=== PATIENT | male | born 1955 | race Caucasian/White ===

== ENCOUNTER → 2016-10-11 | Outpatient (CLI) | payer BC ==
[~2016-10-11] MED LIST: ALBINS/ INH; ALBUAER2 INH; AMLO-110 PO; AMOX875T PO; ASPEC81 PO; ATOR10TA82 PO; ATV/1 PO; AZIT500T26 PO; FLUT0.15 NAE; FLUT1INH3 INH; FORM1NEB; FORM1NEB INH; GFNSR600 PO; HYDR0.1C8 TOP; HYDR2.5L TOP; IPRA0.03; KETO2SHA TOP; OXGN; PRED-301 PO; PREDNISONE PO; PRLSR20 PO; TIOT1AER INH; ZOLP10TA6 PO; ZOLP5TAB PO; levofloxacin PO
--- NOTE | 2016-10-17 07:46 | PULMONARY FUNCTION TEST ---
Interpretation based off ATS criteria. SPIROMETRY: Very severe obstructive ventilatory disease with an FEV1 of 31%. LUNG VOLUMES: Signs of hyperinflation with an RV of 244%. DIFFUSION: Moderately decreased diffusion capacity with a DLCO of 49%, DLCO to VA ratio 65%. INTERPRETATION: Very severe obstructive ventilatory disease.
== END | disposition home or self-care (01) ==
LOC: C.RC 12:19
PROVIDERS: ATTEND Physician Assistant
DX: J44.1 Chronic obstructive pulmonary disease with (acute) exacerbation (principal)

== ENCOUNTER → 2017-02-01 | Outpatient (CLI) | payer BC ==
[~2017-02-01] MED LIST changes: -AMOX875T PO; -ATOR10TA82 PO; +ATOR10TA88 PO; -FORM1NEB INH; -HYDR2.5L TOP; -KETO2SHA TOP; +OPTIRAY 320 IV PRN; -OXGN; -PRED-301 PO; -ZOLP5TAB PO
--- NOTE | 2017-02-01 11:25 | DIAGNOSTIC IMAGING REPORT ---
(CHEST) THORAX WITH CT DOSE: 368.24 mGycm HISTORY: Cough. COPD. J44.9 Chronic obstructive pulmonary [id number] Cough appt ached TECHNIQUE: Multiaxial CT images of the chest were performed following the intravenous administration of contrast. A dose lowering technique was utilized adhering to the principles of ALARA. COMPARISON: 05/01/2013 FINDINGS: Severe bullous emphysema. Interval development of a posterior right lower lobe parenchymal infiltrate with a focus of peripheral consolidative change is seen on transaxial image 45 measuring 3.2 x 2.0 cm. No additional regions of infiltrative or consolidative change are present. There is no evidence for cardiac enlargement. There is no pathologic adenopathy. Thoracic aorta shows mild atelectatic change. Is negative for aneurysm or dissection. Thyroid appears to be inhomogeneous and slightly multinodular. It does not appear enlarged. All major components of the pulmonary vasculature appear to enhance appropriately. Mild stable hyperplastic change of left adrenal. The upper abdomen is otherwise unremarkable. Instill note is made of a enhancing nodule medial right hepatic lobe felt to be unchanged and most consistent with a small hemangioma. IMPRESSION: 1. Bullous emphysema in general stable compared to the prior study. 2. Interval development of a right lower lobe parenchymal infiltrate with a focal region of peripheral consolidative change. 3. Although most likely inflammatory, if this does not resolve in an appropriate time period, bronchoscopy would be suggested. 4. note is made of a focus of hyperemia medial right hepatic lobe suggesting a small hemangioma. This is unchanged from the prior study. The above report was generated using voice recognition software. It may contain grammatical, syntax or spelling errors. Electronically signed by: Kojo Rodriguez M.D. 02/01/2017 11:24 AM Dictated Date/Time: 02/01/2017 11:17 AM
== END | disposition home or self-care (01) ==
LOC: C.CTS 10:42
PROVIDERS: ATTEND Internal Medicine Pulmonary Disease
DX: J43.8 Other emphysema (principal); R91.8 Other nonspecific abnormal finding of lung field

== ENCOUNTER → 2017-04-11 | Outpatient (CLI) | payer BC ==
[~2017-04-11] MED LIST changes: -ATOR10TA88 PO; -FLUT0.15 NAE; -FORM1NEB; +FORM1NEB INH; -GFNSR600 PO; -HYDR0.1C8 TOP; +HYDR2.5L TOP; +KETO2SHA TOP; -OPTIRAY 320 IV PRN; +OXGN; +PRED-301 PO; -ZOLP10TA6 PO; +ZOLP5TAB PO; -levofloxacin PO
--- NOTE | 2017-04-11 10:14 | DIAGNOSTIC IMAGING REPORT ---
(CHEST) THORAX WITHOUT CT DOSE: 239.22 mGy.cm HISTORY: COPD, COUGH TECHNIQUE: Multiaxial CT images of the chest were performed without contrast. A dose lowering technique was utilized adhering to the principles of ALARA. COMPARISON: Chest CT 02/01/2017. Chest 03/21/2017. FINDINGS: There is again noted severe bullous emphysema. Focal right lower lobe consolidation has a most completely resolved in the interval. A small linear density remains. A few linear densities within the right upper lobe favor subsegmental atelectasis or scarring. This is not significantly changed. 5 mm nodular density within the right middle lobe on image 188 is new from the prior study and may represent a small focus of inflammatory/infectious change. The central airways are patent. No pneumothorax. No pleural effusions. The visualized spleen is unremarkable. Stable bilateral adrenal gland nodules. The largest on the right measures 2.1 cm. These are consistent with benign adenomas. Mild calcified plaque within the normal caliber thoracic aorta. The heart is normal in size. Trace pericardial fluid, unchanged. No mediastinal or hilar lymphadenopathy. Stable 2.4 cm hypodense lesion within the right hepatic lobe. IMPRESSION: 1. Near complete resolution of the focal right lower lobe airspace opacity. Therefore, this likely represents a resolving pneumonia. 2. Severe bullous emphysema is again noted. Electronically signed by: Bonilla Bradford M.D. 04/11/2017 10:13 AM Dictated Date/Time: 04/11/2017 10:07 AM
== END | disposition home or self-care (01) ==
LOC: C.CTS 09:45
PROVIDERS: ATTEND Internal Medicine Pulmonary Disease
DX: R05 Cough (principal); J44.9 Chronic obstructive pulmonary disease, unspecified

== ENCOUNTER 2017-05-01 07:01 | Day surgery (SDC) | payer BC ==
[2017-04-28 14:57] VITALS: Ht 167.6 cm; Wt 66.4 kg
[~2017-05-01] VITALS: Ht 167.6 cm; Wt 66.4 kg
[~2017-05-01 07:01] MED LIST changes: -ALBUAER2 INH; -ASPEC81 PO; +ASPI81TA28 PO; +CEFAZOLIN 2000MG IV PUSH 10 ML IV SCH; +GUAI1TAB69 PO; -IPRA0.03; -KETO2SHA TOP; +LACTATED RINGER'S 1000ML 1,000 ML IV SCH; +PRED10TA PO; -PREDNISONE PO; +VNTHFA/IN INH
[2017-05-01 07:41] VITALS: BP 144/81; PULSE 95; TEMP 36.7; O2SAT 95
[2017-05-01] MEDS ORDERED: MIDAZOLAM HCL 1 MG/ML 2ML VIAL ONE ×2 (07:58→07:59)
[2017-05-01] MEDS ORDERED: FENTANYL CITRATE INJ 50 MCG/1 ML 2 ML VIAL ONE (07:59)
--- NOTE | 2017-05-01 08:23 | History & Physical Bridge Note ---
H&P Re-Evaluation Bridge Note: I have examined the patient, reviewed the History & Physical and in the interval since the performance of the History & Physical I have noted the following changes of clinical significance: No changes noted
[2017-05-01] MEDS ORDERED: BUPIVACAINE 0.5 % 5 MG/1 ML MPF 30ML VIAL ONE (08:43)
[2017-05-01] MEDS ORDERED: LIDOCAINE HCL 1% 20 ML VIAL ONE (08:44)
[2017-05-01] MEDS ORDERED: BACITRACIN OINT 15 GM TUBE ONE (08:44)
[2017-05-01] MEDS ORDERED: PROPOFOL IV EMULSION 10 MG/ML 20 ML VIAL IV ONE (09:40)
[2017-05-01] MEDS ORDERED: SODIUM CHLORIDE 0.9% 1000ML 1,000 ML IV SCH (09:57)
--- NOTE | 2017-05-01 09:57 | [facility] Post Operative Brief Note ---
Immediate Operative Summary Operative Date May 01, 2017. Pre-Operative Diagnosis Right inguinal hernia Post-Operative Diagnosis same as preoperative diagnosis Procedure(s) Performed Open Repair Right Inguinal Hernia with Mesh Surgeon Dr. Robb Business Banker Surgeon(s) neurosurgical nurse Estimated Blood Loss 5ml Findings right direct inguinal hernia Fluids (cc crystalloids) 800ml Specimens none per surgeon Drains none Anesthesia sedation + local Complication(s) None Disposition Recovery Room / PACU
[2017-05-01] MEDS ORDERED: ONDANSETRON INJ 2 MG/ML 2 ML VIAL IV PRN (10:00)
[2017-05-01] MEDS ORDERED: OXYCODONE/ACETAMINOPHEN 5-325 TAB PO PRN (10:00)
[2017-05-01] MEDS ORDERED: MoRPHine SULFATE 4 MG/ML 1 ML CARP\\VIAL IV PRN (10:00)
[2017-05-01] MEDS ORDERED: OXYC-57 PO (10:01)
--- NOTE | 2017-05-01 10:04 | Discharge Instructions ---
Discharge Instructions Date of Service May 01, 2017. Visit Reason for Visit: Right Inguinal Hernia Discharge Discharge Diagnosis / Problem: S/P open repair right inguinal hernia with mesh Discharge Goals Goal(s): Decrease discomfort, Improve function Activity Recommendations Activity Limitations: per Instructions/Follow-up section Lifting Limitations: no more than 25 pounds Exercise/Sports Limitations: rest today May Resume Sexual Activity: when tolerated Shower/Bathe: may shower/bathe in 3 days Driving or Machine Use: resume 3 days after discharge Anesthesia . Post Anesthesia Instructions: If you have had General Anesthesia or IV Sedation: * Do not drive today. * Resume driving when surgeon permits. * Do not make important decisions or sign legal documents today. * Call surgeon for: 1. Temperature elevations greater than 101 degrees F. 2. Uncontrollable pain. 3. Excessive bleeding. 4. Persistent nausea and vomiting. 5. Medication intolerance (nausea, vomiting or rash). * For nausea and vomiting use only clear liquids such as: tea, soda, bouillon until nausea subsides, then gradually increase diet as tolerated. * If you have any concerns or questions, call your surgeon's office. If physician is unavailable and it is an emergency, call 911 or go to the nearest emergency room. . Instructions / Follow-Up Instructions / Follow-Up keep the dressing on for 4 days, he can take a shower on 05/05/2017, no driving while taking pain medicine, F/P DR. Robb 2 weeks, Diet Recommendations Recommended Home Diet: resume previous diet Procedures Procedures Performed: Open Repair Right Inguinal Hernia with Mesh Pending Studies Studies pending at discharge: no Medical Emergencies . Who to Call and When: Medical Emergencies: If at any time you feel your situation is an emergency, please call 911 immediately. . Non-Emergent Contact Non-Emergency issues call your: Surgeon Call Non-Emergent contact if: you have a fever, temperature is above 100.5, your pain is not controlled, your pain is worsening, wound has increased drainage, wound has increased redness . . "Provider Documentation" section prepared by Rae Robb. . [place] Drug Monitoring Program Search Results: no issues identified
--- NOTE | 2017-05-01 10:23 | Anesthesiology Progress Note ---
Anesthesia Post Op Note Date & Time May 01, 2017 at 10:23 Vital Signs Pain Intensity: 0 Vital Signs Past 12 Hours Date Time Temp Pulse Resp B/P (MAP) Pulse Ox O2 Delivery O2 Flow Rate FiO2 05/01/17 10:05 36.8 92 20 115/73 93 Room Air 05/01/17 09:55 91 20 113/77 95 Room Air 05/01/17 09:47 37.0 95 14 114/78 100 Room Air 05/01/17 07:41 36.7 95 18 144/81 (102) 95 Room Air Notes Mental Status: alert / awake / arousable, participated in evaluation Pt Amnestic to Procedure: Yes Nausea / Vomiting: adequately controlled Pain: adequately controlled Airway Patency, RR, SpO2: stable & adequate BP & HR: stable & adequate Hydration State: stable & adequate Anesthetic Complications: no major complications apparent
[2017-05-01 10:35] VITALS: BP 114/71; TEMP 36.6; O2SAT 93
[2017-05-01 11:10] VITALS: BP 116/77; TEMP 36.4; O2SAT 95
[2017-05-01] MEDS ORDERED: EpHEDrine SULFATE INJ 50 MG/ML AMP IV PRN (11:15)
[2017-05-01] MEDS ORDERED: ATROPINE SULFATE 0.1 MG/ML 5ML SYR IV PRN (11:15)
[2017-05-01 11:30] VITALS: BP 129/76; PULSE 94; TEMP 36.4; O2SAT 95
--- NOTE | 2017-05-01 12:07 | OPERATIVE REPORT ---
DATE OF OPERATION: 05/01/2017 PREOPERATIVE DIAGNOSIS: Right inguinal hernia. POSTOPERATIVE DIAGNOSIS: Same. PROCEDURE: Open repair, right inguinal hernia with mesh. SURGEON: Dr. Rae Robb. ANESTHESIA: Conscious sedation plus local. ESTIMATED BLOOD LOSS: About 5 mL. FINDINGS: Right direct inguinal hernia. COMPLICATIONS: None. IV FLUIDS: 800 mL. INDICATIONS FOR THE PROCEDURE: This is a 61-year-old gentleman who presented with symptomatic right inguinal hernia. The patient required to do right inguinal hernia with mesh. I did talk to the patient about the benefit and risk, alternate procedure. I indicated the risks may include but not limited such as bleeding, infection, seroma, hernia recurrence, chronic incision pain. The patient understands. He signed informed consent and he agreed to proceed with the procedure. I answered all questions. DETAILS OF PROCEDURE: We brought the patient to the OR, put the patient in the supine position. The patient received SCDs on bilateral legs to prevent DVT. Also, the patient received 2 grams Ancef IV for prophylactic antibiotic. The patient received conscious sedation by the anesthesiology. The patient's abdomen and pelvic area was prepped and draped in routine sterile fashion. After time out, I used an injection of local anesthesia by using 1% lidocaine mixed with 0.5% Marcaine around the right inguinal area and then I made about a 4 cm incision on the right inguinal area. I opened external and found the patient had a direct hernia. I immobilized the caudal structure and then chose a large plug to plug the direct hernia and then I used another 3 x 5 cm Prolene mesh to reinforce the posterior wall. Then I used 2-0 Prolene suture mesh to the conjoined tendon continuous running and then I used another 2-0 Prolene suture mesh to right inguinal ligament continuous running to suture meeting together tied. The mesh sat nicely, no tension. Hemostasis obtained. Then I closed the external oblique by using 2-0 Vicryl continuous running, closed subcutaneous layer by using 2-0 Vicryl continuous running, closed skin by using 4-0 Vicryl continuous running. We put the dressing on. The patient tolerated the procedure well. All instrument, needle and sponge count correct x2 at the end of case. The patient transferred to recovery room in stable condition. After the procedure, I did talk to the patient's family member about the OR finding and procedure we did. Also, I gave them the postop care instruction and they understand. I attest to the content of the Intraoperative Record and any orders documented therein. Any exceptions are noted below. JOSHUA
[2017-05-02] MEDS ORDERED: CEFAZOLIN SOD 2000MG/10 ML IV PUSH IV ONE (06:00)
== END 2017-05-01 11:40 | disposition home or self-care (01) ==
LOC: C.ACU 07:01
PROVIDERS: ATTEND Surgery
DX: K40.90 Unilateral inguinal hernia, without obstruction or gangrene, not specified as recurrent (principal); I10 Essential (primary) hypertension; J44.9 Chronic obstructive pulmonary disease, unspecified; E78.5 Hyperlipidemia, unspecified; Z88.1 Allergy status to other antibiotic agents; Z90.89 Acquired absence of other organs; Z98.890 Other specified postprocedural states; Z98.52 Vasectomy status; Z79.899 Other long term (current) drug therapy; Z87.891 Personal history of nicotine dependence; Z86.14 Personal history of Methicillin resistant Staphylococcus aureus infection

== ENCOUNTER → 2017-09-01 | Outpatient (CLI) | payer BC ==
[~2017-09-01] MED LIST changes: -CEFAZOLIN 2000MG IV PUSH 10 ML IV SCH; -LACTATED RINGER'S 1000ML 1,000 ML IV SCH
--- NOTE | 2017-09-01 13:26 | DIAGNOSTIC IMAGING REPORT ---
CHEST 2 VIEWS ROUTINE CLINICAL HISTORY: R05 [id number] COMPARISON STUDY: 03/21/2017 FINDINGS: There is severe pulmonary emphysema. There is no focal pulmonary consolidation. There is no failure. There are no pleural effusions.[ IMPRESSION: Severe emphysema. No acute findings. Electronically signed by: Romie Betancourt M.D. 09/01/2017 1:24 PM Dictated Date/Time: 09/01/2017 1:24 PM
[2017-09-01 14:36] LABS: BASO % 0.2 %; BASO ABS # 0.02 K/uL (0-0.2); EOS % 0.7 %; EOS ABS # 0.06 K/uL (0-0.5); HEMATOCRIT 46.6 % (42-52); HEMOGLOBIN 15.8 g/dL (14.0-18.0); IG# 0.08 K/uL (0.00-0.02); LYMPH % 16.1 %; LYMPH ABS # 1.34 K/uL (1.2-3.4); MEAN CELL VOLUME 87.8 fL (80-100); MEAN CORPUSCULAR HEMOGLOBIN 29.8 pg (25-34); MEAN CORPUSCULAR HGB CONC 33.9 g/dl (32-36); MEAN PLATELET VOLUME 9.6 fL (7.4-10.4); MONO % 8.5 %; MONO ABS # 0.71 K/uL (0.11-0.59); NEUT % 73.5 %; NEUT ABS # 6.13 K/uL (1.4-6.5); PLATELET COUNT 255 K/uL (130-400); RED CELL DISTRIBUTION WIDTH CV 13.6 % (11.5-14.5); RED CELL DISTRIBUTION WIDTH SD 43.8 fL (36.4-46.3); WHITE BLOOD COUNT 8.34 K/uL (4.8-10.8)
[2017-09-01 14:49] LABS: INR 0.9 (0.9-1.1); PTT PATIENT 23.3 SECONDS (21.0-31.0)
[2017-09-01 14:52] LABS: BLOOD UREA NITROGEN 26 mg/dl (7-18); CALCIUM 8.6 mg/dl (8.5-10.1); CARBON DIOXIDE 29 mmol/L (21-32); CREATININE 1.08 mg/dl (0.60-1.40); GLUCOSE 112 mg/dl (70-99); SODIUM 139 mmol/L (136-145)
[2017-09-02 06:55] LABS: HEMOGLOBIN A1C 5.7 % (4.5-5.6)
== END | disposition home or self-care (01) ==
LOC: C.RAD1850 12:54
PROVIDERS: ATTEND Physician Assistant
DX: R05 Cough (principal)

== ENCOUNTER 2017-09-14 08:27 | Day surgery (SDC) | payer BC ==
[~2017-09-14] VITALS: Ht 167.6 cm; Wt 65.0 kg
--- NOTE | 2017-09-14 06:37 | History and Physical ---
History & Physical Date of Service September 14, 2017. History & Physical 61-year-old male presenting for bronchoscopic evaluation of recurrent cough with productive sputum and underlying severe obstructive ventilatory disease with bilateral bullous changes. PMHx: Sever COPD/emphysema/bilateral bulli, 80-pack year smoking history, pneumonia (CRISSY & MRSA), 2LPM nocturnal and w/activity O2, and GERD. He is on chronic prednisone: 5mg daily and 2x weekly dosing azithromycin. PMHx includes allopathic stem cell therapy in [place] 05/2014) He has longstanding history of severe obstructive lung disease and pulmonary emphysema with h/o and frequent pulmonary infections including respiratory cultures + MRSA and CRISSY. Dyspnea provoked with with exposure to extremes of temperature and activity. Additional exposures to sick exposures by his young grandchildren. 08/2014 qualified for supplemental O2 - 2LPM with ambulation and QHS. CT chest 02/01/2017: Consistent with bullous emphysema-stable from previous studies. Interval development of right lower lobe parenchymal infiltrate with focal region of peripheral consolidative change. CT chest 04/11/2017: Severe bullous emphysema. The focal right lower lobe consolidation is near early complete really resolved. Small linear density remaining. New 5mm nodule in the RML most consistent with inflammation/ infectious change. Last visit he was seen with persistent symptoms of dyspnea, tremors and wheeze and cough productive of green sputum despite two courses of antibiotic prednisone taper and scheduled use of his nebulizers. He was treated with additional 125-IM Solu-Medrol in the office, restart steroid taper, Levofloxacin 750mg as well as completed lab and CXR. Bronchoscopy arranged for next week as well. Exam/interview today he reports in general he is feeling improved. He states his wheezing has resolved. His shortness of breath has improved although is not yet back to his baseline. He continues to describe symptoms of cough productive of green sputum. He does report today that he has green rhinorrhea and some posterior drainage as well. He denies any symptoms of sinus pressure, headaches, fevers or chills. He denies any symptoms of pleuritic pain or chest pain. He has been compliant with his medications. He is somewhat tearful on exam today as he realizes that he may need to consider disability this Summer. 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 PFT 07/16/14: FVC 3.67/73% (16% change), FEV1: 2.96/25% (40% change), FEF 25-75%: 3.10/8% (24% change), VC: 3.67/73%, T.73/155%, RV: 2.06/301%, DLCO: 48% PFT 10/11/16: FEV1: 31%, DLCO: 49%, DLCO/VA: 65% - very severe obstructive ventilatory disease. Active Problems 1. Severe COPD FEV1 39%, diffusion capacity 34% 2. Acid reflux 3. Cough 4. Hyperlipidemia 5. Hypoxia 6. Insomnia (G47.00) 7. MAC (mycobacterium avium-intracellulare complex) 8. Methicillin resistant Staphylococcus aureus infection 9. Oral thrush 10. Polyuria 11. Tachycardia Surgical History 1. History of Hernia Repair 2. History of Hip Surgery 3. History of Tonsillectomy Family History 1. Family history of Diabetes Mellitus 2. Family history of Heart Disease 3. Family history of Diabetes Mellitus 4. Family history of Heart Disease Social History Denied: History of Alcohol Use (History) Denied: History of Drug Use Former smoker (Z87.891) Denied: History of Home Environment Domestic Violence Denied: History of Housing Without Smoke Detectors Marital History - Currently Denied: History of Uses Safety Equipment - Seatbelts Current Meds 1. Albuterol Sulfate (2.5 MG/3ML) 0.083% Inhalation Nebulization Solution 2. Arnuity Ellipta 200 MCG/ACT Inhalation Aerosol Powder Breath Activated; INHALE 1 PUFF 3. LevoFLOXacin 750 MG Oral Tablet; Take 1 tablet daily; 4. Perforomist 20 MCG/2ML Inhalation Nebulization Solution; VIA NEBULIZER EVERY EVENING 6. Vortex Valved Holding Chamber Device; TO USE WITH INHALER; 8. PredniSONE 9. Ipratropium [place] 0.02 % Inhalation Solution; USE 1 UNIT DOSE IN NEBULIZER PRN 11. Zolpidem Tartrate 5 MG Oral Tablet; TAKE 1 TABLET BY MOUTH AT BEDTIME 12. Azithromycin 500 MG Oral Tablet; TAKE 1 TABLET 2 TIMES PER WEEK 13. Stiolto Respimat 2.5-2.5 MCG/ACT Inhalation Aerosol Solution; USE 2 INHALATIONS 14. AmLODIPine Besylate 5 MG Oral Tablet; TAKE 1 TABLET DAILY 15. Aspirin 81 MG TABS; TAKE 1 TABLET DAILY 16. Hydrocortisone 2.5 % External Cream; APPLY TO AFFECTED AREA TWICE DAILY 17. Ketoconazole 2 % External Cream; APPLY SPARINGLY TO AFFECTED AREA(S) TWICE 18. LORazepam 1 MG Oral Tablet; TAKE 1 TABLET AT BEDTIME NEEDED 19. Omeprazole 20 MG Oral Capsule Delayed Release; TAKE 1 CAPSULE TWICE DAILY 20. Oxygen; 2 LPM VIA NASAL CANNULA 21. Ventolin HFA 108 (90 Base) MCG/ACT Inhalation Aerosol Solution; INHALE 2 PUFFS Allergies 1. Clarithromycin TABS Immunizations Influenza --- Series1: 2010; Series2: Feb 2012; Series3: 13-Jan-2013; Series4: 11-Feb-2014; Series5: 13-Mar-2015; Series6: 26-Jan-2016 PCV --- Series1: 27-Mar-2015 PPSV --- Series1: Jan 2013; Series2: Unknown Td/DT --- Series1: Unknown Vital Signs Weight: 146 lb 8 oz BMI Calculated: 23.65 BSA Calculated: 1.75 Blood Pressure: 124 / 68, RUE, Sitting Respiration: 18 Heart Rate: 115 O2 Saturation: 94, Nasal Cannula FiO2: 2L/min, Nasal Cannula Constitutional: Well developed male, no acute distress Head: + facial symmetry. Corrective lenses. Eyes: Full EOMs, PERRLA, no conjunctiva injection Mouth: Mallampati I, No erythema or exudate. No post nasal gtt appreciated Throat: trachea midline, no masses Respiratory: Non-labored respirations. Reduced breath sounds throughout. No wheeze or rhonchi. Cardiovascular: Regular rate and rhythm, Diminished S1, S2, no murmur appreciated. +[2] radial pulses Extremities/MSK: moving and developed symmetrically - no peripheral edema or calf tenderness. Several areas of scattered ecchymosis. Neurologic: Alert and Oriented x 3. Appropriate affect.
[~2017-09-14 08:27] MED LIST changes: -ALBINS/ INH; -ASPI81TA28 PO; -GUAI1TAB69 PO; -HYDR2.5L TOP; -OXGN; -PRED-301 PO; -TIOT1AER INH; -VNTHFA/IN INH
[2017-09-14 09:15] VITALS: BP 139/84; PULSE 91; TEMP 36.8; O2SAT 96; Ht 167.6 cm; Wt 65.0 kg
--- NOTE | 2017-09-14 09:54 | Pre Sedation Assessment ---
Pre Sedation Assessment General Date of Sedation: September 14, 2017. Vital Signs Past 12 Hours Date Time Temp Pulse Resp B/P (MAP) Pulse Ox O2 Delivery O2 Flow Rate FiO2 09/14/17 09:15 36.8 91 20 139/84 (102) 96 Room Air Review Cardiovascular: regular rate, rhythm, no edema, no gallop, no JVD, no murmur, normal peripheral pulses Lungs: + decreased breath sounds, + rhonchi Pre-Sedation Airway Assessment Smoking Status: Former Smoker Hx of Sleep Apnea: No Hx of difficult intubation: No Short Thick Neck: No Thyro-mental Distance: > 3 Finger Breadths Oral Cavity: Dentures Mallampati Classification: Class III ASA Classification: Class II NPO Status Date of Last Intake of Fluids: September 13, 2017 Time of Last Intake of Fluids: 2099 Date of Last Intake of Solids: September 13, 2017 Time of Last Intake of Solids: 1999 Procedure Planning Contraindications for Sedation: None Current Medications Reviewed: Yes Notes The planned sedation has been discussed with the patient. Informed Consent was obtained. I have identified the patient, determined the appropriateness of sedation and have assessed the patient immediately prior to the procedure. All medicine(s) and interventions are by my order.
[2017-09-14] MEDS ORDERED: LIDOCAINE HCL 2% LOCAL 50ML VIAL INSTIL ONE (10:27)
[2017-09-14] MEDS ORDERED: MIDAZOLAM HCL 5 MG/ML 1 ML VIAL IV ONE (10:27)
[2017-09-14] MEDS ORDERED: FENTANYL CITRATE INJ 50 MCG/1 ML 2 ML VIAL IV ONE (10:27)
[2017-09-14] MEDS ORDERED: LIDOCAINE 4% INH SOLN 4 ML BTL TOP ONE (10:27)
[2017-09-14] MEDS ORDERED: LIDOCAINE VISCOUS 2% 100ML TOP ONE (10:27)
--- NOTE | 2017-09-14 10:31 | Bronchoscopy Procedure Note ---
Bronchoscopy Procedure Note Procedure: Bronchoscopy, conscious sedation, bronchial lavage Consent: Obtained through the patient placed into the chart Pre-procedural diagnosis: Chronic cough/bronchiectasis Post-procedural diagnosis: Chronic cough/bronchiectasis with a right vocal cord paralysis Start time: 1010 End time: 1025 Total time: 15 minutes Analgesia: 2% liquid lidocaine: Via nebulizer 4% gel lidocaine: Via right naris 2% liquid lidocaine: Via bronchoscopy Sedation: Versed IV: 6mg Fentanyl IV: 75 g Procedure: The Olympus video bronchoscope was used for this procedure and passed down through the right naris Left naris/posterior naris/posterior oropharynx: Diffuse nasal erythema with some mild bleeding at the entrance Glottis: Anatomically within normal limits Vocal cords: Poor movement of the right vocal cord. Abnormal/decreased but not paradoxical abduction and abduction of the right vocal cord Subglottis/trachea/Vee: Anatomically within normal limits Right bronchial tree: Right mainstem bronchus: Anatomically within normal limits Right upper lobe: Anatomically within normal limits Bronchus intermedius: Anatomically within normal limits Right middle lobe: Anatomically within normal limits Right lower lobe: Minimal rotation clockwise of the right lower lobe and some severe retroflexion of the superior subsegment of the right lower lobe Left bronchial tree: Left mainstem bronchus: Anatomically within normal limits Left upper lobe: Anatomically within normal limits Lingula: Anatomically within normal limits Left lower lobe: Anatomically within normal limits Bronchial alveolar lavage: Right upper lobe and right middle lobe EBL: None Complications: None Follow-up: ASU
--- NOTE | 2017-09-14 10:35 | Discharge Instructions ---
Discharge Instructions Date of Service September 14, 2017. Admission Reason for Admission: Cough, Shortness Of Breath Discharge Discharge Diagnosis / Problem: Chronic refractory cough, right vocal cord dysfunction Discharge Goals Goal(s): Diagnostic testing Activity Recommendations Activity Limitations: resume your previous activity Exercise/Sports Limitations: as tolerated Driving or Machine Use: resume 1 day after discharge . Instructions / Follow-Up Instructions / Follow-Up Follow-up with the [facility] pulmonary clinic Current Hospital Diet Patient's current hospital diet: Discharge Diet Recommended Diet: Regular Diet Procedures Procedures Performed: Bronchoscopy, conscious sedation, bronchial lavage of the right middle lobe and right upper lobe Pending Studies Studies pending at discharge: no Laboratory Results Hemoglobin A1c Test 09/01/17 13:08 Range/Units Estimated Average Glucose 117 mg/dl Hemoglobin A1c 5.7 H 4.5-5.6 % Medical Emergencies . Who to Call and When: Medical Emergencies: If at any time you feel your situation is an emergency, please call 911 immediately. . Non-Emergent Contact Non-Emergency issues call your: Geomorphologist Call Non-Emergent contact if: you have a fever, temperature is above 101 . . "Provider Documentation" section prepared by Grayson Wong. .
[2017-09-14 10:54] VITALS: BP 123/74; PULSE 92; TEMP 37; O2SAT 95
[2017-09-14] MEDS ORDERED: NURSING VERBAL MED ORDER ONE (11:00)
[2017-09-14 11:15] VITALS: BP 118/70; PULSE 86; TEMP 37.1; O2SAT 94
[2017-09-14 11:45] VITALS: BP 105/71; PULSE 81; TEMP 37; O2SAT 93
[2017-09-14] MEDS ORDERED: SODIUM CHLORIDE 0.9% 1000ML 1,000 ML IV SCH (11:45)
[2017-09-14 12:22] VITALS: BP 110/69; PULSE 84; TEMP 36.4; O2SAT 96
[2017-09-14 12:50] VITALS: BP 122/81; PULSE 87; TEMP 36.8; O2SAT 94
[2017-09-20] MEDS ORDERED: HYDR2.5L TOP (03:57)
[2017-09-20] MEDS ORDERED: ASPI81TA28 PO (14:56)
[2017-09-20] MEDS ORDERED: GUAI1TAB69 PO (14:57)
[2017-09-20] MEDS ORDERED: VNTHFA/IN INH (16:03)
== END 2017-09-14 13:05 | disposition home or self-care (01) ==
LOC: C.ACU 08:27
PROVIDERS: ATTEND Internal Medicine Critical Care Medicine
DX: R05 Cough (principal); J47.9 Bronchiectasis, uncomplicated; J38.01 Paralysis of vocal cords and larynx, unilateral; J44.9 Chronic obstructive pulmonary disease, unspecified; Z86.14 Personal history of Methicillin resistant Staphylococcus aureus infection; K21.9 Gastro-esophageal reflux disease without esophagitis; E78.5 Hyperlipidemia, unspecified; G47.00 Insomnia, unspecified; Z83.3 Family history of diabetes mellitus; Z82.49 Family history of ischemic heart disease and other diseases of the circulatory system; Z87.891 Personal history of nicotine dependence; Z79.82 Long term (current) use of aspirin; Z88.1 Allergy status to other antibiotic agents

== ENCOUNTER 2017-09-20 18:34 | Inpatient (IN) | payer BC ==
[~2017-09-20] VITALS: Ht 172.7 cm; Wt 72.7 kg
[~2017-09-20 18:34] MED LIST changes: +ASPI81TA28 PO; +GUAI1TAB69 PO; +HYDR2.5L TOP; +VNTHFA/IN INH
[2017-09-20] MEDS ORDERED: ONDANSETRON INJ 2 MG/ML 2 ML VIAL IV STA (18:39)
[2017-09-20] MEDS ORDERED: SODIUM CHLORIDE 0.9% 1000ML 1,000 ML IV STA (18:39)
[2017-09-20] MEDS ORDERED: ALBUT/IPRATROP 3MG/0.5MG NEB 3 ML VIAL INH STA (18:45)
--- NOTE | 2017-09-20 18:46 | EMERGENCY ROOM VISIT NOTE ---
History Report prepared by Abdoulaye: Mela Gama Under the Supervision of: Juan BarreraO. First contact with patient: 18:34 Chief Complaint: OVERDOSE (INTENTIONAL) Stated Complaint: OVERDOSE History of Present Illness The patient is a 62 year old male who presents to the Emergency Room brought in by EMS with complaints of episodic general drug overdose at 0800 this morning. Per EMS, the patient reported taking a handful of Ambien and Ativan, and six Oxycodone. They report that the patient was found by his this evening after she arrived home from work and EMS arrived at 1745 today. They note the patient was not administered any medication en route. The patient states that he did take 10 Ambien, 20 Ativan, F Oxycodone, and drank alcohol. He is a current smoker. He states that he took the medication intentionally and has been planning to do this for a while. He states that he has been having breathing problems. He denies any history of depression and denies seeing a psychiatrist in the past. He states that he called emergency services. The patient did vomit sometime before EMS arrived. Source of History: patient, EMS Onset: 0800 this morning Position: other (general ) Quality: other Timing: other (episodic ) Associated Symptoms: + vomiting Review of Systems See HPI for pertinent positives & negatives. A total of 10 systems reviewed and were otherwise negative. Past Medical & Surgical Medical Problems: (1) COPD exacerbation (2) Intentional overdose of drug in tablet form (3) Pneumonia Family History Patient reports no known family medical history. Social History Smoking Status: Former Smoker Alcohol Use: heavy Marital Status: Housing Status: lives with significant other Occupation Status: unemployed Current/Historical Medications Scheduled Amlodipine Besylate (Amlodipine Besylate), 5 MG PO QAM Aspirin (Aspirin Ec), 81 MG PO QAM Azithromycin (Azithromycin), 500 MG PO 2XWK Fluticasone Furoate (Inhalatio (Arnuity Ellipta), 1 INHA INH QAM Formoterol Fumarate (Perforomist), 2 ML NEB QPM Guaifenesin (Mucinex Maximum Strength), 1,200 MG PO BID Home O2 Therapy (Oxygen), 2.5 LITERS NA HS Hydrocortisone (Topical) (Hydrocortisone), 1 APPLN TOP QAM Montelukast Sod (Montelukast Sodium), 10 MG PO HS Omeprazole (Prilosec), 20 MG PO BID Prednisone (Prednisone), 5 MG PO QAM Sodium Chloride (Inhalant) (Sodium Chloride), 1 VIAL NEB UD Tiotropium [place]-Olodaterol (Stiolto Respimat 2.5-2.5 Mcg/Act), 1 PUFF INH QAM Zolpidem Tartrate (Zolpidem Tartrate), 5 MG PO HS Scheduled PRN Albuterol Hfa (Ventolin Hfa), 2 PUFFS INH QID PRN for Shortness of Breath Albuterol Sulf (Proventil 0.083% 2.5MG/3ML), 2.5 MG NEB Q6H PRN for SOB/Wheezing Lorazepam (Lorazepam), 0.5 MG PO TID PRN for Anxiety/Agitation Prednisone (Prednisone), 10 MG PO UD PRN for Rescue Kit Allergies Coded Allergies: Clarithromycin (Verified Allergy, Intermediate, SHORTNESS OF BREATH, ) Atorvastatin (Verified Allergy, Unknown, MUSCLE ACHES ARMS, 09/14/17) Metaproterenol (Verified Allergy, Unknown, UNKNOWN, 09/14/17) Sympathomimetics (Verified Allergy, Unknown, `, 09/14/17) Physical Exam Vital Signs Date Time Temp Pulse Resp B/P (MAP) Pulse Ox O2 Delivery O2 Flow Rate FiO2 09/20/17 21:30 93 111/77 99 Nasal Cannula 3.0 09/20/17 20:20 89 119/73 100 Nasal Cannula 3.0 09/20/17 20:13 90 09/20/17 19:14 81 21 111/69 100 Nasal Cannula 3.0 09/20/17 19:02 100 09/20/17 19:02 100 Nebulizer 09/20/17 18:45 36.6 82 19 123/83 94 Room Air Physical Exam GENERAL: Patient is listless, does not appear to be anxious or uncomfortable, slow to answer questions. EYES: The conjunctivae are clear. The pupils are round and reactive. EARS, NOSE, MOUTH AND THROAT: The nose is without any evidence of any deformity. Mucous membranes are moist tongue is midline NECK: The neck is nontender and supple. RESPIRATORY: Lung sounds are diminished throughout, scattered expiratory wheezing, no conversational dyspnea appreciated. CARDIOVASCULAR: Regular rate and rhythm noted there no murmurs rubs or gallops normal S1 normal S2 GASTROINTESTINAL: The abdomen is soft. Bowel sounds are present in all quadrants. Abdomen is nontender MUSCULOSKELETAL/EXTREMITIES: There is no evidence of gross deformity full range of motion is noted in the hips and shoulders SKIN: There is no obvious evidence of any rash. There are no petechiae, pallor or cyanosis noted. NEUROLOGIC: Patient is awake alert and oriented x3, strength is symmetric. PSYCHIATRIC: Flat affect, patient is soft spoken, makes poor eye contact, currently admits to taking medication in an attempt to harm himself. Medical Decision & Procedures ER Provider Diagnostic Interpretation: Radiology results as stated below per my review and radiologist interpretation: CHEST ONE VIEW PORTABLE CLINICAL HISTORY: 62 years-old Male presenting with Overdose. TECHNIQUE: Portable upright AP view of the chest was obtained. COMPARISON: 09/01/2017. FINDINGS: Atherosclerosis of the aortic arch. Cardiac silhouette normal in size. Interval development of right perihilar opacities and a right bronchial wall thickening. Radiolucency of the upper lobes with lung parenchymal heterogeneity. No large pleural effusion or pneumothorax. Osseous structures normal. Upper abdomen normal. IMPRESSION: 1. Right perihilar opacities with bronchial wall thickening concerning for reactive airways disease, viral bronchiolitis, aspiration, or developing infiltrate. Dedicated PA and lateral views to be considered. 2. Emphysema. Electronically signed by: Augustus Fitch M.D. 09/20/2017 7:16 PM Dictated Date/Time: 09/20/2017 7:15 PM Laboratory Results 09/20/17 18:56 Red Blood Count 4.83, Mean Corpuscular Volume 87.2, Mean Corpuscular Hemoglobin 29.8, Mean Corpuscular Hemoglobin Concent 34.2, Mean Platelet Volume 9.1, Neutrophils (%) (Auto) 76.3, Lymphocytes (%) (Auto) 16.3, Monocytes (%) (Auto) 6.3, Eosinophils (%) (Auto) 0.4, Basophils (%) (Auto) 0.1, Neutrophils # (Auto) 5.21, Lymphocytes # (Auto) 1.11, Monocytes # (Auto) 0.43, Eosinophils # (Auto) 0.03, Basophils # (Auto) 0.01 09/20/17 18:56 Test 09/20/17 18:56 09/20/17 20:10 White Blood Count 6.83 K/uL (4.8-10.8) Red Blood Count 4.83 M/uL (4.7-6.1) Hemoglobin 14.4 g/dL (14.0-18.0) Hematocrit 42.1 % (42-52) Mean Corpuscular Volume 87.2 fL (80-100) Mean Corpuscular Hemoglobin 29.8 pg (25-34) Mean Corpuscular Hemoglobin Concent 34.2 g/dl (32-36) Platelet Count 195 K/uL (130-400) Mean Platelet Volume 9.1 fL (7.4-10.4) Neutrophils (%) (Auto) 76.3 % Lymphocytes (%) (Auto) 16.3 % Monocytes (%) (Auto) 6.3 % Eosinophils (%) (Auto) 0.4 % Basophils (%) (Auto) 0.1 % Neutrophils # (Auto) 5.21 K/uL (1.4-6.5) Lymphocytes # (Auto) 1.11 K/uL (1.2-3.4) Monocytes # (Auto) 0.43 K/uL (0.11-0.59) Eosinophils # (Auto) 0.03 K/uL (0-0.5) Basophils # (Auto) 0.01 K/uL (0-0.2) RDW Standard Deviation 43.6 fL (36.4-46.3) RDW Coefficient of Variation 13.6 % (11.5-14.5) Immature Granulocyte % (Auto) 0.6 % Immature Granulocyte # (Auto) 0.04 K/uL (0.00-0.02) Prothrombin Time 9.8 SECONDS (9.0-12.0) Prothromb Time International Ratio 0.9 (0.9-1.1) Activated Partial Thromboplast Time 21.5 SECONDS (21.0-31.0) Partial Thromboplastin Ratio 0.8 Venous Blood pH 7.36 (7.36-7.41) Venous Blood Partial Pressure CO2 45 mmHg (38.0-50.0) Venous Blood Partial Pressure O2 62 mmHg Venous Blood HCO3 25 mmol/L Venous Blood Oxygen Saturation 89.1 % Venous Blood Base Excess -0.7 mEq/L Anion Gap 8.0 mmol/L (3-11) Est Creatinine Clear Calc Drug Dose 84.2 ml/min Estimated GFR () 106.7 Estimated GFR (Non- 92.1 BUN/Creatinine Ratio 23.2 (10-20) Osmolality 314 mOsm/kg (280-300) Calcium Level 7.7 mg/dl (8.5-10.1) Total Bilirubin 0.6 mg/dl (0.2-1) Direct Bilirubin 0.1 mg/dl (0-0.2) Aspartate Amino Transf (AST/SGOT) 18 U/L (15-37) Alanine Aminotransferase (ALT/SGPT) 38 U/L (12-78) Alkaline Phosphatase 42 U/L (45-117) Total Creatine Kinase 71 U/L (39-308) Creatine Kinase MB 1.9 ng/ml (0.5-3.6) Creatine Kinase MB Ratio 2.7 (0-3.0) Troponin I < 0.015 ng/ml (0-0.045) Total Protein 6.0 gm/dl (6.4-8.2) Albumin 2.9 gm/dl (3.4-5.0) Lipase 112 U/L (73-393) Salicylates Level < 1.7 mg/dl (2.8-20) Acetaminophen Level 3 ug/ml (10-30) Ethyl Alcohol mg/dL 95.0 mg/dl (0-3) Urine Color ORANGE Urine Appearance CLEAR (CLEAR) Urine pH (4.5-7.5) Urine Specific [place]ill 1.017 (1.000-1.030) Urine Protein NEG (NEG) Urine Glucose (UA) (NEG) Urine Ketones (NEG) Urine Occult Blood (NEG) Urine Nitrite (NEG) Urine Bilirubin (NEG) Urine Urobilinogen (NEG) Urine Leukocyte Esterase (NEG) Urine RBC 0-4 /hpf (0-4) Urine WBC 0 /hpf (0-5) Urine Epithelial Cells 0-5 /lpf (0-5) Urine Bacteria NEG (NEG) Urine Opiates Screen NEG (NEG) Urine Methadone, Qualitative NEG (NEG) Urine Barbiturates NEG (NEG) Urine Phencyclidine (PCP) Level NEG (NEG) Ur Amphetamine/Methamphetamine NEG (NEG) MDMA (Ecstasy) Screen NEG (NEG) Urine Benzodiazepines Screen NEG (NEG) Urine Cocaine Metabolite NEG (NEG) Urine Marijuana (THC) NEG (NEG) Laboratory results per my review. Medications Administered Medications (Trade) Dose Ordered Sig/[place] Route Start Time Stop Time Status Last Admin Dose Admin Sodium Chloride 1,000 ml @ 999 mls/hr Q1H1M STAT IV 09/20/17 18:39 09/20/17 19:39 DC 09/20/17 18:39 999 MLS/HR Ondansetron HCl (Zofran Inj) 4 mg NOW STAT IV 09/20/17 18:39 09/20/17 18:41 DC 09/20/17 19:03 4 MG Albuterol/ Ipratropium (Duoneb) 3 ml NOW STAT INH 09/20/17 18:45 09/20/17 18:46 DC 09/20/17 19:04 3 ML Ciprofloxacin (Cipro Tab) 500 mg NOW STAT PO 09/20/17 20:07 09/20/17 20:08 DC 09/20/17 20:16 500 MG Metronidazole (Flagyl Tab) 500 mg NOW STAT PO 09/20/17 20:07 09/20/17 20:08 DC 09/20/17 20:16 500 MG Levofloxacin (Levaquin / D5W) 750 mg NOW ONCE IV 09/20/17 20:15 09/20/17 20:16 DC 09/20/17 20:17 750 MG ECG Per My Interpretation Indication: toxicologic Rate (beats per minute): 83 Rhythm: normal sinus Findings: no acute ischemic change, no ectopy ED Course 183: The patient was evaluated in room A11B. A complete history and physical examination were performed. 1839: Ordered Zofran 4 mg IV and NSS 1,000 ml @ 999 mls/hr IV 1845: Ordered DuoNeb 3 ml INH 2000: I reassessed the patient at this time. He is improving. I discussed the results and treatment plan with the patient. I answered all pertaining questions that he had. He expressed understanding and verbalized agreement. The patient will be further evaluated. 2006: Ordered Flagyl 500 mg PO and Cipro 500 mg PO 2015: Ordered Levaquin 750 mg IV 2020: I spoke with Dr. Posada, hospitalist. We discussed the patient's case. The patient will be evaluated by [facility] for further management. Medical Decision Prior records/ancillary studies reviewed. Triage Nursing notes reviewed. The patient's history was concerning for altered mental status and probable overdose. Differential diagnosis: Etiologies such as toxicologic, infection, hypoglycemia, electrolyte abnormalities, cardiac sources, intracerebral event, neurologic, as well as others were entertained. The patient is a 62-year-old male who presented to the emergency department for an evaluation after taking medications in an attempt to hurt himself. The patient's had ongoing COPD which has been worsening. 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 The patient normally wears oxygen. He admits that he took multiple different medications this morning in attempt to harm himself. He also drank a significant amount of alcohol. The patient had an episode of emesis. I discussed patient's laboratory and radiographic studies with him. He was treated with IV fluids as well as IV antibiotics for presumed pneumonia. It is possible this represents an aspiration pneumonia. He was unable to be medically cleared in the emergency department at this time because of the pneumonia. Additional history is obtained from the patient's significant other. I discussed his case with the on-call [facility] hospitalist staff. They have agreed to evaluate the patient in the emergency department for further management and disposition. Medication Reconcilliation Current Medication List: was personally reviewed by me Blood Pressure Screening Patient's blood pressure: Normal blood pressure Consults Time Called: 2004 Consulting Physician: Dr. Posada hospitalist Returned Call: 2019 I spoke with blake Kingsley. We discussed the patient's case. The patient will be evaluated by [facility] for further management. Impression Primary Impression: Aspiration pneumonia Additional Impressions: Suicide attempt Depression Scribe Attestation The scribe's documentation has been prepared under my direction and personally reviewed by me in its entirety. I confirm that the note above accurately reflects all work, treatment, procedures, and medical decision making performed by me. Departure Information Dispostion Being Evaluated By Hospitalist Referrals Yasir Berumen D.O. (PCP) Patient Instructions My [facility] Health Problem Qualifiers Primary Impression: Aspiration pneumonia Aspiration pneumonia type: due to vomit Laterality: right Lung location: middle lobe of lung Qualified Codes: J69.0 - Pneumonitis due to inhalation of food and vomit Additional Impressions: Depression Depression Type: unspecified Qualified Codes: F32.9 - Major depressive disorder, single episode, unspecified
[2017-09-20 19:09] LABS: BASO % 0.1 %; BASO ABS # 0.01 K/uL (0-0.2); EOS % 0.4 %; EOS ABS # 0.03 K/uL (0-0.5); HEMATOCRIT 42.1 % (42-52); HEMOGLOBIN 14.4 g/dL (14.0-18.0); IG# 0.04 K/uL (0.00-0.02); LYMPH % 16.3 %; LYMPH ABS # 1.11 K/uL (1.2-3.4); MEAN CELL VOLUME 87.2 fL (80-100); MEAN CORPUSCULAR HEMOGLOBIN 29.8 pg (25-34); MEAN CORPUSCULAR HGB CONC 34.2 g/dl (32-36); MEAN PLATELET VOLUME 9.1 fL (7.4-10.4); MONO % 6.3 %; MONO ABS # 0.43 K/uL (0.11-0.59); NEUT % 76.3 %; NEUT ABS # 5.21 K/uL (1.4-6.5); PLATELET COUNT 195 K/uL (130-400); RED CELL DISTRIBUTION WIDTH CV 13.6 % (11.5-14.5); RED CELL DISTRIBUTION WIDTH SD 43.6 fL (36.4-46.3); WHITE BLOOD COUNT 6.83 K/uL (4.8-10.8)
--- NOTE | 2017-09-20 19:18 | DIAGNOSTIC IMAGING REPORT ---
CHEST ONE VIEW PORTABLE CLINICAL HISTORY: 62 years-old Male presenting with Overdose. TECHNIQUE: Portable upright AP view of the chest was obtained. COMPARISON: 09/01/2017. FINDINGS: Atherosclerosis of the aortic arch. Cardiac silhouette normal in size. Interval development of right perihilar opacities and a right bronchial wall thickening. Radiolucency of the upper lobes with lung parenchymal heterogeneity. No large pleural effusion or pneumothorax. Osseous structures normal. Upper abdomen normal. IMPRESSION: 1. Right perihilar opacities with bronchial wall thickening concerning for reactive airways disease, viral bronchiolitis, aspiration, or developing infiltrate. Dedicated PA and lateral views to be considered. 2. Emphysema. Electronically signed by: Augustus Fitch M.D. 09/20/2017 7:16 PM Dictated Date/Time: 09/20/2017 7:15 PM
[2017-09-20 19:26] LABS: ALBUMIN 2.9 gm/dl (3.4-5.0); ALT/SGPT 38 U/L (12-78); AST/SGOT 18 U/L (15-37); BLOOD UREA NITROGEN 20 mg/dl (7-18); CALCIUM 7.7 mg/dl (8.5-10.1); CARBON DIOXIDE 24 mmol/L (21-32); CREATININE 0.88 mg/dl (0.60-1.40); GLUCOSE 113 mg/dl (70-99); LIPASE 112 U/L (73-393); POTASSIUM 3.6 mmol/L (3.5-5.1); SODIUM 139 mmol/L (136-145)
[2017-09-20 19:31] LABS: ALKALINE PHOSPHATASE 42 U/L (45-117); CKMB 1.9 ng/ml (0.5-3.6)
[2017-09-20 19:32] LABS: INR 0.9 (0.9-1.1); PTT PATIENT 21.5 SECONDS (21.0-31.0)
[2017-09-20] MEDS ORDERED: CIPROFLOXACIN 500 MG TAB PO STA (20:07)
[2017-09-20] MEDS ORDERED: METRONIDAZOLE 250 MG TAB PO STA (20:07)
[2017-09-20] MEDS ORDERED: TIOT1AER INH (20:12)
[2017-09-20] MEDS ORDERED: LEVAQUIN 750MG / 150ML D5W IV ONE (20:15)
[2017-09-20] MEDS ORDERED: SODI3NEB NEB (20:30)
[2017-09-20] MEDS ORDERED: PRED10TA PO (20:30)
[2017-09-20] MEDS ORDERED: ZOLP5TAB6 PO (20:30)
[2017-09-20] MEDS ORDERED: SNG10 PO (20:30)
[2017-09-20] MEDS ORDERED: FLUT1INH5 INH (20:30)
[2017-09-20] MEDS ORDERED: ATV1 PO (20:30)
[2017-09-20] MEDS ORDERED: OMEP20CA9 PO (20:30)
[2017-09-20] MEDS ORDERED: AZIT500T3 PO (20:30)
[2017-09-20] MEDS ORDERED: NRV/5 PO (20:30)
[2017-09-20] MEDS ORDERED: PRFINS NEB (20:32)
[2017-09-20] MEDS ORDERED: ALBINS/ NEB (21:41)
--- NOTE | 2017-09-20 22:09 | History and Physical ---
History & Physical Date & Time of Service: September 20, 2017 at 22:09 Chief Complaint: Overdose Primary Care Physician: Yasir Berumen D.O. History of Present Illness Source: patient, clinic records, hospital records Patient is a 62yo male with a PMH of severe COPD (on 2.5L home O2) and HTN who presents to the ED after intentional drug overdose around 8am today. States that he took 10 Ambien, 20 Ativan and 5 oxycodone this morning, along with 2 whiskey mixed drinks. Does not remember anything following ingestion, but was found by around 5 PM. Patient was sleeping on the couch and was difficult to arouse. Presence of vomit in his shell and on his shirt. EMS was called and patient was brought to ED for further evaluation. States that COPD has continued to worsen and he has difficulty breathing all of the time. Shortness of breath makes it difficult for him to eat and sleep. Follows with Dr. Whitney in clinic and had a bronchoscopy performed last week. Was scheduled to return to clinic today to discuss results but patient did attend appointment. 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 States that he is "run down" from health problems and took medication today as a suicide attempt. Has been planning on doing so for a while. Denies previous diagnosis of depression or suicide attempts. Past Medical/Surgical History Medical Problems: (1) Chronic hypoxemic respiratory failure Status: Chronic (2) COPD, severe Status: Chronic (3) GERD (gastroesophageal reflux disease) Status: Chronic (4) History of MRSA infection of lungs Status: Chronic (5) HLD (hyperlipidemia) Status: Chronic (6) HTN (hypertension) Status: Chronic (7) Pneumonia Status: Resolved Family History Patient reports no known family medical history. 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 ) Immunizations History of Influenza Vaccine: Yes Influenza Vaccine Date: Feb 19, 2011 History of Tetanus Vaccine?: Yes History of Pneumococcal: Yes Pneumococcal Date: Mar 02, 2007 History of Hepatitis B Vaccine: No Allergies Coded Allergies: Clarithromycin (Verified Allergy, Intermediate, SHORTNESS OF BREATH, ) Atorvastatin (Verified Allergy, Unknown, MUSCLE ACHES ARMS, 09/14/17) Metaproterenol (Verified Allergy, Unknown, UNKNOWN, 09/14/17) Sympathomimetics (Verified Allergy, Unknown, `, 09/14/17) Home Medications Scheduled Amlodipine Besylate (Amlodipine Besylate), 5 MG PO QAM Aspirin (Aspirin Ec), 81 MG PO QAM Azithromycin (Azithromycin), 500 MG PO 2XWK Fluticasone Furoate (Inhalatio (Arnuity Ellipta), 1 INHA INH QAM Formoterol Fumarate (Perforomist), 2 ML NEB QPM Guaifenesin (Mucinex Maximum Strength), 1,200 MG PO BID Home O2 Therapy (Oxygen), 2.5 LITERS NA HS Hydrocortisone (Topical) (Hydrocortisone), 1 APPLN TOP QAM Montelukast Sod (Montelukast Sodium), 10 MG PO HS Omeprazole (Prilosec), 20 MG PO BID Prednisone (Prednisone), 5 MG PO QAM Sodium Chloride (Inhalant) (Sodium Chloride), 1 VIAL NEB UD Tiotropium Ennis-Olodaterol (Stiolto Respimat 2.5-2.5 Mcg/Act), 1 PUFF INH QAM Zolpidem Tartrate (Zolpidem Tartrate), 5 MG PO HS Scheduled PRN Albuterol Hfa (Ventolin Hfa), 2 PUFFS INH QID PRN for Shortness of Breath Albuterol Sulf (Proventil 0.083% 2.5MG/3ML), 2.5 MG NEB Q6H PRN for SOB/Wheezing Lorazepam (Lorazepam), 0.5 MG PO TID PRN for Anxiety/Agitation Prednisone (Prednisone), 10 MG PO UD PRN for Rescue Kit Review of Systems Constitutional: + weakness, + fatigue, No fever, No chills Eyes: No worsening of vision, No diplopia ENT: No hearing loss, No nasal symptoms, No sore throat Respiratory: + cough, + sputum, + shortness of breath, No wheezing, No dyspnea on exertion Cardiovascular: No chest pain, No edema, No palpitations Abdomen: No pain, No nausea, No vomiting, No diarrhea, No constipation Genitourinary - Male: No hematuria, No dysuria Neurologic: No weakness, No numbness/tingling Psychiatric: + depression symptoms, + anhedonism, + anxiety, + insomnia Integumentary: No rash, No new/changing skin lesions Physical Exam Vital Signs Date Time Temp Pulse Resp B/P (MAP) Pulse Ox O2 Delivery O2 Flow Rate FiO2 09/20/17 21:30 93 111/77 99 Nasal Cannula 3.0 09/20/17 20:20 89 119/73 100 Nasal Cannula 3.0 09/20/17 20:13 90 09/20/17 19:14 81 21 111/69 100 Nasal Cannula 3.0 09/20/17 19:02 100 09/20/17 19:02 100 Nebulizer 09/20/17 18:45 36.6 82 19 123/83 94 Room Air General Appearance: WD/WN, no apparent distress, + pertinent finding (drowsy ) Head: normocephalic, atraumatic Eyes: normal inspection, PERRL, sclerae normal ENT: normal ENT inspection, hearing grossly normal, pharynx normal Neck: supple, thyroid normal, trachea midline Respiratory/Chest: chest non-tender, no respiratory distress, no accessory muscle use, + decreased breath sounds Cardiovascular: regular rate, rhythm, no murmur, normal peripheral pulses Abdomen/GI: normal bowel sounds, non tender, soft, no organomegaly Back: normal inspection Extremities/Musculoskelatal: normal inspection, no calf tenderness, no pedal edema Neurologic/Psych: no motor/sensory deficits, alert, normal mood/affect, oriented x 3 Skin: normal color, warm/dry Diagnostics Laboratory Results Results Past 24 Hours Test 09/20/17 18:56 09/20/17 20:10 Range/Units White Blood Count 6.83 4.8-10.8 K/uL Red Blood Count 4.83 4.7-6.1 M/uL Hemoglobin 14.4 14.0-18.0 g/dL Hematocrit 42.1 42-52 % Mean Corpuscular Volume 87.2 80-100 fL Mean Corpuscular Hemoglobin 29.8 25-34 pg Mean Corpuscular Hemoglobin Concent 34.2 32-36 g/dl Platelet Count 195 130-400 K/uL Mean Platelet Volume 9.1 7.4-10.4 fL Neutrophils (%) (Auto) 76.3 % Lymphocytes (%) (Auto) 16.3 % Monocytes (%) (Auto) 6.3 % Eosinophils (%) (Auto) 0.4 % Basophils (%) (Auto) 0.1 % Neutrophils # (Auto) 5.21 1.4-6.5 K/uL Lymphocytes # (Auto) 1.11 1.2-3.4 K/uL Monocytes # (Auto) 0.43 0.11-0.59 K/uL Eosinophils # (Auto) 0.03 0-0.5 K/uL Basophils # (Auto) 0.01 0-0.2 K/uL RDW Standard Deviation 43.6 36.4-46.3 fL RDW Coefficient of Variation 13.6 11.5-14.5 % Immature Granulocyte % (Auto) 0.6 % Immature Granulocyte # (Auto) 0.04 0.00-0.02 K/uL Prothrombin Time 9.8 9.0-12.0 SECONDS Prothromb Time International Ratio 0.9 0.9-1.1 Activated Partial Thromboplast Time 21.5 21.0-31.0 SECONDS Partial Thromboplastin Ratio 0.8 Venous Blood pH 7.36 7.36-7.41 Venous Blood Partial Pressure CO2 45 38.0-50.0 mmHg Venous Blood Partial Pressure O2 62 mmHg Venous Blood HCO3 25 mmol/L Venous Blood Oxygen Saturation 89.1 % Venous Blood Base Excess -0.7 mEq/L Sodium Level 139 136-145 mmol/L Potassium Level 3.6 3.5-5.1 mmol/L Chloride Level 107 98-107 mmol/L Carbon Dioxide Level 24 21-32 mmol/L Anion Gap 8.0 3-11 mmol/L Blood Urea Nitrogen 20 7-18 mg/dl Creatinine 0.88 0.60-1.40 mg/dl Est Creatinine Clear Calc Drug Dose 84.2 ml/min Estimated GFR () 106.7 Estimated GFR (Non- 92.1 BUN/Creatinine Ratio 23.2 10-20 Random Glucose 113 70-99 mg/dl Osmolality 314 280-300 mOsm/kg Calcium Level 7.7 8.5-10.1 mg/dl Total Bilirubin 0.6 0.2-1 mg/dl Direct Bilirubin 0.1 0-0.2 mg/dl Aspartate Amino Transf (AST/SGOT) 18 15-37 U/L Alanine Aminotransferase (ALT/SGPT) 38 12-78 U/L Alkaline Phosphatase 42 45-117 U/L Total Creatine Kinase 71 39-308 U/L Creatine Kinase MB 1.9 0.5-3.6 ng/ml Creatine Kinase MB Ratio 2.7 0-3.0 Troponin I < 0.015 0-0.045 ng/ml Total Protein 6.0 6.4-8.2 gm/dl Albumin 2.9 3.4-5.0 gm/dl Lipase 112 73-393 U/L Salicylates Level < 1.7 2.8-20 mg/dl Acetaminophen Level 3 10-30 ug/ml Ethyl Alcohol mg/dL 95.0 0-3 mg/dl Urine Color ORANGE Urine Appearance CLEAR CLEAR Urine pH 4.5-7.5 Urine Specific [place] 1.017 1.000-1.030 Urine Protein NEG NEG Urine Glucose (UA) NEG Urine Ketones NEG Urine Occult Blood NEG Urine Nitrite NEG Urine Bilirubin NEG Urine Urobilinogen NEG Urine Leukocyte Esterase NEG Urine RBC 0-4 0-4 /hpf Urine WBC 0 0-5 /hpf Urine Epithelial Cells 0-5 0-5 /lpf Urine Bacteria NEG NEG Urine Opiates Screen NEG NEG Urine Methadone, Qualitative NEG NEG Urine Barbiturates NEG NEG Urine Phencyclidine (PCP) Level NEG NEG Ur Amphetamine/Methamphetamine NEG NEG MDMA (Ecstasy) Screen NEG NEG Urine Benzodiazepines Screen NEG NEG Urine Cocaine Metabolite NEG NEG Urine Marijuana (THC) NEG NEG Microbiology Results 09/20/17 Blood Culture, Received Pending 09/20/17 Blood Culture, Received Pending Diagnostic Radiology CXR: IMPRESSION: 1. Right perihilar opacities with bronchial wall thickening concerning for reactive airways disease, viral bronchiolitis, aspiration, or developing infiltrate. Dedicated PA and lateral views to be considered. 2. Emphysema. EKG Normal sinus rhythm at 83 bpm No change from prior EKG Impression Assessment and Plan Patient is a 62yo male with a PMH of severe COPD (on 2.5L home O2) and HTN who presents to the ED after intentional drug overdose around 8am today. Intentional overdose: -Took 10 Ambien, 20 Ativan and 5 oxycodone this morning, along with 2 whiskey mixed drinks this AM -Endorses feeling down, poor appetite, insomnia, anxiety -No formal diagnosis of depression in past -Hold ativan, ambien for now -Psych consult placed -One on one Aspiration PNA: -H/o severe COPD, found covered in vomit -CXR with R perihilar opacities with bronchial wall thickening concerning for reactive airways disease, viral bronchiolitis, aspiration, or developing infiltrate -Given khalif flagyl and levaquin in ED -Continue with levaquin -Aspiration precautions -Supplemental O2 Severe COPD: -As respiratory baseline of 2.5L NC -H/o MRSA, CRISSY infections in the past -Cont Ellipta, Perforomist, Stiolto inhalers -Cont home nebs scheduled and PRN -Follow up with Dr. Whitney in clinic HTN: -Normotensive -Cont amlodipine DVT Ppx: SQ Lovenox Code status: FULL PCP: Ata Dispo: Admit med/surg. Discharge planning consulted. Patient seen in collaboration with Dr. Posada. Please see addendum. Resuscitation Status VTE Prophylaxis Will order VTE Prophylaxis: Yes
[2017-09-20] MEDS ORDERED: PRED-301 PO (22:46)
[2017-09-20] MEDS ORDERED: ASPCH81X PO (22:47)
[2017-09-20] MEDS ORDERED: PANT40TA PO (22:47)
[2017-09-20] MEDS ORDERED: OXGN (22:47)
[2017-09-20] MEDS ORDERED: ATRINS NEB (22:47)
[2017-09-20] MEDS ORDERED: KETO2SHA TOP (22:47)
[2017-09-20] MEDS ORDERED: AMOX500T PO (22:49)
[2017-09-20] MEDS ORDERED: ALBUTEROL 0.083% NEBU SOLN 3 ML VIAL INH PRN (23:00)
[2017-09-20] MEDS ORDERED: KETOCONAZOLE 2% CR 15 GM TUBE EXT PRN (23:00)
[2017-09-20 23:32] VITALS: BP 114/67; PULSE 84; TEMP 36.2; O2SAT 97
[2017-09-20] MEDS ORDERED: NZRCR TOP (23:42)
[2017-09-21 00:29] VITALS: BP 114/67; PULSE 84; TEMP 36.2; O2SAT 96; Ht 172.7 cm; Wt 72.7 kg
[2017-09-21] MEDS: FORMOTEROL FUMA NEBULIZER SOLN 20 MCG/2 ML VIAL INH SCH ×2 (07:00→19:07)
[2017-09-21] MEDS: IPRATROPIUM BROMIDE NEB SOLN 0.02% 2.5 ML VIAL INH SCH ×2 (07:00→19:07)
[2017-09-21 07:02] VITALS: PULSE 91; O2SAT 98
[2017-09-21 07:18] LABS: HEMATOCRIT 40.8 % (42-52); HEMOGLOBIN 13.7 g/dL (14.0-18.0); MEAN CELL VOLUME 88.3 fL (80-100); MEAN CORPUSCULAR HEMOGLOBIN 29.7 pg (25-34); MEAN CORPUSCULAR HGB CONC 33.6 g/dl (32-36); MEAN PLATELET VOLUME 9.3 fL (7.4-10.4); PLATELET COUNT 178 K/uL (130-400); RED CELL DISTRIBUTION WIDTH CV 13.9 % (11.5-14.5); RED CELL DISTRIBUTION WIDTH SD 44.8 fL (36.4-46.3); WHITE BLOOD COUNT 6.35 K/uL (4.8-10.8)
[2017-09-21] MEDS: ARNUITY~ORDER AWAITING ACTION SCH ×2 (07:21)
[2017-09-21] MEDS: STIOLTO~ORDER AWAITING ACTION SCH ×2 (07:21)
[2017-09-21 07:38] VITALS: BP 130/69; PULSE 93; TEMP 36.4; O2SAT 98
[2017-09-21 07:49] LABS: CALCIUM 7.9 mg/dl (8.5-10.1); CREATININE 0.87 mg/dl (0.60-1.40); POTASSIUM 4.1 mmol/L (3.5-5.1)
[2017-09-21 08:00] VITALS: O2SAT 98
[2017-09-21] MEDS: ENOXAPARIN 40 MG/0.4 ML SYR SQ SCH (08:09)
[2017-09-21] MEDS: AMLODIPINE BESYLATE 5 MG TAB PO SCH (08:10)
[2017-09-21] MEDS: PANTOprazole SOD 40 MG TAB PO SCH (08:10)
[2017-09-21] MEDS: GUAIFENESIN 600 MG TABCR PO SCH ×2 (08:10→20:32)
[2017-09-21] MEDS: ASPIRIN 81 MG ECTAB PO SCH (08:10)
--- NOTE | 2017-09-21 08:53 | Clinical Documentation Query ---
QUERY 1 OF [address] VALLE, In your clinical opinion is this patient being managed for: ( x ) Toxic encephalopathy treated and resolved ( ) Not Agree ( ) Other explanation of clinical findings (Please Explain; If no explanation given, this is considered a no response.) ( ) Unable to determine ( ) Need to Discuss (Please call CDS via extension or [email or web address]. If no interaction occurs, this is considered a no response.) The medical record reflects the following clinical findings, treatment, and risk factors. Clinical Indicators: 62 yo male presenting after being found at home, difficult to arouse. Pt admitted overdose of ambien/ativan/oxycodone. ER describes pt as listless. Treatment: IV fluids, IV levaquin, po cipro and flagyl, 1:1 observation, psych consult Risk Factors:intentional drug overdose/suicide attempt, aspiration pneumonia QUERY 2 OF 2 In your clinical opinion is this patient being managed for: ( x ) Chronic hypoxic respiratory failure ( ) Not Agree ( ) Other explanation of clinical findings (Please Explain; If no explanation given, this is considered a no response.) ( ) Unable to determine ( ) Need to Discuss (Please call CDS via extension or [email or web address]. If no interaction occurs, this is considered a no response.) The medical record reflects the following clinical findings, treatment, and risk factors. Clinical Indicators: Documentation reflects that pt uses chronic home O2 support and prednisone. Treatment: chronic management includes O2 support, prednisone, singulair, ventolin neps, arnuity ellipta, perforomist, stiolto respimat Risk Factors: severe COPD, former smoker Please clarify and document your clinical opinion in the progress notes and discharge summary. Terms such as "probable", "suspected", "likely", "questionable", "possible", or "still to be ruled out" are acceptable. IF IN AGREEMENT, YOU MUST DOCUMENT ABOVE DIAGNOSTIC STATEMENT IN DAILY PROGRESS NOTES AND DISCHARGE SUMMARY. This document is not part of the patient's record. Thank You, Katerine Houser, RN [phone]
--- NOTE | 2017-09-21 11:55 | Psychiatric Consultation ---
Consultation Date of Consultation September 21, 2017. Identifying Data 62-year-old man admitted medically following an intentional polydrug and alcohol overdose in a suicide attempt. We are consulted to evaluate depression. Information is gathered from the patient, his who is at the bedside, and the electronic medical record. All are considered to be reliable. Chief Complaint "Can't do things at home, can't work, can't sleep. ". History of Present Illness The patient is a very pleasant but sad appearing 62-year-old gentleman with no history of psychiatric treatment, who admits that he has been depressed and having suicidal thoughts for the last several months. He attributes his depression to his medical conditions. He has COPD, is oxygen dependent, and is more and more impaired. He says he can no longer do things around the home that he used to do, cannot sleep well or eat well and is even struggling to do his work. 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 He likes his job, and the people he works with. 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 He felt he was too short of breath to be able to do his job and became acutely depressed. He decided that it was time to commit suicide in view of the severity of the impairment to his life. He went home on Monday and while his was helping do yard work, he went in and stole the gun that she keeps in her purse. She did not realize this and later that night left him home alone while she went to her daughter's to help out. After she left, he drank 2 very large whiskey drinks, and started taking multiple pills including Ativan, oxycodone and even some of his 's Pyridium. He apparently lost consciousness before he could use the gun. His came home, found him on the couch with evidence of vomitus. She was unable to arouse him so summoned family members who live just down the street and was then brought to the emergency room by EMS. At the time I see the patient he is seated in the bedside chair, his is in attendance. He admits that he continues to feel severely depressed and says he was sad when he realized he did not and today says "I wish I would have use the gun". The focus of his stress is again his medical conditions but he also notes that he believes that there may be mold in their house causing both he and his and their dog respiratory problems. House is not paid off and he does not think that there is money for mold abatement. They also have a daughter (her daughter) who was involved in a severe motor vehicle accident during the winter and is impaired and unable to help herself. Although the patient says that he has never been in mental health treatment, he does admit to a previous round of depression with a suicide attempt about 4 years ago. At that time, they were raising 5 grandchildren which was extremely stressful to both of them. He denies that he ever came to medical or psychiatric attention. Another stress is the fact that he recently underwent bronchoscopy through Dr. Rendon's office. He was scheduled to have an appointment on Monday for follow-up results and is very concerned that they will tell him that he has cancer or some other problem as he is convinced that there is something new going on with his lungs. He has a history of MRSA infection in his lungs years ago. 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 His appetite is okay although cannot eat much because it and applies too much pressure on his diaphragm and makes it hard to breathe. He has been having increasing amounts of anxiety and is prescribed Ativan per his PCP. During anxiety events he feels tremulous and acutely anxious but denies other symptoms that would be congruent with panic disorder. He denies ever having had any auditory or visual hallucinations. He has never been a person to engage in self-injurious behaviors. Past Psychiatric History Current OP Treatment: no current treatment Prior OP Treatment: no prior treatment Prior Psych Hospitalizations: none Access to a Gun: No ( has removed all guns from the home) Suicide Attempts: Yes (1 previous 4 years ago) Past Medication Trials None Past Medical/Surgical History (1) COPD, severe (2) History of MRSA infection of lungs (3) HTN (hypertension) (4) HLD (hyperlipidemia) (5) GERD (gastroesophageal reflux disease) Allergies Allergies: Coded Allergies: Clarithromycin (Verified Allergy, Intermediate, SHORTNESS OF BREATH, ) Atorvastatin (Verified Allergy, Unknown, MUSCLE ACHES ARMS, 09/14/17) Metaproterenol (Verified Allergy, Unknown, UNKNOWN, 5/3/18) Sympathomimetics (Verified Allergy, Unknown, `, 09/14/17) Home Medications Scheduled Amlodipine Besylate (Amlodipine Besylate), 5 MG PO QAM Aspirin (Aspirin Chewable), 81 MG PO DAILY Azithromycin (Azithromycin), 500 MG PO 2XWK Fluticasone Furoate (Inhalatio (Arnuity Ellipta), 1 INHA INH QAM Formoterol Fumarate (Perforomist), 2 ML NEB Q12 Guaifenesin (Mucinex Maximum Strength), 1,200 MG PO BID Home O2 Therapy (Oxygen), 2.5 LITERS NA HS Ipratropium [place] (Ipratropium [place]), 1 VIAL NEB BID Montelukast Sod (Montelukast Sodium), 10 MG PO HS Pantoprazole Sodium (Protonix), 40 MG PO DAILY Prednisone (Prednisone), 5 MG PO QAM Sodium Chloride (Inhalant) (Sodium Chloride), 1 VIAL NEB UD Tiotropium [place]-Olodaterol (Stiolto Respimat 2.5-2.5 Mcg/Act), 2 PUFF INH QAM Scheduled PRN Albuterol Hfa (Ventolin Hfa), 2 PUFFS INH QID PRN for Shortness of Breath Albuterol Sulf (Proventil 0.083% 2.5MG/3ML), 2.5 MG NEB Q6H PRN for SOB/Wheezing Amoxicillin & Pot Clavulanate (Augmentin 500MG), 500 MG PO BID PRN for rescue kit Hydrocortisone (Topical) (Hydrocortisone), 1 APPLN TOP QAM PRN for psoriasis Ketoconazole (Ketoconazole), 1 DOSE TOP BID PRN for RASH ON GROIN Lorazepam (Lorazepam), 0.5 MG PO BID PRN for Anxiety/Agitation Prednisone (Prednisone), 10 MG PO UD PRN for Rescue Kit Zolpidem Tartrate (Zolpidem Tartrate), 5 MG PO HS PRN for Insomnia Family History Patient reports no known family medical history. 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 Relationship History: ( 34 years) Children: He has 1, has 2 Legal History: none Psychological Trauma History: Denies Hx Traumatic Event Review of Systems Constitutional: malaise Eyes: denies: no symptoms, as stated in HPI, eye pain, tearing, itching, redness, discharge, double vision, visual changes, blurred vision, photophobia, other ENT: denies: no symptoms reported, see HPI, ear pain, ear discharge, loss of hearing, tinnitus, nasal pain, nasal congestion, rhinorrhea, epistaxis, sore throat, stidor, throat swelling, mouth pain, mouth swelling, dental pain, gum swelling, other Cardiovascular: denies: no symptoms reported, see HPI, chest pain, chest tightness, chest pressure, diaphoresis, palpitations, syncope, other Respiratory: reports: short of breath (O2 dependent) Gastrointestinal: denies no symptoms reported, denies see HPI, denies abdominal pain, denies constipation, denies diarrhea, denies nausea, denies vomiting, denies other Genitourinary - Male: reports: other (urinating orange/red after pyridium ingestion) Musculoskeletal: denies no symptoms reported, denies see HPI, denies back pain , denies gout, denies joint pain, denies joint swelling, denies muscle pain, denies muscle stiffness, denies neck pain, denies other Integumentary: denies no symptoms reported, denies see HPI, denies change in color, denies change in hair/nails, denies dryness, denies lesions, denies lumps , denies rash, denies other Neurologic: denies: no symptoms, see HPI, headache, numbness, paresthesias, pre -existing deficit, seizure, tingling, tremors, general weakness, tics, focal weakness, vertigo, lethargy, memory loss, dizziness, other Endocrine: denies: no symptoms, as stated in HPI, cold intolerance, heat intolerance, hair changes, goiter, polydipsia, polyuria, skin changes, other Hematologic / Lymphatic: denies: no symptoms, as stated in HPI, abnormal clotting, adenopathy, anemia, easy bleeding, easy bruising, gums bleeding, petechiae, other Examination Vital Signs Vital Signs Past 12 Hours Date Time Temp Pulse Resp B/P (MAP) Pulse Ox O2 Delivery O2 Flow Rate FiO2 09/21/17 08:00 98 3.0 09/21/17 07:38 36.4 93 18 130/69 (89) 98 Nasal Cannula 3.0 09/21/17 07:02 91 18 98 Room Air 09/21/17 00:29 36.2 84 20 114/67 96 Room Air Laboratory Results Last 24 Hours Test 09/20/17 18:56 09/20/17 20:10 09/21/17 06:35 White Blood Count 6.83 K/uL 6.35 K/uL Red Blood Count 4.83 M/uL 4.62 M/uL Hemoglobin 14.4 g/dL 13.7 g/dL Hematocrit 42.1 % 40.8 % Mean Corpuscular Volume 87.2 fL 88.3 fL Mean Corpuscular Hemoglobin 29.8 pg 29.7 pg Mean Corpuscular Hemoglobin Concent 34.2 g/dl 33.6 g/dl Platelet Count 195 K/uL 178 K/uL Mean Platelet Volume 9.1 fL 9.3 fL Neutrophils (%) (Auto) 76.3 % Lymphocytes (%) (Auto) 16.3 % Monocytes (%) (Auto) 6.3 % Eosinophils (%) (Auto) 0.4 % Basophils (%) (Auto) 0.1 % Neutrophils # (Auto) 5.21 K/uL Lymphocytes # (Auto) 1.11 K/uL Monocytes # (Auto) 0.43 K/uL Eosinophils # (Auto) 0.03 K/uL Basophils # (Auto) 0.01 K/uL RDW Standard Deviation 43.6 fL 44.8 fL RDW Coefficient of Variation 13.6 % 13.9 % Immature Granulocyte % (Auto) 0.6 % Immature Granulocyte # (Auto) 0.04 K/uL Prothrombin Time 9.8 SECONDS Prothromb Time International Ratio 0.9 Activated Partial Thromboplast Time 21.5 SECONDS Partial Thromboplastin Ratio 0.8 Venous Blood pH 7.36 Venous Blood Partial Pressure CO2 45 mmHg Venous Blood Partial Pressure O2 62 mmHg Venous Blood HCO3 25 mmol/L Venous Blood Oxygen Saturation 89.1 % Venous Blood Base Excess -0.7 mEq/L Sodium Level 139 mmol/L 143 mmol/L Potassium Level 3.6 mmol/L 4.1 mmol/L Chloride Level 107 mmol/L 110 mmol/L Carbon Dioxide Level 24 mmol/L 28 mmol/L Anion Gap 8.0 mmol/L 5.0 mmol/L Blood Urea Nitrogen 20 mg/dl 17 mg/dl Creatinine 0.88 mg/dl 0.87 mg/dl Est Creatinine Clear Calc Drug Dose 84.2 ml/min 85.1 ml/min Estimated GFR () 106.7 107.2 Estimated GFR (Non- 92.1 92.5 BUN/Creatinine Ratio 23.2 19.1 Random Glucose 113 mg/dl 81 mg/dl Osmolality 314 mOsm/kg Calcium Level 7.7 mg/dl 7.9 mg/dl Total Bilirubin 0.6 mg/dl Direct Bilirubin 0.1 mg/dl Aspartate Amino Transf (AST/SGOT) 18 U/L Alanine Aminotransferase (ALT/SGPT) 38 U/L Alkaline Phosphatase 42 U/L Total Creatine Kinase 71 U/L Creatine Kinase MB 1.9 ng/ml Creatine Kinase MB Ratio 2.7 Troponin I < 0.015 ng/ml Total Protein 6.0 gm/dl Albumin 2.9 gm/dl Lipase 112 U/L Salicylates Level < 1.7 mg/dl Acetaminophen Level 3 ug/ml Ethyl Alcohol mg/dL 95.0 mg/dl Urine Color ORANGE Urine Appearance CLEAR Urine pH Urine Specific [place] 1.017 Urine Protein NEG Urine Glucose (UA) Urine Ketones Urine Occult Blood Urine Nitrite Urine Bilirubin Urine Urobilinogen Urine Leukocyte Esterase Urine RBC 0-4 /hpf Urine WBC 0 /hpf Urine Epithelial Cells 0-5 /lpf Urine Bacteria NEG Urine Opiates Screen NEG Urine Methadone, Qualitative NEG Urine Barbiturates NEG Urine Phencyclidine (PCP) Level NEG Ur Amphetamine/Methamphetamine NEG MDMA (Ecstasy) Screen NEG Urine Benzodiazepines Screen NEG Urine Cocaine Metabolite NEG Urine Marijuana (THC) NEG Mental Examination During interview pt is: alert and oriented, cooperative Appearance: appropriately groomed Eye contact is: good Motor behavior is: no abnormal motor movements Speech: normal in rate, rhythm & volume Affect: tearful Mood is: depressed Thought process: goal directed Thought content: cognitive distortions Suicidal thought are: present, Plan: present, Intent: present ("I wish I would have used the gun.") Homicidal thoughts are: denied Hallucinations: denies auditory, denies visual Cognition: memory grossly intact, attention grossly intact, language grossly intact Intelligence estimated to be: average Insight: impaired Judgement: impaired Impression / Recommendations Impression 62-year-old man with severe COPD, oxygen dependent, admitted medically following a toxic ingestion of multiple drugs in a suicide attempt. He remains very depressed today and said that he did not complete his mission. We are obviously recommending inpatient mental health treatment when medically cleared. I will make no medication recommendations at this time and await transfer for mental health treatment. There is a petitioner statement on the chart and the patient should not be allowed to leave AMA. Inventory Assets Strengths: Support from , love of family, is employed Risk Factors Assessment Male: Yes : Yes /single/: No Higher / Fall in social status: No Access to guns: Yes Health problems: Yes Mental Health Diagnoses: No Substance use disorders: No Previous attempt: Yes Family history of suicide: No Previous psychiatric stay: No Hopelessness: Yes Smoker: No Protective Factors Assessment : Yes Responsible for young children: No Employed: Yes Stable relationships: Yes Supportive family: Yes Recommendations (1) Major depressive disorder, recurrent severe without psychotic features 09/21 - Recommend inpatient mental health treatment when medically cleared - 302 petitioners statement on the chart. He should not be allowed to leave AMA Dr. Jeanne Segovia has personally been involved in the review of this case and development of these recommendations.
[2017-09-21] MEDS: FLUTICASONE FUROATE 200 MCG INH SCH (12:42)
[2017-09-21] MEDS: TIOTROPIUM BROMIDE-OLODATEROL 2.5-2.5MCG/ACT INH SCH (12:43)
[2017-09-21] MEDS: ALBUTEROL HFA 8 GM INHALER INH PRN ×2 (12:59→16:34)
[2017-09-21 15:10] VITALS: BP 118/77; PULSE 88; TEMP 36.8; O2SAT 97
[2017-09-21 19:07] VITALS: PULSE 92; O2SAT 97
[2017-09-21] MEDS ORDERED: LEVOFLOXACIN / D5W 750 MG in PREMIXED IN D5W 150 ML IV SCH (20:00)
[2017-09-21] MEDS: MONTELUKAST SOD 10 MG TAB PO SCH (20:32)
--- NOTE | 2017-09-21 23:42 | Progress Note ---
Medicine Progress Note Date & Time of Visit: September 21, 2017 at 18:40 . Subjective CC: Follow-up visit for depression, COPD, other problems. HPI: Admitted yesterday after drug overdose. Somnolent today, but doing fairly well. Cough productive of some green sputum. No fever. No chest pain. Had some nausea and vomiting yesterday, but none today. No diarrhea. Family visiting. ROS: as noted above in HPI . Objective Last 8 Hrs Date Time Temp Pulse Resp B/P (MAP) Pulse Ox O2 Delivery O2 Flow Rate FiO2 09/21/17 19:07 92 18 97 Nasal Cannula 3.0 09/21/17 16:00 Nasal Cannula 3.0 Physical Exam: General- lying in bed, no acute distress Lungs- diffuse wheezing with prolonged expiration; no respiratory distress Cardiovascular- distant heart sounds, RRR; no murmur or gallop appreciated; + JVD; no pretibial edema Abdomen- + bowel sounds, soft, nontender Extremities- no cyanosis; no calf tenderness Neuro- alert, oriented Skin- warm & dry . Laboratory Results: Last 24 Hours Test 09/21/17 06:35 White Blood Count 6.35 K/uL Red Blood Count 4.62 M/uL Hemoglobin 13.7 g/dL Hematocrit 40.8 % Mean Corpuscular Volume 88.3 fL Mean Corpuscular Hemoglobin 29.7 pg Mean Corpuscular Hemoglobin Concent 33.6 g/dl RDW Standard Deviation 44.8 fL RDW Coefficient of Variation 13.9 % Platelet Count 178 K/uL Mean Platelet Volume 9.3 fL Sodium Level 143 mmol/L Potassium Level 4.1 mmol/L Chloride Level 110 mmol/L Carbon Dioxide Level 28 mmol/L Anion Gap 5.0 mmol/L Blood Urea Nitrogen 17 mg/dl Creatinine 0.87 mg/dl Est Creatinine Clear Calc Drug Dose 85.1 ml/min Estimated GFR () 107.2 Estimated GFR (Non- 92.5 BUN/Creatinine Ratio 19.1 Random Glucose 81 mg/dl Calcium Level 7.9 mg/dl Assessment & Plan DEPRESSION / DRUG OVERDOSE Intentional ingestion of multiple medications and alcohol. Depressed related to his severe pulmonary disease. No neurologic or cardiac complications from ingestion. Seen in consultation by Psychiatry. Inpatient Mental Health care recommended when medically stable. COPD Severe COPD, O2 and steroid dependent. Possible aspiration day of admission. Chest x-ray demonstrated right perihilar densities. Oxygenation stable on 3 L NC. Receiving levofloxacin. Continue prednisone, Duonebs, Stiolto. Consult Pulmonary Medicine. CHRONIC HYPOXIC RESPIRATORY FAILURE Secondary to COPD. Continue supplemental oxygen. HISTORY MRSA Contact precautions. VTE PROPHYLAXIS SQ enoxaparin. Ambulate as able. DISPOSITION Inpatient Mental Health care recommended when medically stable. Internal Medicine follow-up with Dr. Berumen. Pulmonary Medicine follow-up with [facility] Pulmonary (usually seen by Tiarra Edmonds PA-C). . Current Inpatient Medications: Current Inpatient Medications Medications (Trade) Dose Ordered Sig/[place] Route Start Time Stop Time Status Last Admin Dose Admin Enoxaparin Sodium (Lovenox Inj) 40 mg Q24H SQ 09/21/17 09:00 10/21/17 08:59 09/21/17 08:09 40 MG Levofloxacin 750 mg/Prmx 150 ml @ 100 mls/hr Q24H IV 09/21/17 20:00 09/28/17 19:59 09/21/17 20:31 100 MLS/HR Albuterol (Ventolin Hfa Inhaler) 2 puffs QID PRN INH 09/20/17 23:00 10/20/17 22:59 09/21/17 16:34 2 PUFFS Albuterol Sulfate (Ventolin 0.083% 2.5MG/3ML Neb) 2.5 mg BID PRN INH 09/20/17 23:00 10/20/17 22:59 Amlodipine Besylate (Norvasc Tab) 5 mg QAM PO 09/21/17 09:00 10/21/17 08:59 09/21/17 08:10 5 MG Aspirin (Ecotrin Tab) 81 mg QAM PO 09/21/17 09:00 10/21/17 08:59 09/21/17 08:10 81 MG Azithromycin (Zithromax Tab) 500 mg WeSa@0900 PO 09/23/17 09:00 09/30/17 08:59 Formoterol Fumarate (Perforomist 20MCG/2ML Neb Soln) 20 mcg Q12R INH 09/21/17 08:00 10/21/17 07:59 09/21/17 19:07 20 MCG Ipratropium [place] (Atrovent 0.02% 0.5MG/2.5ML Neb) 0.5 mg BIDR INH 09/21/17 08:00 10/21/17 07:59 09/21/17 19:07 0.5 MG Pantoprazole Sodium (Protonix Tab) 40 mg DAILY PO 09/21/17 09:00 10/21/17 08:59 09/21/17 08:10 40 MG Prednisone (PredniSONE TAB) 5 mg QAM PO 09/21/17 09:00 10/21/17 08:59 09/21/17 08:10 5 MG Guaifenesin (Mucinex Contr Rel Tab) 1,200 mg BID PO 09/21/17 09:00 10/21/17 08:59 09/21/17 20:32 1,200 MG Miscellaneous Information (Order Awaiting Action) 1 ea QS N/A 09/21/17 00:00 10/21/17 00:00 Ketoconazole (Nizoral 2% Crm) 1 appln BID PRN EXT 09/20/17 23:00 10/20/17 22:59 Montelukast Sodium (Singulair Tab) 10 mg HS PO 09/21/17 21:00 10/21/17 20:59 09/21/17 20:32 10 MG Tiotropium [place]/Olodaterol (Stiolto Respimat 2.5-2.5 Mcg/Act) 5 mcg DAILY INH 09/22/17 09:00 10/22/17 08:59 09/21/17 12:43 5 MCG Fluticasone Furoate (Arnuity Ellipta) 100 mcg DAILY INH 09/22/17 09:00 10/22/17 08:59 09/21/17 12:42 100 MCG
[2017-09-22] MEDS: ALBUTEROL HFA 8 GM INHALER INH PRN ×3 (05:36→16:11)
[2017-09-22] MEDS: FORMOTEROL FUMA NEBULIZER SOLN 20 MCG/2 ML VIAL INH SCH ×2 (06:56→19:41)
[2017-09-22] MEDS: IPRATROPIUM BROMIDE NEB SOLN 0.02% 2.5 ML VIAL INH SCH ×2 (06:56→19:41)
[2017-09-22 06:57] VITALS: PULSE 94; O2SAT 97
[2017-09-22 07:18] VITALS: BP 133/71; PULSE 93; TEMP 36.3; O2SAT 94
[2017-09-22] MEDS: PANTOprazole SOD 40 MG TAB PO SCH (08:22)
[2017-09-22] MEDS: ASPIRIN 81 MG ECTAB PO SCH (08:22)
[2017-09-22] MEDS: GUAIFENESIN 600 MG TABCR PO SCH ×2 (08:22→20:16)
[2017-09-22] MEDS: FLUTICASONE FUROATE 200 MCG INH SCH (08:22)
[2017-09-22] MEDS: AMLODIPINE BESYLATE 5 MG TAB PO SCH (08:22)
[2017-09-22] MEDS: TIOTROPIUM BROMIDE-OLODATEROL 2.5-2.5MCG/ACT INH SCH (08:24)
[2017-09-22] MEDS: ENOXAPARIN 40 MG/0.4 ML SYR SQ SCH (08:25)
--- NOTE | 2017-09-22 09:26 | Pulmonary Consultation ---
History General Date of Service: September 22, 2017. Stated Complaint: Intentional Overdose Of Drug In Tablet Form HPI The patient is a 62 year old male who presents to [facility] with complaints of Intentional Overdose Of Drug In Tablet Form. The patient's primary care provider is Yasir Berumen D.O.. 62-year-old male admitted to [facility] for intentional overdose/suicide attempt. Per the ED record patient states he took 10 Ambien, 20 Ativan, 5 oxycodone along with alcohol/whiskey. He was found by his approximately 5 p.m. notably 100 and difficult to arouse with vomit on his clothes and EMS was called and transfer the patient to the ED. Patient notes increased dyspnea which is chronic in nature and notable shortness of breath at all times. Due to this he finds it difficult to sleep eat or or have any notable pleasure. Patient at the time of her interview notes he is still the press and noted that the he would most likely re-attempt suicide as his quality of life is very poor. At the time of our interview though he denied any sakina change in his underlying pulmonary status such as: Productive cough, fever, chills, pleurisy or even classic cardiac chest pain. He continues to note a dry intermittently productive cough with associated rhinitis. Patient is been aggressively treated by his outpatient pulmonary team with steroids as well as levofloxacin 750 mg and recent bronchoscopic intervention with no significant findings at that time by the then severe rhinitis. Patient does have a long history of bullous severe lung disease with multiple exacerbations often exacerbated by temperature extremes and exposure to sick contacts. PMHx: Sever COPD/emphysema/bilateral bulli, 80-pack year smoking history, pneumonia (CRISSY & MRSA), 2LPM nocturnal and w/activity O2, and GERD. He is on chronic prednisone: 5mg daily and 2x weekly dosing azithromycin, allopathic stem cell therapy in [place] 05/2014), oxygen dependent (2L with ambulation and QHS) Current inpatient workup EKG normal sinus rhythm rate 83 no signs of acute ischemic changes WBC count 6 K Platelet count 178 K VBG 7.36/45 corrects to 7.39/37 Toxicology screen: Ethyl alcohol 95.0 CXR: Compared to 09/01/2017 showing increased right hilar fullness along with right middle lobe infiltrate/bronchiectasis Previous pulmonary workup Pulmonary function studies 03/01/2017: Spirometry: Severe obstructive ventilatory disease with an FEV1 of 39% Bronchodilator: No significant response Lung volumes: Signs of hyperinflation with an elevated RV/TLC ratio Diffusion capacity: Severely reduced at 34% Bronchoscopy 09/14/2017 Indication: Chronic cough with associated bronchiectasis and right vocal cord paralysis Naris: Diffuse nasal erythema with some mild epistaxis at the interested the right naris Right lower lobe clockwise rotation with severe retroflexion and obstruction secondary to anatomical abnormality of the superior subsegment RUL (Microbiologic/Fungal/AFB): No significant growth to date RML (Microbiologic/Fungal/AFB): No significant growth to date CT chest 02/01/2017: Consistent with bullous emphysema-stable from previous studies. Interval development of right lower lobe parenchymal infiltrate with focal region of peripheral consolidative change. CT chest 04/11/2017: Severe bullous emphysema. The focal right lower lobe consolidation is near early complete really resolved. Small linear density remaining. New 5mm nodule in the RML most consistent with inflammation/ infectious change. The current pulmonary medications 1. Azithromycin 500 mg p.o. daily 2. Stiolto Respimat 5 micrograms inhaled daily 3. Arnuity Ellipta 100 micrograms inhaled daily 4. Montelukast 10 mg p.o. daily 5. Levofloxacin 750 mg IV daily 6. Lovenox 40 milligram subcu daily 7. Pantoprazole 40 milligram p.o. daily 8. Prednisone 5 mg p.o. daily 9. Guaifenesin 1.2 grams p.o. b.i.d. 10. Formoterol fumarate 20 micrograms b.i.d. 11. Atrovent nebulizer b.i.d. 12. Ventolin HFA q.i.d. p.r.n. 13. Ventolin nebulized b.i.d. PmHx: 1. Right vocal cord paralysis 2. Pneumonia: MRSA from bronchoscopy 03/31/2011 right upper lobe 3. Pneumonia: CRISSY 4. Severe COPD FEV1 39%, diffusion capacity 34% 5. GERD 6. Hyperlipidemia 7. Oxygen-dependent hypoxemia 2 liters with exertion and sleep 8. Thrush 9. Polyuria Surgical History 1. Hernia Repair 2. Hip Surgery 3. Tonsillectomy Family History 1. Diabetes Mellitus 2. 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 Albuterol Sulfate (2.5 MG/3ML) 0.083% Inhalation Nebulization Solution 2. Arnuity Ellipta 200 MCG/ACT Inhalation Aerosol Powder Breath Activated; INHALE 1 PUFF 3. LevoFLOXacin 750 MG Oral Tablet; Take 1 tablet daily; 4. Perforomist 20 MCG/2ML Inhalation Nebulization Solution; VIA NEBULIZER EVERY EVENING 6. Vortex Valved Holding Chamber Device; TO USE WITH INHALER; 8. PredniSONE 9. Ipratropium [place] 0.02 % Inhalation Solution; USE 1 UNIT DOSE IN NEBULIZER PRN 11. Zolpidem Tartrate 5 MG Oral Tablet; TAKE 1 TABLET BY MOUTH AT BEDTIME 12. Azithromycin 500 MG Oral Tablet; TAKE 1 TABLET 2 TIMES PER WEEK 13. Stiolto Respimat 2.5-2.5 MCG/ACT Inhalation Aerosol Solution; USE 2 INHALATIONS 14. AmLODIPine Besylate 5 MG Oral Tablet; TAKE 1 TABLET DAILY 15. Aspirin 81 MG TABS; TAKE 1 TABLET DAILY 16. Hydrocortisone 2.5 % External Cream; APPLY TO AFFECTED AREA TWICE DAILY 17. Ketoconazole 2 % External Cream; APPLY SPARINGLY TO AFFECTED AREA(S) TWICE 18. LORazepam 1 MG Oral Tablet; TAKE 1 TABLET AT BEDTIME NEEDED 19. Omeprazole 20 MG Oral Capsule Delayed Release; TAKE 1 CAPSULE TWICE DAILY 20. Oxygen; 2 LPM VIA NASAL CANNULA 21. Ventolin HFA 108 (90 Base) MCG/ACT Inhalation Aerosol Solution; INHALE 2 PUFFS Allergies 1. Clarithromycin TABS Historian: patient, EMS Review of Systems Constitutional: reports: other (Notably fatigued) Eyes: reports: no symptoms ENT: reports: no symptoms Cardiovascular: reports: as stated in HPI Respiratory: reports: as stated in HPI Gastrointestinal: reports: no symptoms Genitourinary - Male: reports: no symptoms Musculoskeletal: reports: no symptoms Integumentary: reports: no symptoms Neurologic: reports: no symptoms Psychiatric: reports: depression, suicidal ideation Endocrine: no symptoms Hematologic / Lymphatic: no symptoms Allergic / Immunologic: no symptoms Past Medical History Past Medical History: Please refer to HPI Past Surgical History: Please refer to HPI Family History Patient reports no known family medical history. 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 ) Immunizations History of Influenza Vaccine: Yes Influenza Vaccine Date: Feb 19, 2011 History of Tetanus Vaccine?: Yes History of Pneumococcal: Yes Pneumococcal Date: Mar 02, 2007 History of Hepatitis B Vaccine: No History of MDRO History of MDRO: Yes Type of MDRO: MRSA Allergies Coded Allergies: Clarithromycin (Verified Allergy, Intermediate, SHORTNESS OF BREATH, ) Atorvastatin (Verified Allergy, Unknown, MUSCLE ACHES ARMS, 09/14/17) Metaproterenol (Verified Allergy, Unknown, UNKNOWN, 09/14/17) Sympathomimetics (Verified Allergy, Unknown, `, 09/14/17) Current Medications Reported Home Medications Medications Dose Route/Sig Max Daily Dose Days Date Category Dose Instructions Ketoconazole 45 Appln/15 Gm Cr 1 Dose TOP BID PRN 09/20/17 Reported Augmentin 500MG (Amoxicillin & Pot Clavulanate) 1 Tab Tab 500 Mg PO BID PRN 10 09/20/17 Reported Ipratropium [place] 0.5 Mg/2.5 Ml Nebu 1 Vial NEB BID 30 09/20/17 Reported Protonix (Pantoprazole Sodium) 40 Mg Tab 40 Mg PO DAILY 09/20/17 Reported Aspirin Chewable (Aspirin) 81 Mg Chew 81 Mg PO DAILY 09/20/17 Reported Perforomist (Formoterol Fumarate) 20 Mcg/2 Ml Nebu 2 Ml NEB Q12 09/20/17 Reported Arnuity Ellipta (Fluticasone Furoate (Inhalatio) 200 Mcg/Act Inh 1 Inha INH QAM 09/20/17 Reported Lorazepam 1 Mg Tab 0.5 Mg PO BID PRN 09/20/17 Reported Sodium Chloride (Sodium Chloride (Inhalant)) 7 % Neb 1 Vial NEB UD 09/20/17 Reported USE ONE 4 ML VIAL OF 7% SALINE VIA NEBULIZER IN MORNINGS WHILE SICK Prednisone 10 Mg Tab 10 Mg PO UD PRN 09/20/17 Reported RESCUE KIT - TAPER DOWN DOSING FOLLOWS: TAKE 5 TABLETS (50 MG) DAILY FOR 3 DAYS THEN, TAKE 4 TABLETS (40 MG) DAILY FOR 3 DAYS THEN, TAKE 3 TABLETS (30 MG) DAILY FOR 3 DAYS THEN, TAKE 2 TABLETS (20 MG) DAILY FOR 3 DAYS THEN, TAKE 1 TABLET (10 MG) DAILY FOR 3 DAYS THEN STOP TAPER DOWN DOSING. Amlodipine Besylate 5 Mg Tab 5 Mg PO QAM 09/20/17 Reported Azithromycin 500 Mg Tab 500 Mg PO 2XWK 09/20/17 Reported TAKE THIS MEDICATION EVERY MONDAY AND MONDAY Zolpidem Tartrate 5 Mg Tab 5 Mg PO HS PRN 09/20/17 Reported Montelukast Sodium (Montelukast Sod) 10 Mg Tab 10 Mg PO HS 09/20/17 Reported Ventolin Hfa (Albuterol) 200 Puffs/62217 Mcg Aers 2 Puffs INH QID PRN 04/28/17 Reported Mucinex Maximum Strength (Guaifenesin) 1,200 Mg Tab 1,200 Mg PO BID 04/28/17 Reported Hydrocortisone (Hydrocortisone (Topical)) 2.5 % Lot 1 Appln TOP QAM PRN 03/22/17 Reported Oxygen Gas 2.5 Liters NA HS 03/21/17 Reported Prednisone 5 Mg Tab 5 Mg PO QAM 03/21/17 Reported Stiolto Respimat 2.5-2.5 Mcg/Act (Tiotropium [place]-Olodaterol) 1 Aer Aer 2 Puff INH QAM 01/12/16 Reported Proventil 0.083% 2.5MG/3ML (Albuterol Sulf) 2.5 Mg/3 Ml Nebu 2.5 Mg NEB Q6H PRN 09/18/09 Reported Physical Physical Exam Vital Signs: Date Time Temp Pulse Resp B/P (MAP) Pulse Ox O2 Delivery O2 Flow Rate FiO2 09/22/17 07:18 36.3 93 22 133/71 (91) 94 Room Air 09/22/17 06:57 94 18 97 Nasal Cannula 3.0 09/21/17 23:59 Nasal Cannula 3.0 09/21/17 19:07 92 18 97 Nasal Cannula 3.0 09/21/17 16:00 Nasal Cannula 3.0 09/21/17 15:10 36.8 88 20 118/77 (91) 97 Nasal Cannula 3.0 General Appearance: uncomfortable Head: NORMOCEPHALIC, ATRAUMATIC Eyes: PERRLA, NO DISCHARGE, EOMI, SCLERAE NORMAL ENT: NORMAL EAR EXAM, NORMAL NASAL EXAM, NORMAL MOUTH EXAM, NORMAL THROAT EXAM Neck: NORMAL RANGE OF MOTION, NO TENDERNESS, TRACHEA MIDLINE, NO STRIDOR Respiratory: rhonchi (Some rhonchi appreciated bilaterally with decreased breath sounds at the posterior mid nipple line bilaterally) Cardiovasular: REGULAR RATE/RHYTHM, NORMAL S1S2, NO M/G/R, NO MURMUR, NO GALLOP Abdomen: NON TENDER, NORMAL BOWEL SOUNDS, NO REBOUND, NO MASSES, NO GUARDING Genitourinary - Male: EXTERNAL GENITALIA NORMAL Back: NORMAL INSPECTION, NO MIDLINE TENDERNESS, NO CVA TENDERNESS Upper Extremities: NO EDEMA, NO DEFORMITY, NORMAL ROM Lower Extremities: NO EDEMA, NO DEFORMITY, NORMAL ROM Pulses: carotid (R) (2+), carotid (L) (2+), dorsalis pedis (R) (2+), dorsalis pedis (L) (2+) Neuro: ALERT, ORIENTED x 3, NORMAL MOTOR EXAM, NORMAL SENSATION Reflexes: biceps (R) (2+), bicpes (L) (2+), patellar (R) (2+), patellar (L) (2+ ) Babinski Testing: right (downgoing), left (downgoing) Psychiatric: [employer], depressed, suicidal Diagnostics Diagnostic Radiology Please refer to HPI Impression Assessment and Plan 62-year-old gentleman with severe COPD last FEV1 39% admitted status post suicide attempt a possible aspiration: 1. Aspiration: Patient's x-ray does show some infiltrate along the right hilar and possible right middle lobe. Will order repeat CXR for tomorrow to continue to monitor this as well as a procalcitonin level. As most aspiration events or chemical approximately 90% the procalcitonin is within normal limits and the CXR shows no increasing infiltrative pattern we can re-address antibiotic use. Currently on Levofloxacin IV 750mg and was given a dose of Flagyl 500 mg p.o. x1. As there is a possible risk of aspiration I do suggest we continue his antibiotics but can be switched to levofloxacin 750 mg QD orally as well as Flagyl 500 mg orally q.i.d.. Once again if the procalcitonin is within normal limits in the patient is clinically stable readdress thing discontinuation in the next 24-48 hours it is a reasonable step. This time I do not believe the patient needs atypical coverage with azithromycin. 2. COPD: Patient has severe obstructive ventilatory disease with an FEV1 last obtained of 39% but a AUGUSTIN index of 7 which has an 18% survival weight within a 4 year window. I agree with current medication regimen but will increase his azithromycin 500 mg from his baseline once weekly to Monday, Monday and Monday. This patient is not a candidate for Daliresp is he has a decreased BMI and notably in not chronic bronchiectasis as well he is not a candidate for lung volume reduction surgery as he does not have upper lobe heterogeneous changes and at this time secondary to his suicide attempt would not be a candidate for evaluation for lung transplant surgery.
[2017-09-22 15:23] VITALS: BP 151/74; PULSE 105; TEMP 36.8; O2SAT 91
[2017-09-22 19:34] VITALS: PULSE 88; O2SAT 95
[2017-09-22] MEDS ORDERED: LEVOFLOXACIN 750 MG TAB PO SCH (20:00)
[2017-09-22] MEDS: MONTELUKAST SOD 10 MG TAB PO SCH (20:16)
[2017-09-22 23:04] VITALS: BP 124/73; PULSE 81; TEMP 36.7; O2SAT 98
[2017-09-23] MEDS: ALBUTEROL HFA 8 GM INHALER INH PRN ×4 (03:51→22:29)
--- NOTE | 2017-09-23 04:07 | Progress Note ---
Medicine Progress Note Date & Time of Visit: September 22, 2017 at 18:30 . Subjective CC: Follow-up visit for depression, COPD, other problems. HPI: Admitted 09/20 after drug overdose. Better today. Cough still productive of some green sputum. No fever. No chest pain. No nausea or vomiting. No diarrhea. Seen by Dr. Wong this morning. ROS: as noted above in HPI . Objective Last 8 Hrs Date Time Temp Pulse Resp B/P (MAP) Pulse Ox O2 Delivery O2 Flow Rate FiO2 09/22/17 23:59 Nasal Cannula 3.0 09/22/17 23:04 36.7 81 20 124/73 (90) 98 2.0 Physical Exam: General- lying in bed, no acute distress Lungs- diffuse wheezing with prolonged expiration, few scattered rhonchi; no respiratory distress Cardiovascular- distant heart sounds, RRR; no murmur or gallop appreciated; + JVD; no pretibial edema Abdomen- + bowel sounds, soft, nontender Extremities- no cyanosis; no calf tenderness Neuro- alert, oriented Skin- warm & dry . Laboratory Results: Last 24 Hours Test 09/22/17 10:11 Procalcitonin 0.05 ng/ml Assessment & Plan DEPRESSION / DRUG OVERDOSE Intentional ingestion of multiple medications and alcohol. Depressed related to his severe pulmonary disease. No neurologic or cardiac complications from ingestion. Seen in consultation by Psychiatry. Inpatient Mental Health care recommended when medically stable. COPD Severe COPD, O2 and steroid dependent. Possible aspiration day of admission. Chest x-ray demonstrated right perihilar densities. Oxygenation stable on 3 L NC. Received levofloxacin. Continue prednisone, Duonebs, formoterol, Stiolto. Pulmonary Medicine consulted.. Metronidazole added to antibiotic coverage for possible aspiration pneumonia. Azithromycin changed to 500 mg 3 times a week. CHRONIC HYPOXIC RESPIRATORY FAILURE Secondary to COPD. Continue supplemental oxygen. HISTORY MRSA No MRSA noted on recent bronchoscopy. Continue contact precautions. VTE PROPHYLAXIS SQ enoxaparin. Ambulate as able. DISPOSITION Inpatient Mental Health care recommended when medically stable. Internal Medicine follow-up with Dr. Berumen. Pulmonary Medicine follow-up with [facility] (usually seen by Tiarra Edmonds PA-C). . Current Inpatient Medications: Current Inpatient Medications Medications (Trade) Dose Ordered Sig/Morena Route Start Time Stop Time Status Last Admin Dose Admin Enoxaparin Sodium (Lovenox Inj) 40 mg Q24H SQ 09/21/17 09:00 10/21/17 08:59 09/21/17 08:09 40 MG Albuterol (Ventolin Hfa Inhaler) 2 puffs QID PRN INH 09/20/17 23:00 10/20/17 22:59 09/23/17 03:51 2 PUFFS Albuterol Sulfate (Ventolin 0.083% 2.5MG/3ML Neb) 2.5 mg BID PRN INH 09/20/17 23:00 10/20/17 22:59 09/22/17 06:56 2.5 MG Amlodipine Besylate (Norvasc Tab) 5 mg QAM PO 09/21/17 09:00 10/21/17 08:59 09/22/17 08:22 5 MG Aspirin (Ecotrin Tab) 81 mg QAM PO 09/21/17 09:00 10/21/17 08:59 09/22/17 08:22 81 MG Formoterol Fumarate (Perforomist 20MCG/2ML Neb Soln) 20 mcg Q12R INH 09/21/17 08:00 10/21/17 07:59 09/22/17 19:41 20 MCG Ipratropium [place] (Atrovent 0.02% 0.5MG/2.5ML Neb) 0.5 mg BIDR INH 09/21/17 08:00 10/21/17 07:59 09/22/17 19:41 0.5 MG Pantoprazole Sodium (Protonix Tab) 40 mg DAILY PO 09/21/17 09:00 10/21/17 08:59 09/22/17 08:22 40 MG Prednisone (PredniSONE TAB) 5 mg QAM PO 09/21/17 09:00 10/21/17 08:59 09/22/17 08:22 5 MG Guaifenesin (Mucinex Contr Rel Tab) 1,200 mg BID PO 09/21/17 09:00 10/21/17 08:59 09/22/17 20:16 1,200 MG Miscellaneous Information (Order Awaiting Action) 1 ea QS N/A 09/21/17 00:00 10/21/17 00:00 Ketoconazole (Nizoral 2% Crm) 1 appln BID PRN EXT 09/20/17 23:00 10/20/17 22:59 Montelukast Sodium (Singulair Tab) 10 mg HS PO 09/21/17 21:00 10/21/17 20:59 09/22/17 20:16 10 MG Tiotropium [place]/Olodaterol (Stiolto Respimat 2.5-2.5 Mcg/Act) 5 mcg DAILY INH 09/22/17 09:00 10/22/17 08:59 09/22/17 08:24 5 MCG Fluticasone Furoate (Arnuity Ellipta) 100 mcg DAILY INH 09/22/17 09:00 10/22/17 08:59 09/22/17 08:22 100 MCG Azithromycin (Zithromax Tab) 500 mg MoWeFr@0900 PO 09/25/17 09:00 09/30/17 08:59 Levofloxacin (Levaquin Tab) 750 mg DAILY@2000 PO 09/22/17 20:00 09/26/17 20:01 09/22/17 20:15 750 MG
[2017-09-23 06:45] VITALS: BP 124/73; PULSE 88; TEMP 36.3; O2SAT 98
[2017-09-23 07:07] VITALS: PULSE 88; O2SAT 99
[2017-09-23] MEDS: IPRATROPIUM BROMIDE NEB SOLN 0.02% 2.5 ML VIAL INH SCH ×2 (07:07→19:31)
[2017-09-23] MEDS: FORMOTEROL FUMA NEBULIZER SOLN 20 MCG/2 ML VIAL INH SCH ×2 (07:07→19:31)
[2017-09-23] MEDS: PANTOprazole SOD 40 MG TAB PO SCH (08:33)
[2017-09-23] MEDS: GUAIFENESIN 600 MG TABCR PO SCH ×2 (08:33→20:36)
[2017-09-23] MEDS: ASPIRIN 81 MG ECTAB PO SCH (08:34)
[2017-09-23] MEDS: AMLODIPINE BESYLATE 5 MG TAB PO SCH (08:34)
[2017-09-23] MEDS: FLUTICASONE FUROATE 200 MCG INH SCH (08:35)
[2017-09-23] MEDS: TIOTROPIUM BROMIDE-OLODATEROL 2.5-2.5MCG/ACT INH SCH (08:36)
[2017-09-23] MEDS: ENOXAPARIN 40 MG/0.4 ML SYR SQ SCH (08:37)
[2017-09-23] MEDS ORDERED: AZITHROMYCIN 250 MG TAB PO SCH (09:00)
[2017-09-23] MEDS ORDERED: METRONIDAZOLE 500 MG TAB PO SCH (09:00)
--- NOTE | 2017-09-23 09:21 | DIAGNOSTIC IMAGING REPORT ---
CHEST 2 VIEWS ROUTINE HISTORY: 62 years-old Male Aspiration acute aspiration COMPARISON: Chest radiograph 09/20/2017, chest CT 04/11/2017 TECHNIQUE: PA and lateral views of the chest FINDINGS: Cardiac silhouette is within normal limits. Severe bullous emphysematous disease is noted with paucity of lung markings in the upper lung zones. No pneumothorax or pleural effusion. Linear subsegmental atelectasis of the right middle lobe medial segment. No lobar airspace consolidation or overt pulmonary edema. Bones of the chest appear grossly intact. IMPRESSION: 1. Severe bullous emphysematous disease without acute process. 2. Minimal atelectasis of the medial segment right middle lobe. The above report was generated using voice recognition software. It may contain grammatical, syntax or spelling errors. Electronically signed by: Aston Poole M.D. 09/23/2017 9:20 AM Dictated Date/Time: 09/23/2017 9:17 AM
--- NOTE | 2017-09-23 10:31 | PULMONARY PROGRESS NOTE ---
DATE: 09/23/2017 SUBJECTIVE: The patient was sitting by the window. We acquainted with the patient as I have seen him in the past. 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 I was very surprised to hear that he had worked up to the time of admission as I have followed him in the past and he has severe endstage bullous lung disease. He is on home oxygen. He suffered from severe depression given his inability to work and carry out his daily activities. PHYSICAL EXAMINATION: CURRENT VITAL SIGNS: Temperature 36.7, pulse 88 and regular, respiratory rate 18, blood pressure 124/73, O2 sat 99% on 3 L. SKIN: Without lesion. HEENT: Atraumatic, normocephalic. PERRLA. LUNGS:: Distant breath sounds. Occasional wheeze and marked prolongation of expiratory phase of breathing. CARDIAC: Regular rhythm. I do not appreciate a gallop. ABDOMEN: Soft, protuberant. No evidence of hepatosplenomegaly. EXTREMITIES: No significant pedal edema, clubbing or cyanosis. NEUROLOGIC: Intact. No lateralizing signs. No bowel movement since Monday. LABORATORY DATA: Chest x-ray today shows bullous emphysematous changes without acute process. Minimal atelectasis, medial segment, right middle lobe. Blood cultures negative. White count on admission normal. H and H 13 and 40.8. ABGs on admission, pH 7.36, pCO2 of 45, pO2 62, ? room air. Rest of his chemistry is unremarkable. Drug screen as noted and ethyl alcohol as noted. OVERALL ASSESSMENT: A 62-year-old with bullous lung disease, previously O2 and steroid dependent with suicide attempt, possible aspiration. I had a lengthy discussion with the patient concerning his lifestyle. It is amazing that he given his work ethic which is superb, was able to work a full day given the extent of his lung disease. I advised him that I was almost certain he would enjoy life more being able to do a few activities well than a number of activities poorly and that he most certainly should qualify for disability for SSI. From a lung standpoint, I think he is back to baseline and I do not know if there is a movement to transfer him to [address] [place] [address] for inpatient counseling, but I think that could be very helpful. I would be certainly happy to see him as an outpatient and I know Tiarra Rivera sees him as well and I would be happy to see him on occasion as well.
[2017-09-23] MEDS ORDERED: LEVOFLOXACIN 750 MG TAB PO SCH (11:00)
[2017-09-23] MEDS ORDERED: POLYETHYLENE (MIRALAX) 17 GM PACK PO ONE (11:45)
[2017-09-23 15:11] VITALS: BP 117/71; PULSE 101; TEMP 36.8; O2SAT 96
[2017-09-23] MEDS: AMOXICILLIN/CLAVULANATE TAB 875 MG TAB PO SCH (16:58)
--- NOTE | 2017-09-23 19:13 | Progress Note ---
Medicine Progress Note Date & Time of Visit: September 23, 2017 at 11:30 . Subjective CC: Follow-up visit for depression, COPD, other problems. HPI: Admitted 09/20 after drug overdose. Cough still productive of some green sputum. Pulmonary status near baseline. No fever. No chest pain. No nausea or vomiting. No diarrhea. Seen by Dr. Rendon this morning. ROS: as noted above in HPI . Objective Last 8 Hrs Date Time Temp Pulse Resp B/P (MAP) Pulse Ox O2 Delivery O2 Flow Rate FiO2 09/23/17 16:00 Nasal Cannula 3.0 09/23/17 15:11 36.8 101 18 117/71 (86) 96 Nasal Cannula 2.0 Physical Exam: General-sitting in chair, no acute distress Lungs- diffuse wheezing with prolonged expiration, no respiratory distress Cardiovascular- distant heart sounds, RRR; no murmur or gallop appreciated; + JVD; no pretibial edema Abdomen- + bowel sounds, soft, nontender Extremities- no cyanosis; no calf tenderness Neuro- alert, oriented Skin- warm & dry . Assessment & Plan DEPRESSION / DRUG OVERDOSE Intentional ingestion of multiple medications and alcohol. Depressed related to his severe pulmonary disease. No neurologic or cardiac complications from ingestion. Seen in consultation by Psychiatry. Inpatient Mental Health care recommended when medically stable. COPD Severe COPD, O2 and steroid dependent. Possible aspiration day of admission. Chest x-ray demonstrated right perihilar densities. Oxygenation stable on 3 L NC. Received levofloxacin. Continue prednisone, Duonebs, formoterol, Stiolto. Pulmonary Medicine consulted.. Possible aspiration day of admission with productive cough. Transition from levofloxacin + metronidazole to amoxicillin / clavulanic acid. Azithromycin changed to 500 mg 3 times a week. CHRONIC HYPOXIC RESPIRATORY FAILURE Secondary to COPD. Continue supplemental oxygen. HISTORY MRSA No MRSA noted on recent bronchoscopy. Continue contact precautions unless Infection Control allows discontinuation. VTE PROPHYLAXIS SQ enoxaparin. Ambulate as able. DISPOSITION Ready for inpatient mental health care when bed available. Internal Medicine follow-up with Dr. Berumen. Pulmonary Medicine follow-up with [facility] (usually seen by Tiarra Edmonds PA-C). . Current Inpatient Medications: Current Inpatient Medications Medications (Trade) Dose Ordered Sig/[place] Route Start Time Stop Time Status Last Admin Dose Admin Enoxaparin Sodium (Lovenox Inj) 40 mg Q24H SQ 09/21/17 09:00 6/9/18 08:59 09/21/17 08:09 40 MG Albuterol (Ventolin Hfa Inhaler) 2 puffs QID PRN INH 09/20/17 23:00 10/20/17 22:59 09/23/17 15:37 2 PUFFS Albuterol Sulfate (Ventolin 0.083% 2.5MG/3ML Neb) 2.5 mg BID PRN INH 09/20/17 23:00 10/20/17 22:59 09/22/17 06:56 2.5 MG Amlodipine Besylate (Norvasc Tab) 5 mg QAM PO 09/21/17 09:00 10/21/17 08:59 09/23/17 08:34 5 MG Aspirin (Ecotrin Tab) 81 mg QAM PO 09/21/17 09:00 10/21/17 08:59 09/23/17 08:34 81 MG Formoterol Fumarate (Perforomist 20MCG/2ML Neb Soln) 20 mcg Q12R INH 09/21/17 08:00 10/21/17 07:59 09/23/17 07:07 20 MCG Ipratropium [place] (Atrovent 0.02% 0.5MG/2.5ML Neb) 0.5 mg BIDR INH 09/21/17 08:00 10/21/17 07:59 09/23/17 07:07 0.5 MG Pantoprazole Sodium (Protonix Tab) 40 mg DAILY PO 09/21/17 09:00 10/21/17 08:59 09/23/17 08:33 40 MG Prednisone (PredniSONE TAB) 5 mg QAM PO 09/21/17 09:00 10/21/17 08:59 09/23/17 08:33 5 MG Guaifenesin (Mucinex Contr Rel Tab) 1,200 mg BID PO 09/21/17 09:00 10/21/17 08:59 09/23/17 08:33 1,200 MG Miscellaneous Information (Order Awaiting Action) 1 ea QS N/A 09/21/17 00:00 10/21/17 00:00 Ketoconazole (Nizoral 2% Crm) 1 appln BID PRN EXT 09/20/17 23:00 10/20/17 22:59 Montelukast Sodium (Singulair Tab) 10 mg HS PO 09/21/17 21:00 10/21/17 20:59 09/22/17 20:16 10 MG Tiotropium [place]/Olodaterol (Stiolto Respimat 2.5-2.5 Mcg/Act) 5 mcg DAILY INH 09/22/17 09:00 10/22/17 08:59 09/23/17 08:36 5 MCG Fluticasone Furoate (Arnuity Ellipta) 100 mcg DAILY INH 09/22/17 09:00 10/22/17 08:59 09/23/17 08:35 100 MCG Azithromycin (Zithromax Tab) 500 mg MoWeFr@0900 PO 09/25/17 09:00 09/30/17 08:59 Polyethylene (Miralax Powder Packet) 17 gm BID PO 09/23/17 21:00 10/23/17 20:59 Amoxicillin/ Clavulanate Potassium (Augmentin Tab) 875 mg BIDM PO 09/23/17 17:00 09/30/17 16:59 09/23/17 16:58 875 MG
[2017-09-23 19:34] VITALS: PULSE 92; O2SAT 96
[2017-09-23] MEDS: POLYETHYLENE (MIRALAX) 17 GM PACK PO SCH (20:36)
[2017-09-23] MEDS: MONTELUKAST SOD 10 MG TAB PO SCH (20:36)
[2017-09-23 23:05] VITALS: BP 130/81; PULSE 93; TEMP 36.2; O2SAT 96
[2017-09-24] MEDS: ALBUTEROL HFA 8 GM INHALER INH PRN ×4 (05:47→20:57)
[2017-09-24 06:55] VITALS: BP 115/79; PULSE 90; TEMP 36.7; O2SAT 98
[2017-09-24 07:34] VITALS: PULSE 92; O2SAT 99
[2017-09-24] MEDS: FORMOTEROL FUMA NEBULIZER SOLN 20 MCG/2 ML VIAL INH SCH ×2 (07:34→19:20)
[2017-09-24] MEDS: IPRATROPIUM BROMIDE NEB SOLN 0.02% 2.5 ML VIAL INH SCH ×2 (07:34→19:20)
[2017-09-24 08:00] VITALS: O2SAT 98
[2017-09-24] MEDS: PANTOprazole SOD 40 MG TAB PO SCH (08:28)
[2017-09-24] MEDS: GUAIFENESIN 600 MG TABCR PO SCH ×2 (08:29→20:57)
[2017-09-24] MEDS: ASPIRIN 81 MG ECTAB PO SCH (08:29)
[2017-09-24] MEDS: AMOXICILLIN/CLAVULANATE TAB 875 MG TAB PO SCH ×2 (08:30→16:47)
[2017-09-24] MEDS: POLYETHYLENE (MIRALAX) 17 GM PACK PO SCH (08:30)
[2017-09-24] MEDS: AMLODIPINE BESYLATE 5 MG TAB PO SCH (08:30)
[2017-09-24] MEDS: TIOTROPIUM BROMIDE-OLODATEROL 2.5-2.5MCG/ACT INH SCH (08:32)
[2017-09-24] MEDS: ENOXAPARIN 40 MG/0.4 ML SYR SQ SCH (08:32)
[2017-09-24] MEDS: FLUTICASONE FUROATE 200 MCG INH SCH (08:34)
[2017-09-24 14:53] VITALS: BP 123/72; PULSE 104; TEMP 36.4; O2SAT 93
[2017-09-24] MEDS ORDERED: POLYETHYLENE (MIRALAX) 17 GM PACK PO PRN (16:30)
[2017-09-24] MEDS ORDERED: SODIUM CHLORIDE 0.65% NA SOLN 45 ML (OCEAN) PRN (16:30)
[2017-09-24] MEDS ORDERED: SODIUM CHLORIDE 0.65% NA SOLN 45 ML (OCEAN) ONE (16:45)
[2017-09-24 19:23] VITALS: PULSE 70; O2SAT 94
--- NOTE | 2017-09-24 19:41 | Progress Note ---
Medicine Progress Note Date & Time of Visit: September 24, 2017 at 16:15 . Subjective CC: Follow-up visit for depression, COPD, other problems. HPI: Admitted 09/20 after drug overdose. Episode of emesis day of admission with suspected aspiration. Cough still productive of some green sputum, but improved. Pulmonary status near baseline. Experiencing some nasal congestion and drainage. No fever. No chest pain. No nausea or vomiting. No diarrhea. ROS: as noted above in HPI . Objective Last 8 Hrs Date Time Temp Pulse Resp B/P (MAP) Pulse Ox O2 Delivery O2 Flow Rate FiO2 09/24/17 19:23 70 18 94 Nasal Cannula 3.0 09/24/17 16:00 Nasal Cannula 3.0 Humidified Oxygen 09/24/17 14:53 36.4 104 20 123/72 (89) 93 Physical Exam: General-sitting in chair, no acute distress Lungs- diffuse wheezing with prolonged expiration, no respiratory distress Cardiovascular- distant heart sounds, RRR; no murmur or gallop appreciated; + JVD; no pretibial edema Abdomen- + bowel sounds, soft, nontender Extremities- no cyanosis; no calf tenderness Neuro- alert, oriented Skin- warm & dry . Assessment & Plan DEPRESSION / DRUG OVERDOSE Intentional ingestion of multiple medications and alcohol. Depressed related to his severe pulmonary disease. No neurologic or cardiac complications from ingestion. Seen in consultation by Psychiatry. Inpatient Mental Health care recommended when medically stable. COPD Severe COPD, O2 and steroid dependent. Possible aspiration day of admission. Chest x-ray demonstrated right perihilar densities. Oxygenation stable on 3 L NC. Received levofloxacin. Continue prednisone, Duonebs, formoterol, Stiolto. Pulmonary Medicine consulted.. Possible aspiration day of admission with productive cough. Transition from levofloxacin + metronidazole to amoxicillin / clavulanic acid. Azithromycin changed to 500 mg 3 times a week. CHRONIC HYPOXIC RESPIRATORY FAILURE Secondary to COPD. Continue supplemental oxygen. HISTORY MRSA No MRSA noted on recent bronchoscopy. Continue contact precautions unless Infection Control allows discontinuation. VTE PROPHYLAXIS SQ enoxaparin. Ambulate as able. DISPOSITION Ready for inpatient mental health care when bed available. Internal Medicine follow-up with Dr. Berumen. [facility]usually [facility] by Tiarra Edmonds PA-C). . Current Inpatient Medications: Current Inpatient Medications Medications (Trade) Dose Ordered Sig/[place] Route Start Time Stop Time Status Last Admin Dose Admin Enoxaparin Sodium (Lovenox Inj) 40 mg Q24H SQ 09/21/17 09:00 10/21/17 08:59 09/24/17 08:32 40 MG Albuterol (Ventolin Hfa Inhaler) 2 puffs QID PRN INH 09/20/17 23:00 10/20/17 22:59 09/24/17 17:21 2 PUFFS Albuterol Sulfate (Ventolin 0.083% 2.5MG/3ML Neb) 2.5 mg BID PRN INH 09/20/17 23:00 10/20/17 22:59 09/22/17 06:56 2.5 MG Amlodipine Besylate (Norvasc Tab) 5 mg QAM PO 09/21/17 09:00 10/21/17 08:59 09/24/17 08:30 5 MG Aspirin (Ecotrin Tab) 81 mg QAM PO 09/21/17 09:00 10/21/17 08:59 09/24/17 08:29 81 MG Formoterol Fumarate (Perforomist 20MCG/2ML Neb Soln) 20 mcg Q12R INH 09/21/17 08:00 10/21/17 07:59 09/24/17 19:20 20 MCG Ipratropium [place] (Atrovent 0.02% 0.5MG/2.5ML Neb) 0.5 mg BIDR INH 09/21/17 08:00 10/21/17 07:59 09/24/17 19:20 0.5 MG Pantoprazole Sodium (Protonix Tab) 40 mg DAILY PO 09/21/17 09:00 10/21/17 08:59 09/24/17 08:28 40 MG Prednisone (PredniSONE TAB) 5 mg QAM PO 09/21/17 09:00 10/21/17 08:59 09/24/17 08:28 5 MG Guaifenesin (Mucinex Contr Rel Tab) 1,200 mg BID PO 09/21/17 09:00 10/21/17 08:59 09/24/17 08:29 1,200 MG Miscellaneous Information (Order Awaiting Action) 1 ea QS N/A 09/21/17 00:00 10/21/17 00:00 Ketoconazole (Nizoral 2% Crm) 1 appln BID PRN EXT 09/20/17 23:00 10/20/17 22:59 Montelukast Sodium (Singulair Tab) 10 mg HS PO 09/21/17 21:00 10/21/17 20:59 09/23/17 20:36 10 MG Tiotropium [place]/Olodaterol (Stiolto Respimat 2.5-2.5 Mcg/Act) 5 mcg DAILY INH 09/22/17 09:00 10/22/17 08:59 09/24/17 08:32 5 MCG Fluticasone Furoate (Arnuity Ellipta) 100 mcg DAILY INH 09/22/17 09:00 10/22/17 08:59 09/24/17 08:34 100 MCG Azithromycin (Zithromax Tab) 500 mg MoWeFr@0900 PO 09/25/17 09:00 09/30/17 08:59 Amoxicillin/ Clavulanate Potassium (Augmentin Tab) 875 mg BIDM PO 09/23/17 17:00 09/30/17 16:59 09/24/17 16:47 875 MG Polyethylene (Miralax Powder Packet) 17 gm BID PRN PO 09/24/17 16:30 10/23/17 20:59 Oxymetazoline HCl (Afrin 0.05% Nasal [place]) 2 sprays BID PRN NA 09/24/17 16:30 10/24/17 16:29 Sodium Chloride ([place] Nasal [place]) 2 sprays Q4H PRN NA 09/24/17 16:30 10/24/17 16:29 09/24/17 18:11 2 SPRAYS
[2017-09-24] MEDS: OXYMETAZOLINE HCL 0.05% NA SPR 15 ML BTL PRN (19:54)
[2017-09-24] MEDS: MONTELUKAST SOD 10 MG TAB PO SCH (20:57)
[2017-09-24 23:18] VITALS: BP 101/68; PULSE 95; TEMP 36.5; O2SAT 98
[2017-09-25] MEDS: ALBUTEROL HFA 8 GM INHALER INH PRN ×2 (05:05→12:48)
[2017-09-25 07:10] VITALS: BP 128/79; PULSE 96; TEMP 36.6; O2SAT 96
[2017-09-25 07:14] VITALS: PULSE 98; O2SAT 98
[2017-09-25] MEDS: FORMOTEROL FUMA NEBULIZER SOLN 20 MCG/2 ML VIAL INH SCH (07:14)
[2017-09-25] MEDS: IPRATROPIUM BROMIDE NEB SOLN 0.02% 2.5 ML VIAL INH SCH (07:14)
[2017-09-25] MEDS: ASPIRIN 81 MG ECTAB PO SCH (08:51)
[2017-09-25] MEDS: OXYMETAZOLINE HCL 0.05% NA SPR 15 ML BTL PRN (08:51)
[2017-09-25] MEDS: GUAIFENESIN 600 MG TABCR PO SCH (08:51)
[2017-09-25] MEDS: AMOXICILLIN/CLAVULANATE TAB 875 MG TAB PO SCH (08:52)
[2017-09-25] MEDS: AMLODIPINE BESYLATE 5 MG TAB PO SCH (08:52)
[2017-09-25] MEDS: PANTOprazole SOD 40 MG TAB PO SCH (08:52)
[2017-09-25] MEDS: FLUTICASONE FUROATE 200 MCG INH SCH (08:53)
[2017-09-25] MEDS: TIOTROPIUM BROMIDE-OLODATEROL 2.5-2.5MCG/ACT INH SCH (08:54)
[2017-09-25] MEDS: ENOXAPARIN 40 MG/0.4 ML SYR SQ SCH (08:55)
[2017-09-25] MEDS ORDERED: AZITHROMYCIN 250 MG TAB PO SCH (09:00)
[2017-09-25 11:41] VITALS: BP 128/79; PULSE 98; TEMP 36.6; O2SAT 98
[2017-09-25] MEDS ORDERED: AZIT500T26 PO ×2 (13:41→17:15)
[2017-09-25] MEDS ORDERED: AMOX1TAB43 PO (13:41)
[2017-09-25] MEDS ORDERED: MRLP17X PO (13:42)
[2017-09-25] MEDS ORDERED: AFRIN (13:42)
--- NOTE | 2017-09-25 14:58 | Progress Note ---
Medicine Progress Note Date & Time of Visit: September 25, 2017 at 12:00 . Subjective CC: Follow-up visit for depression, COPD, other problems. HPI: Admitted 09/20 after drug overdose. Episode of emesis day of admission with suspected aspiration. Cough improved. Pulmonary status now back to baseline. Wearing O2 @ 2.5 LPM (his usual flow rate). No fever. No chest pain. No nausea or vomiting. No diarrhea. ROS: as noted above in HPI . Objective Last 8 Hrs Date Time Temp Pulse Resp B/P (MAP) Pulse Ox O2 Delivery O2 Flow Rate FiO2 09/25/17 11:41 36.6 98 18 98 Room Air Nasal Cannula 09/25/17 08:00 Room Air 09/25/17 07:14 98 18 98 Nasal Cannula 3.0 09/25/17 07:10 36.6 96 20 128/79 (95) 96 Nasal Cannula 2.5 Physical Exam: General-sitting in chair, no acute distress Lungs- diffuse mild wheezing with prolonged expiration, no respiratory distress Cardiovascular- distant heart sounds, RRR; no murmur or gallop appreciated; + JVD; no pretibial edema Abdomen- + bowel sounds, soft, nontender Extremities- no cyanosis; no calf tenderness Neuro- alert, oriented Skin- warm & dry . Laboratory Results: Date/Time Source Procedure Growth Status 09/25/17 13:00 Nasal MRSA DNA Surveillance Screen Pending Received Assessment & Plan DEPRESSION / DRUG OVERDOSE Intentional ingestion of multiple medications (zolpidem, lorazepam, oxycodone) and alcohol. Depressed related to his severe pulmonary disease. No neurologic or cardiac complications from ingestion. Seen in consultation by Psychiatry. Inpatient Mental Health care recommended when medically stable. COPD Severe COPD, O2 and steroid dependent. Possible aspiration day of admission. Chest x-ray demonstrated right perihilar densities. Oxygenation stable on 2-3 L NC. Received levofloxacin. Continue prednisone, Duonebs, formoterol, Stiolto. Pulmonary Medicine consulted.. Possible aspiration day of admission with productive cough. Transitioned from levofloxacin + metronidazole to amoxicillin / clavulanic acid. Discharge on amoxicillin / clavulanic acid to complete 7 days of aspiration coverage. Azithromycin changed to 500 mg 3 times a week for maintenance therapy. CHRONIC HYPOXIC RESPIRATORY FAILURE Secondary to COPD. Continue supplemental oxygen. HISTORY MRSA No MRSA noted on recent bronchoscopy. MRSA nasal screen negative. OK to discontinue isolation per Infection Control. VTE PROPHYLAXIS SQ enoxaparin. Ambulate as able. DISPOSITION Medically stable for inpatient mental health care. Arrangements being made for transfer to [address] [place] [address]. Internal Medicine follow-up with Dr. Berumen. Pulmonary Medicine follow-up with [facility] (usually seen by Tiarra Edmonds PA-C). . Current Inpatient Medications: Current Inpatient Medications Medications (Trade) Dose Ordered Sig/Morena Route Start Time Stop Time Status Last Admin Dose Admin Enoxaparin Sodium (Lovenox Inj) 40 mg Q24H SQ 09/21/17 09:00 10/21/17 08:59 09/24/17 08:32 40 MG Albuterol (Ventolin Hfa Inhaler) 2 puffs QID PRN INH 09/20/17 23:00 10/20/17 22:59 09/25/17 12:48 2 PUFFS Albuterol Sulfate (Ventolin 0.083% 2.5MG/3ML Neb) 2.5 mg BID PRN INH 09/20/17 23:00 10/20/17 22:59 09/22/17 06:56 2.5 MG Amlodipine Besylate (Norvasc Tab) 5 mg QAM PO 09/21/17 09:00 10/21/17 08:59 09/25/17 08:52 5 MG Aspirin (Ecotrin Tab) 81 mg QAM PO 09/21/17 09:00 10/21/17 08:59 09/25/17 08:51 81 MG Formoterol Fumarate (Perforomist 20MCG/2ML Neb Soln) 20 mcg Q12R INH 09/21/17 08:00 10/21/17 07:59 09/25/17 07:14 20 MCG Ipratropium [place] (Atrovent 0.02% 0.5MG/2.5ML Neb) 0.5 mg BIDR INH 09/21/17 08:00 10/21/17 07:59 09/25/17 07:14 0.5 MG Pantoprazole Sodium (Protonix Tab) 40 mg DAILY PO 09/21/17 09:00 10/21/17 08:59 09/25/17 08:52 40 MG Prednisone (PredniSONE TAB) 5 mg QAM PO 09/21/17 09:00 10/21/17 08:59 09/25/17 08:55 5 MG Guaifenesin (Mucinex Contr Rel Tab) 1,200 mg BID PO 09/21/17 09:00 10/21/17 08:59 09/25/17 08:51 1,200 MG Miscellaneous Information (Order Awaiting Action) 1 ea QS N/A 09/21/17 00:00 10/21/17 00:00 Ketoconazole (Nizoral 2% Crm) 1 appln BID PRN EXT 09/20/17 23:00 10/20/17 22:59 Montelukast Sodium (Singulair Tab) 10 mg HS PO 09/21/17 21:00 10/21/17 20:59 09/24/17 20:57 10 MG Tiotropium [place]/Olodaterol (Stiolto Respimat 2.5-2.5 Mcg/Act) 5 mcg DAILY INH 09/22/17 09:00 10/22/17 08:59 09/25/17 08:54 5 MCG Fluticasone Furoate (Arnuity Ellipta) 100 mcg DAILY INH 09/22/17 09:00 10/22/17 08:59 09/25/17 08:53 100 MCG Azithromycin (Zithromax Tab) 500 mg MoWeFr@0900 PO 09/25/17 09:00 09/30/17 08:59 09/25/17 08:52 500 MG Amoxicillin/ Clavulanate Potassium (Augmentin Tab) 875 mg BIDM PO 09/23/17 17:00 09/30/17 16:59 09/25/17 08:52 875 MG Polyethylene (Miralax Powder Packet) 17 gm BID PRN PO 09/24/17 16:30 10/23/17 20:59 Oxymetazoline HCl (Afrin 0.05% Nasal [place]) 2 sprays BID PRN NA 09/24/17 16:30 10/24/17 16:29 09/25/17 08:51 2 SPRAYS Sodium Chloride ([place] Nasal [place]) 2 sprays Q4H PRN NA 09/24/17 16:30 10/24/17 16:29 09/24/17 18:11 2 SPRAYS
--- NOTE | 2017-09-25 15:00 | Discharge Instructions ---
Discharge Instructions Date of Service September 25, 2017. Admission Reason for Admission: depression, drug overdose . Discharge Discharge Diagnosis / Problem: depression, drug overdose Discharge Goals Goal(s): Improve function, Improve disease control Activity Recommendations Activity Limitations: resume your previous activity . Instructions / Follow-Up Instructions / Follow-Up APPOINTMENTS: INTERNAL MEDICINE Dr. Berumen Please make appointment to be seen after discharge. PULMONARY MEDICINE Tiarra Edmonds PA-C. Please make appointment to be seen after discharge. OTHER INSTRUCTIONS: Seek medical attention if you have: * temperature above 101 * chest pain or trouble breathing * abdominal pain, nausea, vomiting * diarrhea, dark stools or bloody stools * any unanswered questions or concerns Call 911 if symptoms are severe. Call if you have any questions or problems. My cell # is [phone]. You can also reach a [facility] hospitalist on duty at [facility] 24 hours a day by calling [phone]. Please take good care of yourself. Jimmy Pina . Current Hospital Diet Patient's current hospital diet: AHA Diet (Heart Healthy) Discharge Diet Recommended Diet: AHA Diet (Heart Healthy) Pending Studies Studies pending at discharge: no Laboratory Results Hemoglobin A1c Test 09/01/17 13:08 Range/Units Estimated Average Glucose 117 mg/dl Hemoglobin A1c 5.7 H 4.5-5.6 % Medical Emergencies . Who to Call and When: Medical Emergencies: If at any time you feel your situation is an emergency, please call 911 immediately. . Non-Emergent Contact Non-Emergency issues call your: Primary Care Provider, Hospital Doctor, Manager Relocation . . "Provider Documentation" section prepared by Jimmy Pina. .
--- NOTE | 2017-09-25 15:32 | Discharge Summary ---
Discharge Summary Date of Service September 25, 2017. Discharge Summary Admission Date: September 20, 2017 at 21:53 Discharge Date: September 25, 2017 Discharge Disposition: Acute care mental health Principal Diagnosis: multidrug overdose depression suspected aspiration pneumonia . Secondary Diagnoses/Problems: Chronic Medical Problems: (1) Chronic hypoxemic respiratory failure Status: Chronic (2) COPD, severe Status: Chronic (3) GERD (gastroesophageal reflux disease) Status: Chronic (4) History of MRSA infection of lungs bronch 09/14/17 negative for MRSA nasal screen 09/25/17 negative for MRSA (5) HLD (hyperlipidemia) Status: Chronic (6) HTN (hypertension) Status: Chronic . Consultations: Pulmonary Medicine Psychiatry . Medication Reconciliation New Medications: Azithromycin (Zithromax) 500 Mg Tab 500 MG PO UD, #10 TAB 5 Refills 3 times a week on Mon-Mon-Mon. New dose 09/25/17. New prescription sent to pt's pharmacy. Amoxicillin & Pot Clavulanate (Amoxicillin/Clavulanate P) 1 Tab Tab 875 MG PO BIDM, #10 TAB Take with food. Oxymetazoline HCl (Afrin Nasal [place]) 75 Sprays/15 Ml [place] 2 SPRAYS NA BID PRN for nasal congestion for 3 Days, SPRAY Polyethylene (Miralax) 17 Gm Pow 17 GM PO BID PRN for constipation for 7 Days Continued Medications: Albuterol Hfa (Ventolin Hfa) 200 Puffs/76233 Mcg Aers 2 PUFFS INH QID PRN for Shortness of Breath, INHALER Albuterol Sulf (Proventil 0.083% 2.5MG/3ML) 2.5 Mg/3 Ml Nebu 2.5 MG NEB Q6H PRN for SOB/Wheezing Amlodipine Besylate (Amlodipine Besylate) 5 Mg Tab 5 MG PO QAM Aspirin (Aspirin Chewable) 81 Mg Chew 81 MG PO DAILY, TAB Fluticasone Furoate (Inhalatio (Arnuity Ellipta) 200 Mcg/Act Inh 1 INHA INH QAM Formoterol Fumarate (Perforomist) 20 Mcg/2 Ml Nebu 2 ML NEB Q12 Guaifenesin (Mucinex Maximum Strength) 1,200 Mg Tab 1200 MG PO BID, TAB Home O2 Therapy (Oxygen) Gas 2.5 LITERS NA HS, BTL Hydrocortisone (Topical) (Hydrocortisone) 2.5 % Lot 1 APPLN TOP QAM PRN for psoriasis, ML Ipratropium [place] (Ipratropium [place]) 0.5 Mg/2.5 Ml Nebu 1 VIAL NEB BID for 30 Days, #300 ML 5 Refills Ketoconazole (Ketoconazole) 45 Appln/15 Gm Cr 1 DOSE TOP BID PRN for RASH ON GROIN Montelukast Sod (Montelukast Sodium) 10 Mg Tab 10 MG PO HS Pantoprazole Sodium (Protonix) 40 Mg Tab 40 MG PO DAILY, #30 TAB Prednisone (Prednisone) 5 Mg Tab 5 MG PO QAM, TAB Prednisone (Prednisone) 10 Mg Tab 10 MG PO UD PRN for Rescue Kit RESCUE KIT - TAPER DOWN DOSING FOLLOWS: TAKE 5 TABLETS (50 MG) DAILY FOR 3 DAYS THEN, TAKE 4 TABLETS (40 MG) DAILY FOR 3 DAYS THEN, TAKE 3 TABLETS (30 MG) DAILY FOR 3 DAYS THEN, TAKE 2 TABLETS (20 MG) DAILY FOR 3 DAYS THEN, TAKE 1 TABLET (10 MG) DAILY FOR 3 DAYS THEN STOP TAPER DOWN DOSING. Sodium Chloride (Inhalant) (Sodium Chloride) 7 % Neb 1 VIAL NEB UD USE ONE 4 ML VIAL OF 7% SALINE VIA NEBULIZER IN MORNINGS WHILE SICK Tiotropium [place]-Olodaterol (Stiolto Respimat 2.5-2.5 Mcg/Act) 1 Aer Aer 2 PUFF INH QAM Discontinued Medications: Amoxicillin & Pot Clavulanate (Augmentin 500MG) 1 Tab Tab 500 MG PO BID PRN for rescue kit for 10 Days, TAB Azithromycin (Azithromycin) 500 Mg Tab 500 MG PO 2XWK TAKE THIS MEDICATION EVERY MONDAY AND MONDAY Lorazepam (Lorazepam) 1 Mg Tab 0.5 MG PO BID PRN for Anxiety/Agitation Zolpidem Tartrate (Zolpidem Tartrate) 5 Mg Tab 5 MG PO HS PRN for Insomnia Admission Information HPI (per Admitting provider): Patient is a 62yo male with a PMH of severe COPD (on 2.5L home O2) and HTN who presents to the ED after intentional drug overdose around 8am today. States that he took 10 Ambien, 20 Ativan and 5 oxycodone this morning, along with 2 whiskey mixed drinks. Does not remember anything following ingestion, but was found by around 5 PM. Patient was sleeping on the couch and was difficult to arouse. Presence of vomit in his shell and on his shirt. EMS was called and patient was brought to ED for further evaluation. States that COPD has continued to worsen and he has difficulty breathing all of the time. Shortness of breath makes it difficult for him to eat and sleep. Follows with Dr. Whitney in clinic and had a bronchoscopy performed last week. Was scheduled to return to clinic today to discuss results but patient did attend appointment. 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 States that he is "run down" from health problems and took medication today as a suicide attempt. Has been planning on doing so for a while. Denies previous diagnosis of depression or suicide attempts. . Physical Exam (per Admitting): General Appearance: WD/WN, no apparent distress, + pertinent finding ( drowsy ) Head: normocephalic, atraumatic Eyes: normal inspection, PERRL, sclerae normal ENT: normal ENT inspection, hearing grossly normal, pharynx normal Neck: supple, thyroid normal, trachea midline Respiratory/Chest: chest non-tender, no respiratory distress, no accessory muscle use, + decreased breath sounds Cardiovascular: regular rate, rhythm, no murmur, normal peripheral pulses Abdomen/GI: normal bowel sounds, non tender, soft, no organomegaly Back: normal inspection Extremities/Musculoskelatal: normal inspection, no calf tenderness, no pedal edema Neurologic/Psych: no motor/sensory deficits, alert, normal mood/affect, oriented x 3 Skin: normal color, warm/dry Hospital Course DEPRESSION / DRUG OVERDOSE Intentional ingestion of multiple medications (zolpidem, lorazepam, oxycodone) and alcohol. Depressed related to his severe pulmonary disease. No neurologic or cardiac complications from ingestion. Seen in consultation by Psychiatry. Inpatient Mental Health care recommended when medically stable. COPD Severe COPD, O2 and steroid dependent. Possible aspiration day of admission. Chest x-ray demonstrated right perihilar densities. Oxygenation stable on 2-3 L NC. Received levofloxacin. Continue prednisone, Duonebs, formoterol, Stiolto. Pulmonary Medicine consulted.. Possible aspiration day of admission with productive cough. Transitioned from levofloxacin + metronidazole to amoxicillin / clavulanic acid. Discharge on amoxicillin / clavulanic acid to complete 7 days of aspiration coverage. Azithromycin changed to 500 mg 3 times a week for maintenance therapy. CHRONIC HYPOXIC RESPIRATORY FAILURE Secondary to COPD. Continue supplemental oxygen. HISTORY MRSA No MRSA noted on recent bronchoscopy. MRSA nasal screen negative. OK to discontinue isolation per Infection Control. VTE PROPHYLAXIS SQ enoxaparin. Ambulate as able. DISPOSITION Medically stable for inpatient mental health care. Arrangements being made for transfer to [address] [place] [address]. Internal Medicine follow-up with Dr. Berumen. Pulmonary Medicine follow-up with [facility] Pulmonary (usually seen by Tiarra Edmonds PA-C). . Total time spent on discharge = 40 min. This includes examination of the patient, discharge planning, medication reconciliation, and communication with other providers. . Discharge Instructions Date of Service September 25, 2017. Admission Reason for Admission: depression, drug overdose . Discharge Discharge Diagnosis / Problem: depression, drug overdose Discharge Goals Goal(s): Improve function, Improve disease control Activity Recommendations Activity Limitations: resume your previous activity . Instructions / Follow-Up Instructions / Follow-Up APPOINTMENTS: INTERNAL MEDICINE Dr. Berumen Please make appointment to be seen after discharge. PULMONARY MEDICINE Tiarra Edmonds PA-C. Please make appointment to be seen after discharge. OTHER INSTRUCTIONS: Seek medical attention if you have: * temperature above 101 * chest pain or trouble breathing * abdominal pain, nausea, vomiting * diarrhea, dark stools or bloody stools * any unanswered questions or concerns Call 911 if symptoms are severe. Call if you have any questions or problems. My cell # is [phone]. You can also reach a [facility] hospitalist on duty at [facility] 24 hours a day by calling [phone]. Please take good care of yourself. Jimmy Pina . Current Hospital Diet Patient's current hospital diet: AHA Diet (Heart Healthy) Discharge Diet Recommended Diet: AHA Diet (Heart Healthy) Pending Studies Studies pending at discharge: no Laboratory Results Hemoglobin A1c Test 09/01/17 13:08 Range/Units Estimated Average Glucose 117 mg/dl Hemoglobin A1c 5.7 H 4.5-5.6 % Medical Emergencies . Who to Call and When: Medical Emergencies: If at any time you feel your situation is an emergency, please call 911 immediately. . Non-Emergent Contact Non-Emergency issues call your: Primary Care Provider, Hospital Doctor, Shaper Hand . . "Provider Documentation" section prepared by Jimmy Pina. . Additional Copies To Tiarra Edmonds PA-C; Yasir Berumen D.O.
[2017-09-25] MEDS ORDERED: OXYM0.0511 (17:15)
== END 2017-09-25 16:00 | DRG 917 ==
LOC: EDBD 18:34 → C.EDA 18:35 → UNDOADMIN 21:53 → C.MS2W 21:53 → ENRESERV 22:32
PROVIDERS: ADMIT Internal Medicine; ATTEND Hospitalist
DX: T42.6X2A Poisoning by other antiepileptic and sedative-hypnotic drugs, intentional self-harm, initial encounter (principal); J69.0 Pneumonitis due to inhalation of food and vomit; F33.2 Major depressive disorder, recurrent severe without psychotic features; J96.11 Chronic respiratory failure with hypoxia; T42.4X2A Poisoning by benzodiazepines, intentional self-harm, initial encounter; T40.2X2A Poisoning by other opioids, intentional self-harm, initial encounter; T51.0X2A Toxic effect of ethanol, intentional self-harm, initial encounter; J44.9 Chronic obstructive pulmonary disease, unspecified; I10 Essential (primary) hypertension; K21.9 Gastro-esophageal reflux disease without esophagitis; Z51.81 Encounter for therapeutic drug level monitoring; Z79.899 Other long term (current) drug therapy; Z79.82 Long term (current) use of aspirin; Z79.52 Long term (current) use of systemic steroids; Z99.81 Dependence on supplemental oxygen; Z86.14 Personal history of Methicillin resistant Staphylococcus aureus infection; Z87.01 Personal history of pneumonia (recurrent); Z88.1 Allergy status to other antibiotic agents; Z88.8 Allergy status to other drugs, medicaments and biological substances

== ENCOUNTER 2017-09-25 16:01 | Inpatient (IN) | payer BC, OTHER ==
[~2017-09-25] VITALS: Ht 167.6 cm; Wt 67.1 kg
[~2017-09-25 16:01] MED LIST changes: +AFRIN; +ALBINS/ NEB; -AMLO-110 PO; +AMOX1TAB43 PO; +AMOX500T PO; +ASPCH81X PO; -ASPI81TA28 PO; +ATRINS NEB; -ATV/1 PO; +ATV1 PO; +AZIT500T3 PO; -FLUT1INH3 INH; +FLUT1INH5 INH; -FORM1NEB INH; +MRLP17X PO; +NRV/5 PO; +NZRCR TOP; +OXGN; +PANT40TA PO; +PRED-301 PO; +PRFINS NEB; -PRLSR20 PO; +SNG10 PO; +SODI3NEB NEB; +TIOT1AER INH; -ZOLP5TAB PO; +ZOLP5TAB6 PO
[2017-09-25] MEDS ORDERED: ACETAMINOPHEN 325 MG TAB PO PRN (16:45)
[2017-09-25] MEDS ORDERED: hydrOXYzine HCL 25 MG TAB PO PRN (16:45)
[2017-09-25] MEDS ORDERED: SODIUM CHLORIDE 0.65% NA SOLN 45 ML (OCEAN) PRN (16:45)
[2017-09-25] MEDS ORDERED: BISMUTH SUBSALICYLATE PER ML OMNICELL CHARGE PO PRN (16:45)
[2017-09-25] MEDS ORDERED: ALUMINUM/MAGNESIUM SUSP 30 ML UDC PO PRN (16:45)
[2017-09-25] MEDS ORDERED: MAGNESIUM HYDROXIDE SUSP 30 ML UDC PO PRN (16:45)
[2017-09-25 16:55] VITALS: BP 141/87; PULSE 104; TEMP 36.7; Ht 167.6 cm; Wt 67.1 kg
[2017-09-25] MEDS ORDERED: KETOCONAZOLE 2% CR 15 GM TUBE EXT PRN (17:00)
[2017-09-25] MEDS ORDERED: ALBUTEROL 0.083% NEBU SOLN 3 ML VIAL INH PRN (17:00)
[2017-09-25] MEDS ORDERED: SODIUM CHLORIDE 7% 4 ML NEB INH PRN (17:00)
[2017-09-25] MEDS ORDERED: POLYETHYLENE (MIRALAX) 17 GM PACK PO PRN (17:00)
[2017-09-25] MEDS ORDERED: OXYMETAZOLINE HCL 0.05% NA SPR 15 ML BTL PRN (17:00)
[2017-09-25] MEDS ORDERED: OXYM0.0511 (17:15)
[2017-09-25] MEDS ORDERED: AZIT500T26 PO (17:15)
[2017-09-25] MEDS: ALBUTEROL HFA 8 GM INHALER INH PRN (17:34)
[2017-09-25] MEDS: AMOXICILLIN/CLAVULANATE TAB 875 MG TAB PO SCH (18:03)
[2017-09-25] MEDS: IPRATROPIUM BROMIDE NEB SOLN 0.02% 2.5 ML VIAL INH SCH (19:48)
[2017-09-25 19:57] VITALS: PULSE 85; O2SAT 95
[2017-09-25] MEDS: FORMOTEROL FUMA NEBULIZER SOLN 20 MCG/2 ML VIAL INH SCH (19:57)
[2017-09-25] MEDS: MONTELUKAST SOD 10 MG TAB PO SCH (21:20)
[2017-09-25] MEDS: GUAIFENESIN 600 MG TABCR PO SCH (21:20)
--- NOTE | 2017-09-25 21:47 | Psychiatric History & Physical ---
History Date of Service September 25, 2017. Identifying Data James Boland is a 62-year-old male admitted on September 25, 2017 who currently lives in [place], [place]. Mr. Boland was admitted on a 201 voluntary commitment. Patient is a transfer from the medical floor on 09/20/2017 and was brought to the ED via EMS when found by his . Information is obtained from the patient himself as well as previous psychiatric consultation conducted while patient was on the medical floor, both are considered to be reliable. Chief Complaint "I just got depressed. I couldn't breath, I couldn't eat, I couldn't sleep, I couldn't work". History of Present Illness James Boland is a 62-year-old male admitted to [address] [place] [address] following a 6-day stay on the medical floor. Pt presents s/p polysubstance overdose and admits to taking Ativan, Ambien, oxycodone, and his wifes Pyridium in combination with 2 large whiskey drinks. Pt states he has noticed low mood since July when his COPD worsened. Pt states he now requires regular use of oxygen which has interfered with his ability to keep up with daily activities. Pt states he had taken his overdose on 09/19 after becoming acutely depressed in the setting of worsening health issues. Pt states, I was either going to do it by shooting myself or by taking the pills so I took the pills. Pt was found at home by his and was brought to the ED by EMS. Pt reports low mood, which worsened around July of this year. He reports he has been less active due to limitations of his COPD. 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 Pt reports use of Ambien for the past 7 years, which was not continued during his stay on the medical floor. Pt does not report change to appetite, but states he has been conscious of food intake, as eating too much puts strain on his diaphragm and makes breathing more difficult. Pt reports difficulty with concentrating when he experiences low mood. Pt reports hopelessness and guilt, and becomes tearful when discussing. Pt denies SI at this time, but presents following polysubstance overdose. Pt had a similar suicide attempt about 4 years ago when under stress from raising his 5 grandchildren. Pt denies seeking medical attention at that time and states, my was the only one who knew. Pt reports feeling anxious and overwhelmed at time, specifically regarding his decreased functioning with COPD. He denies panic attacks and reports occasional shakes 2-3 times a week. At these times, patient takes his prescribed Ativan, which is helpful. Pt denies history of anxiety or panic attacks prior to the worsening of his physical condition. Pt denies previous inpatient psychiatric hospitalizations and denies outpatient psychiatric providers. His only experience with therapy was several family sessions a few years ago, which were focused on their grandchildren. Pt is currently prescribed Ativan 0.5mg TID prn anxiety as well as Ambien 5mg qHS for sleeping issues. These were not continued during his stay on the medical floor. Pt denies current SI, but is not necessarily remorseful about his attempt at this time. He denies HI, SIB, A/V hallucinations, paranoia, jamie, OCD, PTSD, eating disorder, and other psychiatric concerns. Past Psychiatric History Current OP Treatment: no current treatment Prior OP Treatment: no prior treatment Prior Psych Hospitalizations: none Access to a Gun: No ( removed from home following recent OD) Suicide Attempts: Yes (2 attempts by OD, initial was 4 years ago) Past Medication Trials Per patient reports - - Ambien: 7 year duration, effective for sleep - Ativan 0.5mg TID prn: effective for acute anxiety - Melatonin: not effective Past Medical/Surgical History History of Concussion/Seizure: No (1) COPD, severe (2) History of MRSA infection of lungs (3) HTN (hypertension) (4) HLD (hyperlipidemia) (5) GERD (gastroesophageal reflux disease) Allergies Allergies: Coded Allergies: Clarithromycin (Verified Allergy, Intermediate, SHORTNESS OF BREATH, ) Atorvastatin (Verified Allergy, Unknown, MUSCLE ACHES ARMS, 09/14/17) Metaproterenol (Verified Allergy, Unknown, UNKNOWN, 09/14/17) Sympathomimetics (Verified Allergy, Unknown, `, 09/14/17) Home Medications Scheduled Amlodipine Besylate (Amlodipine Besylate), 5 MG PO QAM Aspirin (Aspirin Chewable), 81 MG PO DAILY Azithromycin (Zithromax), 500 MG PO MWF@0900 Fluticasone Furoate (Inhalatio (Arnuity Ellipta), 1 INHA INH QAM Formoterol Fumarate (Perforomist), 2 ML NEB Q12 Guaifenesin (Mucinex Maximum Strength), 1,200 MG PO BID Home O2 Therapy (Oxygen), 2.5 LITERS NA HS Ipratropium [place] (Ipratropium [place]), 1 VIAL NEB BID Montelukast Sod (Montelukast Sodium), 10 MG PO HS Pantoprazole Sodium (Protonix), 40 MG PO DAILY Prednisone (Prednisone), 5 MG PO QAM Sodium Chloride (Inhalant) (Sodium Chloride), 1 VIAL NEB UD Tiotropium [place]-Olodaterol (Stiolto Respimat 2.5-2.5 Mcg/Act), 2 PUFF INH QAM Scheduled PRN Albuterol Hfa (Ventolin Hfa), 2 PUFFS INH QID PRN for Shortness of Breath Albuterol Sulf (Proventil 0.083% 2.5MG/3ML), 2.5 MG NEB Q6H PRN for SOB/Wheezing Hydrocortisone (Topical) (Hydrocortisone), 1 APPLN TOP QAM PRN for psoriasis Ketoconazole (Ketoconazole), 1 DOSE TOP BID PRN for RASH ON GROIN Oxymetazoline Hcl (12 Hour Nasal [place]), 2 SPRAYS BID PRN for Nasal Congestion Polyethylene (Miralax), 17 GM PO BID PRN for constipation Prednisone (Prednisone), 10 MG PO UD PRN for Rescue Kit Family History Patient reports no known family medical history. History of Suicide: No History of Substance Abuse: No Psychiatric History: No Alcohol Use Alcohol Use In Past 12 Months: No AUDIT Total Score: 0 Smoking Use Smoking Status: Former Smoker (quit 12 years ago) Substance History Pt denies history of abuse or experimentation with illicit substances. Pt reports drinking 4 cups of decaffeinated coffee daily. 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 Examination Physical Examination A physical exam was performed on the medical floor prior to admission to the unit by Brandi Qureshi PA-C. I accept that physical as correct/medical clearance for the inpatient physical exam. Vital Signs Vital Signs Past 12 Hours Date Time Temp Pulse Resp B/P (MAP) Pulse Ox O2 Delivery O2 Flow Rate FiO2 09/25/17 19:57 85 20 95 Nasal Cannula 2.0 09/25/17 16:55 36.7 104 24 141/87 Mental Examination During interview pt is: alert and oriented, cooperative Appearance: appropriately dressed, appropriately groomed Eye contact is: good Motor behavior is: no abnormal motor movements (observed while sitting next to bed) Speech: normal in rate, rhythm & volume Affect: depressed, tearful Mood is: depressed, anxious Thought process: goal directed, clear, coherent Thought content: reality based without delusions Suicidal thought are: denied (currently denied; present prior to admission resulting in suicide attempt by OD), Plan: present (polysubstance OD prior to admission), Intent: denied (denies current intent) Homicidal thoughts are: denied Hallucinations: denies auditory, denies visual Cognition: memory grossly intact, attention grossly intact, language grossly intact Intelligence estimated to be: consistent with level of education Insight: limited Judgement: limited Impression / Recommendations Impression 62-year-old male presents to [address] [place] [address] for SI with polysubstance OD following a 6- day stay on the medical floor. Pt presents with ongoing depression. While SI has subsided, per patient, he is not necessarily remorseful about the attempt at this point. Reviewed with patient recommendations for beginning SSRI to target anxiety and depression. Discussed use of sertraline to address concerns. Risks, benefits, side effects, and alternatives explained. Pt verbalized understanding and is agreeable to beginning sertraline 25mg tomorrow morning. With ongoing COPD and worsening condition, would not recommend continuing both Ambien and Ativan, as they carry risk of respiratory depression. Will plan to begin with hydroxyzine 25mg prn anxiety and 50mg for insomnia. Can further address specific concerns with sleep and acute anxiety while attempting to avoid medications that may worsen his respiratory functioning. At this time, patient requires inpatient mental health treatment due to OD and suicidality which has not been able to be adequately addressed during his stay on the medical floor. Pt is at risk of harm to self if discharged prematurely. Inventory Assets Strengths: support of , willingness for treatment Needs: chronic health issues, limited outpatient supports Risk Factors Assessment Male: Yes : Yes /single/: No Higher / Fall in social status: No Access to guns: No ( removed from home following OD) Health problems: Yes Mental Health Diagnoses: Yes Substance use disorders: No Previous attempt: Yes (OD reported 4 years ago) Family history of suicide: No Previous psychiatric stay: No Hopelessness: Yes Smoker: No (former smoker) Protective Factors Assessment Hoahaoism beliefs: Yes : Yes Responsible for young children: No (previously raised grandchildren) Employed: Yes Stable relationships: Yes Supportive family: Yes Recommendations (1) Major depressive disorder, recurrent severe without psychotic features 09/25 - Sertraline 25mg tomorrow morning; will increase to 50mg qAM on 09/27 and titrate as tolerated to target symptoms - Vistaril 25mg and 50mg prn anxiety and insomnia respectively; would avoid restart of Ambien and Ativan together to minimize respiratory complications - could consider other options if Vistaril is ineffective - Encourage participation in group and recreational therapies - Family session with identified supports as willing - Encourage development of healthy coping strategies to manage stressors - Focus on safety planning and coordination of outpatient support prior to discharge Dr. Jeanne Segovia has personally been involved in the review of the above case and development of recommendations. CPT Code Initial Hospital Care: 88494
[2017-09-25] MEDS: hydrOXYzine HCL 25 MG TAB PO PRN ×2 (21:56→22:54)
[2017-09-26] MEDS ORDERED: HYDROCORTISONE 2.5% EXT PRN ×2
[2017-09-26] MEDS: ALBUTEROL HFA 8 GM INHALER INH PRN ×3 (06:43→21:55)
[2017-09-26 06:52] VITALS: BP_SYST 138; BP_SYST 148; BP_DIAS 80; BP_DIAS 83; PULSE 108; PULSE 111; TEMP 36.5
[2017-09-26] MEDS: TIOTROPIUM BROMIDE-OLODATEROL 2.5-2.5MCG/ACT INH SCH (07:53)
[2017-09-26] MEDS: AMOXICILLIN/CLAVULANATE TAB 875 MG TAB PO SCH ×2 (07:54→17:17)
[2017-09-26] MEDS: GUAIFENESIN 600 MG TABCR PO SCH ×2 (07:54→21:08)
[2017-09-26] MEDS: ASPIRIN 81 MG CHEW PO SCH (07:54)
[2017-09-26] MEDS: AMLODIPINE BESYLATE 5 MG TAB PO SCH (07:54)
[2017-09-26] MEDS: PANTOprazole SOD 40 MG TAB PO SCH (07:55)
[2017-09-26 07:56] VITALS: PULSE 98; O2SAT 98
[2017-09-26] MEDS: IPRATROPIUM BROMIDE NEB SOLN 0.02% 2.5 ML VIAL INH SCH ×2 (07:56→19:47)
[2017-09-26] MEDS: FORMOTEROL FUMA NEBULIZER SOLN 20 MCG/2 ML VIAL INH SCH ×2 (07:56→20:00)
[2017-09-26] MEDS ORDERED: FLUTICASONE HFA 110MCG INHALER INH SCH (09:00)
[2017-09-26] MEDS ORDERED: SERTRALINE HCL 50 MG TAB PO ONE (09:00)
[2017-09-26] MEDS: ARNUITY ELLIPTA 200 MCG INH SCH (09:45)
--- NOTE | 2017-09-26 10:11 | Psychiatric Progress Notes ---
Progress Note Date of Service September 26, 2017. Interval History James Boland is a 62-year-old male admitted on September 25, 2017 who currently lives in [place], [place]. Mr. Boland was admitted on a 201 voluntary commitment. Patient is a transfer from the medical floor on 09/20/2017 and was brought to the ED via EMS when found by his . Chief Complaint "Okay". Subjective Patient was seen & assessed interval progress reviewed with Treatment Team. Staff report he got 2 doses of hydroxyzine for sleep, and appeared to sleep well , but only 6 hours. His mood is "good I guess," and appetite is good. He has a family meeting scheduled with his tomorrow, and says he "doesn't really communicate with her, need to work on that." He says he didn't tell her he was feeling so depressed, and attributes this to "pride, just handled it myself." He says he "guesses" he is glad he is alive, and feels "selfish for putting my way through it." He wants to work on improving communication with others, and notes this is a long-standing problem for him. He states he has planned to stop working and applying for disability, noting that he probably should have stopped working a long time ago. This will be a big change for him, and he will have a lot more free time. He enjoys being outside, walking his dog, and working in his yard, but notes he does not socialize or engage in activities outside the home. His goes to [employer], but he does not. He feels safe here on the unit, and denies suicidal thoughts. Review of Systems Denies pain, GI symptoms, headache. Sleep Information Total Hours of Sleep: 6.00 Meal Information Percent of Dinner Consumed: 90 Mental Status Exam During interview pt is: alert and oriented, cooperative Appearance: appropriately dressed (In pajamas), appropriately groomed, other ( O2 nasal cannula in, walking with wheeled oxygen tank.) Eye contact is: good Motor behavior is: steady gait & station, no abnormal motor movements Speech: normal in rate, rhythm & volume Affect: depressed, blunted Mood is: depressed, anxious Thought process: goal directed, concrete (Short answer) Thought content: reality based without delusions Suicidal thought are: denied (But admits to suicide attempt by OD prior to admission) Homicidal thoughts are: denied Hallucinations: denies auditory, denies visual Cognition: memory grossly intact, attention grossly intact, language grossly intact Intelligence estimated to be: consistent with level of education Insight: limited Judgement: limited Impression 62-year-old male who is admitted voluntarily after a suicide attempt by polysubstance OD, for which he was hospitalized for 6 days on the medical floor. On admission, he was started on sertraline for depression and anxiety. He has severe COPD, and given this risk factor as well as age, we are attempting to avoid use of sedating medications as this would increase the risk of respiratory depression, and also are dangerous in overdose. We will offer hydroxyzine prn for anxiety and insomnia. He continues to require inpatient mental health treatment due to depression, anxiety, serious suicide attempt by polysubstance OD and the need to mitigate risk factors to allow for safe discharge. Inpatient treatment is the least restrictive appropriate venue at this time Plan (1) Major depressive disorder, recurrent severe without psychotic features 09/25 - Sertraline 25mg tomorrow morning; will increase to 50mg qAM on 09/27 and titrate as tolerated to target symptoms - Vistaril 25mg and 50mg prn anxiety and insomnia respectively; would avoid restart of Ambien and Ativan together to minimize respiratory complications - could consider other options if Vistaril is ineffective - Encourage participation in group and recreational therapies - Family session with identified supports as willing - Encourage development of healthy coping strategies to manage stressors - Focus on safety planning and coordination of outpatient support prior to discharge 09/26 -Increase sertraline to 50 mg daily tomorrow. -Increase hydroxyzine to 100 mg nightly as needed insomnia, and continue 25 mg as needed dose for anxiety. -Family meeting scheduled with for tomorrow. -Refer for outpatient therapy and psychiatric follow-up. -Work on healthy coping skills and a discharge safety plan. Participate in groups and therapy. -Lorazepam and Ambien discontinued due to dangerousness in overdose, risk of respiratory depression with severe lung disease, and age associated risks of increased falls/AMS.. (2) COPD, severe 09/26 -Continue prednisone, inhalers and continuous oxygen. -While on the medical service, there was concern for aspiration pneumonia, pulmonology was consulted, and he was started on amoxicillin/clavulanic acid; complete 7 day course. -Pulmonology changed his azithromycin to 500 mg 3 times a week for maintenance therapy, and a prescription was sent to his pharmacy. -Medically necessary private room for oxygen tubing/safety. -He will need to follow-up with [facility] ( usually seen by Tiarra Edmonds PA-C). (3) HTN (hypertension) -Continue amlodipine and aspirin. -Per hospitalist discharge directions, he will need to follow up with Dr. Berumen. (4) GERD (gastroesophageal reflux disease) Continue pantoprazole. Discharge / Aftercare Planning Primary Care Physician: Name: Dr Berumen Specialist: Name: Reuben Caballero [facility] Visit Code E&M Code: 93013 Inventory Assets Strengths: support of , willingness for treatment Needs: chronic health issues, limited outpatient supports, social isolation, lack of structure at home Risk Factors Assessment Male: Yes : Yes /single/: No Higher / Fall in social status: No Access to guns: No ( removed them from the home following his suicide attempt) Health problems: Yes Mental Health Diagnoses: Yes Substance use disorders: No Previous attempt: Yes (OD reported 4 years ago and just prior to this admission ) Previous attempt;highly lethal: Yes Family history of suicide: No Previous psychiatric stay: No Hopelessness: Yes Smoker: No Protective Factors Assessment Restorationist beliefs: Yes : Yes Responsible for young children: No (previously raised grandchildren) Employed: No (Is planning to stop working and go on disability in light of worsening health.) Stable relationships: Yes Supportive family: Yes Data Vital Signs Last 24 Hrs: Date Time Temp Pulse Resp B/P (MAP) Pulse Ox O2 Delivery O2 Flow Rate FiO2 09/26/17 07:56 98 16 98 Nasal Cannula 2.5 09/26/17 06:52 36.5 111 16 148/83 108 138/80 09/25/17 19:57 85 20 95 Nasal Cannula 2.0 09/25/17 16:55 36.7 104 24 141/87 Meds Administered Last 24 Hrs: Meds Administered (Past 24Hrs) Medications (Trade) Dose Ordered Sig/[place] Route Start Time Stop Time Status Last Admin Dose Admin Hydroxyzine HCl (Vistaril Tab) 50 mg HSZ PRN PO 09/25/17 16:45 10/25/17 16:44 09/25/17 22:54 50 MG Albuterol (Ventolin Hfa Inhaler) 2 puffs QID PRN INH 09/25/17 17:00 10/25/17 16:59 09/26/17 06:43 2 PUFFS Amlodipine Besylate (Norvasc Tab) 5 mg QAM PO 09/26/17 09:00 10/26/17 08:59 09/26/17 07:54 5 MG Amoxicillin/ Clavulanate Potassium (Augmentin Tab) 875 mg BIDM PO 09/25/17 17:45 10/02/17 17:44 09/26/17 07:54 875 MG Aspirin (Aspirin Chew) 81 mg DAILY PO 09/26/17 09:00 10/26/17 08:59 09/26/17 07:54 81 MG Formoterol Fumarate (Perforomist 20MCG/2ML Neb Soln) 40 mcg Q12R INH 09/25/17 20:00 10/25/17 19:59 09/26/17 07:56 40 MCG Ipratropium Omega (Atrovent 0.02% 0.5MG/2.5ML Neb) 0.5 mg BIDR INH 09/25/17 20:00 10/25/17 19:59 09/26/17 07:56 0.5 MG Montelukast Sodium (Singulair Tab) 10 mg HS PO 09/25/17 22:00 10/25/17 21:59 09/25/17 21:20 10 MG Oxymetazoline HCl (Afrin 0.05% Nasal [place]) 2 sprays BID PRN NA 09/25/17 17:00 10/25/17 16:59 09/25/17 19:34 2 SPRAYS Pantoprazole Sodium (Protonix Tab) 40 mg DAILY PO 09/26/17 09:00 10/26/17 08:59 09/26/17 07:55 40 MG Prednisone (PredniSONE TAB) 5 mg QAM PO 09/26/17 09:00 10/26/17 08:59 09/26/17 07:55 5 MG Guaifenesin (Mucinex Contr Rel Tab) 1,200 mg BID PO 09/25/17 22:00 10/25/17 21:59 09/26/17 07:54 1,200 MG Sertraline HCl (Zoloft Tab) 25 mg TODAY@0900 ONCE PO 09/26/17 09:00 09/26/17 09:01 DC 09/26/17 07:55 25 MG Tiotropium Omega/Olodaterol (Stiolto Respimat 2.5-2.5 Mcg/Act) 5 mcg DAILY INH 09/26/17 09:00 10/26/17 08:59 09/26/17 07:53 5 MCG
--- NOTE | 2017-09-26 11:31 | Medical Student: BHU Only ---
Psychiatric Progress Note SUBJECTIVE: The patient was seen and assessed today, and progress was reviewed with nursing. Pt was sitting in his room finishing up breakfast during the conversation. The patient reports doing "well". Sleep was "good" but did have trouble falling asleep and did receive 2 doses of prn Vistaril; noted to be for 6 hours by staff. Pt says his mood is a 7/10 today. When asked what his major stressors have been recently, he reports that his health problem (O2-dependent COPD) and finances are bothering him. He has had COPD for approximately 13 years , with recent worsening beginning in August of this year. He has gotten to the point where he isn't really able to work anymore and says he will be filing for disability. His previous suicide attempt took place 4 years ago (stressor was taking care of 5 grandchildren) he also Prashant on multiple medications but did not end up in the hospital or received any psychiatric treatment following the incident. He would like to work on better communicating with as he is someone who tends to keep everything to himself and will benefit from being more open about how he's doing and feeling with others. ROS: Pt reports being in good mood (7/10), slept well, and has an appetite but does not eat much due to too much food making breathing harder. MSE: Appearance is that of a casually dressed male who appears his states age. The patient is cooperative with the interview. Eye contact is normal. Motor behavior is normal. Speech: normal volume, rate, and tone. Affect: blunted. Mood: "good". Thought process: goal directed Thought content: denies delusions, SI, or HI. Perception: denies illusions or hallucinations. Cognition: memory, language, and attention grossly intact Intelligence is estimated to be average. Insight is estimated to be limited. Judgment is estimated to be limited. ASSESSMENT: Pt is a 62 yo M who presented to [address] [place] [address] after a 6-day stay on the medical floor for intentional polysubstance OD. Hx notable for severe O2-dependent COPD which has limited the pt in many daily activities including work and sleep. He was admitted to [address] [place] [address] on a 201 voluntary basis. Pt reports doing better today in terms of mood (7/10) and wants to work on better communication. PLAN: 1. 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 Start sertraline 25 mg daily to treat symptoms of depression. Will go up to 50mg tomorrow. b. Vistaril 25mg prn for anxiety. c. Increase Vistaril from 50mg prn to 100 mg prn for insomnia for now. b. Q15min safety checks, encourage in participation of groups. c. Work on safety planning and coping skills. 2. COPD a. Oxygen, inhalers, prednisone b. Azithromycin for suspected aspiration pneumonia 3. GERD a. Pantoprazole 4. Hypertension a. Amlodipine and aspirin 5. Aftercare Planning: a. Set up aftercare appt for outpatient follow-up with a psychiatric provider to manage medications initiated while in the hospital. Date of Service: September 26, 2017.
[2017-09-26] MEDS: MONTELUKAST SOD 10 MG TAB PO SCH (21:08)
[2017-09-26 21:30] VITALS: PULSE 84; O2SAT 97
[2017-09-26] MEDS: hydrOXYzine HCL 25 MG TAB PO PRN ×2 (21:59→23:22)
[2017-09-27] VITALS (8 sets, daily range): BP systolic 120–124; BP diastolic 75–77; PULSE 79–104; TEMP 36.6; O2SAT 90–97
[2017-09-27] MEDS: IPRATROPIUM BROMIDE NEB SOLN 0.02% 2.5 ML VIAL INH SCH ×2 (07:52→19:49)
[2017-09-27] MEDS: FORMOTEROL FUMA NEBULIZER SOLN 20 MCG/2 ML VIAL INH SCH ×2 (07:52→19:49)
[2017-09-27] MEDS: ARNUITY ELLIPTA 200 MCG INH SCH (08:19)
[2017-09-27] MEDS: TIOTROPIUM BROMIDE-OLODATEROL 2.5-2.5MCG/ACT INH SCH (08:19)
[2017-09-27] MEDS: AMOXICILLIN/CLAVULANATE TAB 875 MG TAB PO SCH ×2 (08:21→17:16)
[2017-09-27] MEDS: GUAIFENESIN 600 MG TABCR PO SCH ×2 (08:21→21:12)
[2017-09-27] MEDS: AMLODIPINE BESYLATE 5 MG TAB PO SCH (08:22)
[2017-09-27] MEDS: PANTOprazole SOD 40 MG TAB PO SCH (08:23)
[2017-09-27] MEDS: AZITHROMYCIN 250 MG TAB PO SCH (08:23)
[2017-09-27] MEDS: ASPIRIN 81 MG CHEW PO SCH (08:24)
[2017-09-27] MEDS ORDERED: SERTRALINE HCL 50 MG TAB PO SCH (09:00)
--- NOTE | 2017-09-27 11:06 | Medical Student: BHU Only ---
Psychiatric Progress Note SUBJECTIVE: The patient was seen and assessed today, and progress was reviewed with nursing. The patient reports doing "better". Sleep was "okay." Pt reports that he took the prn Vistaril 100mg last night for sleep but still had some trouble with sleep. He has been finding the talks about communication helpful during groups. He had a family meeting with this morning and talked a lot about how to better communicate with each other and just being open with her and others about how he's feeling. He says he is someone who avoids confrontations and has previously gone days without talking to . He certainly has concerns about going on disability since he's been working hard pretty much all his life and there will be some big changes coming up. He does think that not working in a job that is severely limited by the COPD will help with stress since he often worried about how he was going to get through the work day. He is very bothered by and focused on how the O2-dependent COPD has really limited him in multiple aspects of his life. He is not the most sociable type of person but there does seem to be a good support system around him (work , neighbors, z[employer], siblings, and 's family) and he would like to be more willing to accept help, support, and encouragement. reports that people often reach out to them asking if they need help. They have been exploring the possibility of having him become more involved in social groups and volunteering opportunities to keep him busy while not being limited by his COPD. ROS: Pt reports being in good mood , slept okay, appetite good. MSE: Appearance is that of a casually dressed male who appears his states age. The patient is cooperative with the interview. Eye contact is normal. Motor behavior is normal. Speech: normal volume, rate, and tone. Affect: blunted. Mood: "better". Thought process: goal directed Thought content: denies delusions, SI, or HI. Perception: denies illusions or hallucinations. Cognition: memory, language, and attention grossly intact Intelligence is estimated to be average. Insight is estimated to be limited. Judgment is estimated to be limited. ASSESSMENT: Pt is a 62 yo M who presented to [address] [place] [address] after a 6-day stay on the medical floor for intentional polysubstance OD. Hx notable for severe O2-dependent COPD which has limited the pt in many daily activities including work and sleep. He was admitted to [address] [place] [address] on a 201 voluntary basis. The pt reports doing better today with mood and continues to work on having better communication skills. He had a family meeting today that went well and discussed how to be more open in terms of communications and what to do once discharged from the hospital in terms of adjusting. PLAN: 1. 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 Increase sertraline to 50mg today (previously on 25mg) b. Vistaril 25mg prn for anxiety. c. Vistaril 100 mg prn for insomnia for now. b. Q15min safety checks, encourage in participation of groups. c. Work on safety planning and coping skills. 2. COPD a. Oxygen, inhalers, prednisone b. Azithromycin for pneumonia c. Continue with pulm f/u outpt 3. GERD a. Pantoprazole 4. Hypertension a. Amlodipine and aspirin 5. Aftercare Planning: a. Set up aftercare appt for outpatient follow-up with a psychiatric provider to manage medications initiated while in the hospital. Date of Service: September 27, 2017.
[2017-09-27] MEDS: ALBUTEROL HFA 8 GM INHALER INH PRN ×2 (12:12→22:00)
--- NOTE | 2017-09-27 12:48 | Psychiatric Progress Notes ---
Progress Note Date of Service September 27, 2017. Interval History James Boland is a 62-year-old male admitted on September 25, 2017 who currently lives in [place], [place]. Mr. Boland was admitted on a 201 voluntary commitment. Patient is a transfer from the medical floor on 09/20/2017 and was brought to the ED via EMS when found by his . Chief Complaint "Okay ". Subjective Patient was seen & assessed interval progress reviewed with Treatment Team. Staff report he has been calm and cooperative, is going to groups, taking medications as prescribed. He got hydroxyzine 100 mg 2 doses last night, as the first dose was not effective. He had a family meeting with his today, and talked about his difficulties communicating how he feels. His said that on the day of his overdose, she suspected he was upset, but when she asked him about it, he said he felt fine. He acknowledged that he lied to her and that he was planning to commit suicide, and discussed the trust issues as a result of this. We explored ways to improve their communication, and he discussed his sense of loss at no longer being able to work. They are working on a plan to address financial concerns, as he will be getting disability. They also discussed their supports, including a large family, anabaptism group, and neighbors. His confirmed that the guns have been removed from the home, and they discussed using a lock box for medications, which both of them were willing to do. On my assessment today, the patient states that his mood has improved a bit, and he feels treatment is helping. He denies any side effects to medications, but states that the hydroxyzine has not been helpful for sleep, and he would like to try something else. Discussed a trial of trazodone, which he agreed to. He denies suicidal thoughts, and is making plans for the future, thinking about things he can do over the summer now that he will be working, as he enjoys being outside. He has multiple appropriate questions about medications, including how high the dose needed to go, how long he would need to take it, and what each medication was for. We also specifically reviewed his diagnosis, and he asked about the likelihood he would be able to come off medications or stop having outpatient mental health treatment in the future. Review of Systems Constitutional: No fever, No chills, No sweats, No weight loss, No weakness, No fatigue, No problem reported Respiratory: + shortness of breath (With exertion) Cardiovascular: No chest pain Sleep Information Total Hours of Sleep: 7.00 Meal Information Percent of Breakfast Consumed: 100 Percent of Lunch Consumed: 100 Percent of Dinner Consumed: 75 Mental Status Exam During interview pt is: alert and oriented, cooperative Appearance: appropriately dressed (In pajamas), appropriately groomed, other ( O2 nasal cannula in, walking with wheeled oxygen tank.) Eye contact is: good Motor behavior is: steady gait & station (Pulling oxygen tank), no abnormal motor movements Speech: normal in rate, rhythm & volume Affect: depressed, other (But a little more reactive than previously) Mood is: other ("Better") Thought process: goal directed Thought content: reality based without delusions Suicidal thought are: denied (But admits to suicide attempt by OD prior to admission) Homicidal thoughts are: denied Hallucinations: denies auditory, denies visual Cognition: memory grossly intact, attention grossly intact, language grossly intact Intelligence estimated to be: consistent with level of education Insight: limited Judgement: limited Impression 62-year-old male who is admitted voluntarily after a suicide attempt by polysubstance OD, for which he was hospitalized for 6 days on the medical floor. On admission, he was started on sertraline for depression and anxiety and hydroxyzine for sleep. He has severe COPD, and given this risk factor as well as age, zolpidem and Lorazepam were discontinued on the hospitalist service as they are sedating medications as this would increase the risk of respiratory depression, and also are dangerous in overdose. He continues to require inpatient mental health treatment due to depression, anxiety, serious suicide attempt by polysubstance OD and the need to mitigate risk factors to allow for safe discharge. Inpatient treatment is the least restrictive appropriate venue at this time Plan (1) Major depressive disorder, recurrent severe without psychotic features 09/25 - Sertraline 25mg tomorrow morning; will increase to 50mg qAM on 09/27 and titrate as tolerated to target symptoms - Vistaril 25mg and 50mg prn anxiety and insomnia respectively; would avoid restart of Ambien and Ativan together to minimize respiratory complications - could consider other options if Vistaril is ineffective - Encourage participation in group and recreational therapies - Family session with identified supports as willing - Encourage development of healthy coping strategies to manage stressors - Focus on safety planning and coordination of outpatient support prior to discharge 09/26 -Increase sertraline to 50 mg daily tomorrow. -Increase hydroxyzine to 100 mg nightly as needed insomnia, and continue 25 mg as needed dose for anxiety. -Family meeting scheduled with for tomorrow. -Refer for outpatient therapy and psychiatric follow-up. -Work on healthy coping skills and a discharge safety plan. Participate in groups and therapy. -Lorazepam and Ambien discontinued due to dangerousness in overdose, risk of respiratory depression with severe lung disease, and age associated risks of increased falls/AMS. 09/27 -Increase sertraline to 75 mg daily for tomorrow. Discontinue hydroxyzine as has not been particularly effective, and start trazodone 50 mg nightly, may repeat 1, for insomnia. Reviewed side effects, including priapism. Reviewed his diagnosis, the goals of the medications being prescribed, and the recommendations to take medication for at least 6 months after his depression goes into remission before considering tapering off medication. Also discussed the importance of ongoing follow-up with therapist and psychiatrist to monitor his mood and symptoms. He has been referred to [facility]. (2) COPD, severe 09/26 -Continue prednisone, inhalers and continuous oxygen. -While on the medical service, there was concern for aspiration pneumonia, pulmonology was consulted, and he was started on amoxicillin/clavulanic acid; complete 7 day course. -Pulmonology changed his azithromycin to 500 mg 3 times a week for maintenance therapy, and a prescription was sent to his pharmacy. -Medically necessary private room for oxygen tubing/safety. -He will need to follow-up with [facility] physician [facility] pulmonary ( usually seen by Tiarra Edmonds PA-C). (3) HTN (hypertension) -Continue amlodipine and aspirin. -Per hospitalist discharge directions, he will need to follow up with Dr. Berumen. (4) GERD (gastroesophageal reflux disease) Continue pantoprazole. Discharge / Aftercare Planning Primary Care Physician: Name: Dr Berumen Date of Appointment: Jan 31, 2018 Time of Appointment: 7:25am Psychiatrist: Name: [facility] Appointment Notes: You will be assigned a psychiatrist after your [place] appointment Therapist: Name: [facility] Intake Anna Lamb Date of Appointment: Oct 24, 2017 Time of Appointment: 9:00am Appointment Notes: [address] [place] [id number] Specialist: Name: Reuben Caballero Phys[facility] Appointment Notes: Dr. Rendon - November 14 at 7:30 a.m. Visit Code E&M Code: 52165 Inventory Assets Strengths: support of , willingness for treatment Needs: chronic health issues, limited outpatient supports, social isolation, lack of structure at home Risk Factors Assessment Male: Yes : Yes /single/: No Higher / Fall in social status: No Access to guns: No ( removed them from the home following his suicide attempt) Health problems: Yes Mental Health Diagnoses: Yes Substance use disorders: No Previous attempt: Yes (OD reported 4 years ago and just prior to this admission ) Previous attempt;highly lethal: Yes Family history of suicide: No Previous psychiatric stay: No Hopelessness: Yes Smoker: No Protective Factors Assessment Temple beliefs: Yes : Yes Responsible for young children: No (previously raised grandchildren) Employed: No (Is planning to stop working and go on disability in light of worsening health.) Stable relationships: Yes Supportive family: Yes Data Vital Signs Last 24 Hrs: Date Time Temp Pulse Resp B/P (MAP) Pulse Ox O2 Delivery O2 Flow Rate FiO2 09/27/17 10:18 93 Room Air 09/27/17 07:52 100 16 90 Room Air 09/27/17 06:55 97 Nasal Cannula 2.5 09/27/17 06:50 36.6 93 16 120/77 104 124/75 09/26/17 21:30 84 16 97 Nasal Cannula 2.5 Meds Administered Last 24 Hrs: Meds Administered (Past 24Hrs) Medications (Trade) Dose Ordered Sig/Morena Route Start Time Stop Time Status Last Admin Dose Admin Hydroxyzine HCl (Vistaril Tab) 50 mg HSZ PRN PO 09/25/17 16:45 09/26/17 10:08 DC 09/25/17 22:54 50 MG Albuterol (Ventolin Hfa Inhaler) 2 puffs QID PRN INH 09/25/17 17:00 10/25/17 16:59 09/27/17 12:12 2 PUFFS Amlodipine Besylate (Norvasc Tab) 5 mg QAM PO 09/26/17 09:00 10/26/17 08:59 09/27/17 08:22 5 MG Amoxicillin/ Clavulanate Potassium (Augmentin Tab) 875 mg BIDM PO 09/25/17 17:45 09/30/17 09:01 09/27/17 08:21 875 MG Aspirin (Aspirin Chew) 81 mg DAILY PO 09/26/17 09:00 10/26/17 08:59 09/27/17 08:24 81 MG Azithromycin (Zithromax Tab) 500 mg MoWeFr@0900 PO 09/27/17 09:00 10/04/17 08:59 09/27/17 08:23 500 MG Formoterol Fumarate (Perforomist 20MCG/2ML Neb Soln) 40 mcg Q12R INH 09/25/17 20:00 10/25/17 19:59 09/27/17 07:52 40 MCG Ipratropium Quemado (Atrovent 0.02% 0.5MG/2.5ML Neb) 0.5 mg BIDR INH 09/25/17 20:00 10/25/17 19:59 09/27/17 07:52 0.5 MG Montelukast Sodium (Singulair Tab) 10 mg HS PO 09/25/17 22:00 10/25/17 21:59 09/26/17 21:08 10 MG Oxymetazoline HCl (Afrin 0.05% Nasal Bosler) 2 sprays BID PRN NA 09/25/17 17:00 10/25/17 16:59 09/25/17 19:34 2 SPRAYS Pantoprazole Sodium (Protonix Tab) 40 mg DAILY PO 09/26/17 09:00 10/26/17 08:59 09/27/17 08:23 40 MG Prednisone (PredniSONE TAB) 5 mg QAM PO 09/26/17 09:00 10/26/17 08:59 09/27/17 08:23 5 MG Guaifenesin (Mucinex Contr Rel Tab) 1,200 mg BID PO 09/25/17 22:00 10/25/17 21:59 09/27/17 08:21 1,200 MG Sertraline HCl (Zoloft Tab) 50 mg QAM PO 09/27/17 09:00 09/27/17 12:32 DC 09/27/17 08:23 50 MG Sertraline HCl (Zoloft Tab) 25 mg TODAY@0900 ONCE PO 09/26/17 09:00 09/26/17 09:01 DC 09/26/17 07:55 25 MG Tiotropium Quemado/Olodaterol (Stiolto Respimat 2.5-2.5 Mcg/Act) 5 mcg DAILY INH 09/26/17 09:00 10/26/17 08:59 09/27/17 08:19 5 MCG Non-Formulary Medication (Non-Formulary Patient'S Own Med) 1 ea DAILY INH 09/26/17 09:45 10/26/17 09:44 09/27/17 08:19 1 EA Hydroxyzine HCl (Vistaril Tab) 100 mg HSZ PRN PO 09/26/17 09:45 10/25/17 16:44 09/26/17 23:22 100 MG
[2017-09-27] MEDS: MONTELUKAST SOD 10 MG TAB PO SCH (21:12)
[2017-09-27] MEDS: TRAZODONE HCL 50 MG TAB PO SCH ×2 (22:00→23:13)
[2017-09-28] VITALS (10 sets, daily range): BP systolic 137–143; BP diastolic 77–83; PULSE 88–120; TEMP 36.6–36.8; O2SAT 86–97
[2017-09-28] MEDS: ALBUTEROL HFA 8 GM INHALER INH PRN ×4 (07:05→21:39)
[2017-09-28] MEDS: IPRATROPIUM BROMIDE NEB SOLN 0.02% 2.5 ML VIAL INH SCH ×2 (07:37→19:21)
[2017-09-28] MEDS: FORMOTEROL FUMA NEBULIZER SOLN 20 MCG/2 ML VIAL INH SCH ×2 (07:37→19:21)
[2017-09-28] MEDS: ARNUITY ELLIPTA 200 MCG INH SCH (08:34)
[2017-09-28] MEDS: TIOTROPIUM BROMIDE-OLODATEROL 2.5-2.5MCG/ACT INH SCH (08:34)
[2017-09-28] MEDS: ASPIRIN 81 MG CHEW PO SCH (08:35)
[2017-09-28] MEDS: AMLODIPINE BESYLATE 5 MG TAB PO SCH (08:35)
[2017-09-28] MEDS: GUAIFENESIN 600 MG TABCR PO SCH ×2 (08:35→21:34)
[2017-09-28] MEDS: PANTOprazole SOD 40 MG TAB PO SCH (08:35)
[2017-09-28] MEDS: AMOXICILLIN/CLAVULANATE TAB 875 MG TAB PO SCH ×2 (08:35→17:24)
[2017-09-28] MEDS: SERTRALINE HCL 50 MG TAB PO SCH (08:36)
[2017-09-28] MEDS ORDERED: CLONAZEPAM 0.5 MG TAB PO ONE (09:45)
--- NOTE | 2017-09-28 09:57 | Psychiatric Progress Notes ---
Progress Note Date of Service September 28, 2017. Interval History James Boland is a 62-year-old male admitted on September 25, 2017 who currently lives in [place], [place]. Mr. Boland was admitted on a 201 voluntary commitment. Patient is a transfer from the medical floor on 09/20/2017 and was brought to the ED via EMS when found by his . Chief Complaint "I started feeling shakey yesterday.". Subjective Patient was seen & assessed interval progress reviewed with Treatment Team. The patient reports that he feels shakey and with palpitations. He felt the same yesterday but thought he was just anxious about his meeting with his . Today he says that the meeting went well. They talked about their communication style in which he doesn't share anything about how he is feeling. He admits that if he gets angry with her, he just won't talk to her for a few days, then just start talking and avoid ever talking about why he was angry. He says that he hold everything to himself. He reports poor sleep last night, despite having taken 2 doses of trazodone. He was also disturbed by another patient making loud noises in the next room. He denies that he has had any further thoughts of suicide. He reports his mood as "OK". Nursing reports that he says he is feeling more hopeful and is focusing on activities that he can do at home, including keeping the house clean, making dinner, working in the garden. Review of Systems Constitutional: + chills, + sweats ENT: No hearing loss, No unusual epistaxis, No nasal symptoms, No sore throat, No tinnitus, No dental problems, No trouble swallowing, No problem reported Respiratory: + shortness of breath (on continuous O2) Cardiovascular: + palpitations Abdomen: No pain, No nausea, No vomiting, No diarrhea, No constipation, No GI bleeding, No problem reported Musculoskeletal: No joint pain, No muscle pain, No swelling, No calf pain, No problem reported Neurologic: No memory loss, No paralysis, No weakness, No numbness/tingling, No vertigo, No balance problems, No problem reported Psychiatric: + depression symptoms (improving), + anxiety, + insomnia Sleep Information Total Hours of Sleep: 6.25 Meal Information Percent of Breakfast Consumed: 100 Percent of Lunch Consumed: 95 Percent of Dinner Consumed: 70 Mental Status Exam During interview pt is: alert and oriented, cooperative Appearance: appropriately dressed (In pajamas), appropriately groomed, other ( O2 nasal cannula in, walking with wheeled oxygen tank.) Eye contact is: good Motor behavior is: steady gait & station, tremor Speech: normal in rate, rhythm & volume Affect: blunted Mood is: other ("OK") Thought process: goal directed Thought content: reality based without delusions Suicidal thought are: denied Homicidal thoughts are: denied Hallucinations: denies auditory, denies visual Cognition: memory grossly intact, attention grossly intact, language grossly intact Intelligence estimated to be: consistent with level of education Insight: limited Judgement: limited Impression Slow improvement to mood, but sleep remains a problem. Will increase trazodone to 100 mg. HS. He has palpitations, tremor, and anxiety which may be benzo withdrawal, although odd that it would start 7-8 days after last dose. Other considerations could be recent start on Zoloft which can be activating. Will give one time dose of Klonopin now to mediate the anxiety. At most he was taking 1.5 mg of ativan at home, and again, was stopped due to concerns for respiratory impairment. zoloft goes to 75 mg today. Plan (1) Major depressive disorder, recurrent severe without psychotic features 09/25 - Sertraline 25mg tomorrow morning; will increase to 50mg qAM on 09/27 and titrate as tolerated to target symptoms - Vistaril 25mg and 50mg prn anxiety and insomnia respectively; would avoid restart of Ambien and Ativan together to minimize respiratory complications - could consider other options if Vistaril is ineffective - Encourage participation in group and recreational therapies - Family session with identified supports as willing - Encourage development of healthy coping strategies to manage stressors - Focus on safety planning and coordination of outpatient support prior to discharge 09/26 -Increase sertraline to 50 mg daily tomorrow. -Increase hydroxyzine to 100 mg nightly as needed insomnia, and continue 25 mg as needed dose for anxiety. -Family meeting scheduled with for tomorrow. -Refer for outpatient therapy and psychiatric follow-up. -Work on healthy coping skills and a discharge safety plan. Participate in groups and therapy. -Lorazepam and Ambien discontinued due to dangerousness in overdose, risk of respiratory depression with severe lung disease, and age associated risks of increased falls/AMS. 5/16 -Increase sertraline to 75 mg daily for tomorrow. Discontinue hydroxyzine as has not been particularly effective, and start trazodone 50 mg nightly, may repeat 1, for insomnia. Reviewed side effects, including priapism. Reviewed his diagnosis, the goals of the medications being prescribed, and the recommendations to take medication for at least 6 months after his depression goes into remission before considering tapering off medication. Also discussed the importance of ongoing follow-up with therapist and psychiatrist to monitor his mood and symptoms. He has been referred to [facility]. 09/28 -Continue Zoloft titration - One time dose of Klonopin 0.5 mg. to mediate anxiety and concerns for withdrawal. (2) COPD, severe 09/26 -Continue prednisone, inhalers and continuous oxygen. -While on the medical service, there was concern for aspiration pneumonia, pulmonology was consulted, and he was started on amoxicillin/clavulanic acid; complete 7 day course. -Pulmonology changed his azithromycin to 500 mg 3 times a week for maintenance therapy, and a prescription was sent to his pharmacy. -Medically necessary private room for oxygen tubing/safety. -He will need [facility] ( usually seen by Tiarra Edmonds PA-C). (3) HTN (hypertension) -Continue amlodipine and aspirin. -Per hospitalist discharge directions, he will need to follow up with Dr. Berumen. (4) GERD (gastroesophageal reflux disease) Continue pantoprazole. Discharge / Aftercare Planning Primary Care Physician: Name: Dr Berumen Date of Appointment: Jan 31, 2018 Time of Appointment: 7:25am Appointment Notes: [address] [place] [address] Psychiatrist: Name: [facility] - Psychiatrist to be assigned after intake appointment Date of Appointment: Oct 24, 2017 Time of Appointment: 9:00 am Appointment Notes: [address] [facility] [place] [address] Therapist: Name: [facility] - Eulogio ames/ Anna Lamb Date of Appointment: Oct 24, 2017 Time of Appointment: 9:00am Appointment Notes: [address] [facility] [place] [address] Specialist: Name: Reuben Caballero Physician [facility] - Dr. Rendon Date of Appointment: Nov 14, 2017 Time of Appointment: 7:30 am Appointment Notes: [address] [facility] [address] [place] [address] Visit Code E&M Code: 50581 Inventory Assets Strengths: support of , willingness for treatment Needs: chronic health issues, limited outpatient supports, social isolation, lack of structure at home Risk Factors Assessment Male: Yes : Yes /single/: No Higher / Fall in social status: No Access to guns: No ( removed them from the home following his suicide attempt) Health problems: Yes Mental Health Diagnoses: Yes Substance use disorders: No Previous attempt: Yes (OD reported 4 years ago and just prior to this admission ) Previous attempt;highly lethal: Yes Family history of suicide: No Previous psychiatric stay: No Hopelessness: Yes Smoker: No Protective Factors Assessment Catholic beliefs: Yes : Yes Responsible for young children: No (previously raised grandchildren) Employed: No (Is planning to stop working and go on disability in light of worsening health.) Stable relationships: Yes Supportive family: Yes Data Vital Signs Last 24 Hrs: Date Time Temp Pulse Resp B/P (MAP) Pulse Ox O2 Delivery O2 Flow Rate FiO2 09/28/17 09:14 36.8 117 09/28/17 09:13 93 Room Air 09/28/17 08:04 36.8 101 18 138/82 09/28/17 07:37 99 16 97 Room Air 09/28/17 01:31 86 Nasal Cannula 2.5 09/27/17 20:37 93 Room Air 2.5 09/27/17 19:49 79 16 93 Room Air 09/27/17 17:18 93 Nasal Cannula 2.5 09/27/17 13:52 93 Room Air 09/27/17 10:18 93 Room Air Meds Administered Last 24 Hrs: Meds Administered (Past 24Hrs) Medications (Trade) Dose Ordered Sig/Morena Route Start Time Stop Time Status Last Admin Dose Admin Azithromycin (Zithromax Tab) 500 mg MoWeFr@0900 PO 09/27/17 09:00 10/04/17 08:59 09/27/17 08:23 500 MG Sertraline HCl (Zoloft Tab) 50 mg QAM PO 09/27/17 09:00 09/27/17 12:32 DC 09/27/17 08:23 50 MG Non-Formulary Medication (Non-Formulary Patient'S Own Med) 1 ea DAILY INH 09/26/17 09:45 10/26/17 09:44 09/28/17 08:34 1 EA Hydroxyzine HCl (Vistaril Tab) 100 mg HSZ PRN PO 09/26/17 09:45 09/27/17 12:33 DC 09/26/17 23:22 100 MG Sertraline HCl (Zoloft Tab) 75 mg QAM PO 09/28/17 09:00 10/27/17 08:59 09/28/17 08:36 75 MG Trazodone HCl (Desyrel Tab) 50 mg HS PO 09/27/17 22:00 10/27/17 21:59 09/27/17 23:13 50 MG
--- NOTE | 2017-09-28 10:40 | Medical Student: BHU Only ---
Psychiatric Progress Note SUBJECTIVE: The patient was seen and assessed today, and progress was reviewed with nursing. The patient reports doing "okay". Sleep was "okay." Noted to be 6.25 hours by staff. Pt reports that last night he received trazodone for his sleep and was pretty good in terms of falling asleep but heard another patient on the unit banging on the door or making loud noises trackman which woke him and prevented him from going back to bed, or otherwise his mood would have been better than a 5/10. He also felt cold last night and was given blankets. Pt reports some shakiness which is possibly 2/2 to withdrawal from his lorazepam which he has been taking for years. He is aware that the different med changes may cause something like this. He found the family meeting yesterday to be quite helpful and said he has enjoyed attending the groups and realizing that he's not the only person dealing with problems in life. ROS: Pt reports being in okay mood , slept okay, appetite good. MSE: Appearance is that of a casually dressed male who appears his states age. The patient is cooperative with the interview. Eye contact is normal. Motor behavior is normal. Speech: normal volume, rate, and tone. Affect: blunted. Mood: "okay". Thought process: goal directed Thought content: denies delusions, SI, or HI. Perception: denies illusions or hallucinations. Cognition: memory, language, and attention grossly intact Intelligence is estimated to be average. Insight is estimated to be limited. Judgment is estimated to be limited. ASSESSMENT: Pt is a 62 yo M who presented to [address] [place] [address] after a 6-day stay on the medical floor for intentional polysubstance OD. Hx notable for severe O2-dependent COPD. He was admitted to [address] [place] [address] on a 201 voluntary basis. He had some issues with sleep last night but overall seems to be doing okay with no acute complaints. He continues attending groups and is learning from them. PLAN: 1. 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 Sertraline to 50mg today, increase to 75 mg tomorrow b. Vistaril 25mg prn for anxiety. c. Trazodone 50mg for insomnia. d. One time dose of Clonazepam 0.5mg for anxiety and concerns of Lorazepam withdrawal. b. Q15min safety checks, encourage in participation of groups. c. Work on safety planning and coping skills. 2. COPD a. Oxygen, inhalers, prednisone b. Azithromycin for pneumonia c. Continue with pulm f/u outpt 3. GERD a. Pantoprazole 4. Hypertension a. Amlodipine and aspirin 5. Aftercare Planning: a. Set up aftercare appt for outpatient follow-up with a psychiatric provider to manage medications initiated while in the hospital. Date of Service: September 28, 2017.
[2017-09-28] MEDS: MONTELUKAST SOD 10 MG TAB PO SCH (21:33)
[2017-09-28] MEDS: TRAZODONE HCL 50 MG TAB PO SCH ×2 (21:34→23:36)
[2017-09-29 06:26] VITALS: BP_SYST 130; BP_SYST 138; BP_DIAS 70; BP_DIAS 72; PULSE 100; PULSE 102; TEMP 36.9
[2017-09-29 06:28] VITALS: O2SAT 96
[2017-09-29] MEDS: ALBUTEROL HFA 8 GM INHALER INH PRN (06:57)
[2017-09-29 07:21] VITALS: PULSE 116; O2SAT 90
[2017-09-29] MEDS: FORMOTEROL FUMA NEBULIZER SOLN 20 MCG/2 ML VIAL INH SCH (07:21)
[2017-09-29] MEDS: IPRATROPIUM BROMIDE NEB SOLN 0.02% 2.5 ML VIAL INH SCH (07:21)
[2017-09-29] MEDS: AMOXICILLIN/CLAVULANATE TAB 875 MG TAB PO SCH (07:37)
[2017-09-29] MEDS: ASPIRIN 81 MG CHEW PO SCH (07:37)
[2017-09-29] MEDS: AMLODIPINE BESYLATE 5 MG TAB PO SCH (07:38)
[2017-09-29] MEDS: GUAIFENESIN 600 MG TABCR PO SCH (07:38)
[2017-09-29] MEDS: PANTOprazole SOD 40 MG TAB PO SCH (07:38)
[2017-09-29] MEDS: AZITHROMYCIN 250 MG TAB PO SCH (07:39)
[2017-09-29] MEDS: SERTRALINE HCL 50 MG TAB PO SCH (07:39)
[2017-09-29] MEDS: TIOTROPIUM BROMIDE-OLODATEROL 2.5-2.5MCG/ACT INH SCH (07:40)
[2017-09-29] MEDS: ARNUITY ELLIPTA 200 MCG INH SCH (07:40)
--- NOTE | 2017-09-29 10:05 | Medical Student: BHU Only ---
Psychiatric Progress Note SUBJECTIVE: The patient was seen and assessed today, and progress was reviewed with nursing. The patient reports doing "good". Sleep was "okay." Pt received tradozone again last night for sleep and expressed an interest in using something else because it doesn't seem particularly effective for him. He took Ambien as a sleep aid while outpatient. He's been attending groups and continues to learn from them. He's also been taking laps on the unit to get moving. Pt is still having some shaking in his hands but reports that it is relatively better compared to yesterday. Also, he was complaining of some diarrhea yesterday and today. He is aware that one of the possible side effects of the SSRI that he got started on a few days ago. ROS: Pt reports being in good mood , slept okay, appetite good. MSE: Appearance was that of a casually dressed male who appears his states age. The patient was cooperative with the interview. Eye contact was normal. Motor behavior was normal. Speech: normal volume, rate, and tone. Affect: blunted. Mood: "good". Thought process: goal directed Thought content: denied delusions, SI, or HI. Perception: denies illusions or hallucinations. Cognition: memory, language, and attention grossly intact Intelligence was estimated to be average. Insight was estimated to be limited. Judgment was estimated to be limited. ASSESSMENT: Pt is a 62 yo M who presented to [address] [place] [address] after a 6-day stay on the medical floor for intentional polysubstance OD. Hx notable for severe O2-dependent COPD. He was admitted to [address] [place] [address] on a 201 voluntary basis. He still had some sleep issues last night and received 2 doses of Trazodone. He's been good in participating in group sessions. Complaining of shakiness in the hands but better than yesterday and some diarrhea. PLAN: 1. 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 Sertraline to 75mg b. Vistaril 25mg prn for anxiety. c. Trazodone 50mg for insomnia. d. One time dose of Clonazepam 0.5mg for anxiety and concerns of Lorazepam withdrawal. b. Q15min safety checks, encourage in participation of groups. c. Work on safety planning and coping skills. 2. COPD a. Oxygen, inhalers, prednisone b. Azithromycin for pneumonia c. Continue with pulm f/u outpt 3. GERD a. Pantoprazole 4. Hypertension a. Amlodipine and aspirin 5. Aftercare Planning: a. Set up aftercare appt for outpatient follow-up with a psychiatric provider to manage medications initiated while in the hospital. Date of Service: September 29, 2017.
[2017-09-29] MEDS ORDERED: SERTRALINE HCL 50 MG TAB PO ONE (11:00)
[2017-09-29] MEDS ORDERED: AMOX1TAB43 PO (11:46)
[2017-09-29] MEDS ORDERED: ATR25 PO (11:46)
[2017-09-29] MEDS ORDERED: SERT1TAB92 PO (11:46)
--- NOTE | 2017-09-29 12:04 | Discharge Instructions ---
Discharge Information Report Includes Report will include the: Discharge Instructions & Summary Admission Admission Date / Time: September 25, 2017 at 16:25 Reason for Admission: MDR Discharge Discharge Diagnosis / Problem: Major depressive disorder Condition at Discharge: Fair Discharge Goals Goal(s): Improve function, Increase independence, Learn about illness, Therapeutic intervention, Prevent Disease Progression Activity Recommendations Activity Limitations: resume your previous activity . Instructions / Follow-Up Instructions / Follow-Up . SPECIAL CARE INSTRUCTIONS: 1. Follow through with your scheduled aftercare appointments. If unable to keep an appointment, please call to reschedule. 2. Take your medication only as prescribed. Medication should not be changed or stopped without the approval of your doctor. In the event of worsening symptoms or concerns about side effects, contact your doctor immediately. 3. Utilize new healthy coping skills, anger management skills, and stress management skills learned during your hospitalization. Journal feelings and process them with a support person. Identify stressors or situations that may result in relapse, deterioration or inappropriate behaviors and develop a plan to deal with those issues. 4. If your coping skills are ineffective and you are in crisis, contact your outpatient providers for direction. If unable to reach your providers, please call the CAN HELP LINE AT or go to the closest Emergency Room. 5. Avoid alcohol and un-prescribed drugs. 6. You have been provided with the Mental Health Advance Directives Pamphlet for your review. AFTERCARE APPOINTMENTS: * Please call your insurance company prior to your scheduled appointment to confirm your aftercare providers are covered. Take your insurance information to your appointments. . Discharge / Aftercare Planning Primary Care Physician: Name: Dr Berumen Date of Appointment: Jan 31, 2018 Time of Appointment: 7:25am Appointment Notes: [address] [facility] [place] [address] Psychiatrist: Name: [facility] - Psychiatrist to be assigned after intake appointment Date of Appointment: Oct 24, 2017 Time of Appointment: 9:00 am Appointment Notes: [address] [facility] [place] [address] Therapist: Name Of Therapist: [facility] - Intake kwaku/ Anna Lamb Date of Appointment: Oct 24, 2017 Time of Appointment: 9:00am Appointment Comments: [address] [facility] [place] [address] Specialist: Name: Reuben Caballero Physician Pulmonary [facility] - Dr. Rendon Date of Appointment: Nov 14, 2017 Time of Appointment: 7:30 am Appointment Notes: [address] [facility] [address] [facility] [address] . Follow-Up Care Plan for Follow-Up Care: Pt's aftercare was established during this admission to allow for timely followup with psychiatric providers following discharge. Pt will be assigned to a psychiatric prescriber for management of medications and as well as a therapist through [facility]. Current Hospital Diet Patient's current hospital diet: AHA Diet (Heart Healthy), Regular Diet Discharge Diet Recommended Diet: AHA Diet (Heart Healthy) Procedures Procedures Performed: No Pending Studies Pending Studies at Discharge: No Medical Emergencies . Who to Call and When: Medical Emergencies: For questions or emergencies related to your hospital stay, please contact the Inpatient Behavioral Health Unit at [phone]. A social worker psychiatric is on-call 05/12 for the Behavioral Health Unit for emergencies At any time you feel your situation is an emergency, you may also call 911 immediately. . Non-Emergent Contact Non-Emergency issues call your: Primary Care Provider, Psychiatrist, Therapist , Specialist Past History Medical & Surgical History: (1) COPD, severe (2) HLD (hyperlipidemia) (3) HTN (hypertension) (4) GERD (gastroesophageal reflux disease) Advance Directives Do You Have an Existing Mental: No Existing Living Will: Yes Existing Power of Motor Hotel Manager: No The Person Making Decisions: N/A Advance Directives Info Given: To Pt/S.O. Advance Directives Reason: Declines as Mental Health Visit. Discharge Summary Admission HPI Per the Admitting provider: James Boland is a 62-year-old male admitted to [address] [place] [address] following a 6-day stay on the medical floor. Pt presents s/p polysubstance overdose and admits to taking Ativan, Ambien, oxycodone, and his wifes Pyridium in combination with 2 large whiskey drinks. Pt states he has noticed low mood since July when his COPD worsened. Pt states he now requires regular use of oxygen which has interfered with his ability to keep up with daily activities. Pt states he had taken his overdose on 09/19 after becoming acutely depressed in the setting of worsening health issues. Pt states, I was either going to do it by shooting myself or by taking the pills so I took the pills. Pt was found at home by his and was brought to the ED by EMS. Pt reports low mood, which worsened around July of this year. He reports he has been less active due to limitations of his COPD. 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 Pt reports use of Ambien for the past 7 years, which was not continued during his stay on the medical floor. Pt does not report change to appetite, but states he has been conscious of food intake, as eating too much puts strain on his diaphragm and makes breathing more difficult. Pt reports difficulty with concentrating when he experiences low mood. Pt reports hopelessness and guilt, and becomes tearful when discussing. Pt denies SI at this time, but presents following polysubstance overdose. Pt had a similar suicide attempt about 4 years ago when under stress from raising his 5 grandchildren. Pt denies seeking medical attention at that time and states, my was the only one who knew. Pt reports feeling anxious and overwhelmed at time, specifically regarding his decreased functioning with COPD. He denies panic attacks and reports occasional shakes 2-3 times a week. At these times, patient takes his prescribed Ativan, which is helpful. Pt denies history of anxiety or panic attacks prior to the worsening of his physical condition. Pt denies previous inpatient psychiatric hospitalizations and denies outpatient psychiatric providers. His only experience with therapy was several family sessions a few years ago, which were focused on their grandchildren. Pt is currently prescribed Ativan 0.5mg TID prn anxiety as well as Ambien 5mg qHS for sleeping issues. These were not continued during his stay on the medical floor. Pt denies current SI, but is not necessarily remorseful about his attempt at this time. He denies HI, SIB, A/V hallucinations, paranoia, jamie, OCD, PTSD, eating disorder, and other psychiatric concerns. Hospital Course (1) Major depressive disorder, recurrent severe without psychotic features 09/25 - Sertraline 25mg tomorrow morning; will increase to 50mg qAM on 09/27 and titrate as tolerated to target symptoms - Vistaril 25mg and 50mg prn anxiety and insomnia respectively; would avoid restart of Ambien and Ativan together to minimize respiratory complications - could consider other options if Vistaril is ineffective - Encourage participation in group and recreational therapies - Family session with identified supports as willing - Encourage development of healthy coping strategies to manage stressors - Focus on safety planning and coordination of outpatient support prior to discharge 09/26 -Increase sertraline to 50 mg daily tomorrow. -Increase hydroxyzine to 100 mg nightly as needed insomnia, and continue 25 mg as needed dose for anxiety. -Family meeting scheduled with for tomorrow. -Refer for outpatient therapy and psychiatric follow-up. -Work on healthy coping skills and a discharge safety plan. Participate in groups and therapy. -Lorazepam and Ambien discontinued due to dangerousness in overdose, risk of respiratory depression with severe lung disease, and age associated risks of increased falls/AMS. 09/27 -Increase sertraline to 75 mg daily for tomorrow. Discontinue hydroxyzine as has not been particularly effective, and start trazodone 50 mg nightly, may repeat 1, for insomnia. Reviewed side effects, including priapism. Reviewed his diagnosis, the goals of the medications being prescribed, and the recommendations to take medication for at least 6 months after his depression goes into remission before considering tapering off medication. Also discussed the importance of ongoing follow-up with therapist and psychiatrist to monitor his mood and symptoms. He has been referred to [facility]. 09/28 -Continue Zoloft titration - One time dose of Klonopin 0.5 mg. to mediate anxiety and concerns for withdrawal. (2) COPD, severe 09/26 -Continue prednisone, inhalers and continuous oxygen. -While on the medical service, there was concern for aspiration pneumonia, pulmonology was consulted, and he was started on amoxicillin/clavulanic acid; complete 7 day course. -Pulmonology changed his azithromycin to 500 mg 3 times a week for maintenance therapy, and a prescription was sent to his pharmacy. -Medically necessary private room for oxygen tubing/safety. -He will need to follow-up with [facility] physician group pulmonary ( usually seen by Tiarra Edmonds PA-C). (3) HTN (hypertension) -Continue amlodipine and aspirin. -Per hospitalist discharge directions, he will need to follow up with Dr. Berumen. (4) GERD (gastroesophageal reflux disease) Continue pantoprazole. Risk Factors Assessment Male: Yes : Yes /single/: No Higher / Fall in social status: No Access to guns: No ( removed them from the home following his suicide attempt) Health problems: Yes Mental Health Diagnoses: Yes Substance use disorders: No Previous attempt: Yes (OD reported 4 years ago and just prior to this admission ) Previous attempt;highly lethal: Yes Family history of suicide: No Previous psychiatric stay: No Hopelessness: Yes Smoker: No Protective Factors Assessment Gnosticism beliefs: Yes : Yes Responsible for young children: No (previously raised grandchildren) Employed: No (Is planning to stop working and go on disability in light of worsening health.) Stable relationships: Yes Supportive family: Yes Day of Discharge Assessment COURSE OF HOSPITALIZATION: James Boland is a 62-year-old male who presented to the ED following a polysubstance overdose on home medications and alcohol. Pt was admitted to the medical floor and eventually transferred for inpatient mental health treatment. Pt was initiated on sertraline and titrated to a dose of 100mg prior to discharge. Pt received trials of both hydroxyzine and trazodone during his admission and reports feeling the hydroxyzine was more beneficial. Pt was able to identify stressors leading to his admission, including worsening health issues and inability to continue working his current job. Pt engaged in a family session with his where communication needs were discussed and lack of access to guns was confirmed. Patient has engaged in group and recreational therapies during admission, and has completed a safety plan prior to discharge which was personally reviewed by this provider. DAY OF DISCHARGE ASSESSMENT: Pt's case was reviewed and discussed today during treatment team. Staff reports the patient has reported difficulty with sleep due primarily related to disturbances with another patient. Pt was seen today to assess readiness for discharge. Pt states he is "pretty good" and shares with this provider some of the things he has been focusing on in groups. Pt states he feels he is better able to talk about his feelings, something that he is striving to do more often in order to improve communication with his . Pt states he has been disturbed during sleep by noises in the room next door, and states he prefers hydroxyzine over trazodone. As he had been tapering off Ambien on an outpatient basis, seems more appropriate to provide prn hydroxyzine for sleep if beneficial. Pt denies any side effects or morning grogginess with hydroxyzine. Pt states his is off of work today and tomorrow and feels that he is ready to go home. Would be beneficial to discharge at a time when we know he will have a few days before his returns to work. Based on review of the patient's records and presentation at this encounter, the patient appears appropriate for discharge today. Transition of care record was reviewed with the patient. Pt was encouraged to continue to take medications as prescribed until recommended to stop by another prescriber. The patient presented as alert and cooperative. The patient was casually dressed and groomed. Eye contact was good. No psychomotor restlessness or agitation was noted. Speech was normal in rate, rhythm, and volume. Affect was mood congruent. The patients mood appeared blunted, but not overtly depressed. Thought processes were clear, coherent and goal directed without evidence of loose associations or flight of ideas. Thought content/perception was reality based without delusions. The patient denied suicidal and homicidal ideation. The patient denied hallucinations and did not appear to be responding to internal stimuli. Cognition was grossly intact with orientation to person, place and time. Fund of Knowledge/Intelligence were consistent with level of education. Insight and Judgement were good. Laboratory Refer to printed laboratory reports Total Time Total Time Spent (min): Greater than 30 minutes Total Time Included: examination of the patient, discharge planning, medication reconciliation, communication with other providers Tobacco Cessation at Discharge Smoking Status: Former Smoker (quit 12 years ago) FDA approved Prescription: non-smoker
--- NOTE | 2017-09-29 15:28 | Psych Management Progress Note ---
Psychiatry Miscellaneous Date of Service: September 29, 2017. Patient seen, MS assessed. Rates mood as improved and is using his handbook. He expressed readiness for discharge and denied SI. I personally participated in the medical decision making surrounding his discharge.
== END 2017-09-29 13:35 | disposition home or self-care (01) | DRG 885 ==
LOC: C.MHU 16:25
PROVIDERS: ADMIT Psychiatry & Neurology Psychiatry; ATTEND Psychiatry & Neurology Psychiatry
DX: F33.2 Major depressive disorder, recurrent severe without psychotic features (principal); J44.9 Chronic obstructive pulmonary disease, unspecified; E78.5 Hyperlipidemia, unspecified; I10 Essential (primary) hypertension; K21.9 Gastro-esophageal reflux disease without esophagitis; Z91.5 Personal history of self-harm; Z79.82 Long term (current) use of aspirin; Z79.52 Long term (current) use of systemic steroids; Z79.899 Other long term (current) drug therapy; Z87.891 Personal history of nicotine dependence; Z99.81 Dependence on supplemental oxygen; Z88.1 Allergy status to other antibiotic agents; Z88.8 Allergy status to other drugs, medicaments and biological substances

== ENCOUNTER 2021-12-21 17:01 | Inpatient (IN) ==
--- NOTE | 2021-12-21 17:14 | ED Triage Note ---
Date of Service December 21, 2021 History of Present Illness This patient was briefly evaluated while in triage. An abbreviated physical exam was performed. This patient is a 66-year-old Male with past medical history of COPD, pneumonia, who presents to the ED for evaluation of hemoptysis (5 times per day), cough, decreased oxygen levels. O2 level normally is 97%, was down to 93% today. Unable to see primary care until 2 days from now. Has had fevers on and off for a week up to 100.4. Physical Exam CONSTITUTIONAL: sitting upright, mildly ill appearing RESPIRATORY: coughing intermittently, tachypneic, decreased breath sounds on L CARDIAC: tachycardic, regular rhythm Initial orders for labs and / or imaging were placed and patient was placed in the waiting area until a bed is available. Please see further documentation for the full ED course. MDM / Impression Impression Impression: Left lower lobe pneumonia, Cough with hemoptysis : Left lower lobe pneumonia Qualifiers: Pneumonia type: due to unspecified organism Qualified Code(s): J18.9 - Pneumonia, unspecified organism
[2021-12-21 18:14] LABS: Basophils # (auto) 0.04 K/uL (0-0.2); Basophils % (auto) 0.2 %; Eosinophils # (auto) 0.04 K/uL (0-0.50); Eosinophils % (auto) 0.2 %; Hematocrit (blood only) 38.5 % (40.1-51.0); Hemoglobin 12.7 g/dl (14.0-18.0); Immature Granulocytes # (auto) 0.09 K/uL (0.00-0.02); Immature Granulocytes % (auto) 0.6 %; Lymphocytes # (auto) 0.76 K/uL (1.2-3.4); Lymphocytes % (auto) 4.7 %; Mean Corpuscular Hemoglobin 29.2 pg (25.0-34.0); Mean Corpuscular Volume 88.5 fL (80.0-100.0); Monocytes # (auto) 1.34 K/uL (0.24-0.82); Monocytes % (auto) 8.2 %; Neutrophils # (auto) 13.98 K/uL (1.4-6.5); Neutrophils % (auto) 86.1 %; Platelet Count 464 K/uL (130-400); RDW Coefficient of Variation 13.4 % (11.5-14.5); RDW Standard Deviation 43.8 fL (36.4-46.3); Red Blood Count 4.35 M/uL (4.63-6.08); White Blood Count 16.25 K/ul (4.8-10.8)
[2021-12-21 18:38] LABS: Albumin Globulin Ratio 1.1 (0.9-2); Albumin Level 3.5 gm/dl (3.4-5.0); BUN Creatinine Ratio 24.2 (10-20); Bilirubin,Total 0.6 mg/dl (0.2-1.0); Creatinine Clr Calc Pharmacy 72.1 ml/min; Est GFR (African American) 101.4 ml/min; Est GFR (Non-African American) 87.5 ml/min; Globulin 3.3 gm/dl (2.5-4.0); Potassium 3.8 mmol/L (3.5-5.1); Total Protein 6.8 gm/dl (6.0-8.3)
[2021-12-21 18:42] LABS: Troponin I High Sensitivity 5.6 pg/ml (0-20)
--- NOTE | 2021-12-21 18:50 | XRay Report ---
XR chest 2V PA/lateral CLINICAL HISTORY: Hemoptysis, decreased breath sounds L. COMPARISON STUDY: 1221 TECHNIQUE: 2 views of the chest FINDINGS: Frontal and lateral radiographs of the chest demonstrate the cardiomediastinal silhouette to be withi n normal limits. There has been interval development of large confluent alveolar opacity predominantl y within the superior segment of the left lower lobe. This probably represents the presence of pneumo adan. However, it does extend centrally to the left hilum. The presence of an underlying neoplastic pr ocess cannot be excluded. Follow-up radiographs to demonstrate complete resolution are recommended. The right hemithorax is clear. There is evidence for underlying COPD. There is no evidence for effusi on bilaterally. There is no evidence for vascular congestion. There is no acute osseous pathology. IMPRESSION: 1. Large confluent alveolar opacity within the superior segment of the left lower lobe having the servando earance of pneumonia. However, underlying neoplastic process cannot be excluded and follow-up is nece ssary to demonstrate complete resolution. ACT 112: Negative or not required by law. Electronically signed by: Shoaib Zelaya M.D. 12/21/2021 6:48 PM
[2021-12-21] MEDS ORDERED: CEFEPIME 2,000 MG/20 ML VIAL IV STA (19:45)
[2021-12-21] MEDS ORDERED: SODIUM CHLORIDE 0.9% 1000ML 1,000 ML IV ONE (19:45)
--- NOTE | 2021-12-21 19:50 | Emergency Department Note ---
Impression & Plan Left lower lobe pneumonia, Cough with hemoptysis ED Provider Note NAME: JANETTE PURVIS AGE: 66 SEX: M : 1955 ARRIVES VIA: Walk-In INFORMANT: Patient, ED PROVIDER(S): Cleve Huggins DO CHIEF COMPLAINT: Cough HPI: The patient is a 66-year-old male who presented to the emergency department for an evaluation of cough and difficulty breathing. The patient has had difficulty breathing over the course the last few days. He has had similar symptoms in the past and has a history of COPD. He states he started having productive sputum initially but started having blood in his sputum now. Is not been seen by his family doctor recently. 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 The patient states has been compliant with his outpatient medications including his albuterol. He presented to the emergency department today because of worsening symptoms. He normally wears oxygen at 3 L. He states that his symptoms are improved with his supplemental oxygen. ROS: See above HPI for pertinent positives & negatives. A total of 10 systems reviewed and were otherwise negative. PAST MEDICAL HISTORY: See Below PAST SURGICAL HISTORY: See Below FAMILY HISTORY: See Below SOCIAL HISTORY: See Below HOME MEDICATIONS: See Below ALLERGIES: See Below VITALS: See Below PHYSICAL EXAMINATION: GENERAL: Patient is awake and alert. The patient is very anxious. EYES: The conjunctivae are clear. The pupils are round and reactive. EARS, NOSE, MOUTH AND THROAT: The nose is without any evidence of any deformity. NECK: The neck is nontender and supple. RESPIRATORY: Diminished breath sounds are noted in the left lung field. Shallow respirations were noted. There is expiratory wheezes noted in both upper lung andrews. CARDIOVASCULAR: Regular rate and rhythm noted there no murmurs rubs or gallops normal S1 normal S2. GASTROINTESTINAL: The abdomen is soft. Abdomen is nontender. MUSCULOSKELETAL/EXTREMITIES: There is no evidence of gross deformity full range of motion is noted in the hips and shoulders. SKIN: There is no obvious evidence of any rash. There are no petechiae, pallor or cyanosis noted. NEUROLOGIC: Patient is awake alert and oriented x3 MEDICAL DECISION MAKING: Patient is a 66-year-old male who presented to the emergency department for an evaluation of cough and difficulty breathing. The patient started noticing some hemoptysis. The patient was found to have a large left lower lobe infiltrate. Reviewing the patient's previous visits as well as previous radiographic studies he has had episodes of left lower lobe infiltrate and scarring which could be consistent with a neoplastic process. On his most recent CAT scan it was noted that it resolved. At this time I feel this could be more consistent with an infectious process given the patient's presentation. He was treated with IV antibiotics in emergency department. He does have a history of COPD and uses supplemental oxygen. For this reason I discussed his case with the on-call [facility] hospitalist. They have agreed to evaluate the patient in the emergency department for further management and disposition. Triage Nursing notes reviewed. Prior medical records reviewed Vital Signs: reviewed and remarkable for tachycardia. Differential diagnosis: Reactive airway disease, pneumonia, pneumothorax, COPD, CHF, infections, cardiac ischemia, pulmonary embolism, musculoskeletal, gastrointestinal, as well as other pathologies. ER treatment provided: See below Diagnostics interpreted by me: ECG: EKG was obtained in the emergency department. My interpretation is sinus tachycardia 101 bpm. There is no ectopy. There is no acute ST segment abnormalities noted. This was compared to a tracing from August 05, 2018. No changes were noted. Cardiac Monitoring: An order was placed for continuous cardiac monitoring. The monitor shows a rate of 103 bpm with sinus tachycardia. Laboratory studies: As stated above and show below. Imaging studies: See below Consultation(s): I discussed this case with Dr. Cooper who is on-call for the [facility] hospitalist group. Past Med/Surg History Medical History Abnormal CT scan, chest Bullous emphysema Chronic dyspnea Chronic hypoxemic respiratory failure COPD exacerbation COPD, severe Cough Former tobacco use GERD (gastroesophageal reflux disease) History of acute bronchitis History of acute sinusitis History of chronic obstructive pulmonary disease History of methicillin resistant Staphylococcus aureus infection History of MRSA infection of lungs History of pneumonia History of tachycardia HLD (hyperlipidemia) HTN (hypertension) Surgical History History of hernia repair History of hip surgery History of tonsillectomy Family History Mother Diabetes Father Heart disease Social History Smoking Status: Former smoker Second Hand Exposure: No; Hx Alcohol Use: No Hx Substance Use: Yes Preferred Language: Bengali Communication Ability: Effective Director Of Business Services Required: No Beliefs That Will Affect Care: None Current Living Situation: Spouse Feels Safe at Home: Yes Assistive Devices: Glasses and Oxygen - Continuous Allergies Allergies Allergy/AdvReac Type Severity Reaction Status Date / Time clarithromycin Allergy Severe SHORTNESS Verified 12/21/21 21:18 OF BREATH atorvastatin Allergy Intermediate MUSCLE Verified 12/21/21 21:18 ACHES ARMS metaproterenol Allergy Unknown UNKNOWN Verified 12/21/21 21:18 Home Meds Home Medications Medication Instructions Recorded Confirmed amlodipine 5 mg tablet 5 mg PO QAM 08/05/18 12/21/21 ergocalciferol (vitamin D2) 1,250 50,000 unit PO WK 08/05/18 12/21/21 mcg (50,000 unit) capsule hydrocortisone 2.5 % topical cream 1 applic topical BID PRN Skin 08/05/18 12/21/21 Irritation ketoconazole 2 % topical cream 1 applic topical BID PRN Skin 08/05/18 12/21/21 Irritation ropinirole 0.25 mg tablet 0.25 mg PO HS 08/05/18 12/21/21 guaifenesin 1,200 mg tablet, 1,200 mg PO BID 06/30/20 12/21/21 extended release 12 hr (Mucinex) hydroxyzine HCl 25 mg tablet 25 mg PO Q6 PRN Anxiety 04/01/21 12/21/21 albuterol sulfate 2.5 mg/3 mL 2.5 mg continuous nebulization QID 12/21/21 12/21/21 (0.083 %) solution for nebulization aspirin 81 mg tablet,delayed 81 mg PO HS 12/21/21 12/21/21 release fluticasone fur. 100 mcg-umeclid 1 ea inhalation DIRECTED 12/21/21 12/21/21 62.5 mcg-vilant 25 mcg inhalat.powder (Trelegy Ellipta) ipratropium bromide 0.02 % 2.5 ml inhalation QID PRN 12/21/21 12/21/21 solution for inhalation Shortness Of Breath Or Wheezing levofloxacin 750 mg tablet 750 mg PO DIRECTED 12/21/21 12/21/21 pantoprazole 20 mg tablet,delayed 20 mg PO DAILY 12/21/21 12/21/21 release prednisone 10 mg tablet 10 mg PO DIRECTED 12/21/21 12/21/21 sodium chloride 7 % for 4 ml inhalation BID 12/21/21 12/21/21 nebulization Previous Rx's Medication Instructions Recorded mirtazapine 15 mg tablet 15 mg PO HS #36 tabs 05/02/19 albuterol sulfate 90 mcg/actuation 2 puff inhalation Q4 PRN Shortness 10/29/20 aerosol inhaler (Ventolin HFA) Of Breath Or Wheezing #18 grams tiotropium 2.5 mcg-olodaterol 2.5 2 puff inhalation QAM #12 grams 02/02/21 mcg/actuation mist for inhalation azithromycin 250 mg tablet 250 mg PO .COMPLEX 15 days #15 tabs 05/10/21 montelukast 10 mg tablet 10 mg PO HS #90 tabs 06/23/21 Results & Data (ED) Vital Signs Vital Signs - 24 hr 12/21/21 17:10 12/21/21 21:17 12/21/21 21:17 Temperature 37.1 C Temperature Source Temporal Artery Scan Pulse Rate 110 H 97 H Pulse Rate [Apical] Pulse Rhythm Regular Pulse Rhythm [Apical] Pulse Strength [Apical] Respiratory Rate 22 20 Respiratory Effort / Characteristics Respiratory Depth Respiratory Pattern Blood Pressure 107/64 Blood Pressure [Right Arm] Blood Pressure Mean 78 Blood Pressure Mean [Right Arm] Blood Pressure Position [Right Arm] Pulse Oximetry 94 96 96 Oxygen Delivery Method Nasal Cannula Room Air Room Air Oxygen Flow Rate 3 3 Sepsis Recent Fever Within 48 Hours No Sepsis New/Unexplained Change in Mental Status No Sepsis Action Taken by Nursing Adv Provider Notified 12/21/21 21:00 12/21/21 23:00 Temperature Temperature Source Pulse Rate Pulse Rate [Apical] 97 H 103 H Pulse Rhythm Pulse Rhythm [Apical] Regular Regular Pulse Strength [Apical] Normal Normal Respiratory Rate 20 20 Respiratory Effort / Characteristics Non-Labored Spontaneous Non-Labored Spontaneous Respiratory Depth Normal Normal Respiratory Pattern Regular Regular Blood Pressure Blood Pressure [Right Arm] 132/66 137/77 Blood Pressure Mean Blood Pressure Mean [Right Arm] 88 97 Blood Pressure Position [Right Arm] Semi-fowlers Semi-fowlers Pulse Oximetry 97 97 Oxygen Delivery Method Nasal Cannula Nasal Cannula Oxygen Flow Rate 3 3 Sepsis Recent Fever Within 48 Hours Sepsis New/Unexplained Change in Mental Status Sepsis Action Taken by [facility] Medications Current Medication List: was personally reviewed by me Laboratory Data Attestation: I reviewed the patient's lab results. Result diagrams: 12/21/21 18:04 12/21/21 18:04 Lab Results 12/21/21 12/21/21 12/21/21 Range/Units 18:04 18:04 18:04 WBC 16.25 H (4.8-10.8) K/ul RBC 4.35 L (4.63-6.08) M/uL Hgb 12.7 L (14.0-18.0) g/dl Hct 38.5 L (40.1-51.0) % MCV 88.5 (80.0-100.0) fL MCH 29.2 (25.0-34.0) pg MCHC 33.0 (32.0-36.0) g/dL RDW Std Deviation 43.8 (36.4-46.3) fL RDW Coeff of Brooke 13.4 (11.5-14.5) % Plt Count 464 H (130-400) K/uL MPV 9.0 L (9.4-12.4) fL Immature Gran % (Auto) 0.6 % Neut % (Auto) 86.1 % Lymph % (Auto) 4.7 % Otero % (Auto) 8.2 % Eos % (Auto) 0.2 % Baso % (Auto) 0.2 % Neut # (Auto) 13.98 H (1.4-6.5) K/uL Lymph # (Auto) 0.76 L (1.2-3.4) K/uL Otero # (Auto) 1.34 H (0.24-0.82) K/uL Eos # (Auto) 0.04 (0-0.50) K/uL Baso # (Auto) 0.04 (0-0.2) K/uL Immature Gran # (Auto) 0.09 H (0.00-0.02) K/uL Sodium 138 (136-145) mmol/L Potassium 3.8 (3.5-5.1) mmol/L Chloride 101 (98-107) mmol/L Carbon Dioxide 28 (21-32) mmol/L Anion Gap 9 (3-11) BUN 22 (6-23) mg/dl Creatinine 0.91 (0.6-1.4) mg/dl Est Cr Clr Drug Dosing 72.1 ml/min Est GFR ( Amer) 101.4 ml/min Est GFR (Non-Af Amer) 87.5 ml/min BUN/Creatinine Ratio 24.2 H (10-20) Glucose 119 H (70-99(Fasting)) mg/dl Calcium 9.0 (8.5-10.1) mg/dl Total Bilirubin 0.6 (0.2-1.0) mg/dl AST 20 (13-39) U/L ALT 28 (7-52) U/L Alkaline Phosphatase 42 (34-104) U/L Troponin I High Sens 5.6 (0-20) pg/ml Total Protein 6.8 (6.0-8.3) gm/dl Albumin 3.5 (3.4-5.0) gm/dl Globulin 3.3 (2.5-4.0) gm/dl Albumin/Globulin Ratio 1.1 (0.9-2) Procalcitonin 0.12 (0-0.5) ng/ml Nasal Screen MRSA (PCR) (Negative) SARS-CoV-2 (PCR) (Negative) Influenza Type A (PCR) (Neg) Influenza Type B (PCR) (Neg) RSV (RT-PCR) (Neg) 12/21/21 12/21/21 Range/Units 21:21 21:21 WBC (4.8-10.8) K/ul RBC (4.63-6.08) M/uL Hgb (14.0-18.0) g/dl Hct (40.1-51.0) % MCV (80.0-100.0) fL MCH (25.0-34.0) pg MCHC (32.0-36.0) g/dL RDW Std Deviation (36.4-46.3) fL RDW Coeff of Brooke (11.5-14.5) % Plt Count (130-400) K/uL MPV (9.4-12.4) fL Immature Gran % (Auto) % Neut % (Auto) % Lymph % (Auto) % Otero % (Auto) % Eos % (Auto) % Baso % (Auto) % Neut # (Auto) (1.4-6.5) K/uL Lymph # (Auto) (1.2-3.4) K/uL Otero # (Auto) (0.24-0.82) K/uL Eos # (Auto) (0-0.50) K/uL Baso # (Auto) (0-0.2) K/uL Immature Gran # (Auto) (0.00-0.02) K/uL Sodium (136-145) mmol/L Potassium (3.5-5.1) mmol/L Chloride (98-107) mmol/L Carbon Dioxide (21-32) mmol/L Anion Gap (3-11) BUN (6-23) mg/dl Creatinine (0.6-1.4) mg/dl Est Cr Clr Drug Dosing ml/min Est GFR ( Amer) ml/min Est GFR (Non-Af Amer) ml/min BUN/Creatinine Ratio (10-20) Glucose (70-99(Fasting)) mg/dl Calcium (8.5-10.1) mg/dl Total Bilirubin (0.2-1.0) mg/dl AST (13-39) U/L ALT (7-52) U/L Alkaline Phosphatase (34-104) U/L Troponin I High Sens (0-20) pg/ml Total Protein (6.0-8.3) gm/dl Albumin (3.4-5.0) gm/dl Globulin (2.5-4.0) gm/dl Albumin/Globulin Ratio (0.9-2) Procalcitonin (0-0.5) ng/ml Nasal Screen MRSA (PCR) Negative (Negative) SARS-CoV-2 (PCR) NEGATIVE (Negative) Influenza Type A (PCR) Negative (Neg) Influenza Type B (PCR) Negative (Neg) RSV (RT-PCR) Negative (Neg) Administered Medications Discontinued Medications Sodium Chloride (Nss 1000ml) 1,000 mls @ 999 mls/hr IV .Q1H1M ONE Stop: 12/21/21 20:45 Last Infusion: 12/22/21 00:01 Dose: 0 mls/hr Documented By: Admin: 12/21/21 21:31 Dose: 999 mls/hr Documented By: STACY Cefepime HCl (Maxipime) 2,000 mg in 20 mls @ 5 mls/min IV NOW STA; Protocol Stop: 12/21/21 19:48 Last Admin: 12/21/21 21:31 Dose: 5 mls/min Documented By: STACY Imaging Data Radiologist's Impression: Chest X-Ray 12/21/21 17:18 XR chest 2V PA/lateral CLINICAL HISTORY: Hemoptysis, decreased breath sounds L. COMPARISON STUDY: 1221 TECHNIQUE: 2 views of the chest FINDINGS: Frontal and lateral radiographs of the chest demonstrate the cardiomediastinal silhouette to be within normal limits. There has been interval development of large confluent alveolar opacity predominantly within the superior segment of the left lower lobe. This probably represents the presence of pneumonia. However, it does extend centrally to the left hilum. The presence of an underlying neoplastic process cannot be excluded. Follow-up radiographs to demonstrate complete resolution are recommended. The right hemithorax is clear. There is evidence for underlying COPD. There is no evidence for effusion bilaterally. There is no evidence for vascular congestion. There is no acute osseous pathology. IMPRESSION: 1. Large confluent alveolar opacity within the superior segment of the left lower lobe having the appearance of pneumonia. However, underlying neoplastic process cannot be excluded and follow-up is necessary to demonstrate complete resolution. ACT 112: Negative or not required by law. Electronically signed by: Shoaib Zelaya M.D. 12/21/2021 6:48 PM Discharge Plan Visit Data Chief Complaint: Shortness of Breath/Dyspnea Stated Complaint: SHORTNESS OF BREATH ED Provider: Cleve Huggins Discharge Problem: Left lower lobe pneumonia, Cough with hemoptysis Patient Disposition: Being Evaluated by Hospitalist Forms Stand Alone Forms: My [facility] Prescriptions Prescriptions: No Action albuterol sulfate [Ventolin HFA] 90 mcg/actuation HFA aerosol inhaler 2 puff INHALATION Q4 PRN (Reason: Shortness Of Breath Or Wheezing) Qty: 18 3 RF tiotropium-olodaterol 2.5-2.5 mcg/actuation mist 2 puff INHALATION QAM Qty: 12 1RF azithromycin 250 mg tablet 250 mg PO .COMPLEX 15 Days Qty: 15 3RF Rx Instructions: 250 mg PO ; take 3x weekly (Monday, Monday, ) montelukast 10 mg tablet 10 mg PO HS Qty: 90 1RF hydroxyzine HCl 25 mg tablet 25 mg PO Q6 PRN (Reason: Anxiety) mirtazapine 15 mg tablet 15 mg PO HS Qty: 36 0RF amlodipine 5 mg Tablet 5 mg PO QAM ropinirole 0.25 mg Tablet 0.25 mg PO HS hydrocortisone 2.5 % Cream 1 applic TOPICAL BID PRN (Reason: Skin Irritation) ergocalciferol (vitamin D2) 50,000 unit Capsule 50,000 unit PO WK ketoconazole 2 % Cream 1 applic TOPICAL BID PRN (Reason: Skin Irritation) Label Comments: month ago Mucinex 1,200 mg tablet extended release 12hr 1,200 mg PO BID prednisone 10 mg tablet 10 mg PO DIRECTED Rx Instructions: Taper as directed aspirin [Aspir-Low] 81 mg Tablet,Delayed Release (Dr/Ec) 81 mg PO HS pantoprazole 20 mg tablet,delayed release (DR/EC) 20 mg PO DAILY Trelegy Ellipta 100-62.5-25 mcg blister with device 1 ea INHALATION DIRECTED albuterol sulfate 2.5 mg /3 mL (0.083 %) solution for nebulization 2.5 mg continuous nebulization QID ipratropium bromide 0.02 % solution 2.5 ml INHALATION QID PRN (Reason: Shortness Of Breath Or Wheezing) sodium chloride 7 % solution for nebulization 4 ml INH BID levofloxacin 750 mg tablet 750 mg PO DIRECTED Rx Instructions: sly son Referrals Referrals: Rickie Bermudez MD [Primary Care Provider] -
--- NOTE | 2021-12-21 20:44 | History & Physical Report ---
Date of Service December 21, 2021 Assessment & Plan (1) Pneumonia: Plan: Presumed CAP, though concerning that symptoms did not respond to oral course of levofloxacin and prednisone taper at home. With increasing hemotypsis at home, but still mostly flecked/mixed with sputum, not sakina blood. Concerning for either malignancy or possible fungal infection which he reports he had in the past. - Ceftriaxone/azithromycin - Mucinex, flutter valve, saline nebs to improve sputum clearance - Chest CT - Procalcitonin, MRSA swab - Consider pulmonary consult after above work-up - Otherwise, continue normal respiratory meds for COPD. Do not think he is in exacerbation at this time. (2) HTN (hypertension): Plan: - Continue home amlodipine (3) DVT prophylaxis: Plan: Defer heparin while with hemoptysis. - SCDs DNR/DNI - Per patient with present and in agreement. History of Present Illness Primary Care Provider: Rickie Pfeiffer MD 66yo M w/ hx of COPD. Has been coughing for about 3 weeks. Started levofloxacin and prednisone taper on his own (with a rescue pack) on 12/04 without improvement. 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 However, has continued to cough with productive sputum since then. Had blood tinged sputum x about 1 week, worse today and decided to come in. Has had fevers for about 1 week as well. Will have low-grade fever to ~100.5 several times a day which respond to Tylenol. Allergies Allergy/AdvReac Type Severity Reaction Status Date / Time clarithromycin Allergy Severe SHORTNESS Verified 12/21/21 21:18 OF BREATH atorvastatin Allergy Intermediate MUSCLE Verified 12/21/21 21:18 ACHES ARMS metaproterenol Allergy Unknown UNKNOWN Verified 12/21/21 21:18 Home Medications Medication Instructions Recorded Confirmed Type amlodipine 5 mg tablet 5 mg PO QAM 08/05/18 12/21/21 History ergocalciferol (vitamin D2) 1,250 50,000 unit PO WK 08/05/18 12/21/21 History mcg (50,000 unit) capsule hydrocortisone 2.5 % topical cream 1 applic topical BID PRN Skin 08/05/18 12/21/21 History Irritation ketoconazole 2 % topical cream 1 applic topical BID PRN Skin 08/05/18 12/21/21 History Irritation ropinirole 0.25 mg tablet 0.25 mg PO HS 08/05/18 12/21/21 History mirtazapine 15 mg tablet 15 mg PO HS #36 tabs 05/02/19 12/21/21 Rx guaifenesin 1,200 mg tablet, 1,200 mg PO BID 06/30/20 12/21/21 History extended release 12 hr (Mucinex) albuterol sulfate 90 mcg/actuation 2 puff inhalation Q4 PRN Shortness 10/29/20 12/21/21 Rx aerosol inhaler (Ventolin HFA) Of Breath Or Wheezing #18 grams tiotropium 2.5 mcg-olodaterol 2.5 2 puff inhalation QAM #12 grams 02/02/21 12/21/21 Rx mcg/actuation mist for inhalation hydroxyzine HCl 25 mg tablet 25 mg PO Q6 PRN Anxiety 04/01/21 12/21/21 History azithromycin 250 mg tablet 250 mg PO .COMPLEX 15 days #15 tabs 05/10/21 12/21/21 Rx montelukast 10 mg tablet 10 mg PO HS #90 tabs 06/23/21 12/21/21 Rx albuterol sulfate 2.5 mg/3 mL 2.5 mg continuous nebulization QID 12/21/21 12/21/21 History (0.083 %) solution for nebulization aspirin 81 mg tablet,delayed 81 mg PO HS 12/21/21 12/21/21 History release fluticasone fur. 100 mcg-umeclid 1 ea inhalation DIRECTED 12/21/21 12/21/21 History 62.5 mcg-vilant 25 mcg inhalat.powder (Trelegy Ellipta) ipratropium bromide 0.02 % 2.5 ml inhalation QID PRN 12/21/21 12/21/21 History solution for inhalation Shortness Of Breath Or Wheezing levofloxacin 750 mg tablet 750 mg PO DIRECTED 12/21/21 12/21/21 History pantoprazole 20 mg tablet,delayed 20 mg PO DAILY 12/21/21 12/21/21 History release prednisone 10 mg tablet 10 mg PO DIRECTED 12/21/21 12/21/21 History sodium chloride 7 % for 4 ml inhalation BID 12/21/21 12/21/21 History nebulization Past Med/Surg History Medical History Abnormal CT scan, chest Bullous emphysema Chronic dyspnea Chronic hypoxemic respiratory failure COPD exacerbation COPD, severe Cough Former tobacco use GERD (gastroesophageal reflux disease) History of acute bronchitis History of acute sinusitis History of chronic obstructive pulmonary disease History of methicillin resistant Staphylococcus aureus infection History of MRSA infection of lungs History of pneumonia History of tachycardia HLD (hyperlipidemia) HTN (hypertension) Surgical History History of hernia repair History of hip surgery History of tonsillectomy Family History Mother Diabetes Father Heart disease Social History Smoking Status: Former smoker Cigarettes Per Day: 2 packs/day; Second Hand Exposure: No; Do You Dip or Chew Tobacco: No; Tobacco Cessation Education Requested by Patient: No Hx Alcohol Use: No Hx Substance Use: No Preferred Language: Cymraes Communication Ability: Effective Multiple Drill Operator Required: No Beliefs That Will Affect Care: None Current Living Situation: Spouse Current Living Situation Comment: Lives with Other Information That Helps Us Care for You: No Feels Safe at Home: Yes Safety Concerns: Feels Safe At This Time Assistive Devices: Glasses and Oxygen - Continuous Assistive Devices Comment: 3L during the day and 2L at HS; normally Review of Systems Review of Systems: All systems reviewed & are unremarkable except as noted in HPI & below Physical Exam Constitutional: WD/WN, vitals as above Eyes: EOM intact bilaterally; no conjunctival abnormality ENMT: external ear and nose normal, oropharynx normal Neck: trachea midline, no thyromegaly normal visual inspection Respiratory: normal respiratory effort, lungs clear to auscultation no respiratory distress Cardiovascular: RRR, no murmur, no edema Gastrointestinal (Abdomen): Inspection/Auscultation: abdomen normal to inspection; abdomen not distended Musculoskeletal: no cyanosis or clubbing, extremities motor strength 5/5 Skin: no rashes, warm and dry Neurologic: moves all extremities and awake Psychiatric: Orientation: alert, oriented to person and cooperative Results & Data Results & Data ([facility]) Vital Signs (Past 12 Hours) Vital Signs Temp Pulse Resp BP Pulse Ox O2 Del Method O2 Flow Rate 12/21/21 17:10 37.1 C 110 H 22 107/64 94 Nasal Cannula 3 Code Status & VTE Plan VTE Prophylaxis Plan VTE Prophylaxis will be ordered: Yes PG Care Time/CCT Total # of Minutes Spent Total Time Spent with Patient: Total time spent is greater than 50% in coordination of care (as documented) at patient's floor/unit and/or counseling patient: Coding Level of Care Code 64287 Initial Inpt Care Lvl 3 Diagnoses Pneumonia J18.9 HTN (hypertension) I10 DVT prophylaxis Z29.9
[2021-12-21 22:20] LABS: Influenza A virus by PCR Negative (Neg); Influenza B virus by PCR Negative (Neg); RSV by PCR Negative (Neg); SARS CoV2 RNA(COVID-19) InHosp NEGATIVE (Negative)
[2021-12-22] MEDS ORDERED: ACETAMINOPHEN 325 MG TAB PO PRN (00:42)
[2021-12-22] MEDS ORDERED: ONDANSETRON INJ 2 MG/ML 2 ML VIAL IV PRN (00:42)
[2021-12-22] MEDS: MONTELUKAST SODIUM 10 MG TABLET PO SCH ×2 (01:54→21:11)
[2021-12-22] MEDS: ASPIRIN 81 MG ECTAB PO SCH ×2 (01:54→01:57)
[2021-12-22] MEDS: MIRTAZAPINE TAB 15 MG TAB PO SCH ×2 (01:55→21:11)
[2021-12-22] MEDS: rOPINIRole HCL 0.25 MG TABLET PO SCH ×2 (01:55→21:11)
[2021-12-22] MEDS: AZITHROMYCIN 250 MG TAB PO SCH ×2 (01:55→08:07)
[2021-12-22] MEDS: SODIUM CHLOR 7% 4 ML NEB INH SCH ×4 (02:04→21:59)
[2021-12-22] MEDS ORDERED: cefTRIAXone SODIUM 1,000 MG in DEXTROSE 5% 50 ML IV SCH (04:00)
[2021-12-22 07:25] LABS: Hematocrit (blood only) 33.3 % (40.1-51.0); Hemoglobin 10.9 g/dl (14.0-18.0); Mean Corpuscular Hemoglobin 28.8 pg (25.0-34.0); Mean Corpuscular Hgb Conc 32.7 g/dL (32.0-36.0); Mean Corpuscular Volume 87.9 fL (80.0-100.0); Mean Platelet Volume 9.5 fL (9.4-12.4); Platelet Count 421 K/uL (130-400); RDW Coefficient of Variation 13.5 % (11.5-14.5); RDW Standard Deviation 43.5 fL (36.4-46.3); Red Blood Count 3.79 M/uL (4.63-6.08); White Blood Count 10.78 K/ul (4.8-10.8)
--- NOTE | 2021-12-22 07:29 | CT Scan Report ---
CT chest diagnostic wo con CLINICAL HISTORY: Pneumonia, hemoptysis TECHNIQUE: Multidetector row helical CT of the chest was performed. Coronal and sagittal reformations were obtained. Automated dose lowering techniques and/or adjustment according to patient size were u tilized for this exam. CT DOSE: 243.75 mGy.cm Comparison: Comparison is made to CT chest 04/14/2021 FINDINGS: Lungs and pleura: Severe emphysematous changes are seen. There is focal consolidation in the left low er lobe containing multiple locules of air. These are new from the prior exam. Heart and pericardium: Heart size is normal. No pericardial effusion. Vessels: Moderate atherosclerotic changes in the aorta and coronary arteries. The pulmonary trunk adalberto sures 33 mm in diameter, compatible with pulmonary hypertension. Mediastinum and harish: Unremarkable. Evaluation for hilar lymphadenopathy is limited by noncontrast te [place]. Chest wall and lower neck: Unremarkable. Abdomen: Unremarkable. Bones: Degenerative changes in the thoracic spine. IMPRESSION: Interval development of consolidation in the left lower lobe. This likely represents pneumonia, likel y with superimposed pulmonary abscess versus less likely included emphysematous bullae. Follow-up to resolution is recommended. ACT 112: Negative or not required by law. Electronically signed by: Rickie Reich M.D. 12/22/2021 7:27 AM
[2021-12-22 07:53] LABS: BUN Creatinine Ratio 26.7 (10-20); Creatinine Clr Calc Pharmacy 87.4 ml/min; Est GFR (African American) 110.8 ml/min; Est GFR (Non-African American) 95.6 ml/min; Magnesium 1.8 mg/dl (1.7-2.4); Potassium 3.9 mmol/L (3.5-5.1)
[2021-12-22] MEDS: amLODIPine BESYLATE 5 MG TAB PO SCH (08:07)
[2021-12-22] MEDS: UMECLIDINIUM/VILANTEROL 62.5/25MCG 7 PUFFS/INHALER INH SCH (08:08)
[2021-12-22] MEDS: FLUTICASONE FUROATE 100MCG 14 PUFFS/INHALER INH SCH (08:08)
[2021-12-22] MEDS ORDERED: NON-FORMULARY MEDICATION (Fluticasone-Umeclidin-Vilanter [Trelegy Ellipta] 100-62.5-25 mcg INH SCH (09:00)
[2021-12-22] MEDS ORDERED: guaiFENesin 600 MG TABCR PO SCH (09:00)
--- NOTE | 2021-12-22 10:01 | Pulmonary Consultation ---
Date of Consultation December 22, 2021 Assessment & Plan (1) Left lower lobe pneumonia: Pneumonia type: due to unspecified organism Qualified Code(s): J18.9 - Pneumonia, unspecified organism (2) Cough with hemoptysis: (3) COPD exacerbation: (4) Abnormal CT scan, chest: (5) Bullous emphysema: (6) MAIC (mycobacterium avium-intracellulare complex): (7) Tracheobronchitis due to Aspergillus: (8) Former tobacco use: (9) Chronic hypoxemic respiratory failure: Plan Attending: Dr. Islas Impression: This is a 66 yo male that has followed with Dr. Rendon and currently follows with Dr. Pham in the outpatient clinic. He presents with fever and hemoptysis. CT Chest with question of LLL lung abcess. Patient had previous CT scan of the chest which showed abnormality left lower lobe which had been followed by Dr. Pham. Repeat CT scan completed in May 2021 showed near resolution with question of scarring. After the patient's visit with Dr. Pham in May he switched to Dr. Landa at [facility] pulmonology and has been following him as an outpatient. Patient reports that he started to have blood-tinged sputum which was pink and sometimes orange with cough as well as d aily fevers. He self treated with 7 days of oral levofloxacin which was prescribed to him and his rescue pack with no improvement to his symptoms. Patient is chronically hypoxic on 3 L/min via nasal cannula supplemental oxygen. At rest he typically is at 96% SaO2 with 3 L and reports that he dropped to 92% and was concerned due to the drop in oxygen level as well as the hemoptysis. He called Dr. Landa's office and was told that he will be on vacation until 12/29/2021 and so he presented to the emergency department for further evaluation. Recommendations: 1. Left lower lobe pneumonia: * Primary symptom was hemoptysis. Patient started levofloxacin at home and completed 7-day course. Sputum continues to remain pink/orange so patient presented for further evaluation. * Patient was given cefepime on admission. He was then converted to ceftriaxone for inpatient stay. * Consider Zosyn with doxycycline for atypical coverage. Will review with Dr. Islas * Patient currently is at baseline is far as his oxygenation at 3 L/min via nasal cannula * Sputum culture is pending * Due to patient's history of CRISSY, will morning sputum to look for AFB * Due to patient's severe COPD, would target SaO2 between 88 and 92% 2. COPD: * Gold class D with FEV1 of 31% * Follows with Dr. Landa at the [facility] pulmonary office at [facility] * Patient refused lung reduction surgery consult as well as lung transplant consult as he did not want to travel outside of the [facility] * We will continue patient's Trelegy (umeclidinium/vilanterol/fluticasone furoate) and Singulair while inpatient. * No indication for IV steroids at this time. Continue with prednisone 5 mg p.o. daily as prescribed as an outpatient * Outpatient follow-up with Dr. Landa on discharge 3. Hemoptysis: * No sakina clots or bright red blood. Blood and sputum limited to pink/orange tinge. Sputum culture is pending. Patient has been unable to provide adequate sample * No indication for bronchoscopy at this time * Continue to treat for pneumonia as listed above * Avoid anticoagulants. Ok to continue aspirin 81 mg p.o. daily 4. History of CRISSY/pulmonary aspergillosis: * Check morning sputum for AFB * Patient reports 6 months of treatment as followed by [facility] * Further management outpatient with Dr. Landa. Thank you for including us in the care of this patient. We will continue to follow along with you. Please refer to Dr. Islas's addendum for further recommendations and corrections. Pulmonary function testing 03/20/2018: * FVC 4.07 L, 57% of predicted * FEV1 3.23 L, 31% of predicted * FEV/FVC 53% * TLC 6.19 L, 112% of predicted * RV 2.07 L, 209% of predicted * RV/TLC 188% * DLCO 37% * DLCO/VA 51% Supervising Physician Co-Signing Physician Notes Patient seen and examined. EMR reviewed. Images independently reviewed. Patient has evidence of necrotizing pneumonia on CT scan and is failed outpatient levofloxacin although his procalcitonin is normal and his white blood cell count is normal. His hemoptysis likely is stemming from the infectious etiology. He has a complicated prior pulmonary history including a history of staph, nontuberculous mycobacterial infection as well. I recommended proceeding with fiberoptic bronchoscopy and broadening his antibiotic coverage with Zosyn which would cover Pseudomonas in a patient with structurally abnormal lungs as well as potential anaerobe infections. Its likely the patient may require prolonged antibiotics for 3 to 6 weeks depending on course. The patient is agreeable to pursue fiberoptic bronchoscopy which will be scheduled for tomorrow a.m. N.p.o. after midnight. Again broadening antibiotics to Zosyn. Follow clinically with submassive/trivial hemoptysis. We will continue to follow with you. Thanks for the opportunity of assisting in the care of this patient History of Present Illness Reason for Consultation: Possible left lower lobe lung abscess Requesting Physician: Dr. Blake Attending Physician: Radha Blake MD History of Present Illness Attending: Dr. Islas History: Is a 66-year-old male that has a past medical history including severe COPD with FEV1 of 31% Gold class stage D. The patient follows with Dr. Pham as an outpatient. He was seen in March 2021 and then again in May 2021 for abnormal findings of the left lower lobe with CT scan. These appear to be atelectatic scarring and on repeat CT scan in May seem to be improved. Patient had been on previous prednisone tapers and was converted to daily prednisone by Dr. Pham to be taking 5 mg p.o. daily. Patient was referred to [place] for evaluation for lung reduction surgery and possible lung transplant. Patient deferred these consults as he does not want to travel. Patient was started on Trelegy 100 mcg to replace Stiolto. Patient does have chronic respiratory failure with hypoxia requiring 3 L/min of supplemental oxygen via nasal cannula at baseline. Current home medications per Dr. Pham's note of 06/02/2021 for pulmonary treatment should include Trelegy Ellipta, azithromycin 250 mg p.o. Monday, prednisone 5 mg p.o. daily, Mucinex 1200 mg p.o. twice daily, and as needed nebulizer treatments. QTC is 447 ms on EKG dated 21-Dec-2021. Patient currently follows with Dr. Landa from the [facility] pulmonology department. Most recent pulmonary function test were performed 03/20/2018 and are reflected below. Patient does have reduced FEV1 of 31%, RV/TLC of 188%, DLCO of 37% which only corrects for alveolar volume to 51%. Patient has an 96-slrc-mmse smoking history. He reports that he quit smoking several years ago. Patient was previously followed by Dr. Rendon reports a history of CRISSY infection as well as Aspergillus tracheobronchitis in the past. Patient reports that he followed with the [facility] and was on antibiotics for 6 months. Chief Complaint: Patient states that he began having some cough and increased shortness of breath. He started oral levofloxacin from his rescue pack and completed 7 days. He initiated the oral antibiotics secondary to blood-tinged sputum. He reports that he never had any clots in his sputum or bright red blood. Sputum was alwa ys pink and has become orange. Patient had some left-sided flank pain which has resolved since starting levofloxacin. When the patient completed his course of levofloxacin and still had no improvement to his hemoptysis, he presented to the [facility] emergency department for further evaluation treatment. Patient does report that prior to coming the emergency department he contacted Dr. Dilip hernandez's office and was told that he will be out of the office until 12/29/2021. Patient does have a follow-up appointment scheduled with the nurse practitioner at the [facility] for tomorrow but felt that he could not wait until then for further evaluation. Allergies Allergy/AdvReac Type Severity Reaction Status Date / Time clarithromycin Allergy Severe SHORTNESS Verified 12/21/21 21:18 OF BREATH atorvastatin Allergy Intermediate MUSCLE Verified 12/21/21 21:18 ACHES ARMS metaproterenol Allergy Unknown UNKNOWN Verified 12/21/21 21:18 Home Medications Medication Instructions Recorded Confirmed Type amlodipine 5 mg tablet 5 mg PO QAM 08/05/18 12/21/21 History ergocalciferol (vitamin D2) 1,250 50,000 unit PO WK 08/05/18 12/21/21 History mcg (50,000 unit) capsule hydrocortisone 2.5 % topical cream 1 applic topical BID PRN Skin 08/05/18 12/21/21 History Irritation ketoconazole 2 % topical cream 1 applic topical BID PRN Skin 08/05/18 12/21/21 History Irritation ropinirole 0.25 mg tablet 0.25 mg PO HS 08/05/18 12/21/21 History mirtazapine 15 mg tablet 15 mg PO HS #36 tabs 05/02/19 12/21/21 Rx guaifenesin 1,200 mg tablet, 1,200 mg PO BID 06/30/20 12/21/21 History extended release 12 hr (Mucinex) albuterol sulfate 90 mcg/actuation 2 puff inhalation Q4 PRN Shortness 10/29/20 12/21/21 Rx aerosol inhaler (Ventolin HFA) Of Breath Or Wheezing #18 grams tiotropium 2.5 mcg-olodaterol 2.5 2 puff inhalation QAM #12 grams 02/02/21 12/21/21 Rx mcg/actuation mist for inhalation hydroxyzine HCl 25 mg tablet 25 mg PO Q6 PRN Anxiety 04/01/21 12/21/21 History azithromycin 250 mg tablet 250 mg PO .COMPLEX 15 days #15 tabs 05/10/21 12/21/21 Rx montelukast 10 mg tablet 10 mg PO HS #90 tabs 06/23/21 12/21/21 Rx albuterol sulfate 2.5 mg/3 mL 2.5 mg continuous nebulization QID 12/21/21 History (0.083 %) solution for nebulization aspirin 81 mg tablet,delayed 81 mg PO HS 12/21/21 12/21/21 History release fluticasone fur. 100 mcg-umeclid 1 ea inhalation DIRECTED 12/21/21 12/21/21 History 62.5 mcg-vilant 25 mcg inhalat.powder (Trelegy Ellipta) ipratropium bromide 0.02 % 2.5 ml inhalation QID PRN 12/21/21 12/21/21 History solution for inhalation Shortness Of Breath Or Wheezing levofloxacin 750 mg tablet 750 mg PO DIRECTED 12/21/21 12/21/21 History pantoprazole 20 mg tablet,delayed 20 mg PO DAILY 12/21/21 12/21/21 History release prednisone 10 mg tablet 10 mg PO DIRECTED 12/21/21 12/21/21 History sodium chloride 7 % for 4 ml inhalation BID 12/21/21 12/21/21 History nebulization Patient History Medical History Abnormal CT scan, chest Bullous emphysema Chronic dyspnea Chronic hypoxemic respiratory failure COPD exacerbation COPD, severe Cough Former tobacco use GERD (gastroesophageal reflux disease) History of acute bronchitis History of acute sinusitis History of chronic obstructive pulmonary disease History of methicillin resistant Staphylococcus aureus infection History of MRSA infection of lungs History of pneumonia History of tachycardia HLD (hyperlipidemia) HTN (hypertension) Surgical History History of hernia repair History of hip surgery History of tonsillectomy Family History Mother Diabetes Father Heart disease Social History Smoking Status: Former smoker Cigarettes Per Day: 2 packs/day; Second Hand Exposure: No; Do You Dip or Chew Tobacco: No; Tobacco Cessation Education Requested by Patient: No Hx Alcohol Use: No Hx Substance Use: No Preferred Language: Cypriot Communication Ability: Effective Mass Spectrometry Manager Required: No Beliefs That Will Affect Care: None Current Living Situation: Spouse Current Living Situation Comment: Lives with Other Information That Helps Us Care for You: No Feels Safe at Home: Yes Safety Concerns: Feels Safe At This Time Assistive Devices: Glasses and Oxygen - Continuous Assistive Devices Comment: 3L during the day and 2L at HS; normally Review of Systems Review of Systems: A total of 10 systems was reviewed and is negative other than as listed in the HPI Physical Exam Physical Exam: GENERAL : No acute distress EYES: No icterus, gaze conjugate NOSE: No evidence of epistaxis MOUTH: No lesions or candidiasis NECK: Supple LUNGS: Diminished lung sounds throughout. Significantly decreased at left base. No bronchospasm or rhonchi appreciated. HEART: Regular, rate controlled ABDOMEN: Soft, NT, ND, BS Present EXTREMITIES: No LE edema, pedal pulses intact NEURO: A&OX3 Results & Data Results & Data ([facility]) Vital Signs (Past 12 Hours) Vital Signs Temp Pulse Pulse Pulse Resp BP BP 12/22/21 09:25 08/10/22 08:16 36.9 C 101 H 20 125/67 12/22/21 07:25 107 H 19 12/22/21 07:10 102 H 12/22/21 00:38 121 H 12/22/21 02:26 37.0 C 104 H 20 147/74 H 12/22/21 02:04 116 H 20 12/22/21 00:42 37.3 C 118 H 18 12/22/21 00:28 37.3 C 118 H 18 12/22/21 00:20 109 H 20 144/80 H 12/21/21 23:00 103 H 20 BP Pulse Ox O2 Del Method O2 Flow Rate 12/22/21 09:25 Nasal Cannula 3 12/22/21 08:16 96 12/22/21 07:25 97 Nasal Cannula 3 12/22/21 07:10 12/22/21 00:38 12/22/21 02:26 97 Nasal Cannula 3 12/22/21 02:04 94 Nasal Cannula 3 12/22/21 00:42 153/87 H 95 Nasal Cannula 3 12/22/21 00:28 153/87 H 95 Room Air 12/22/21 00:20 96 Nasal Cannula 3 12/21/21 23:00 137/77 97 Nasal Cannula 3 Critical Care Results & Data Vital Signs (Past 12 Hours) Vital Signs Temp Pulse Pulse Pulse Resp BP BP 12/22/21 09:25 12/22/21 08:16 36.9 C 101 H 20 125/67 12/22/21 07:25 107 H 19 12/22/21 07:10 102 H 12/22/21 00:38 121 H 12/22/21 02:26 37.0 C 104 H 20 147/74 H 12/22/21 02:04 116 H 20 12/22/21 00:42 37.3 C 118 H 18 12/22/21 00:28 37.3 C 118 H 18 12/22/21 00:20 109 H 20 144/80 H 12/21/21 23:00 103 H 20 BP Pulse Ox O2 Del Method O2 Flow Rate 12/22/21 09:25 Nasal Cannula 3 12/22/21 08:16 96 12/22/21 07:25 97 Nasal Cannula 3 12/22/21 07:10 12/22/21 00:38 12/22/21 02:26 97 Nasal Cannula 3 12/22/21 02:04 94 Nasal Cannula 3 12/22/21 00:42 153/87 H 95 Nasal Cannula 3 12/22/21 00:28 153/87 H 95 Room Air 12/22/21 00:20 96 Nasal Cannula 3 12/21/21 23:00 137/77 97 Nasal Cannula 3 Lab & Micro Results (Past 24 Hours) RBC 3.79 M/uL (4.63-6.08) L 12/22/21 WBC 10.78 K/ul (4.8-10.8) 12/22/21 Hgb 10.9 g/dl (14.0-18.0) L 12/22/21 Hct 33.3 % (40.1-51.0) L 12/22/21 MCV 87.9 fL (80.0-100.0) 12/22/21 MCH 28.8 pg (25.0-34.0) 12/22/21 MCHC 32.7 g/dL (32.0-36.0) 12/22/21 RDW Standard Deviation 43.5 fL (36.4-46.3) 12/22/21 RDW Coefficient of Variation 13.5 % (11.5-14.5) 12/22/21 Plt Count 421 K/uL (130-400) H 12/22/21 MPV 9.5 fL (9.4-12.4) 12/22/21 Neutrophils (%) (Auto) 86.1 % 12/21/21 Lymphocytes (%) (Auto) 4.7 % 12/21/21 Monocytes # (Auto) 1.34 K/uL (0.24-0.82) H 12/21/21 Eosinophils # (Auto) 0.04 K/uL (0-0.50) 12/21/21 Immature Granulocyte % (Auto) 0.6 % 12/21/21 Neutrophils # (Auto) 13.98 K/uL (1.4-6.5) H 12/21/21 Lymphocytes # (Auto) 0.76 K/uL (1.2-3.4) L 12/21/21 Monocytes # (Auto) 1.34 K/uL (0.24-0.82) H 12/21/21 Eosinophils # (Auto) 0.04 K/uL (0-0.50) 12/21/21 Basophils # (Auto) 0.04 K/uL (0-0.2) 12/21/21 Immature Granulocyte # (Auto) 0.09 K/uL (0.00-0.02) H 12/21 Na 138 mmol/L (136-145) 12/22/21 K 3.9 mmol/L (3.5-5.1) 12/22/21 Cl 105 mmol/L (98-107) 12/22/21 CO2 26 mmol/L (21-32) 12/22/21 Anion Gap 7 (3-11) 12/22/21 BUN 20 mg/dl (6-23) 12/22/21 Creatinine 0.75 mg/dl (0.6-1.4) 12/22/21 Estimated GFR ( Amer) 110.8 ml/min 12/22/21 Estimated GFR (Non-Af Amer) 95.6 ml/min 12/22/21 BUN/Creatinine Ratio 26.7 (10-20) H 12/22/21 Glu 79 mg/dl (70-99(Fasting)) 12/22/21 Ca 8.0 mg/dl (8.5-10.1) L 12/22/21 Total Bilirubin 0.6 mg/dl (0.2-1.0) 12/21/21 AST 20 U/L (13-39) 12/21/21 ALT 28 U/L (7-52) 12/21/21 Alkaline Phosphatase 42 U/L (34-104) 12/21/21 TP 6.8 gm/dl (6.0-8.3) 12/21/21 Albumin 3.5 gm/dl (3.4-5.0) 12/21/21 Globulin 3.3 gm/dl (2.5-4.0) 12/21/21 Albumin/Globulin Ratio 1.1 (0.9-2) 12/21/21 Mg 1.8 mg/dl (1.7-2.4) 12/22/21 06:44 Calcium Level 8.0 mg/dl (8.5-10.1) L 12/22/21 06:44 Diagnostic Findings (Past 24 Hours) Chest X-Ray 12/21/21 17:18 XR chest 2V PA/lateral CLINICAL HISTORY: Hemoptysis, decreased breath sounds L. COMPARISON STUDY: 1221 TECHNIQUE: 2 views of the chest FINDINGS: Frontal and lateral radiographs of the chest demonstrate the cardiomediastinal silhouette to be within normal limits. There has been interval development of large confluent alveolar opacity predominantly within the superior segment of the left lower lobe. This probably represents the presence of pneumonia. However, it does extend centrally to the left hilum. The presence of an underlying neoplastic process cannot be excluded. Follow-up radiographs to demonstrate complete resolution are recommended. The right hemithorax is clear. There is evidence for underlying COPD. There is no evidence for effusion bilaterally. There is no evidence for vascular conge stion. There is no acute osseous pathology. IMPRESSION: 1. Large confluent alveolar opacity within the superior segment of the left lower lobe having the appearance of pneumonia. However, underlying neoplastic process cannot be excluded and follow-up is necessary to demonstrate complete resolution. ACT 112: Negative or not required by law. Electronically signed by: Shoaib Zelaya M.D. 12/21/2021 6:[address] 12/22/21 00:42 CT chest diagnostic wo con CLINICAL HISTORY: Pneumonia, hemoptysis TECHNIQUE: Multidetector row helical CT of the chest was performed. Coronal and sagittal reformations were obtained. Automated dose lowering techniques and/or adjustment according to patient size were utilized for this exam. CT DOSE: 243.75 mGy.cm Comparison: Comparison is made to CT chest 04/14/2021 FINDINGS: Lungs and pleura: Severe emphysematous changes are seen. There is focal consolidation in the left lower lobe containing multiple locules of air. These are new from the prior exam. Heart and pericardium: Heart size is normal. No pericardial effusion. Vessels: Moderate atherosclerotic changes in the aorta and coronary arteries. The pulmonary trunk measures 33 mm in diameter, compatible with pulmonary hypertension. Mediastinum and harish: Unremarkable. Evaluation for hilar lymphadenopathy is limited by noncontrast technique. Chest wall and lower neck: Unremarkable. Abdomen: Unremarkable. Bones: Degenerative changes in the thoracic spine. IMPRESSION: Interval development of consolidation in the left lower lobe. This likely represents pneumonia, likely with superimposed pulmonary abscess versus less likely included emphysematous bullae. Follow-up to resolution is recommended. ACT 112: Negative or not required by law. Electronically signed by: Rickie Reich M.D. 12/22/2021 7:27 AM I & O Totals 24 Hours 12/21/21 12/22/21 12/23/21 06:59 06:59 06:59 Intake Total 1060 / 1060 Output Total 200 / 200 Balance 860 / 860 Cumulative 12/21/21 17:01 thru 12/22/21 06:47 Intake Total 1060 Output Total 200 Balance 860 RT Ventilator Mngmt (Last Documented) Ventilator Ordered Settings Respiratory Rate 20 12/22/21 08:16 Ventilator - PT Measurements Respiratory Rate 20 PG Care Time/CCT Total # of Minutes Spent Total Time Spent with Patient: Total time spent is greater than 50% in coordination of care (as documented) at patient's floor/unit and/or counseling patient:60 minutes Coding Level of Care Code 46270 Initial Inpt Care Lvl 3 Diagnoses Left lower lobe pneumonia J18.9 Pneumonia type: due to unspecified organism Cough with hemoptysis R04.2 COPD exacerbation J44.[address] scan, chest R93.89 Bullous emphysema J43.9 MAIC (mycobacterium avium-intracellulare complex) A31.0 Tracheobronchitis due to Aspergillus J40; B44.89 Former tobacco use Z87.891 Chronic hypoxemic respiratory failure J96.11 Time Spent (min) 60
[2021-12-22] MEDS ORDERED: ALBUTEROL 0.083% NEBU SOLN 3 ML VIAL NEB PRN (16:38)
[2021-12-22] MEDS ORDERED: PIPERACILLIN/TAZOBACTAM 3.375 GM in DEXTROSE 5% 100 ML IV ONE (17:45)
--- NOTE | 2021-12-22 18:15 | Hospitalist Progress Note ---
Date of Service December 22, 2021 Assessment & Plan (1) Pneumonia: Plan: Presented with fevers, cough with hemoptysis (scant), and left sided pleuritic chest pain x 1 week, failed outpatient prednisone burst and Levaquin. Found to have large left sided PNA with possible abscess on chest CT With leukocytosis, tachycardia--> with sepsis, POA On baseline O2 3LNC PCT negative, MRSA negative but does have a h/o MRSA PNA many years ago also with a h/o CRISSY and Aspergillus COVID negative Leukocytosis improved today, tachycardia improving Appreciate PULM consult -convert ceftriaxone to ZOsyn for anaerobic and Pseudomonas coverage -continue azithro for atypical coverage -follow BCXs-NGTD -plan for bronchoscopy tomorrow for washings, cytology, AFB, etc. -increase tylenol to 1000mg po tid prn for pain and fevers -make negbs scheduled tid at his request, continue maintenance inhalers -add on home dose prednisone 5mg po daily (2) Cough with hemoptysis: Plan: secondary to PNA as above discontinue aspirin and he states he already had stopped this at home due to hemoptysis he is on it only as primary prevention (3) Chest pain: Plan: pleuritic, 2/2 PNA no NSAIDs due to hemoptysis increase tylenol to 1000mg po tid (4) COPD, severe: Plan: as above with bullous disease (5) Chronic hypoxemic respiratory failure: Plan: 3LNC during day and 2LNC hs (6) HTN (hypertension): Plan: BPs controlled continue home amlodipine (7) GERD (gastroesophageal reflux disease): Plan: continue PPI (8) Major depressive disorder, recurrent severe without psychotic features: Plan: continue Remeron Plan DVT proph-hold chemical means for bronchoscopy and for hemoptysis Dispo-continued stay Admission and Anticipated Discharge Date Admission Date: December 21, 2021 Subjective Pt having pain in left chest wall with coughing and taking deep breaths. Requesting something for pain. Takes ALeve at home. Also requesting nebs be tid scheduled No fevers here so far. Had one loose stool this AM Discussed case with PULDb Perez with ST rates 100-120s Review of Systems Review of Systems: All systems reviewed & are unremarkable except as noted in HPI & below Physical Exam Constitutional: WD/WN, vitals as above Eyes: + anicteric sclerae Neck: trachea midline, no thyromegaly Respiratory: normal respiratory effort and + cough Auscultation: + diminished lung sounds (severely diminished throughout); no wheezes Cardiovascular: RRR, no murmur, no edema Chest (Breasts): Chest: normal inspection of chest Gastrointestinal (Abdomen): normal bowel sounds, soft, nontender, no hepatosplenomegaly Musculoskeletal: Extremities: extremities normal to inspection; no cyanosis and no clubbing Skin: no rashes, warm and dry Neurologic: moves all extremities and awake; no focal motor deficits Psychiatric: A+Ox3, euthymic affect Lymphatic: no lymphedema Results & Data Results & Data ([facility]) Vital Signs (Past 12 Hours) Vital Signs Temp Pulse Pulse Resp BP Pulse Ox O2 Del Method 12/22/21 15:31 106 H 19 97 Nasal Cannula 12/22/21 15:15 36.8 C 105 H 20 115/69 96 12/22/21 15:13 104 H 12/22/21 11:30 37.2 C 130 H 20 126/79 92 12/22/21 09:25 Nasal Cannula 12/22/21 08:16 36.9 C 101 H 20 125/67 96 12/22/21 07:25 107 H 19 97 Nasal Cannula 12/22/21 07:10 102 H O2 Flow Rate 12/22/21 15:31 3 12/22/21 15:15 12/22/21 15:13 12/22/21 11:30 12/22/21 09:25 3 12/22/21 08:16 12/22/21 07:25 3 12/22/21 07:10 Laboratory Results 12/22/21 12/22/21 12/22/21 Range/Units 06:44 06:44 06:44 WBC 10.78 (4.8-10.8) K/ul RBC 3.79 L (4.63-6.08) M/uL Hgb 10.9 L (14.0-18.0) g/dl Hct 33.3 L (40.1-51.0) % MCV 87.9 (80.0-100.0) fL MCH 28.8 (25.0-34.0) pg MCHC 32.7 (32.0-36.0) g/dL RDW Std Deviation 43.5 (36.4-46.3) fL RDW Coeff of Brooke 13.5 (11.5-14.5) % Plt Count 421 H (130-400) K/uL MPV 9.5 (9.4-12.4) fL Sodium 138 (136-145) mmol/L Potassium 3.9 (3.5-5.1) mmol/L Chloride 105 (98-107) mmol/L Carbon Dioxide 26 (21-32) mmol/L Anion Gap 7 (3-11) BUN 20 (6-23) mg/dl Creatinine 0.75 (0.6-1.4) mg/dl Est Cr Clr Drug Dosing 87.4 ml/min Est GFR ( Amer) 110.8 ml/min Est GFR (Non-Af Amer) 95.6 ml/min BUN/Creatinine Ratio 26.7 H (10-20) Glucose 79 (70-99(Fasting)) mg/dl Calcium 8.0 L (8.5-10.1) mg/dl Magnesium 1.8 (1.7-2.4) mg/dl Total Bilirubin (0.2-1.0) mg/dl AST (13-39) U/L ALT (7-52) U/L Alkaline Phosphatase (34-104) U/L Troponin I High Sens (0-20) pg/ml Total Protein (6.0-8.3) gm/dl Albumin (3.4-5.0) gm/dl Globulin (2.5-4.0) gm/dl Albumin/Globulin Ratio (0.9-2) Procalcitonin (0-0.5) ng/ml Nasal Screen MRSA (PCR) (Negative) SARS-CoV-2 (PCR) (Negative) Hepatitis C Ab (EIA) Pending Hep C Ab Signal/Cutoff Pending Influenza Type A (PCR) (Neg) Influenza Type B (PCR) (Neg) RSV (RT-PCR) (Neg) 12/21/21 12/21/21 12/21/21 Range/Units 21:21 21:21 18:04 WBC (4.8-10.8) K/ul RBC (4.63-6.08) M/uL Hgb (14.0-18.0) g/dl Hct (40.1-51.0) % MCV (80.0-100.0) fL MCH (25.0-34.0) pg MCHC (32.0-36.0) g/dL RDW Std Deviation (36.4-46.3) fL RDW Coeff of Brooke (11.5-14.5) % Plt Count (130-400) K/uL MPV (9.4-12.4) fL Sodium (136-145) mmol/L Potassium (3.5-5.1) mmol/L Chloride (98-107) mmol/L Carbon Dioxide (21-32) mmol/L Anion Gap (3-11) BUN (6-23) mg/dl Creatinine (0.6-1.4) mg/dl Est Cr Clr Drug Dosing ml/min Est GFR ( Amer) ml/min Est GFR (Non-Af Amer) ml/min BUN/Creatinine Ratio (10-20) Glucose (70-99(Fasting)) mg/dl Calcium (8.5-10.1) mg/dl Magnesium (1.7-2.4) mg/dl Total Bilirubin (0.2-1.0) mg/dl AST (13-39) U/L ALT (7-52) U/L Alkaline Phosphatase (34-104) U/L Troponin I High Sens (0-20) pg/ml Total Protein (6.0-8.3) gm/dl Albumin (3.4-5.0) gm/dl Globulin (2.5-4.0) gm/dl Albumin/Globulin Ratio (0.9-2) Procalcitonin 0.12 (0-0.5) ng/ml Nasal Screen MRSA (PCR) Negative (Negative) SARS-CoV-2 (PCR) NEGATIVE (Negative) Hepatitis C Ab (EIA) Hep C Ab Signal/Cutoff Influenza Type A (PCR) Negative (Neg) Influenza Type B (PCR) Negative (Neg) RSV (RT-PCR) Negative (Neg) 12/21/21 Range/Units 18:04 WBC (4.8-10.8) K/ul RBC (4.63-6.08) M/uL Hgb (14.0-18.0) g/dl Hct (40.1-51.0) % MCV (80.0-100.0) fL MCH (25.0-34.0) pg MCHC (32.0-36.0) g/dL RDW Std Deviation (36.4-46.3) fL RDW Coeff of Brooke (11.5-14.5) % Plt Count (130-400) K/uL MPV (9.4-12.4) fL Sodium 138 (136-145) mmol/L Potassium 3.8 (3.5-5.1) mmol/L Chloride 101 (98-107) mmol/L Carbon Dioxide 28 (21-32) mmol/L Anion Gap 9 (3-11) BUN 22 (6-23) mg/dl Creatinine 0.91 (0.6-1.4) mg/dl Est Cr Clr Drug Dosing 72.1 ml/min Est GFR ( Amer) 101.4 ml/min Est GFR (Non-Af Amer) 87.5 ml/min BUN/Creatinine Ratio 24.2 H (10-20) Glucose 119 H (70-99(Fasting)) mg/dl Calcium 9.0 (8.5-10.1) mg/dl Magnesium (1.7-2.4) mg/dl Total Bilirubin 0.6 (0.2-1.0) mg/dl AST 20 (13-39) U/L ALT 28 (7-52) U/L Alkaline Phosphatase 42 (34-104) U/L Troponin I High Sens 5.6 (0-20) pg/ml Total Protein 6.8 (6.0-8.3) gm/dl Albumin 3.5 (3.4-5.0) gm/dl Globulin 3.3 (2.5-4.0) gm/dl Albumin/Globulin Ratio 1.1 (0.9-2) Procalcitonin (0-0.5) ng/ml Nasal Screen MRSA (PCR) (Negative) SARS-CoV-2 (PCR) (Negative) Hepatitis C Ab (EIA) Hep C Ab Signal/Cutoff Influenza Type A (PCR) (Neg) Influenza Type B (PCR) (Neg) RSV (RT-PCR) (Neg) PG Care Time/CCT Total # of Minutes Spent Total Time Spent with Patient: Total time spent is greater than 50% in coordination of care (as documented) at patient's floor/unit and/or counseling patient: Coding Level of Care Code 59304 Subseq Hosp Care Lvl 3 Diagnoses Pneumonia J18.9 Cough with hemoptysis R04.2 Chest pain R07.9 COPD, severe J44.9 Chronic hypoxemic respiratory failure J96.11 HTN (hypertension) I10 GERD (gastroesophageal reflux disease) K21.9 Major depressive disorder, recurrent severe without psychotic features F33.2
[2021-12-22] MEDS: predniSONE 5 MG TAB PO SCH (18:34)
[2021-12-22] MEDS: ACETAMINOPHEN 500 MG TAB PO PRN (18:40)
[2021-12-22] MEDS: ALBUTEROL 0.083% NEBU SOLN 3 ML VIAL NEB SCH (19:26)
[2021-12-22] MEDS: guaiFENesin 600 MG TABCR PO SCH (21:11)
[2021-12-22] MEDS: PIPERACILLIN/TAZOBACTAM 3.375 GM in DEXTROSE 5% 100 ML IV SCH (21:11)
[2021-12-23] MEDS: hydrOXYzine HCl 25 MG TAB PO PRN ×2 (02:45→20:52)
[2021-12-23] MEDS: ACETAMINOPHEN 500 MG TAB PO PRN ×2 (02:47→15:32)
[2021-12-23] MEDS: ALBUTEROL 0.083% NEBU SOLN 3 ML VIAL NEB SCH ×4 (04:07→19:58)
[2021-12-23] MEDS: PIPERACILLIN/TAZOBACTAM 3.375 GM in DEXTROSE 5% 100 ML IV SCH ×3 (05:57→22:47)
[2021-12-23 07:14] LABS: Basophils # (auto) 0.05 K/uL (0-0.2); Basophils % (auto) 0.5 %; Eosinophils # (auto) 0.08 K/uL (0-0.50); Eosinophils % (auto) 0.8 %; Hematocrit (blood only) 34.6 % (40.1-51.0); Hemoglobin 11.2 g/dl (14.0-18.0); Immature Granulocytes # (auto) 0.07 K/uL (0.00-0.02); Immature Granulocytes % (auto) 0.7 %; Lymphocytes # (auto) 1.01 K/uL (1.2-3.4); Lymphocytes % (auto) 10.6 %; Mean Corpuscular Hemoglobin 28.7 pg (25.0-34.0); Mean Corpuscular Hgb Conc 32.4 g/dL (32.0-36.0); Mean Corpuscular Volume 88.7 fL (80.0-100.0); Mean Platelet Volume 9.1 fL (9.4-12.4); Monocytes # (auto) 0.96 K/uL (0.24-0.82); Monocytes % (auto) 10.1 %; Neutrophils # (auto) 7.34 K/uL (1.4-6.5); Neutrophils % (auto) 77.3 %; Platelet Count 433 K/uL (130-400); RDW Coefficient of Variation 13.2 % (11.5-14.5); White Blood Count 9.51 K/ul (4.8-10.8)
[2021-12-23 07:32] LABS: Albumin Globulin Ratio 1.1 (0.9-2); BUN Creatinine Ratio 22.5 (10-20); Bilirubin,Total 0.5 mg/dl (0.2-1.0); C Reactive Protein 22.51 mg/dl (0-0.5); Calcium 8.2 mg/dl (8.5-10.1); Est GFR (African American) 107.9 ml/min; Est GFR (Non-African American) 93.1 ml/min; Globulin 2.8 gm/dl (2.5-4.0); Magnesium 2.1 mg/dl (1.7-2.4); Potassium 3.7 mmol/L (3.5-5.1); Total Protein 5.8 gm/dl (6.0-8.3)
[2021-12-23] MEDS: SODIUM CHLOR 7% 4 ML NEB INH SCH ×3 (07:34→22:52)
--- NOTE | 2021-12-23 08:32 | History & Physical Bridge Note ---
Date of Service December 23, 2021 History & Physical Bridge Note I have examined the patient, reviewed the History & Physical and in the interval since the performance of the History & Physical I have noted the following changes of clinical significance: no changes noted
--- NOTE | 2021-12-23 08:33 | Pre Anesthesia Assessment ---
Date of Service December 23, 2021 Pre Sedation Assessment Vital Signs Temp Pulse Pulse Resp BP BP Pulse Ox 12/23/21 08:25 36.7 C 101 H 18 125/62 97 12/23/21 07:49 12/23/21 07:35 98 H 12/23/21 07:35 102 H 18 93 12/23/21 02:29 36.4 C L 121 H 18 191/89 H 91 12/23/21 02:39 20 180/75 H 93 12/22/21 23:23 36.7 C 89 20 127/74 94 12/22/21 23:02 96 H 12/22/21 22:00 102 H 17 94 12/22/21 19:36 106 H 20 125/73 96 12/22/21 20:01 12/22/21 19:29 103 H 15 94 12/22/21 15:31 106 H 19 97 12/22/21 15:15 36.8 C 105 H 20 115/69 96 12/22/21 15:13 104 H 12/22/21 11:30 37.2 C 130 H 20 126/79 92 12/22/21 09:25 O2 Del Method O2 Flow Rate 12/23/21 08:25 Nasal Cannula 4 12/23/21 07:49 Nasal Cannula 3 12/23/21 07:35 12/23/21 07:35 Nasal Cannula 4 12/23/21 02:29 Nasal Cannula 4 12/23/21 02:39 Nasal Cannula 2 12/22/21 23:23 Nasal Cannula 4 12/22/21 23:02 12/22/21 22:00 Nasal Cannula 3 12/22/21 19:36 High Flow Nasal Cannula 8 12/22/21 20:01 Nasal Cannula 3 12/22/21 19:29 Nasal Cannula 3 12/22/21 15:31 Nasal Cannula 3 12/22/21 15:15 12/22/21 15:13 12/22/21 11:30 12/22/21 09:25 Nasal Cannula 3 Pre-Sedation Airway Assessment Smoking Status: Former smoker Hx Sleep Apnea: No Hx Difficult Intubation: No Notes The planned sedation has been discussed with the patient. Informed Consent was obtained. I have identified the patient, determined the appropriateness of sedation and have assessed the patient immediately prior to the procedure. All medicine(s) and interventions are by my order.
[2021-12-23] MEDS ORDERED: fentaNYL citrate 100 MCG/2 ML VIAL ONE (08:38)
[2021-12-23] MEDS ORDERED: MIDAZOLAM HCL 5 MG/ML 1 ML VIAL ONE (08:38)
--- NOTE | 2021-12-23 09:16 | Post Anesthesia Assessment ---
Date of Service December 23, 2021 Post Sedation Assessment Vital Signs Temp Pulse Pulse Resp BP BP Pulse Ox 12/23/21 09:10 108 H 18 130/77 94 12/23/21 09:00 119 H 16 175/92 H 96 12/23/21 08:50 112 H 18 160/100 H 99 12/23/21 09:05 109 H 16 146/84 H 95 12/23/21 08:55 112 H 16 147/83 H 99 12/23/21 08:45 110 H 18 153/86 H 99 12/23/21 08:25 36.7 C 101 H 18 125/62 97 12/23/21 07:49 12/23/21 07:35 98 H 12/23/21 07:35 102 H 18 93 12/23/21 02:29 36.4 C L 121 H 18 191/89 H 91 12/23/21 02:39 20 180/75 H 93 12/22/21 23:23 36.7 C 89 20 127/74 94 12/22/21 23:02 96 H 12/22/21 22:00 102 H 17 94 12/22/21 19:36 106 H 20 125/73 96 12/22/21 20:01 12/22/21 19:29 103 H 15 94 12/22/21 15:31 106 H 19 97 12/22/21 15:15 36.8 C 105 H 20 115/69 96 12/22/21 15:13 104 H 12/22/21 11:30 37.2 C 130 H 20 126/79 92 12/22/21 09:25 O2 Del Method O2 Flow Rate 12/23/21 09:10 Nasal Cannula 4 12/23/21 09:00 Nasal Cannula 6 12/23/21 08:50 Nasal Cannula 3 12/23/21 09:05 Nasal Cannula 3 12/23/21 08:55 Nasal Cannula 6 12/23/21 08:45 Nasal Cannula 3 12/23/21 08:25 Nasal Cannula 4 12/23/21 07:49 Nasal Cannula 3 12/23/21 07:35 12/23/21 07:35 Nasal Cannula 4 12/23/21 02:29 Nasal Cannula 4 12/23/21 02:39 Nasal Cannula 2 12/22/21 23:23 Nasal Cannula 4 12/22/21 23:02 12/22/21 22:00 Nasal Cannula 3 12/22/21 19:36 High Flow Nasal Cannula 8 12/22/21 20:01 Nasal Cannula 3 12/22/21 19:29 Nasal Cannula 3 12/22/21 15:31 Nasal Cannula 3 12/22/21 15:15 12/22/21 15:13 12/22/21 11:30 12/22/21 09:25 Nasal Cannula 3 Recovery Score Activity: Moves 4 extremities Respiration: Deep Breath/Cough Circulation: +/-20% PreAnes Value Consciousness: Fully Awake Oxygen Saturation: <90% w/ supp O2 Post Anesthesia Score: 8 Discharge Sedation Level of Care: Fast Track Phase II Post Sedation Plan On clinical assessment, the patient appears to have tolerated the sedation without complications. Patient is recovering as anticipated. Patient will continue to be monitored by nursing and may be discharged when sedation discharge criteria are met per below protocol. Upon Completions of procedure up to 15 minutes continue every 5 minute vital signs and the P.A.R. score; then discharge to a Phase I or Fast Track to Phase II per the following guidelines: * Discharge Patient to appropriate Phase II area if PAR is 8 or greater or return to pre- procedure baseline. The post - procedure orders will be as directed. * If PAR score is less than 8 or not return to pre-procedure baseline then patient will follow Phase I monitoring till PAR is reached for Phase II. The Phase I may be done in procedure room or may call to secure a Phase I area. * If naloxone or flumazenil are used for reversal, hold in Phase I for continued monitoring from when last reversal dose was given for a minimum of 60 minutes or longer pending the nurse and/or physician discretion of patient condition before discharge to Phase II. Please call the Sedation Physician to re-evaluate and complete post-note for discharge to Phase II area. Do NOT discharge from procedure sedation or Phase 1 until post- sedation evaluation note is complete by procedure /sedation MD Sedation Discharge Instructions to be given to the patient at discharge to home.
--- NOTE | 2021-12-23 09:20 | Procedure Note ---
Procedure Note Date of Service December 23, 2021 Note Procedure: Fiberoptic bronchoscopy Bronchoalveolar lavage Conscious sedation Provider: Javier Islas MD Consent: Signed by patient and timeout verified prior to procedure. Sedation start: 848 Sedation end: 905 Conscious sedation: 3 mg Versed, 75 mcg fentanyl, topical lidocaine per RT protocol Indication: Necrotizing pneumonia Procedure: Patient was brought to the bronchoscopy suite. Consent was verified. Appropriate radiographic studies had been reviewed prior to the procedure. Standard monitoring was applied. Oxygen was administered. After topical anesthesia of the airways per respiratory therapy protocol, the fiberoptic scope was advanced through the right nares without difficulty. Oropharynx was unremarkable. Vocal cords were visualized and were normal in function and appearance. Topical anesthesia of the cords was achieved with instillation of lidocaine through the scope. Scope was then passed through the vocal cords. The trachea was slightly tortuous. Main karen was sharp. Anesthesia of the lower airways was achieved with instillation of lidocaine through the scope. A sequential and systematic examination of the lower airways was conducted. The right-sided airways were normal in anatomic configuration and patent and the mucosa appeared normal. Left-sided airways were normal in anatomic configuration without evidence of endobronchial lesion and the mucosa appeared mildly hyperemic. After the inspection bronchoscopy was completed, the scope was wedged into the superior segment of the left lower lobe. Initially attempted a BAL were conducted with instillation of 2 aliquots of 60 cc saline however the airways demonstrated significant collapse and return was suboptimal. A trap was then put in place to collect additional fluid. There did not appear to be any significant purulent material within the airways although they were mildly erythematous. The return did not appear overtly purulent. The bronchoscope was then removed from the airways. The patient tolerated the procedure well without obvious complication. Patient was returned to the recovery room. Impression: 1. Normal inspection bronchoscopy. 2. BAL superior segment left lower lobe Coding CPT Codes Pulmonary/Thoracic - Pulmonary and Thoracic: 15056 Dx bronchoscopy/BAL ([id number]) Sedation/Anesthesia - Sedation/Anesthesia: 78763 Mod Sedation by the same physician;Init15 Min Child Age 5 & Up ([id number]) Sedation/Anesthesia - Sedation/Anesthesia: 52658 Mod Sedation by the same physician; Ea [id number] Minutes ([id number]) [facility] [place]) Pulmonary/Thoracic Procedure 1: Pulmonary and Thoracic: 64588 Dx bronchoscopy/BAL Sedation/Anesthesia Procedure 2: Sedation/Anesthesia: 95879 Mod Sedation by the same physician;Init15 Min Child Age 5 & Up Total Sedation Time (minutes): 17 Procedure 3: Sedation/Anesthesia: 00671 Mod Sedation by the same physician; Ea [id number] Minutes Total Sedation Time (minutes): 17
--- NOTE | 2021-12-23 09:27 | Pulmonology Progress Note ---
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 Rendon and Dr. Pham, currently followed by Dr. Landa in [facility] in the outpatient clinic. He presents with fever and hemoptysis. CT Chest with question of LANA landrum. Patient completed an outpatient course of levofloxacin. CT scan showed potential necrotizing pneumonia in the superior segment left lower lobe. Recommendations: 1. Left lower lobe pneumonia: Status post bronchoscopy with bronchial washings today. Continue Zosyn. No indication for doxycycline. Await bronchoscopy cytology and cultures. 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 Discontinue azithromycin. 2. COPD: Gold class D, FEV1 31%. Continue Trelegy. Is not bronchospastic. He takes prednisone 5 mg daily. No indication for additional therapies currently. 3. Hemoptysis: Appears resolving. Likely secondary to infectious etiology. Continue to observe clinically. Okay to continue aspirin and DVT prophylaxis. 4. History of CRISSY/pulmonary aspergillosis: Would not empirically cover at this point time. Will await culture data from bronchoscopy. Pulmonary function testing 03/20/2018: * FVC 4.07 L, 57% of predicted * FEV1 3.23 L, 31% of predicted * FEV/FVC 53% * TLC 6.19 L, 112% of predicted * RV 2.07 L, 209% of predicted * RV/TLC 188% * DLCO 37% * DLCO/VA 51% Admission and Anticipated Discharge Date Admission Date: December 21, 2021 Subjective Patient seen and examined. EMR reviewed. Discussed with pulmonary ZAHIRA. Patient feels that his breathing is about the same. He continues to have a dry nonproductive cough. He is not had any overt hemoptysis. He is having intermittent chest pain. No wheezing. No fevers overnight. Review of Systems Review of Systems: All systems reviewed & are unremarkable except as noted in Subjective Physical Exam Constitutional: WD/WN, vitals as above Neck: trachea midline, no thyromegaly Respiratory: normal respiratory effort, lungs clear to auscultation Cardiovascular: RRR, no murmur, no edema Gastrointestinal (Abdomen): normal bowel sounds, soft, nontender, no hepatosplenomegaly Musculoskeletal: Extremities: extremities normal to inspection Skin: no rashes, warm and dry Neurologic: Nonfocal exam Lymphatic: no cervical lymphadenopathy Results & Data Results & Data ([facility]) Vital Signs (Past 12 Hours) Vital Signs Temp Pulse Pulse Resp BP Pulse Ox O2 Del Method 12/23/21 09:10 108 H 18 130/77 94 Nasal Cannula 12/23/21 09:00 119 H 16 175/92 H 96 Nasal Cannula 12/23/21 08:50 112 H 18 160/100 H 99 Nasal Cannula 12/23/21 09:05 109 H 16 146/84 H 95 Nasal Cannula 12/23/21 08:55 112 H 16 147/83 H 99 Nasal Cannula 12/23/21 08:45 110 H 18 153/86 H 99 Nasal Cannula 12/23/21 08:25 36.7 C 101 H 18 125/62 97 Nasal Cannula 12/23/21 07:49 Nasal Cannula 12/23/21 07:35 98 H 12/23/21 07:35 102 H 18 93 Nasal Cannula 12/23/21 02:29 36.4 C L 121 H 18 191/89 H 91 Nasal Cannula 12/23/21 02:39 20 180/75 H 93 Nasal Cannula 12/22/21 23:23 36.7 C 89 20 127/74 94 Nasal Cannula 12/22/21 23:02 96 H 12/22/21 22:00 102 H 17 94 Nasal Cannula O2 Flow Rate 12/23/21 09:10 4 12/23/21 09:00 6 12/23/21 08:50 3 12/23/21 09:05 3 12/23/21 08:55 6 12/23/21 08:45 3 12/23/21 08:25 4 12/23/21 07:49 3 12/23/21 07:35 12/23/21 07:35 4 12/23/21 02:29 4 12/23/21 02:39 2 12/22/21 23:23 4 12/22/21 23:02 12/22/21 22:00 3 Laboratory Results 12/23/21 06:43 12/23/21 06:43 Diagnostic Findings No new imaging PG Care Time/CCT Total # of Minutes Spent Total Time Spent with Patient: Total time spent is greater than 50% in coordination of care (as documented) at patient's floor/unit and/or counseling patient: Coding Level of Care Code 34323 Subseq Hosp Care Lvl 3 Diagnoses Left lower lobe pneumonia J18.9 Pneumonia type: due to unspecified organism Cough with hemoptysis R04.2 COPD exacerbation J44.[address] scan, chest R93.89 Bullous emphysema J43.9 MAIC (mycobacterium avium-intracellulare complex) A31.0 Tracheobronchitis due to Aspergillus J40; B44.89 Former tobacco use Z87.891 Chronic hypoxemic respiratory failure J96.11
[2021-12-23] MEDS: AZITHROMYCIN 250 MG TAB PO SCH (10:22)
[2021-12-23 11:58] LABS: Eosinophil Body Fluid Man 1 %; Lymphocyte Body Fluid Man 32 %; Neutrophil Body Fluid Man 28 %
[2021-12-23 11:59] LABS: Fluid Mono/Macrophage 39 %
[2021-12-23] MEDS: amLODIPine BESYLATE 5 MG TAB PO SCH (12:23)
[2021-12-23] MEDS: FLUTICASONE FUROATE 100MCG 14 PUFFS/INHALER INH SCH (12:24)
[2021-12-23] MEDS: guaiFENesin 600 MG TABCR PO SCH ×2 (12:24→20:39)
[2021-12-23] MEDS: UMECLIDINIUM/VILANTEROL 62.5/25MCG 7 PUFFS/INHALER INH SCH (12:25)
[2021-12-23] MEDS: predniSONE 5 MG TAB PO SCH (12:25)
--- NOTE | 2021-12-23 15:52 | Hospitalist Progress Note ---
Date of Service December 23, 2021 Assessment & Plan (1) Pneumonia: Plan: Presented with fevers, cough with hemoptysis (scant), and left sided pleuritic chest pain x 1 week, failed outpatient prednisone burst and Levaquin. Found to have large left sided PNA with possible abscess on chest CT With leukocytosis, tachycardia--> with sepsis, POA Remains on baseline O2 3LNC PCT negative, MRSA negative but does have a h/o MRSA PNA many years ago also with a h/o CRISSY and Aspergillus COVID negative Leukocytosis and tachycardia now resolved Appreciate PULM consult-s/p bronchoscopy 12/23, BAL cxs pending Still having low grade fevers -continue Zosyn for anaerobic and Pseudomonas coverage -received azithro for atypical coverage x 2 days but stopped by PULM -follow BCXs-NGTD -continue tylenol to 1000mg po tid prn for pain and fevers -continue nebs scheduled tid at his request, continue maintenance inhalers -continue home dose prednisone 5mg po daily -may need 3 weeks of abx, type to be determined by cx results -f/u CXR to resolution (2) Cough with hemoptysis: Plan: secondary to PNA as above discontinued aspirin and he states he already had stopped this at home due to hemoptysis he is on it only as primary prevention (3) Chest pain: Plan: pleuritic, 2/2 PNA no NSAIDs due to hemoptysis increased tylenol to 1000mg po tid and now with improvement (4) COPD, severe: Plan: as above with bullous disease (5) Chronic hypoxemic respiratory failure: Plan: 3LNC during day and 2LNC hs (6) HTN (hypertension): Plan: BPs controlled continue home amlodipine (7) GERD (gastroesophageal reflux disease): Plan: continue PPI (8) Major depressive disorder, recurrent severe without psychotic features: Plan: continue Remeron Plan DVT proph-hold chemical means for bronchoscopy and for hemoptysis Dispo-continued stay, slightly improved Admission and Anticipated Discharge Date Admission Date: December 21, 2021 Subjective Still having low grade fevers, scant hemoptysis. Feels the pain in left side of chest with deep inspiration i s improved. No diarrhea. Had bronchoscopy today and tolerated well. Tele with NSR rates 90s Review of Systems Review of Systems: All systems reviewed & are unremarkable except as noted in HPI & below Physical Exam Constitutional: WD/WN, vitals as above Eyes: + anicteric sclerae Neck: trachea midline, no thyromegaly Respiratory: normal respiratory effort; no cough Auscultation: + diminished lung sounds (severely diminished throughout); no wheezes Cardiovascular: RRR, no murmur, no edema Chest (Breasts): Chest: normal inspection of chest Gastrointestinal (Abdomen): normal bowel sounds, soft, nontender, no hepatosplenomegaly Musculoskeletal: Extremities: extremities normal to inspection; no cyanosis and no clubbing Skin: no rashes, warm and dry Neurologic: moves all extremities and awake; no focal motor deficits Psychiatric: A+Ox3, euthymic affect Lymphatic: no lymphedema Results & Data Results & Data ([facility]) Vital Signs (Past 12 Hours) Vital Signs Temp Pulse Pulse Resp BP BP Pulse Ox 12/23/21 15:50 110 H 12/23/21 15:46 37.8 C H 106 H 18 124/62 95 12/23/21 15:11 108 H 18 95 12/23/21 13:07 118 H 20 93 12/23/21 10:25 36.5 C 93 H 20 114/65 94 12/23/21 09:45 36.7 C 101 H 20 121/67 93 12/23/21 08:45 12/23/21 09:23 110 H 18 133/78 94 12/23/21 09:10 108 H 18 130/77 94 12/23/21 09:00 119 H 16 175/92 H 96 12/23/21 08:50 112 H 18 160/100 H 99 12/23/21 09:05 109 H 16 146/84 H 95 12/23/21 08:55 112 H 16 147/83 H 99 12/23/21 08:45 110 H 18 153/86 H 99 12/23/21 08:25 36.7 C 101 H 18 125/62 97 12/23/21 07:49 12/23/21 07:35 98 H 12/23/21 07:35 102 H 18 93 O2 Del Method O2 Flow Rate 12/23/21 15:50 12/23/21 15:46 3 12/23/21 15:11 Nasal Cannula 3 12/23/21 13:07 Nasal Cannula 3 12/23/21 10:25 Nasal Cannula 3 12/23/21 09:45 Nasal Cannula 3 12/23/21 08:45 Oxymask 12/23/21 09:23 Nasal Cannula 3 12/23/21 09:10 Nasal Cannula 4 12/23/21 09:00 Nasal Cannula 6 12/23/21 08:50 Nasal Cannula 3 12/23/21 09:05 Nasal Cannula 3 12/23/21 08:55 Nasal Cannula 6 12/23/21 08:45 Nasal Cannula 3 12/23/21 08:25 Nasal Cannula 4 12/23/21 07:49 Nasal Cannula 3 12/23/21 07:35 12/23/21 07:35 Nasal Cannula 4 Laboratory Results 12/23/21 12/23/21 12/23/21 Range/Units 09:00 06:43 06:43 WBC 9.51 (4.8-10.8) K/ul RBC 3.90 L (4.63-6.08) M/uL Hgb 11.2 L (14.0-18.0) g/dl Hct 34.6 L (40.1-51.0) % MCV 88.7 (80.0-100.0) fL MCH 28.7 (25.0-34.0) pg MCHC 32.4 (32.0-36.0) g/dL RDW Std Deviation 43.0 (36.4-46.3) fL RDW Coeff of Brooke 13.2 (11.5-14.5) % Plt Count 433 H (130-400) K/uL MPV 9.1 L (9.4-12.4) fL Immature Gran % (Auto) 0.7 % Neut % (Auto) 77.3 % Lymph % (Auto) 10.6 % Wilkin % (Auto) 10.1 % Eos % (Auto) 0.8 % Baso % (Auto) 0.5 % Neut # (Auto) 7.34 H (1.4-6.5) K/uL Lymph # (Auto) 1.01 L (1.2-3.4) K/uL Wilkin # (Auto) 0.96 H (0.24-0.82) K/uL Eos # (Auto) 0.08 (0-0.50) K/uL Baso # (Auto) 0.05 (0-0.2) K/uL Immature Gran # (Auto) 0.07 H (0.00-0.02) K/uL Sodium 139 (136-145) mmol/L Potassium 3.7 (3.5-5.1) mmol/L Chloride 104 (98-107) mmol/L Carbon Dioxide 28 (21-32) mmol/L Anion Gap 7 (3-11) BUN 18 (6-23) mg/dl Creatinine 0.80 (0.6-1.4) mg/dl Est Cr Clr Drug Dosing 82.0 ml/min Est GFR ( Amer) 107.9 ml/min Est GFR (Non-Af Amer) 93.1 ml/min BUN/Creatinine Ratio 22.5 H (10-20) Glucose 94 (70-99(Fasting)) mg/dl Calcium 8.2 L (8.5-10.1) mg/dl Magnesium 2.1 (1.7-2.4) mg/dl Total Bilirubin 0.5 (0.2-1.0) mg/dl AST 17 (13-39) U/L ALT 23 (7-52) U/L Alkaline Phosphatase 40 (34-104) U/L C-Reactive Protein 22.51 H (0-0.5) mg/dl Total Protein 5.8 L (6.0-8.3) gm/dl Albumin 3.0 L (3.4-5.0) gm/dl Globulin 2.8 (2.5-4.0) gm/dl Albumin/Globulin Ratio 1.1 (0.9-2) Fluid Neutrophils % 28 % Fluid Lymphocytes % 32 % Fluid Eosinophils % 1 % Fl Monocyt/Macrophag % 39 % Fluid Comment Hepatitis C Ab (EIA) (NON-REACTIVE) Hep C Ab Signal/Cutoff (<1.00) 12/22/21 Range/Units 06:44 WBC (4.8-10.8) K/ul RBC (4.63-6.08) M/uL Hgb (14.0-18.0) g/dl Hct (40.1-51.0) % MCV (80.0-100.0) fL MCH (25.0-34.0) pg MCHC (32.0-36.0) g/dL RDW Std Deviation (36.4-46.3) fL RDW Coeff of Brooke (11.5-14.5) % Plt Count (130-400) K/uL MPV (9.4-12.4) fL Immature Gran % (Auto) % Neut % (Auto) % Lymph % (Auto) % Wilkin % (Auto) % Eos % (Auto) % Baso % (Auto) % Neut # (Auto) (1.4-6.5) K/uL Lymph # (Auto) (1.2-3.4) K/uL Wilkin # (Auto) (0.24-0.82) K/uL Eos # (Auto) (0-0.50) K/uL Baso # (Auto) (0-0.2) K/uL Immature Gran # (Auto) (0.00-0.02) K/uL Sodium (136-145) mmol/L Potassium (3.5-5.1) mmol/L Chloride (98-107) mmol/L Carbon Dioxide (21-32) mmol/L Anion Gap (3-11) BUN (6-23) mg/dl Creatinine (0.6-1.4) mg/dl Est Cr Clr Drug Dosing ml/min Est GFR ( Amer) ml/min Est GFR (Non-Af Amer) ml/min BUN/Creatinine Ratio (10-20) Glucose (70-99(Fasting)) mg/dl Calcium (8.5-10.1) mg/dl Magnesium (1.7-2.4) mg/dl Total Bilirubin (0.2-1.0) mg/dl AST (13-39) U/L ALT (7-52) U/L Alkaline Phosphatase (34-104) U/L C-Reactive Protein (0-0.5) mg/dl Total Protein (6.0-8.3) gm/dl Albumin (3.4-5.0) gm/dl Globulin (2.5-4.0) gm/dl Albumin/Globulin Ratio (0.9-2) Fluid Neutrophils % % Fluid Lymphocytes % % Fluid Eosinophils % % Fl Monocyt/Macrophag % % Fluid Comment Hepatitis C Ab (EIA) NON-REACTIVE (NON-REACTIVE) Hep C Ab Signal/Cutoff 0.02 (<1.00) PG Care Time/CCT Total # of Minutes Spent Total Time Spent with Patient: Total time spent is greater than 50% in coordination of care (as documented) at patient's floor/unit and/or counseling patient: Coding Level of Care Code 82223 Subseq Hosp Care Lvl 2 Diagnoses Pneumonia J18.9 Cough with hemoptysis R04.2 Chest pain R07.9 COPD, severe J44.9 Chronic hypoxemic respiratory failure J96.11 HTN (hypertension) I10 GERD (gastroesophageal reflux disease) K21.9 Major depressive disorder, recurrent severe without psychotic features F33.2
[2021-12-23] MEDS: rOPINIRole HCL 0.25 MG TABLET PO SCH (20:39)
[2021-12-23] MEDS: MONTELUKAST SODIUM 10 MG TABLET PO SCH (20:40)
[2021-12-23] MEDS: MIRTAZAPINE TAB 15 MG TAB PO SCH (20:40)
--- NOTE | 2021-12-23 22:48 | Electrocardiogram Report ---
Test Reason : Blood Pressure : / mmHG Vent. Rate : 101 BPM Atrial Rate : 101 BPM P-R Int : 114 ms QRS Dur : 080 ms QT Int : 342 ms P-R-T Axes : 050 073 069 degrees QTc Int : 443 ms Sinus tachycardia Otherwise normal ECG When compared with ECG of 05-AUG-2018 22:57, No significant change was found Confirmed by Milind Hester ([id number]) on 12/23/2021 10:48:08 PM Referred By: REFERRED SELF Confirmed By:Milind Hester
--- NOTE | 2021-12-23 23:01 | Electrocardiogram Report ---
Test Reason : Blood Pressure : / mmHG Vent. Rate : 097 BPM Atrial Rate : 097 BPM P-R Int : 112 ms QRS Dur : 082 ms QT Int : 352 ms P-R-T Axes : 039 059 060 degrees QTc Int : 447 ms Poor data quality, interpretation may be adversely affected Normal sinus rhythm Normal ECG When compared with ECG of 21-DEC-2021 17:55, No significant change was found Confirmed by Milind Hester ([id number]) on 12/23/2021 11:01:16 PM Referred By: REFERRED SELF Confirmed By:Milind Hester
[2021-12-24] MEDS: ALBUTEROL 0.083% NEBU SOLN 3 ML VIAL NEB SCH ×4 (00:23→18:58)
[2021-12-24] MEDS: PIPERACILLIN/TAZOBACTAM 3.375 GM in DEXTROSE 5% 100 ML IV SCH ×2 (06:25→18:58)
[2021-12-24] MEDS: SODIUM CHLOR 7% 4 ML NEB INH SCH ×3 (06:59→22:06)
[2021-12-24 07:37] LABS: Basophils # (auto) 0.04 K/uL (0-0.2); Basophils % (auto) 0.4 %; Eosinophils # (auto) 0.21 K/uL (0-0.50); Hematocrit (blood only) 35.6 % (40.1-51.0); Hemoglobin 11.8 g/dl (14.0-18.0); Immature Granulocytes # (auto) 0.06 K/uL (0.00-0.02); Immature Granulocytes % (auto) 0.6 %; Lymphocytes % (auto) 8.5 %; Mean Corpuscular Hemoglobin 29.4 pg (25.0-34.0); Mean Corpuscular Hgb Conc 33.1 g/dL (32.0-36.0); Mean Corpuscular Volume 88.8 fL (80.0-100.0); Mean Platelet Volume 9.3 fL (9.4-12.4); Monocytes % (auto) 9.4 %; Neutrophils # (auto) 8.39 K/uL (1.4-6.5); Neutrophils % (auto) 79.1 %; Platelet Count 472 K/uL (130-400); RDW Coefficient of Variation 13.2 % (11.5-14.5); RDW Standard Deviation 43.1 fL (36.4-46.3); Red Blood Count 4.01 M/uL (4.63-6.08)
[2021-12-24 08:01] LABS: BUN Creatinine Ratio 18.6 (10-20); Calcium 8.1 mg/dl (8.5-10.1); Creatinine Clr Calc Pharmacy 76.2 ml/min; Est GFR (African American) 104.7 ml/min; Est GFR (Non-African American) 90.4 ml/min; Potassium 3.5 mmol/L (3.5-5.1)
[2021-12-24] MEDS: FLUTICASONE FUROATE 100MCG 14 PUFFS/INHALER INH SCH (08:11)
[2021-12-24] MEDS: amLODIPine BESYLATE 5 MG TAB PO SCH (08:11)
[2021-12-24] MEDS: UMECLIDINIUM/VILANTEROL 62.5/25MCG 7 PUFFS/INHALER INH SCH (08:11)
[2021-12-24] MEDS: guaiFENesin 600 MG TABCR PO SCH ×2 (08:12→21:24)
[2021-12-24] MEDS: predniSONE 5 MG TAB PO SCH (08:12)
--- NOTE | 2021-12-24 14:27 | Pulmonology Progress Note ---
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 He is already completed an outpatient course of lev ofloxacin and prednisone without significant improvement Recommendations: 1. Left lower lobe pneumonia: Status post bronchoscopy with bronchial washings. Cultures are pending. Can discontinue Zosyn and de-escalate to Augmentin. Would recommend that he stay on Augmentin for 21 to 28 days. He should have follow-up imaging performed in 4 to 6 weeks with his outpatient [facility] [address] gauger chief delivery. Discussed with pathology the GMS positive spheres. Final identification is pending although cryptococcus is possible. We will start the patient on fluconazole 400 mg daily until these have been finalized. Await fungal cultures. Check cryptococcal antigen as well as urinary histoplasmosis antigen 2. COPD: Gold class D, FEV1 31%. Continue Trelegy. Is not bronchospastic. He takes prednisone 5 mg daily. No indication for additional therapies currently. 3. Hemoptysis: Resolved 4. History of CRISSY/pulmonary aspergillosis: AFB cultures pending. Pulmonary function testing 03/20/2018: * FVC 4.07 L, 57% of predicted * FEV1 3.23 L, 31% of predicted * FEV/FVC 53% * TLC 6.19 L, 112% of predicted * RV 2.07 L, 209% of predicted * RV/TLC 188% * DLCO 37% * DLCO/VA 51% Patient appears reasonably stable currently. These antibiotics and antifungals can be administered orally with outpatient follow-up with Dr. Landa at the [facility] [address] pulmonary clinic. It is unlikely that will have any additional microbiologic data over the weekend. Ultimate disposition is deferred to the primary hospitalist. Feel free to contact us if we can be of additional assistance. Admission and Anticipated Discharge Date Admission Date: December 21, 2021 Subjective Patient seen and examined. He states he is feeling better. He did have some issues with shortness of breath and chest tightness earlier this morning but these have now resolved. He states he is ambulatory. He is coughing but not expectorating much in the way of phlegm. He has not had any recurrent hemoptysis. He denies chest pain or palpitations. He is tolerating a diet. Review of Systems Review of Systems: All systems reviewed & are unremarkable except as noted in Subjective Physical Exam Constitutional: WD/WN, vitals as above Neck: trachea midline, no thyromegaly Respiratory: normal respiratory effort, lungs clear to auscultation Cardiovascular: RRR, no murmur, no edema Gastrointestinal (Abdomen): normal bowel sounds, soft, nontender, no hepatosplenomegaly Musculoskeletal: Extremities: extremities normal to inspection Skin: no rashes, warm and dry Lymphatic: no cervical lymphadenopathy Results & Data Results & Data ([facility]) Vital Signs (Past 12 Hours) Vital Signs Temp Pulse Pulse Resp BP BP Pulse Ox 12/24/21 13:28 110 H 20 98 12/24/21 11:00 36.7 C 54 L 16 126/77 98 12/24/21 08:00 106 H 12/24/21 07:34 12/24/21 07:00 81 18 96 12/24/21 06:43 37.0 C 126 H 24 150/68 H 91 12/24/21 03:48 36.9 C 102 H 20 128/64 94 O2 Del Method O2 Flow Rate 12/24/21 13:28 Nasal Cannula 3 12/24/21 11:00 Room Air 12/24/21 08:00 12/24/21 07:34 Nasal Cannula 3 12/24/21 07:00 Nasal Cannula 3 12/24/21 06:43 3 12/24/21 03:48 3 Laboratory Results 12/24/21 06:46 12/24/21 06:46 Cytology demonstrated GMS spheres. Discussed with pathology. Additional stains are pending. Fungal stains pending as well. These could represent crypto. Histoplasmosis, blastomycosis, and pneumocystis are felt to be less likely Diagnostic Findings No new imaging PG Care Time/CCT Total # of Minutes Spent Total Time Spent with Patient: Total time spent is greater than 50% in coordination of care (as documented) at patient's floor/unit and/or counseling patient: Coding Level of Care Code 31630 Subseq Hosp Care Lvl 3 Diagnoses Left lower lobe pneumonia J18.9 Pneumonia type: due to unspecified organism Cough with hemoptysis R04.2 COPD exacerbation J44.[address] scan, chest R93.89 Bullous emphysema J43.9 MAIC (mycobacterium avium-intracellulare complex) A31.0 Tracheobronchitis due to Aspergillus J40; B44.89 Former tobacco use Z87.891 Chronic hypoxemic respiratory failure J96.11
[2021-12-24] MEDS: FLUCONAZOLE 100 MG TAB PO SCH (15:39)
[2021-12-24] MEDS: AMOXICILLIN/CLAVULANATE 875 MG TAB PO SCH (18:08)
--- NOTE | 2021-12-24 18:48 | Hospitalist Progress Note ---
Date of Service December 24, 2021 Assessment & Plan (1) Pneumonia: Plan: Presented with fevers, cough with hemoptysis (scant), and left sided pleuritic chest pain x 1 week, failed outpatient prednisone burst and Levaquin. Found to have large left sided PNA with possible abscess on chest CT With leukocytosis, tachycardia--> with sepsis, POA Remains on baseline O2 3LNC, has tachypnea with minimal exertion but doesn't feel bad with it PCT negative, MRSA negative but does have a h/o MRSA PNA many years ago also with a h/o CRISSY and Aspergillus COVID negative Leukocytosis now resolved, still with some tachycardia althoug improved Appreciate PULM consult-s/p bronchoscopy 12/23, BAL cxs pending low grade fevers now improving Apparently there are some GMS staining oval structures on path and concern for possible cryptococcus or histo as per PULM--> checking Cryptococcal ag and Histoplasmosis in urine--> pending -will now de-escalate Zosyn to Augmentin as per PULM and continue for 28 days -start fluconazole 400mg po daily -received azithro for atypical coverage x 2 days but stopped by PULM -follow BCXs-NGTD -continue tylenol to 1000mg po tid prn for pain and fevers -continue nebs scheduled tid at his request, continue maintenance inhalers -continue home dose prednisone 5mg po daily -needs repeat CT [facility]est in 4-6 weeks with his outpt PULM -continued stay due to diarrhea (2) Cough with hemoptysis: Plan: secondary to PNA as above discontinued aspirin and he states he already had stopped this at home due to hemoptysis he is on it only as primary prevention now resolved (3) Diarrhea: Plan: started on 12/23 evening check C. diff if C. diff neg, can give Imodium follow CBC, BMP, Mag (4) Chest pain: Plan: pleuritic, 2/2 PNA no NSAIDs due to hemoptysis increased tylenol to 1000mg po tid and now with improvement (5) COPD, severe: Plan: as above with bullous disease (6) Chronic hypoxemic respiratory failure: Plan: 3LNC during day and 2LNC hs (7) HTN (hypertension): Plan: BPs controlled continue home amlodipine (8) GERD (gastroesophageal reflux disease): Plan: continue PPI (9) Major depressive disorder, recurrent severe without psychotic features: Plan: continue Remeron Plan DVT proph-hold chemical means for bronchoscopy and for hemoptysis Dispo-continued stay, improving. Plan to dc tomorrow if diarrhea improved and not C. diff Admission and Anticipated Discharge Date Admission Date: December 21, 2021 Anticipated date of discharge: 12/25/21 Subjective Pt having multiple loose stools last night and today, no blood. No more hemoptysis, but has some clear to green sputum coming up. Appears quite tachypneic as he just returned from the [place] when I saw him but he denies SOB. Is anxious to get home but discussed m concerns with his diarrhea and need to check for C. diff. Tele with NSR,ST rates 100-110s Review of Systems Review of Systems: All systems reviewed & are unremarkable except as noted in HPI & below Physical Exam Constitutional: WD/WN, vitals as above Eyes: + anicteric sclerae Neck: trachea midline, no thyromegaly Respiratory: + labored breathing and + tachypneic; no cough Auscultation: + diminished lung sounds (severely diminished throughout); no wheezes Cardiovascular: Rate/Rhythm: regular rhythm and + tachycardic Heart Sounds: no murmur Extremities: no edema Chest (Breasts): Chest: normal inspection of chest Gastrointestinal (Abdomen): normal bowel sounds, soft, nontender, no hepatosplenomegaly Musculoskeletal: Extremities: extremities normal to inspection; no cyanosis and no clubbing Skin: no rashes, warm and dry Neurologic: moves all extremities and awake; no focal motor deficits Psychiatric: A+Ox3, euthymic affect Lymphatic: no lymphedema Results & Data Results & Data ([facility]) Vital Signs (Past 12 Hours) Vital Signs Temp Pulse Pulse Resp BP Pulse Ox O2 Del Method 12/24/21 16:37 36.6 C 110 H 18 179/68 H 97 Nasal Cannula 12/24/21 15:53 Nasal Cannula 12/24/21 15:23 102 H 12/24/21 14:42 105 H 97 Nasal Cannula 12/24/21 13:28 110 H 20 98 Nasal Cannula 12/24/21 11:00 36.7 C 54 L 16 126/77 98 Room Air 12/24/21 08:00 106 H 12/24/21 07:34 Nasal Cannula 12/24/21 07:00 81 18 96 Nasal Cannula O2 Flow Rate 12/24/21 16:37 3 12/24/21 15:53 3 12/24/21 15:23 12/24/21 14:42 3 12/24/21 13:28 3 12/24/21 11:00 12/24/21 08:00 12/24/21 07:34 3 12/24/21 07:00 3 Laboratory Results 12/24/21 06:46 12/24/21 06:46 PG Care Time/CCT Total # of Minutes Spent Total Time Spent with Patient: Total time spent is greater than 50% in coordination of care (as documented) at patient's floor/unit and/or counseling patient: Coding Level of Care Code 03578 Subseq Hosp Care Lvl 3 Diagnoses Pneumonia J18.9 Cough with hemoptysis R04.2 Diarrhea R19.7 Chest pain R07.9 COPD, severe J44.9 Chronic hypoxemic respiratory failure J96.11 HTN (hypertension) I10 GERD (gastroesophageal reflux disease) K21.9 Major depressive disorder, recurrent severe without psychotic features F33.2
[2021-12-24] MEDS: MONTELUKAST SODIUM 10 MG TABLET PO SCH (21:24)
[2021-12-24] MEDS: rOPINIRole HCL 0.25 MG TABLET PO SCH (21:24)
[2021-12-24] MEDS: MIRTAZAPINE TAB 15 MG TAB PO SCH (21:24)
--- NOTE | 2021-12-25 00:14 | Communication Note ---
Date of Service: December 25, 2021 changed neb treatments from QIDR to TIDR at patient request to match w/ hypertonic saline neb TIDR treatments
[2021-12-25 05:49] LABS: Basophils # (auto) 0.05 K/uL (0-0.2); Basophils % (auto) 0.6 %; Eosinophils # (auto) 0.28 K/uL (0-0.50); Eosinophils % (auto) 3.4 %; Hematocrit (blood only) 34.4 % (40.1-51.0); Hemoglobin 11.2 g/dl (14.0-18.0); Immature Granulocytes # (auto) 0.07 K/uL (0.00-0.02); Immature Granulocytes % (auto) 0.8 %; Lymphocytes # (auto) 1.16 K/uL (1.2-3.4); Lymphocytes % (auto) 14.1 %; Mean Corpuscular Hemoglobin 28.6 pg (25.0-34.0); Mean Corpuscular Hgb Conc 32.6 g/dL (32.0-36.0); Mean Platelet Volume 9.2 fL (9.4-12.4); Monocytes # (auto) 1.21 K/uL (0.24-0.82); Monocytes % (auto) 14.7 %; Neutrophils # (auto) 5.47 K/uL (1.4-6.5); Neutrophils % (auto) 66.4 %; Platelet Count 428 K/uL (130-400); RDW Coefficient of Variation 13.2 % (11.5-14.5); RDW Standard Deviation 42.6 fL (36.4-46.3); Red Blood Count 3.91 M/uL (4.63-6.08); White Blood Count 8.24 K/ul (4.8-10.8)
[2021-12-25 06:15] LABS: BUN Creatinine Ratio 14.8 (10-20); Calcium 8.4 mg/dl (8.5-10.1); Est GFR (African American) 107.3 ml/min; Est GFR (Non-African American) 92.6 ml/min; Magnesium 2.1 mg/dl (1.7-2.4); Potassium 3.9 mmol/L (3.5-5.1)
[2021-12-25] MEDS: ALBUTEROL 0.083% NEBU SOLN 3 ML VIAL NEB SCH ×3 (07:22→14:11)
[2021-12-25] MEDS: SODIUM CHLOR 7% 4 ML NEB INH SCH ×2 (07:22→14:11)
[2021-12-25] MEDS: AMOXICILLIN/CLAVULANATE 875 MG TAB PO SCH (08:32)
[2021-12-25] MEDS: UMECLIDINIUM/VILANTEROL 62.5/25MCG 7 PUFFS/INHALER INH SCH (08:32)
[2021-12-25] MEDS: predniSONE 5 MG TAB PO SCH (08:32)
[2021-12-25] MEDS: FLUCONAZOLE 100 MG TAB PO SCH (08:32)
[2021-12-25] MEDS: guaiFENesin 600 MG TABCR PO SCH (08:32)
[2021-12-25] MEDS: FLUTICASONE FUROATE 100MCG 14 PUFFS/INHALER INH SCH (08:32)
[2021-12-25] MEDS: amLODIPine BESYLATE 5 MG TAB PO SCH (08:32)
--- NOTE | 2021-12-25 14:19 | Discharge Summary ---
Date of Service December 25, 2021 Admission HPI Per Admitting Provider 66yo M w/ hx of COPD. Has been coughing for about 3 weeks. Started levofloxacin and prednisone taper on his own (with a rescue pack) on 12/04 without improvement. 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 However, has continued to cough with productive sputum since then. Had blood tinged sputum x about 1 week, worse today and decided to come in. Has had fevers for about 1 week as well. Will have low-grade fever to ~100.5 several times a day which respond to Tylenol. Principal Diagnosis Pneumonia, hemoptysis Discharge Exam Constitutional WD/WN, vitals as above Eyes + anicteric sclerae Neck trachea midline, no thyromegaly Respiratory normal respiratory effort and + tachypneic (after walking); no cough Auscultation: + diminished lung sounds (severely diminished throughout); no wheezes Cardiovascular RRR, no murmur, no edema Chest (Breasts) Chest: normal inspection of chest Gastrointestinal (Abdomen) normal bowel sounds, soft, nontender, no hepatosplenomegaly Musculoskeletal Extremities: extremities normal to inspection; no cyanosis and no clubbing Skin no rashes, warm and dry Neurologic moves all extremities and awake; no focal motor deficits Psychiatric A+Ox3, euthymic affect Lymphatic no lymphedema Discharge Data Allergies Allergy/AdvReac Type Severity Reaction Status Date / Time clarithromycin Allergy Severe SHORTNESS Verified 12/21/21 21:18 OF BREATH atorvastatin Allergy Intermediate MUSCLE Verified 12/21/21 21:18 ACHES ARMS metaproterenol Allergy Unknown UNKNOWN Verified 12/21/21 21:18 Consultations 12/21/21 19:59 ED Decision to Admit Stat 12/22/21 08:56 Consult Pulmonology Routine Procedures Performed Operation Date: 12/23/21 08:45 Actual Procedures p Bronchoscopy Radiology(Not Applicable) - Javier Islas MD Ordered Studies 12/22/21 00:42 CT chest diagnostic wo con Urgent Hospital Course (1) Pneumonia: Presented with fevers, cough with hemoptysis (scant), and left sided pleuritic chest pain x 1 week, failed outpatient prednisone burst and Levaquin. Found to have large left sided PNA with possible abscess on chest CT With leukocytosis, tachycardia--> with sepsis, POA Remains on baseline O2 3LNC, has tachypnea with minimal exertion but doesn't feel bad with it PCT negative, MRSA negative but does have a h/o MRSA PNA many years ago also with a h/o CRISSY and Aspergillus COVID negative Leukocytosis now resolved, still with some tachycardia although improved Appreciate PULM consult-s/p bronchoscopy 12/23, BAL cxs negative, cytology pending low grade fevers now improving Apparently there are some GMS staining spherical structures on path and concern for possible cryptococcus or histo as per PULM--> checking Cryptococcal ag and Histoplasmosis in urine--> pending at time of discharge -initially given Zosyn, then transitioned to Augmentin as per PULM and continue for 28 days at least -started fluconazole 400mg po daily and continue until results of fungal studies are returned-advised to have PULM or PCP f/u on these results after discharge--> gave 2 weeks supply of fluconazole for now -received azithro for atypical coverage x 2 days but stopped by PULM--> revert to usual 3x/week dosing on discharge -follow BCXs-NGTD -continue tylenol prn for pain and fevers -continue nebs scheduled tid, continue maintenance inhalers -continue home dose prednisone 5mg po daily -needs repeat CT CHest in 4-6 weeks with his outpt PULM -diarrhea improved, C. diff negative (2) Cough with hemoptysis: secondary to PNA as above discontinued aspirin and he states he already had stopped this at home due to hemoptysis he is on it only as primary prevention now resolved (3) Diarrhea: started on 12/23 evening, now reoslved C. diff neg (4) Chest pain: pleuritic, 2/2 PNA no NSAIDs due to hemoptysis improved with tylenol and treatment of PNA (5) COPD, severe: as above with bullous disease (6) Chronic hypoxemic respiratory failure: 3LNC during day and 2LNC hs (7) HTN (hypertension): BPs controlled continue home amlodipine (8) GERD (gastroesophageal reflux disease): continue PPI (9) Major depressive disorder, recurrent severe without psychotic features: continue Remeron Plan DVT proph-hold chemical means for bronchoscopy and for hemoptysis Dispo-dc to home today Total Time Total Time Spent Total Time Spent (In Minutes): 35 min Discharge Plan Discharge Items Patient Disposition: Home - Self-Care Reason For Visit: PNEUMONIA Discharge Diagnosis: Pneumonia Condition on Discharge: Fair Activity: As commented below Bathing: No limitations Exercise/Sports: As tolerated Non-emergency contact: Primary Care Provider and Traffic Law Attorney Call non-emergency contact if: you have any medication questions, your symptoms worsen and you have a fever Follow-up/Referrals: Maldonado Landa MD [Outside Practitioners] - (Please follow up within 1- 2 weeks) Rickie Bermudez MD [Primary Care Provider] - (Follow up within 1-2 weeks) Diet: Heart Healthy Addtl Attending Provider Instructions: You were admitted with pneumonia. You had a bronchoscopy and the results are still pending but there is concern for possible fungal infection in addition to bacterial infection. You had improvement with antibiotics thus far and it is recommended that you stay on Augmentin one tablet twice a day for 4 weeks as well as fluconazole 400mg once daily at least until the fungal results return. Your lung doctor can follow up on these results when you see him in follow up. You will also need a repeat CT scan of the chest in 4-6 weeks and your Traffic Law Attorney can order this as well. Please remain off of your aspirin due to your coughing up blood (which is now resolved). Continue your usual nebulizer breathing treatments and your usual dose of prednisone. Pending Studies at Discharge: Yes Studies:: Cryptococcal antigen, Histoplasmosis test, BAL cultures and cytology, Fungal culture, AFB Stand-Alone Forms: My [facility], Smoking Cessation Medications and DC Order Prescriptions: New amoxicillin-pot clavulanate 875-125 mg Tablet 1 tab PO BIDM 25 Days Qty: 50 0RF fluconazole 200 mg tablet 400 mg PO DAILY 14 Days Qty: 28 0RF Continued albuterol sulfate [Ventolin HFA] 90 mcg/actuation HFA aerosol inhaler 2 puff INHALATION Q4 PRN (Reason: Shortness Of Breath Or Wheezing) Qty: 18 3RF tiotropium-olodaterol 2.5-2.5 mcg/actuation mist 2 puff INHALATION QAM Qty: 12 1RF azithromycin 250 mg tablet 250 mg PO .COMPLEX 15 Days Qty: 15 3RF Rx Instructions: 250 mg PO ; take 3x weekly (Monday, Monday, ) montelukast 10 mg tablet 10 mg PO HS Qty: 90 1RF hydroxyzine HCl 25 mg tablet 25 mg PO Q6 PRN (Reason: Anxiety) mirtazapine 15 mg tablet 15 mg PO HS Qty: 36 0RF amlodipine 5 mg Tablet 5 mg PO QAM ropinirole 0.25 mg Tablet 0.25 mg PO HS hydrocortisone 2.5 % Cream 1 applic TOPICAL BID PRN (Reason: Skin Irritation) ergocalciferol (vitamin D2) 50,000 unit Capsule 50,000 unit PO WK ketoconazole 2 % Cream 1 applic TOPICAL BID PRN (Reason: Skin Irritation) Label Comments: month ago Mucinex 1,200 mg tablet extended release 12hr 1,200 mg PO BID pantoprazole 20 mg tablet,delayed release (DR/EC) 20 mg PO DAILY Trelegy Ellipta 100-62.5-25 mcg blister with device 1 ea INHALATION DIRECTED albuterol sulfate 2.5 mg /3 mL (0.083 %) solution for nebulization 2.5 mg continuous nebulization QID ipratropium bromide 0.02 % solution 2.5 ml INHALATION QID PRN (Reason: Shortness Of Breath Or Wheezing) sodium chloride 7 % solution for nebulization 4 ml INH BID Changed prednisone 10 mg tablet 5 mg PO DAILY Qty: 30 0RF Discontinued aspirin [Aspir-Low] 81 mg Tablet,Delayed Release (Dr/Ec) 81 mg PO HS levofloxacin 750 mg tablet 750 mg PO DIRECTED Rx Instructions: Zigswitch kit Discharge Orders: Discharge Order (Routine); Ordered 12/25/21 Ordered By: Radha Blake Admission Data Admit Date/Time: 12/21/21 20:39 Attending Provider: Radha Blake Admit Provider: Lalo Cooper Primary Care Provider: Rickie Bermudez Other Providers: Lalo Cooper ; Javier Islas Coding Level of Care Code D/C DAY MANAGEMENT >30 MINS Diagnoses Pneumonia J18.9 Cough with hemoptysis R04.2 Diarrhea R19.7 Chest pain R07.9 COPD, severe J44.9 Chronic hypoxemic respiratory failure J96.11 HTN (hypertension) I10 GERD (gastroesophageal reflux disease) K21.9 Major depressive disorder, recurrent severe without psychotic features F33.2
[2021-12-28 13:12] LABS: Cryptococcal Antigen Not Detected (Not Detected); Source Serum
== END 2021-12-25 16:09 | disposition home or self-care (01) | DRG 871 ==
LOC: ED 17:01 → 2N 20:39 → SUATTDRO 20:39 → 2N 12-22 00:20
DX: Z66 Do not resuscitate; F33.2 Major depressive disorder, recurrent severe without psychotic features; Z86.14 Personal history of Methicillin resistant Staphylococcus aureus infection; K21.9 Gastro-esophageal reflux disease without esophagitis; J85.0 Gangrene and necrosis of lung; Z87.891 Personal history of nicotine dependence; A41.9 Sepsis, unspecified organism; J96.11 Chronic respiratory failure with hypoxia; J44.1 Chronic obstructive pulmonary disease with (acute) exacerbation; I10 Essential (primary) hypertension; J85.1 Abscess of lung with pneumonia

== ENCOUNTER 2022-10-21 02:25 | Inpatient (IN) ==
[2022-10-21] MEDS ORDERED: ONDANSETRON INJ 2 MG/ML 2 ML VIAL IV STA (02:45)
[2022-10-21] MEDS ORDERED: SODIUM CHLORIDE 0.9% 1000ML 1,000 ML IV ONE (02:45)
[2022-10-21] MEDS ORDERED: fentaNYL citrate PF 100 MCG/2 ML VIAL IV STA ×2 (02:45→05:41)
--- NOTE | 2022-10-21 02:51 | Emergency Department Note ---
History of Present Illness General Chief complaint: Abdominal Pain Stated complaint: STOMACH CRAMPS, HEARTBURN, CAN'T EAT, RT SIDE PAIN Time Seen by Provider: 10/21/22 02:40 History of Present Illness Maximum Pain Intensity: 4 67-year-old male presents emergency department with a 1 day history of midepigastric abdominal pain and right flank pain with associated nausea that started at midnight last night was ago now. Patient did take some Maalox and Pepto-Bismol. Patient states nausea no vomiting no diarrhea no midline abdominal pain. Patient denies chest pain patient has a history of COPD is on oxygen at home. Patient continued to have persistent diffuse abdominal pain now and presents without complaint currently. Patient denies midline back pain denies a history of surgery in his abdomen. There are no other mitigating or alleviating factors Home Medications Medication Instructions Recorded Confirmed Type amlodipine 5 mg tablet 5 mg PO QAM 08/05/18 12/21/21 History ergocalciferol (vitamin D2) 1,250 50,000 unit PO WK 08/05/18 12/21/21 History mcg (50,000 unit) capsule hydrocortisone 2.5 % topical cream 1 applic topical BID PRN Skin 08/05/18 12/21/21 History Irritation ketoconazole 2 % topical cream 1 applic topical BID PRN Skin 08/05/18 12/21/21 History Irritation ropinirole 0.25 mg tablet 0.25 mg PO HS 08/05/18 12/21/21 History mirtazapine 15 mg tablet 15 mg PO HS #36 tabs 05/02/19 12/21/21 Rx guaifenesin 1,200 mg tablet, 1,200 mg PO BID 06/30/20 12/21/21 History extended release 12 hr (Mucinex) albuterol sulfate 90 mcg/actuation 2 puff inhalation Q4 PRN Shortness 10/29/20 12/21/21 Rx aerosol inhaler (Ventolin HFA) Of Breath Or Wheezing #18 grams tiotropium 2.5 mcg-olodaterol 2.5 2 puff inhalation QAM #12 grams 02/02/21 12/21/21 Rx mcg/actuation mist for inhalation hydroxyzine HCl 25 mg tablet 25 mg PO Q6 PRN Anxiety 04/01/21 12/21/21 History azithromycin 250 mg tablet 250 mg PO .COMPLEX 15 days #15 tabs 05/10/21 12/21/21 Rx montelukast 10 mg tablet 10 mg PO HS #90 tabs 06/23/21 12/21/21 Rx albuterol sulfate 2.5 mg/3 mL 2.5 mg continuous nebulization QID 12/21/21 12/21/21 History (0.083 %) solution for nebulization fluticasone fur. 100 mcg-umeclid 1 ea inhalation DIRECTED 12/21/21 12/21/21 History 62.5 mcg-vilant 25 mcg inhalat.powder (Trelegy Ellipta) ipratropium bromide 0.02 % 2.5 ml inhalation QID PRN 12/21/21 12/21/21 History solution for inhalation Shortness Of Breath Or Wheezing pantoprazole 20 mg tablet,delayed 20 mg PO DAILY 12/21/21 12/21/21 History release sodium chloride 7 % for 4 ml inhalation BID 12/21/21 12/21/21 History nebulization prednisone 10 mg tablet 5 mg PO DAILY #30 tabs 12/25/21 12/21/21 Rx Allergies Allergy/AdvReac Type Severity Reaction Status Date / Time clarithromycin Allergy Severe SHORTNESS Verified 12/21/21 21:18 OF BREATH atorvastatin Allergy Intermediate MUSCLE Verified 12/21/21 21:18 ACHES ARMS metaproterenol Allergy Unknown UNKNOWN Verified 12/21/21 21:18 Past Med/Surg History Medical History Abnormal CT scan, chest Bullous emphysema Chronic dyspnea Chronic hypoxemic respiratory failure COPD, severe Cough Former tobacco use GERD (gastroesophageal reflux disease) History of acute bronchitis History of acute sinusitis History of chronic obstructive pulmonary disease History of methicillin resistant Staphylococcus aureus infection History of MRSA infection of lungs History of pneumonia History of tachycardia HLD (hyperlipidemia) HTN (hypertension) Surgical History History of hernia repair History of hip surgery History of tonsillectomy Family History Mother Diabetes Father Heart disease Social History Smoking Status: Never smoker Cigarettes Per Day: 2 packs/day; Second Hand Exposure: No; Do You Dip or Chew Tobacco: No; Hx Alcohol Use: No Hx Substance Use: No Preferred Language: Estonian Communication Ability: Effective Parboiler Required: No Beliefs That Will Affect Care: None Current Living Situation: Spouse Current Living Situation Comment: Lives with Feels Safe at Home: Yes Assistive Devices: Glasses and Oxygen - Continuous Review of Systems A total of 10 systems reviewed and were otherwise negative Cardiovascular: no chest pain Gastrointestinal: + abdominal pain and + nausea Physical Exam Vital Signs Vital Signs - 24 hr 10/21/22 02:33 10/21/22 03:20 10/21/22 03:09 Temperature 36.3 C L Temperature Source Temporal Artery Scan Pulse Rate 109 H 110 H Pulse Rate [Apical] 106 H Respiratory Rate 20 16 Respiratory Effort / Characteristics Non-Labored Respiratory Depth Normal Blood Pressure 137/79 Blood Pressure [Right Arm] 136/105 H Blood Pressure Mean 98 Blood Pressure Mean [Right Arm] 115 Pulse Oximetry 92 98 Oxygen Delivery Method Nasal Cannula Nasal Cannula Oxygen Flow Rate 3 3 Sepsis Recent Fever Within 48 Hours Yes Sepsis New/Unexplained Change in Mental Status No Sepsis Action Taken by Nursing No Action Required 10/21/22 03:52 10/21/22 04:38 10/21/22 06:06 Temperature Temperature Source Pulse Rate Pulse Rate [Apical] 102 H 105 H 105 H Respiratory Rate 18 18 20 Respiratory Effort / Characteristics Respiratory Depth Blood Pressure Blood Pressure [Right Arm] 138/73 157/80 H 151/82 H Blood Pressure Mean Blood Pressure Mean [Right Arm] 94 105 105 Pulse Oximetry 93 94 93 Oxygen Delivery Method Nasal Cannula Nasal Cannula Nasal Cannula Oxygen Flow Rate 4 3 3 Sepsis Recent Fever Within 48 Hours Sepsis New/Unexplained Change in Mental Status Sepsis Action Taken by Nursing GENERAL: Patient is awake alert in no acute distress patient is resting comfortably and showing no signs of anxiety EYES: The conjunctivae are clear. The pupils are round and reactive. EARS, NOSE, MOUTH AND THROAT: The nose is without any evidence of any deformity. Mucous membranes are moist. Tongue is midline. NECK: The neck is nontender and supple. RESPIRATORY: Normal respiratory effort is noted there is no evidence of wheezing rhonchi or rales CARDIOVASCULAR: Regular rate and rhythm noted there no murmurs rubs or gallops normal S1 normal S2. GASTROINTESTINAL: The abdomen is soft. Abdomen is nontender. There are no abnormal aortic pulsations or masses; there is a ventral hernia present BACK: No midline tenderness or or step-off noted range of motion in flexion extension as well as rotation no signs of muscle spasm noted MUSCULOSKELETAL/EXTREMITIES: There is no evidence of gross deformity full range of motion is noted in the hips and shoulders. SKIN: There is no obvious evidence of any rash. There are no petechiae, pallor or cyanosis noted. NEUROLOGIC: Patient is awake alert and oriented x3 strength is symmetric Course Reevaluation(s) Reevaluation #1: Patient continued pain after the initial dose of IV fentanyl and IV fluids. Patient was given 2 doses of IV fentanyl. Patient was started on IV Zosyn. Time: 05:59 Reevaluation #2: Spoke with Dr. Oconnor at bedside regarding the patient's presentation. We have ordered IV Zosyn. He is asking that the hospitalist team evaluate the patient for medical clearance. States he will take the patient to the operating room later today. Time: 06:20 Consultations Consultation #1: The case was discussed with the surgeon on-call Dr. Oconnor through the Setup text system for consultation Time: 05:54 Consultation #2: The case was tiger texted to Dr. aVrgas and he is aware of the patient's requirement for admission 6:05 AM Time: 06:05 Administered Medications Discontinued Medications Fentanyl Citrate (Fentanyl Citrate Pf 100 Mcg/2 Ml Vial) 50 mcg IV NOW STA Stop: 10/21/22 02:46 Last Admin: 10/21/22 03:43 Dose: 50 mcg Documented By: ASIF Fentanyl Citrate (Fentanyl Citrate Pf 100 Mcg/2 Ml Vial) 50 mcg IV NOW STA Stop: 10/21/22 05:42 Last Admin: 10/21/22 05:43 Dose: 50 mcg Documented By: ASIF Sodium Chloride (Nss 1000ml) 1,000 mls @ 999 mls/hr IV .Q1H1M ONE Stop: 10/21/22 03:45 Last Infusion: 10/21/22 04:45 Dose: 0 mls/hr Documented By: Admin: 10/21/22 03:43 Dose: 999 mls/hr Documented By: ASIF Piperacillin Sod/Tazobactam Sod (Zosyn) 4.5 gm in 120 mls @ 240 mls/hr IV NOW ONE Stop: 10/21/22 06:24 Last Infusion: 06/09/23 06:34 Dose: 0 mls/hr Documented By: Admin: 10/21/22 06:01 Dose: 240 mls/hr Documented By: ASIF Ioversol (Optiray 320 500ml) 90 ml IV ONCE ONE Stop: 10/21/22 04:27 Last Admin: 10/21/22 04:27 Dose: 90 ml Documented By: CHAUNCEY Ondansetron HCl (Ondansetron Inj 2 Mg/Ml 2 Ml Vial) 4 mg IV NOW STA Stop: 10/21/22 02:46 Last Admin: 10/21/22 03:43 Dose: 4 mg Documented By: ASIF Medical Decision Making Medical Records Attestation: I reviewed the patient's medical records. Home Medications Current Medication List: was personally reviewed by me Laboratory Data Attestation: I reviewed the patient's lab results. Patient has leukocytosis per my interpretation 10/21/22 03:26 10/21/22 03:10 Lab Results 10/21/22 10/21/22 10/21/22 Range/Units 03:10 03:26 03:26 WBC 16.80 H (4.8-10.8) K/ul RBC 5.18 (4.70-6.10) M/uL Hgb 15.6 (14.0-18.0) g/dl POC Hgb (14.0-18.0) g/dl Hct 45.3 (42.0-52.0) % POC Hct (42-52) % MCV 87.5 (80.0-100.0) fL MCH 30.1 (25.0-34.0) pg MCHC 34.4 (32.0-36.0) g/dL RDW Std Deviation 41.5 (36.4-46.3) fL RDW Coeff of Brooke 13.1 (11.5-14.5) % Plt Count 378 (130-400) K/uL MPV 10.0 (9.4-12.4) fL Immature Gran % (Auto) 0.4 % Neut % (Auto) 87.7 % Lymph % (Auto) 3.8 % [place] % (Auto) 7.9 % Eos % (Auto) 0.1 % Baso % (Auto) 0.1 % Neut # (Auto) 14.74 H (1.40-6.50) K/uL Lymph # (Auto) 0.63 L (1.2-3.4) K/uL [place] # (Auto) 1.33 H (0.11-0.59) K/uL Eos # (Auto) 0.01 (0-0.50) K/uL Baso # (Auto) 0.02 (0-0.2) K/uL Immature Gran # (Auto) 0.07 (0.01-0.20) K/uL POC Sodium (135-144) mmol/L Sodium 137 (136-145) mmol/L POC Potassium (3.3-5.0) mmol/L Potassium TNP 4.1 POC Chloride (101-112) mmol/L Chloride 99 (98-107) mmol/L Carbon Dioxide 28 (21-32) mmol/L POC Total CO2 (24-31) mmol/L Anion Gap 10 (3-11) POC Anion Gap (16-25) mmol/L POC BUN (7-18) mg/dl BUN 22 (6-23) mg/dl Creatinine 0.95 (0.6-1.4) mg/dl POC Creatinine (0.6-1.3) mg/dl Est Cr Clr Drug Dosing 68.1 ml/min Est GFR ( Amer) 95.6 ml/min Est GFR (Non-Af Amer) 82.5 ml/min BUN/Creatinine Ratio 23.2 H (10-20) Glucose 173 H (70-99(Fasting)) mg/dl POC Glucose (other) (70-99) mg/dl Calcium 9.7 (8.6-10.3) mg/dl POC Ioniz Calcium Maikol (1.12-1.32) mmol/l Total Bilirubin 0.6 (0.2-1.0) mg/dl AST TNP 26 ALT 27 (7-52) U/L Alkaline Phosphatase 111 H (34-104) U/L Troponin I High Sens (0-20) pg/ml Total Protein 7.3 (6.0-8.3) gm/dl Albumin 4.4 (3.4-5.0) gm/dl Globulin 2.9 (2.5-4.0) gm/dl Albumin/Globulin Ratio 1.5 (0.9-2) Lipase 10 L (11-82) U/L Urine Color Urine Appearance (Clear) Urine pH (4.5-7.5) Ur Specific [place] (1.000-1.030) Urine Protein (Negative) Urine Glucose (UA) (Negative) Urine Ketones (Negative) Urine Blood (Negative) Urine Nitrite (Negative) Urine Bilirubin (Negative) Urine Urobilinogen (Negative) Ur Leukocyte Esterase (Negative) Urine WBC (Auto) (0-5) /hpf Urine RBC (Auto) (0-4) /hpf U Hyaline Cast (Auto) (0-5) /lpf U Epithel Cells (Auto) (0-5) /lpf Urine Bacteria (Auto) (Negative) SARS-CoV-2, RNA, NAAT (NEGATIVE) 10/21/22 10/21/22 10/21/22 Range/Units 03:50 04:14 04:18 WBC (4.8-10.8) K/ul RBC (4.70-6.10) M/uL Hgb (14.0-18.0) g/dl POC Hgb 13.9 L (14.0-18.0) g/dl Hct (42.0-52.0) % POC Hct 41 L (42-52) % MCV (80.0-100.0) fL MCH (25.0-34.0) pg MCHC (32.0-36.0) g/dL RDW Std Deviation (36.4-46.3) fL RDW Coeff of Brooke (11.5-14.5) % Plt Count (130-400) K/uL MPV (9.4-12.4) fL Immature Gran % (Auto) % Neut % (Auto) % Lymph % (Auto) % [place] % (Auto) % Eos % (Auto) % Baso % (Auto) % Neut # (Auto) (1.40-6.50) K/uL Lymph # (Auto) (1.2-3.4) K/uL [place] # (Auto) (0.11-0.59) K/uL Eos # (Auto) (0-0.50) K/uL Baso # (Auto) (0-0.2) K/uL Immature Gran # (Auto) (0.01-0.20) K/uL POC Sodium 138 (135-144) mmol/L Sodium (136-145) mmol/L POC Potassium 4.0 (3.3-5.0) mmol/L Potassium POC Chloride 102 (101-112) mmol/L Chloride (98-107) mmol/L Carbon Dioxide (21-32) mmol/L POC Total CO2 24 (24-31) mmol/L Anion Gap (3-11) POC Anion Gap 17.0 (16-25) mmol/L POC BUN 20 H (7-18) mg/dl BUN (6-23) mg/dl Creatinine (0.6-1.4) mg/dl POC Creatinine 0.8 (0.6-1.3) mg/dl Est Cr Clr Drug Dosing ml/min Est GFR ( Amer) ml/min Est GFR (Non-Af Amer) ml/min BUN/Creatinine Ratio (10-20) Glucose (70-99(Fasting)) mg/dl POC Glucose (other) 160 H (70-99) mg/dl Calcium (8.6-10.3) mg/dl POC Ioniz Calcium Maikol 1.13 (1.12-1.32) mmol/l Total Bilirubin (0.2-1.0) mg/dl AST ALT (7-52) U/L Alkaline Phosphatase (34-104) U/L Troponin I High Sens 6.0 (0-20) pg/ml Total Protein (6.0-8.3) gm/dl Albumin (3.4-5.0) gm/dl Globulin (2.5-4.0) gm/dl Albumin/Globulin Ratio (0.9-2) Lipase (11-82) U/L Urine Color Urine Appearance (Clear) Urine pH (4.5-7.5) Ur Specific [place] (1.000-1.030) Urine Protein (Negative) Urine Glucose (UA) (Negative) Urine Ketones (Negative) Urine Blood (Negative) Urine Nitrite (Negative) Urine Bilirubin (Negative) Urine Urobilinogen (Negative) Ur Leukocyte Esterase (Negative) Urine WBC (Auto) (0-5) /hpf Urine RBC (Auto) (0-4) /hpf U Hyaline Cast (Auto) (0-5) /lpf U Epithel Cells (Auto) (0-5) /lpf Urine Bacteria (Auto) (Negative) SARS-CoV-2, RNA, NAAT NEGATIVE (NEGATIVE) 10/21/22 Range/Units 05:00 WBC (4.8-10.8) K/ul RBC (4.70-6.10) M/uL Hgb (14.0-18.0) g/dl POC Hgb (14.0-18.0) g/dl Hct (42.0-52.0) % POC Hct (42-52) % MCV (80.0-100.0) fL MCH (25.0-34.0) pg MCHC (32.0-36.0) g/dL RDW Std Deviation (36.4-46.3) fL RDW Coeff of Brooke (11.5-14.5) % Plt Count (130-400) K/uL MPV (9.4-12.4) fL Immature Gran % (Auto) % Neut % (Auto) % Lymph % (Auto) % [place] % (Auto) % Eos % (Auto) % Baso % (Auto) % Neut # (Auto) (1.40-6.50) K/uL Lymph # (Auto) (1.2-3.4) K/uL [place] # (Auto) (0.11-0.59) K/uL Eos # (Auto) (0-0.50) K/uL Baso # (Auto) (0-0.2) K/uL Immature Gran # (Auto) (0.01-0.20) K/uL POC Sodium (135-144) mmol/L Sodium (136-145) mmol/L POC Potassium (3.3-5.0) mmol/L Potassium POC Chloride (101-112) mmol/L Chloride (98-107) mmol/L Carbon Dioxide (21-32) mmol/L POC Total CO2 (24-31) mmol/L Anion Gap (3-11) POC Anion Gap (16-25) mmol/L POC BUN (7-18) mg/dl BUN (6-23) mg/dl Creatinine (0.6-1.4) mg/dl POC Creatinine (0.6-1.3) mg/dl Est Cr Clr Drug Dosing ml/min Est GFR ( Amer) ml/min Est GFR (Non-Af Amer) ml/min BUN/Creatinine Ratio (10-20) Glucose (70-99(Fasting)) mg/dl POC Glucose (other) (70-99) mg/dl Calcium (8.6-10.3) mg/dl POC Ioniz Calcium Maikol (1.12-1.32) mmol/l Total Bilirubin (0.2-1.0) mg/dl AST ALT (7-52) U/L Alkaline Phosphatase (34-104) U/L Troponin I High Sens (0-20) pg/ml Total Protein (6.0-8.3) gm/dl Albumin (3.4-5.0) gm/dl Globulin (2.5-4.0) gm/dl Albumin/Globulin Ratio (0.9-2) Lipase (11-82) U/L Urine Color Yellow Urine Appearance Clear (Clear) Urine pH 7.0 (4.5-7.5) Ur Specific [place] 1.043 H (1.000-1.030) Urine Protein 1+ H (Negative) Urine Glucose (UA) 1+ H (Negative) Urine Ketones 3+ H (Negative) Urine Blood Negative (Negative) Urine Nitrite Negative (Negative) Urine Bilirubin Negative (Negative) Urine Urobilinogen Negative (Negative) Ur Leukocyte Esterase Negative (Negative) Urine WBC (Auto) 0 (0-5) /hpf Urine RBC (Auto) 0-4 (0-4) /hpf U Hyaline Cast (Auto) 1-5 (0-5) /lpf U Epithel Cells (Auto) 0-5 (0-5) /lpf Urine Bacteria (Auto) Negative (Negative) SARS-CoV-2, RNA, NAAT (NEGATIVE) Imaging Data Attestation: I personally reviewed and interpreted this imaging study as follows: My Impression: CT abdomen pelvis per my interpretation is dilated gallbladder Radiologist's Impression: Abdomen/Pelvis CT 10/21/22 02:44 Exam(s): CT ABDOMEN + PELVIS With Contrast IV Amt: 90ml optiray 320 EXAM: CT Abdomen and Pelvis With Intravenous Contrast CLINICAL HISTORY: Abdominal pain. TECHNIQUE: Axial computed tomography images of the abdomen and pelvis with intravenous contrast. CTDI is 50.65 mGy and DLP is 810.63 mGy-cm. Automated exposure control was utilized for the study. A dose lowering technique was utilized adhering to the principles of ALARA. CONTRAST: Patient received 90ml optiray 320 of IV contrast COMPARISON: No relevant prior studies available. FINDINGS: Lung bases: Subtle airspace opacities of the right middle, left upper and right lower lobes may represent atelectasis, scarring, atelectasis, atypical infection or pulmonary edema. Emphysema. ABDOMEN: Liver: Unremarkable. No mass. Gallbladder and bile ducts: Cholelithiasis. There is marked inflammatory stranding surrounding the gallbladder. No ductal dilation. Pancreas: Unremarkable. No mass. No ductal dilation. Spleen: Unremarkable. No splenomegaly. Adrenals: Indeterminate 2 cm left adrenal nodule. Kidneys and ureters: Unremarkable. No solid mass. No hydronephrosis. Stomach and bowel: Unremarkable. No obstruction. No mucosal thickening. PELVIS: Appendix: No findings to suggest acute appendicitis. Bladder: Unremarkable. No mass. Reproductive: Unremarkable as visualized. ABDOMEN and PELVIS: Intraperitoneal space: Unremarkable. No free air. No significant fluid collection. Bones/joints: There are degenerative changes of the spine. No fracture. No dislocation. Soft tissues: Unremarkable. Vasculature: Mild atherosclerosis. No abdominal aortic aneurysm. Lymph nodes: Unremarkable. No enlarged lymph nodes. IMPRESSION: 1. Cholelithiasis. There is marked inflammatory stranding surrounding the gallbladder. This is most consistent with acute cholecystitis. 2. Indeterminate 2 cm left adrenal nodule. If there is no history of malignancy consider a follow-up low dose, non-contrast adrenal CT or chemical-shift adrenal MRI in 12 months. If there is a history of malignancy recommend a low dose, non-emergent, non-contrast adrenal CT or chemical-shift adrenal MRI follow-up study. 3. Subtle airspace opacities of the right middle, left upper and right lower lobes may represent atelectasis, scarring, atelectasis, atypical infection or pulmonary edema. 4. Emphysema. Electronically signed by: Didi Mathews MD 10/21/22 05:52 AM ECG Data Attestation: I personally reviewed and interpreted this ECG as follows: Additional Comments: EKG interpreted by me sinus tachycardia rate of 105 normal intervals normal axis no obvious ST segment elevation or depression Telemetry was ordered by me interpreted as sinus tachycardia rate of 105 MDM Narrative Medical decision making differential diagnosis includes gastritis, gastroenteritis, colitis, pancreatitis, bowel obstruction, cardiac event, electrolyte abnormality, dehydration Plan is to check labs, EKG, CT, give IV opiates External medical records were reviewed by me Impression & Plan Acute cholecystitis, Abdominal pain Discharge Plan Visit Data Chief Complaint: Abdominal Pain Stated Complaint: STOMACH CRAMPS, HEARTBURN, CAN'T EAT, RT SIDE PAIN ED Provider: Nguyễn Basilio Discharge Problem: Acute cholecystitis, Abdominal pain Patient Disposition: Admitted As Inpatient Forms Stand Alone Forms: My [facility] [employer] Prescriptions Prescriptions: No Action albuterol sulfate [Ventolin HFA] 90 mcg/actuation HFA aerosol inhaler 2 puff INHALATION Q4 PRN (Reason: Shortness Of Breath Or Wheezing) Qty: 18 3RF tiotropium-olodaterol 2.5-2.5 mcg/actuation mist 2 puff INHALATION QAM Qty: 12 1RF azithromycin 250 mg tablet 250 mg PO .COMPLEX 15 Days Qty: 15 3RF Rx Instructions: 250 mg PO ; take 3x weekly (Monday, Monday, ) montelukast 10 mg tablet 10 mg PO HS Qty: 90 1RF hydroxyzine HCl 25 mg tablet 25 mg PO Q6 PRN (Reason: Anxiety) mirtazapine 15 mg tablet 15 mg PO HS Qty: 36 0RF amlodipine 5 mg Tablet 5 mg PO QAM ropinirole 0.25 mg Tablet 0.25 mg PO HS hydrocortisone 2.5 % Cream 1 applic TOPICAL BID PRN (Reason: Skin Irritation) ergocalciferol (vitamin D2) 50,000 unit Capsule 50,000 unit PO WK ketoconazole 2 % Cream 1 applic TOPICAL BID PRN (Reason: Skin Irritation) Patient Comments: month ago Mucinex 1,200 mg tablet extended release 12hr 1,200 mg PO BID pantoprazole 20 mg tablet,delayed release (DR/EC) 20 mg PO DAILY Trelegy Ellipta 100-62.5-25 mcg blister with device 1 ea INHALATION DIRECTED albuterol sulfate 2.5 mg /3 mL (0.083 %) solution for nebulization 2.5 mg continuous nebulization QID ipratropium bromide 0.02 % solution 2.5 ml INHALATION QID PRN (Reason: Shortness Of Breath Or Wheezing) sodium chloride 7 % solution for nebulization 4 ml INH BID prednisone 10 mg tablet 5 mg PO DAILY Qty: 30 0RF Referrals Referrals: Rickie Bermudez MD [Primary Care Provider] -
[2022-10-21 03:58] LABS: Basophils # (auto) 0.02 K/uL (0-0.2); Basophils % (auto) 0.1 %; Eosinophils # (auto) 0.01 K/uL (0-0.50); Eosinophils % (auto) 0.1 %; Hematocrit (blood only) 45.3 % (42.0-52.0); Hemoglobin 15.6 g/dl (14.0-18.0); Immature Granulocytes # (auto) 0.07 K/uL (0.01-0.20); Immature Granulocytes % (auto) 0.4 %; Lymphocytes # (auto) 0.63 K/uL (1.2-3.4); Lymphocytes % (auto) 3.8 %; Mean Corpuscular Hemoglobin 30.1 pg (25.0-34.0); Mean Corpuscular Hgb Conc 34.4 g/dL (32.0-36.0); Mean Corpuscular Volume 87.5 fL (80.0-100.0); Monocytes # (auto) 1.33 K/uL (0.11-0.59); Monocytes % (auto) 7.9 %; Neutrophils # (auto) 14.74 K/uL (1.40-6.50); Neutrophils % (auto) 87.7 %; Platelet Count 378 K/uL (130-400); RDW Coefficient of Variation 13.1 % (11.5-14.5); RDW Standard Deviation 41.5 fL (36.4-46.3); Red Blood Count 5.18 M/uL (4.70-6.10)
[2022-10-21 04:12] LABS: Alanine Aminotransferase 27 U/L (7-52); Albumin Globulin Ratio 1.5 (0.9-2); Albumin Level 4.4 gm/dl (3.4-5.0); Alkaline Phosphatase 111 U/L (34-104); Anion Gap 10 (3-11); BUN Creatinine Ratio 23.2 (10-20); Bilirubin,Total 0.6 mg/dl (0.2-1.0); Blood Urea Nitrogen 22 mg/dl (6-23); Calcium 9.7 mg/dl (8.6-10.3); Carbon Dioxide 28 mmol/L (21-32); Chloride 99 mmol/L (98-107); Creatinine Clr Calc Pharmacy 68.1 ml/min; Est GFR (African American) 95.6 ml/min; Est GFR (Non-African American) 82.5 ml/min; Globulin 2.9 gm/dl (2.5-4.0); Glucose 173 mg/dl (70-99(Fasting)); Lipase 10 U/L (11-82); Sodium 137 mmol/L (136-145); Total Protein 7.3 gm/dl (6.0-8.3)
[2022-10-21] MEDS ORDERED: OPTIRAY 320 500ml IV ONE (04:26)
[2022-10-21 04:27] LABS: iSTAT Creatinine 0.8 mg/dl (0.6-1.3); iSTAT Hemoglobin 13.9 g/dl (14.0-18.0); iSTAT Ionized Calcium 1.13 mmol/l (1.12-1.32)
[2022-10-21 04:42] LABS: Potassium 4.1 mmol/L (3.5-5.1)
[2022-10-21 05:13] LABS: Appearance Urine Clear (Clear); Bacteria Urine Automated Negative (Negative); Bilirubin Urine Negative (Negative); Blood Urine Negative (Negative); Color Urine Yellow; Epithelial Cell Urine Auto 0-5 /lpf (0-5); Glucose Urine UA 1+ (Negative); Ketones Urine 3+ (Negative); Leukocyte Esterase Urine Negative (Negative); Nitrite Urine Negative (Negative); Protein Urine 1+ (Negative); RBC Urine Automated 0-4 /hpf (0-4); Specific Gravity Urine 1.043 (1.000-1.030); Urobilinogen Urine Negative (Negative); WBC Urine Automated 0 /hpf (0-5)
--- NOTE | 2022-10-21 05:53 | CT Scan Report ---
Exam(s): CT ABDOMEN + PELVIS With Contrast IV Amt: 90ml optiray 320 EXAM: CT Abdomen and Pelvis With Intravenous Contrast CLINICAL HISTORY: Abdominal pain. TECHNIQUE: Axial computed tomography images of the abdomen and pelvis with intravenous contrast. CTDI is 50.65 mGy and DLP is 810.63 mGy-cm. Automated exposure control was utilized for the study. A dose lowering technique was utilized adhering to the principles of ALARA. CONTRAST: Patient received 90ml optiray 320 of IV contrast COMPARISON: No relevant prior studies available. FINDINGS: Lung bases: Subtle airspace opacities of the right middle, left upper and right lower lobes may represent atelectasis, scarring, atelectasis, atypical infection or pulmonary edema. Emphysema. ABDOMEN: Liver: Unremarkable. No mass. Gallbladder and bile ducts: Cholelithiasis. There is marked inflammatory stranding surrounding the gallbladder. No ductal dilation. Pancreas: Unremarkable. No mass. No ductal dilation. Spleen: Unremarkable. No splenomegaly. Adrenals: Indeterminate 2 cm left adrenal nodule. Kidneys and ureters: Unremarkable. No solid mass. No hydronephrosis. Stomach and bowel: Unremarkable. No obstruction. No mucosal thickening. PELVIS: Appendix: No findings to suggest acute appendicitis. Bladder: Unremarkable. No mass. Reproductive: Unremarkable as visualized. ABDOMEN and PELVIS: Intraperitoneal space: Unremarkable. No free air. No significant fluid collection. Bones/joints: There are degenerative changes of the spine. No fracture. No dislocation. Soft tissues: Unremarkable. Vasculature: Mild atherosclerosis. No abdominal aortic aneurysm. Lymph nodes: Unremarkable. No enlarged lymph nodes. IMPRESSION: 1. Cholelithiasis. There is marked inflammatory stranding surrounding the gallbladder. This is most consistent with acute cholecystitis. 2. Indeterminate 2 cm left adrenal nodule. If there is no history of malignancy consider a follow-up low dose, non-contrast adrenal CT or chemical-shift adrenal MRI in 12 months. If there is a history of malignancy recommend a low dose, non-emergent, non-contrast adrenal CT or chemical-shift adrenal MRI follow-up study. 3. Subtle airspace opacities of the right middle, left upper and right lower lobes may represent atelectasis, scarring, atelectasis, atypical infection or pulmonary edema. 4. Emphysema. Electronically signed by: Didi Mathews MD 10/21/22 05:52 AM
[2022-10-21] MEDS ORDERED: PIPERACILLIN/TAZOBACTAM 4.5 GM/120 ML BAG IV ONE (05:55)
--- NOTE | 2022-10-21 06:51 | Surgery Consultation ---
Date of Consultation October 21, 2022 Assessment & Plan (1) Acute cholecystitis: My concern is developing acute necrotizing/gangrenous cholecystitis This would occur commonly in a fellow his age with these findings Ideally he should undergo laparoscopic cholecystectomy today Which I would undertake unless he is deemed an operable at this time from a medical standpoint The only option would be cholecystostomy tube which will only delay likely recurrence and need for operation Which would even be harder at that time We will see what the medical team thinks but I would like to proceed today To the OR with laparoscopic cholecystectomy History of Present Illness History of Present Illness 67-year-old male presenting the emergency room with severe epigastric pain and right flank pain Feels like the pain goes into his back On work-up including CT scan he has evidence of acute cholecystitis with multiple gallstones edema stranding around the gallbladder His liver functions are normal Significant history for severe COPD-currently short of breath Apparently he is on antifungal medication for his lungs Allergies Allergy/AdvReac Type Severity Reaction Status Date / Time clarithromycin Allergy Severe SHORTNESS Verified 12/21/21 21:18 OF BREATH atorvastatin Allergy Intermediate MUSCLE Verified 12/21/21 21:18 ACHES ARMS metaproterenol Allergy Unknown UNKNOWN Verified 12/21/21 21:18 Home Medications Medication Instructions Recorded Confirmed Type amlodipine 5 mg tablet 5 mg PO QAM 08/05/18 12/21/21 History ergocalciferol (vitamin D2) 1,250 50,000 unit PO WK 08/05/18 12/21/21 History mcg (50,000 unit) capsule hydrocortisone 2.5 % topical cream 1 applic topical BID PRN Skin 08/05/18 12/21/21 History Irritation ketoconazole 2 % topical cream 1 applic topical BID PRN Skin 08/05/18 12/21/21 History Irritation ropinirole 0.25 mg tablet 0.25 mg PO HS 08/05/18 12/21/21 History mirtazapine 15 mg tablet 15 mg PO HS #36 tabs 05/02/19 12/21/21 Rx guaifenesin 1,200 mg tablet, 1,200 mg PO BID 06/30/20 12/21/21 History extended release 12 hr (Mucinex) albuterol sulfate 90 mcg/actuation 2 puff inhalation Q4 PRN Shortness 10/29/20 12/21/21 Rx aerosol inhaler (Ventolin HFA) Of Breath Or Wheezing #18 grams tiotropium 2.5 mcg-olodaterol 2.5 2 puff inhalation QAM #12 grams 02/02/21 12/21/21 Rx mcg/actuation mist for inhalation hydroxyzine HCl 25 mg tablet 25 mg PO Q6 PRN Anxiety 04/01/21 12/21/21 History azithromycin 250 mg tablet 250 mg PO .COMPLEX 15 days #15 tabs 05/10/21 12/21/21 Rx montelukast 10 mg tablet 10 mg PO HS #90 tabs 06/23/21 12/21/21 Rx albuterol sulfate 2.5 mg/3 mL 2.5 mg continuous nebulization QID 12/21/21 12/21/21 History (0.083 %) solution for nebulization fluticasone fur. 100 mcg-umeclid 1 ea inhalation DIRECTED 12/21/21 12/21/21 History 62.5 mcg-vilant 25 mcg inhalat.powder (Trelegy Ellipta) ipratropium bromide 0.02 % 2.5 ml inhalation QID PRN 12/21/21 12/21/21 History solution for inhalation Shortness Of Breath Or Wheezing pantoprazole 20 mg tablet,delayed 20 mg PO DAILY 12/21/21 12/21/21 History release sodium chloride 7 % for 4 ml inhalation BID 12/21/21 12/21/21 History nebulization prednisone 10 mg tablet 5 mg PO DAILY #30 tabs 12/25/21 12/21/21 Rx Patient History Medical History Abnormal CT scan, chest Bullous emphysema Chronic dyspnea Chronic hypoxemic respiratory failure COPD, severe Cough Former tobacco use GERD (gastroesophageal reflux disease) History of acute bronchitis History of acute sinusitis History of chronic obstructive pulmonary disease History of methicillin resistant Staphylococcus aureus infection History of MRSA infection of lungs History of pneumonia History of tachycardia HLD (hyperlipidemia) HTN (hypertension) Surgical History History of hernia repair History of hip surgery History of tonsillectomy Family History Mother Diabetes Father Heart disease Social History Smoking Status: Never smoker Cigarettes Per Day: 2 packs/day; Second Hand Exposure: No; Do You Dip or Chew Tobacco: No; Hx Alcohol Use: No Hx Substance Use: No Preferred Language: Slovenian Communication Ability: Effective [employer] Required: No Beliefs That Will Affect Care: None Current Living Situation: Spouse Current Living Situation Comment: Lives with Feels Safe at Home: Yes Assistive Devices: Glasses and Oxygen - Continuous Review of Systems Review of Systems: All systems reviewed & are unremarkable except as noted in HPI & below Constitutional: no fever Physical Exam Physical Exam: Patient has hospital bed in the ER He is awake and alert He is short of breath on oxygen which is his baseline according to the patient and his who is at the bedside His abdomen is mildly distended with mild upper abdominal pain Constitutional: + acute distress Mild acute distress from his COPD Eyes: + anicteric sclerae Respiratory: + abnormal respiratory effort Shortness of breath with dyspnea Cardiovascular: Rate/Rhythm: + tachycardic Gastrointestinal (Abdomen): See above Musculoskeletal: Head/Neck/Chest: head atraumatic Skin: no rashes, warm and dry Neurologic: awake Psychiatric: Orientation: alert Results & Data Vital Signs (Past 12 Hours) Vital Signs Temp Pulse Pulse Resp BP BP Pulse Ox 10/21/22 06:06 105 H 20 151/82 H 93 10/21/22 04:38 105 H 18 157/80 H 94 10/21/22 03:52 102 H 18 138/73 93 10/21/22 03:09 106 H 16 136/105 H 98 10/21/22 03:20 110 H 10/21/22 02:33 36.3 C L 109 H 20 137/79 92 O2 Del Method O2 Flow Rate 10/21/22 06:06 Nasal Cannula 3 10/21/22 04:38 Nasal Cannula 3 10/21/22 03:52 Nasal Cannula 4 10/21/22 03:09 Nasal Cannula 3 10/21/22 03:20 10/21/22 02:33 Nasal Cannula 3 Diagnostic Findings I reviewed his CAT scan films and report PG Care Time/CCT Total # of Minutes Spent Total Time Spent with Patient: Total time spent is greater than 50% in coordination of care (as documented) at patient's floor/unit and/or counseling patient: Coding Level of Care Code 23955 OP VST NEW LOW 30-44 MIN Diagnoses Acute cholecystitis K81.0
--- NOTE | 2022-10-21 08:00 | XRay Report ---
SINGLE VIEW CHEST CLINICAL HISTORY: Preoperative examination FINDINGS: An AP, portable, upright chest radiograph is compared to study dated 12/21/2021 and correlate d with chest CT dated 12/22/2021. The cardiomediastinal silhouette is unremarkable noting atherosclero tic calcification of the thoracic aorta. Advanced emphysema and chronic interstitial thickening is si milar to previous. There is chronic elevation of the left hemidiaphragm with left basilar scarring/at electasis. Milder parenchymal scarring is seen at the right lung base. No large pleural effusion or p neumothorax is seen. The skeletal structures are osteopenic. The bony thorax is grossly intact. IMPRESSION: Advanced emphysema and chronic parenchymal changes as above with no acute cardiopulmonary abnormality identified. ACT 112: Negative or not required by law. Electronically signed by: Rudy Hayden M.D. 10/21/2022 7:59 AM
--- NOTE | 2022-10-21 08:06 | Ultrasound Report ---
ULTRASOUND RIGHT UPPER QUADRANT ABDOMEN CLINICAL HISTORY: Right upper quadrant abdominal pain. Cholecystitis. COMPARISON STUDY: Abdominal CT dated 10/31/2022. TECHNIQUE: Real-time, grayscale, and color flow sonography of the right upper quadrant of the abdomen was performed. Images are reviewed in the transverse and longitudinal planes. FINDINGS: Liver: The liver is normal in size and echotexture. There is no intrahepatic biliary ductal dilatatio n. The main portal vein is patent. Gallbladder: The gallbladder is distended and filled with stones and sludge. The gallbladder wall is thickened measuring up to 4 mm. There is trace pericholecystic fluid. A sonographic Jaime's sign is reportedly present. The common bile duct measures up to 0.5 cm in diameter. Pancreas: Not visualized due to overlying bowel gas. Right kidney: Survey images of the right kidney demonstrate normal size and echotexture. There is no hydronephrosis. Ascites: None. IMPRESSION: Cholelithiasis with acute cholecystitis. Surgical consultation is advised. ACT 112: Negative or not required by law. Electronically signed by: Rudy Hayden M.D. 10/21/2022 8:05 AM
--- NOTE | 2022-10-21 08:36 | History & Physical Report ---
Date of Service October 21, 2022 Assessment & Plan (1) Acute cholecystitis: Plan: Patient presents with symptoms and abdominal CT consistent with acute cholecystitis. He is kept n.p.o. surgical evaluation wishes to proceed to the operating room. He does have some risk with his chronic respiratory failure however he is stable as he can be. He will maintain Zosyn therapy. Patient was chronic on azithromycin this was held and voriconazole was started (2) Chronic hypoxemic respiratory failure: Plan: Patient chronically on 3 L of oxygen. We will continue Trelegy albuterol Atrovent and Singulair. 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 he will have hydralazine backup for blood pressure control when taking oral medication again we will resume amlodipine (5) Major depressive disorder, recurrent severe without psychotic features: Plan: Patient chronically stable on mirtazapine ropinirole and hydroxyzine as needed for anxiety. Medications are held with n.p.o. status. He will continue with the mirtazapine and ropinirole at at bedtime if able to take p.o. this evening if not we will delay it for a day History of Present Illness Primary Care Provider: Rickie Pfeiffer MD 67-year-old male with a history of chronic respiratory failure on 3 L of oxygen at home who presents with a 1 week history of stuttering abdominal pain associated with right upper quadrant tenderness and vomiting. Patient's had anorexia over the last week due to eating exacerbating his symptoms. Patient states his pulmonary disease has been stable he has had typical morning sputum production has not any unexpected dyspnea but his GI symptoms have limited his ability to do things during the day. The patient currently is on voriconazole since May as he sees [facility] pulmonary medicine and had a bronchoscopy and this was the recommendation he is to complete 6 months of therapy and thus is continued on this medicine orally at this time Patient denies any cardiac symptoms such as chest pressure he has no heart failure symptoms and although sleeps in recliner has not not had any recent worsening of his breathing at night nor lower extremity edema. Patient has had not had any issues in the past with anesthesia as he has had a hernia repair and most recently has not had any bruising or bleeding hematuria or melena Chest x-ray performed in the emergency department shows chronic changes of COPD and a chronic elevated left hemidiaphragm. EKG is likewise without acute concerns Patient is recommended to proceed for acute cholecystectomy due to acute cholecystitis with placement and progressive care unit post procedure to have oversight over his chronic pulmonary disease I personally notified Dr. Oconnor and spoke to anesthesia on-call Dr. Botello Allergies Allergy/AdvReac Type Severity Reaction Status Date / Time clarithromycin Allergy Severe SHORTNESS Verified 12/21/21 21:18 OF BREATH atorvastatin Allergy Intermediate MUSCLE Verified 12/21/21 21:18 ACHES ARMS metaproterenol Allergy Unknown UNKNOWN Verified 12/21/21 21:18 Home Medications Medication Instructions Recorded Confirmed Type amlodipine 5 mg tablet 5 mg PO QAM 08/05/18 12/21/21 History ergocalciferol (vitamin D2) 1,250 50,000 unit PO WK 08/05/18 12/21/21 History mcg (50,000 unit) capsule hydrocortisone 2.5 % topical cream 1 applic topical BID PRN Skin 08/05/18 12/21/21 History Irritation ketoconazole 2 % topical cream 1 applic topical BID PRN Skin 08/05/18 12/21/21 History Irritation ropinirole 0.25 mg tablet 0.25 mg PO HS 08/05/18 12/21/21 History mirtazapine 15 mg tablet 15 mg PO HS #36 tabs 05/02/19 12/21/21 Rx guaifenesin 1,200 mg tablet, 1,200 mg PO BID 06/30/20 12/21/21 History extended release 12 hr (Mucinex) albuterol sulfate 90 mcg/actuation 2 puff inhalation Q4 PRN Shortness 10/29/20 12/21/21 Rx aerosol inhaler (Ventolin HFA) Of Breath Or Wheezing #18 grams tiotropium 2.5 mcg-olodaterol 2.5 2 puff inhalation QAM #12 grams 02/02/21 12/21/21 Rx mcg/actuation mist for inhalation hydroxyzine HCl 25 mg tablet 25 mg PO Q6 PRN Anxiety 04/01/21 12/21/21 History azithromycin 250 mg tablet 250 mg PO .COMPLEX 15 days #15 tabs 05/10/21 12/21/21 Rx montelukast 10 mg tablet 10 mg PO HS #90 tabs 06/23/21 12/21/21 Rx albuterol sulfate 2.5 mg/3 mL 2.5 mg continuous nebulization QID 12/21/21 12/21/21 History (0.083 %) solution for nebulization fluticasone fur. 100 mcg-umeclid 1 ea inhalation DIRECTED 12/21/21 12/21/21 History 62.5 mcg-vilant 25 mcg inhalat.powder (Trelegy Ellipta) ipratropium bromide 0.02 % 2.5 ml inhalation QID PRN 12/21/21 12/21/21 History solution for inhalation Shortness Of Breath Or Wheezing pantoprazole 20 mg tablet,delayed 20 mg PO DAILY 12/21/21 12/21/21 History release sodium chloride 7 % for 4 ml inhalation BID 12/21/21 12/21/21 History nebulization prednisone 10 mg tablet 5 mg PO DAILY #30 tabs 12/25/21 12/21/21 Rx Past Med/Surg History Medical History Abnormal CT scan, chest Bullous emphysema Chronic dyspnea Chronic hypoxemic respiratory failure COPD, severe Cough Former tobacco use GERD (gastroesophageal reflux disease) History of acute bronchitis History of acute sinusitis History of chronic obstructive pulmonary disease History of methicillin resistant Staphylococcus aureus infection History of MRSA infection of lungs History of pneumonia History of tachycardia HLD (hyperlipidemia) HTN (hypertension) Surgical History (Updated 10/21/22 @ 15:34 by Kaylyn Kruger RN) History of hernia repair History of hip surgery History of tonsillectomy Hx laparoscopic cholecystectomy (10/21/22) Laparoscopic cholecystectomy. Dr. Oconnor Family History Mother Diabetes Father Heart disease Social History Smoking Status: Former smoker Cigarettes Per Day: 2 packs/day; Second Hand Exposure: No; Do You Dip or Chew Tobacco: No; Hx Alcohol Use: No Hx Substance Use: No Preferred Language: Kinyarwanda Communication Ability: Effective [employer] Required: No Beliefs That Will Affect Care: None Current Living Situation: Spouse Current Living Situation Comment: Lives with Feels Safe at Home: Yes Safety Concerns: Feels Safe At This Time Assistive Devices: Glasses and Oxygen - Continuous Review of Systems Review of Systems: Mild distress and fatigue no headache, no visual changes no speech or swallowing issues no chest pain, pressure or palpitations Baseline shortness of breath, no new cough or wheezes Right upper quad abdominal pain, worsened postprandially with mild nausea or vomiting, but no diarrhea or constipation no dysuria, hematuria or frequency no focal joint pain or swelling no back pain, CVA tenderness or radicular pain no bruising, bleeding or rashes no focal signs of weakness or numbness or altered sensation no complaints of anxiety or depression.. Physical Exam Physical Exam: The patient appeared well nourished and normally developed. Vital signs as documented. Head exam is normocephalic atraumatic Neck is without JVD, thyromegaly, or carotid bruits. Lungs are with diminished air movement no focal loss or wheeze Cardiac exam, Rhythm is regular.. No murmurs, rubs or gallops. Abdominal exam reveals normal bowel sounds, soft tender in the right upper quadrant no rebound no guarding Extremities are nonedematous and both pedal pulses are present Neurologic exam is alert and oriented, no focal loss of strength or sensation Skin is without bruises or rashes Psychologically is without concerns for anxiety or depression.. Results & Data Results & Data Vital Signs (Past 12 Hours) Vital Signs Temp Pulse Pulse Resp BP BP Pulse Ox 10/21/22 08:00 105 H 26 H 143/81 H 94 10/21/22 08:05 95 10/21/22 07:10 108 H 10/21/22 06:06 105 H 20 151/82 H 93 10/21/22 04:38 105 H 18 157/80 H 94 10/21/22 03:52 102 H 18 138/73 93 10/21/22 03:09 106 H 16 136/105 H 98 10/21/22 03:20 110 H 10/21/22 02:33 97.3 F L 109 H 20 137/79 92 O2 Del Method O2 Flow Rate 10/21/22 08:00 Nasal Cannula 3 10/21/22 08:05 Room Air 10/21/22 07:10 10/21/22 06:06 Nasal Cannula 3 10/21/22 04:38 Nasal Cannula 3 10/21/22 03:52 Nasal Cannula 4 10/21/22 03:09 Nasal Cannula 3 10/21/22 03:20 10/21/22 02:33 Nasal Cannula 3 Laboratory Results Reviewed CBC reviewed chemistries Diagnostic Findings Reviewed portable chest x-ray and EKG Code Status & VTE Plan VTE Prophylaxis Plan VTE Prophylaxis will be ordered: Yes PG Care Time/CCT Total # of Minutes Spent Total Time Spent with Patient: Total time spent is greater than 50% in coordination of care (as documented) at patient's floor/unit and/or counseling patient: Coding Level of Care Code 34192 INT INP/OBS CARE MIN Diagnoses Acute cholecystitis K81.0 Chronic hypoxemic respiratory failure J96.11 Tracheobronchitis due to Aspergillus J40; B44.89 HTN (hypertension) I10 Major depressive disorder, recurrent severe without psychotic features F33.2
[2022-10-21 09:00] LABS: Partial Thromboplastin Ratio 0.9; Partial Thromboplastin Time 24.5 Seconds (21.0-31.0); Prothrombin Time 10.9 Seconds (9.0-12.0)
[2022-10-21] MEDS ORDERED: fentaNYL citrate PF 100 MCG/2 ML VIAL IV PRN (09:31)
[2022-10-21] MEDS ORDERED: FLUMAZENIL 0.1 MG/1 ML 10 ML VIAL IV PRN (09:31)
[2022-10-21] MEDS ORDERED: ONDANSETRON INJ 2 MG/ML 2 ML VIAL IV PRN ×2 (09:31→13:40)
[2022-10-21] MEDS ORDERED: LABETALOL HCL IV 5 MG/ML 20ML IV PRN (09:31)
[2022-10-21] MEDS ORDERED: NALOXONE HCL 0.4 MG/1 ML VIAL/CARP IV PRN (09:31)
[2022-10-21] MEDS ORDERED: PROMETHAZINE HCL 12.5 MG in SODIUM CHLORIDE 0.9% 50 ML IV PRN (09:31)
[2022-10-21] MEDS ORDERED: ATROPINE SULFATE 0.1 MG/ML 10ML SYR IV PRN (09:31)
--- NOTE | 2022-10-21 09:31 | Anesthesiology Consultation ---
Date of Service October 21, 2022 Assessment & Plan Chart Review Chart Review: Acceptable Risk for Surgery and Patient NOT seen in Pre Admission Testing Consults Requested none ASA [id number] Proposed Anesthesia Anesthesia Type: General Risk / Benefits Reviewed With: PT / POA / Parent / Guardian, Accepts Plan and Informed Consent Obtained History Surgery Operation Date: 10/21/22 09:20 Proposed Procedures p Laparoscopic Cholecystectomy - Anand Oconnor MD, FACS Height/Weight Height: 5 ft 6 in Weight: 65 kg Allergies Allergy/AdvReac Type Severity Reaction Status Date / Time clarithromycin Allergy Severe SHORTNESS Verified 12/21/21 21:18 OF BREATH atorvastatin Allergy Intermediate MUSCLE Verified 12/21/21 21:18 ACHES ARMS metaproterenol Allergy Unknown UNKNOWN Verified 12/21/21 21:18 Medications Home Medications Medication Instructions Recorded Confirmed Last Taken amlodipine 5 mg tablet 5 mg PO QAM 08/05/18 12/21/21 08/21/18 05:30 ergocalciferol (vitamin D2) 1,250 50,000 unit PO WK 08/05/18 12/21/21 08/17/18 08:00 mcg (50,000 unit) capsule hydrocortisone 2.5 % topical cream 1 applic topical BID PRN Skin 08/05/18 12/21/21 08/20/18 22:00 Irritation ketoconazole 2 % topical cream 1 applic topical BID PRN Skin 08/05/18 12/21/21 Unknown Irritation ropinirole 0.25 mg tablet 0.25 mg PO HS 08/05/18 12/21/21 08/20/18 22:00 mirtazapine 15 mg tablet 15 mg PO HS #36 tabs 05/02/19 12/21/21 Unknown guaifenesin 1,200 mg tablet, 1,200 mg PO BID 06/30/20 12/21/21 Unknown extended release 12 hr (Mucinex) albuterol sulfate 90 mcg/actuation 2 puff inhalation Q4 PRN Shortness 10/29/20 12/21/21 Unknown aerosol inhaler (Ventolin HFA) Of Breath Or Wheezing #18 grams tiotropium 2.5 mcg-olodaterol 2.5 2 puff inhalation QAM #12 grams 02/02/21 12/21/21 Unknown mcg/actuation mist for inhalation hydroxyzine HCl 25 mg tablet 25 mg PO Q6 PRN Anxiety 04/01/21 12/21/21 Unknown azithromycin 250 mg tablet 250 mg PO .COMPLEX 15 days #15 tabs 05/10/21 12/21/21 Unknown montelukast 10 mg tablet 10 mg PO HS #90 tabs 06/23/21 12/21/21 Unknown albuterol sulfate 2.5 mg/3 mL 2.5 mg continuous nebulization QID 12/21/21 12/21/21 Unknown (0.083 %) solution for nebulization fluticasone fur. 100 mcg-umeclid 1 ea inhalation DIRECTED 12/21/21 12/21/21 Unknown 62.5 mcg-vilant 25 mcg inhalat.powder (Trelegy Ellipta) ipratropium bromide 0.02 % 2.5 ml inhalation QID PRN 12/21/21 12/21/21 Unknown solution for inhalation Shortness Of Breath Or Wheezing pantoprazole 20 mg tablet,delayed 20 mg PO DAILY 12/21/21 12/21/21 Unknown release sodium chloride 7 % for 4 ml inhalation BID 12/21/21 12/21/21 Unknown nebulization prednisone 10 mg tablet 5 mg PO DAILY #30 tabs 12/25/21 12/21/21 Unknown NPO Date Last Intake of Fluids: 10/20/22 Time Last Intake of Fluids: 21:30 Date Last Intake of Solids: 10/20/22 Time Last Intake of Solids: 18:30 Past Medical History Medical History Abnormal CT scan, chest Bullous emphysema Chronic dyspnea Chronic hypoxemic respiratory failure COPD, severe Cough Former tobacco use GERD (gastroesophageal reflux disease) History of acute bronchitis History of acute sinusitis History of chronic obstructive pulmonary disease History of methicillin resistant Staphylococcus aureus infection History of MRSA infection of lungs History of pneumonia History of tachycardia HLD (hyperlipidemia) HTN (hypertension) Home oxygen use Exercise / Class Metabolic Activity III < 4 Walking/Shop/Light housework Past Family History Family History Mother Diabetes Father Heart disease Past Surgical History Surgical History History of hernia repair History of hip surgery History of tonsillectomy Past Anesthesia History No Hx of Anesthesia Complications and No Family Hx of Anesthesia Complications History of PONV No Hx of PONV and No Hx of Motion Sickness Social History Smoking Status: Former smoker (quit x 21 years ?;former 2+ PPD) tobacco type: cigarettes Smoking cigarettes per day: 2 packs/day Do You Dip or Chew Tobacco: No Hx Alcohol Use: No Hx Substance Use: No substance use type: does not use Physical Exam Vital Signs Last Vital Signs Temp 37.5 C 10/21/22 09:19 Pulse 108 H 10/21/22 09:19 Resp 22 10/21/22 09:19 BP 161/87 H 10/21/22 09:19 Pulse Ox 96 10/21/22 09:19 O2 Del Method Nasal Cannula 10/21/22 09:19 O2 Flow Rate 3 10/21/22 09:19 Constitutional + cachectic; no acute distress ENMT Mouth: + dentition abnormality and + edentulous Thyromental Distance: > or= 3.5 Finger Breadths Mallampati Class: II Neck normal visual inspection and trachea midline; neck extension not limited Respiratory + uses accessory muscles Auscultation: + diminished lung sounds Cardiovascular Rate/Rhythm: regular rhythm and + tachycardic Heart Sounds: no murmur Vessels: no carotid bruit Musculoskeletal Spine: normal cervical ROM and no pain with cervical ROM Extremities: full ROM of extremities Neurologic moves all extremities Motor/Sensory: no sensory deficit Psychiatric Orientation: alert and oriented x 3 Testing Laboratory Results 10/21/22 03:26 10/21/22 03:26 PT 10.9 Seconds (9.0-12.0) 10/21/22 08:01 INR 1.0 (0.9-1.1) 10/21/22 08:01 APTT 24.5 Seconds (21.0-31.0) 10/21/22 08:01 Urine Color Yellow 10/21/22 05:00 Urine Appearance Clear (Clear) 10/21/22 05:00 Urine pH 7.0 (4.5-7.5) 10/21/22 05:00 Ur Specific [place] 1.043 (1.000-1.030) H 10/21/22 05:00 Urine Protein 1+ (Negative) H 10/21/22 05:00 Urine Glucose (UA) 1+ (Negative) H 10/21/22 05:00 Urine Ketones 3+ (Negative) H 10/21/22 05:00 Urine Nitrite Negative (Negative) 10/21/22 05:00 Ur Leukocyte Esterase Negative (Negative) 10/21/22 05:00 Urine WBC (Auto) 0 /hpf (0-5) 10/21/22 05:00 Urine RBC (Auto) 0-4 /hpf (0-4) 10/21/22 05:00 U Hyaline Cast (Auto) 1-5 /lpf (0-5) 10/21/22 05:00 U Epithel Cells (Auto) 0-5 /lpf (0-5) 10/21/22 05:00 Urine Bacteria (Auto) Negative (Negative) 10/21/22 05:00 10/21/22 04:14 POC Glucose (other) 160 H Electrocardiogram Date: 10/21/22 Findings: + ST @ (@ 105) Chest X-Ray Date: 10/21/22 Findings: + other (C/W advanced emphysema;chronic parenchymal changes)
[2022-10-21] MEDS ORDERED: BUPIVACAINE 0.5 % 5 MG/1 ML MPF 30ML VIAL ONE (09:41)
[2022-10-21] MEDS ORDERED: ACETAMINOPHEN 1000 MG/100 ML IV IV ONE (09:48)
[2022-10-21] MEDS ORDERED: fentaNYL citrate PF 100 MCG/2 ML VIAL ONE (10:15)
[2022-10-21] MEDS ORDERED: MIDAZOLAM HCL 1 MG/ML 2ML VIAL ONE (10:15)
[2022-10-21] MEDS ORDERED: LIDOCAINE 2% 2 ML VIAL/AMP(20MG/ML) INFIL ONE (10:17)
[2022-10-21] MEDS ORDERED: DEXAMETHASONE SOD INJ 4 MG/ML VIAL ONE (10:17)
[2022-10-21] MEDS ORDERED: METOCLOPRAMIDE HCL INJ 5 MG/ML 2 ML VIAL ONE (10:17)
[2022-10-21] MEDS ORDERED: PROPOFOL IV EMULSION 10 MG/ML 20 ML VIAL IV ONE (10:17)
[2022-10-21] MEDS ORDERED: ROCURONIUM BROMIDE 10 MG/ML 5 ML VIAL IV ONE (10:17)
[2022-10-21] MEDS ORDERED: ONDANSETRON INJ 2 MG/ML 2 ML VIAL ONE ×2 (10:17→12:00)
[2022-10-21] MEDS ORDERED: LARYING-O-JET KIT (LTA) ONE (11:00)
[2022-10-21] MEDS ORDERED: SUGAMMADEX SODIUM 200 MG/2 ML VIAL IV ONE (11:28)
--- NOTE | 2022-10-21 11:44 | Post Operative Brief Note ---
PG Immediate Post Op with CF Date of Surgery October 21, 2022 Pre & Post Diagnosis Operation Date: 10/21/22 09:20 Pre-Op Diagnosis: Acute cholecystitis Post-Op Diagnosis: Acute cholecystitis, gangrenous cholecystitis I identified the patient and participated in the time-out.: Yes Procedure Operation Date: 10/21/22 09:20 Actual Procedures p Laparoscopic Cholecystectomy(Not Applicable) - Anand Oconnor MD, FACS Surgeon Anand Oconnor MD, FACS Ice Guard Inspector indira Erickson Estimated Blood Loss 10 Findings Consistent with Post-Op Diagnosis Patient had severe necrotizing/gangrenous cholecystitis Drain placed Specimens Specimen Description: A. Gallbladder and contents. Drains Patricio-Bender Drain (15f)
--- NOTE | 2022-10-21 12:17 | Operative Report (OR) ---
DATE OF OPERATION: 10/21/2022. NAME OF OPERATION: Laparoscopic cholecystectomy. PREOPERATIVE DIAGNOSIS: Acute cholecystitis. POSTOPERATIVE DIAGNOSES: Acute cholecystitis with acute necrotizing/gangrenous cholecystitis. STAFF SURGEON: Anand Oconnor MD. BREAD MOLDER: Diana Erickson. ANESTHESIA: General. DESCRIPTION OF PROCEDURE: The patient was brought in the operating room, placed on the operating tab le in supine position. Pneumatic stockings and orogastric tube were placed. His abdomen was prepped and draped in the usual fashion. A 0.5% plain Marcaine was used to anesthetize all incisions. Inci altagracia was made above the umbilicus, carrying dissection down to the fascia, placing a Veress needle pr oducing pneumoperitoneum. An 11 mm port placed at this level and under visualization, three 5 mm por ts were placed, one cephalad and two laterally. There were adhesions to the gallbladder. These were taken down. They were easily taken down bluntly. He did have some scar tissue at the missy hepatis . His gallbladder was severely inflamed, distended and gangrenous. We grasped the gallbladder and i t basically ruptured. We aspirated the fluid, irrigated and then dissection was carried out to missy hepatis, identifying the cystic duct and cystic artery. These were clipped and transected. Gallbla dder then dissected away from the liver bed. There was severe inflammation. The gallbladder was inna ceci in an Endobag. After appropriate irrigation and hemostasis, I did place some FloSeal in the live r bed. We placed a 15 round Patricio-Bender drain in the lateral 5 mm port site into the subhepatic sp clyde, secured to the skin using 3-0 nylon suture. A drain was placed to suction bulb at the end of e case. The gallbladder was within an Endobag and the Endobag was removed through the umbilical site . I did have to enlarge the fascial defect to remove the large gallbladder. Fascia at the umbilicus closed using 0 PDS suture. The skin was reapproximated using 4-0 nylon suture. The patient was tra nsferred to recovery room in stable condition. My anesthesiologist assistant helped with prepping, draping, removal of gallbladder and closure of the wound. Job ID: [id number]
[2022-10-21] MEDS ORDERED: FLOSEAL HEMOSTATIC MATRIX 10ML TOP ONE (12:26)
--- NOTE | 2022-10-21 12:36 | Anesthesiology Progress Note ---
Date of Service October 21, 2022 Anesthesia Post Procedure Vital Signs Vital Signs: Temp Pulse Pulse Resp BP BP Pulse Ox 10/21/22 12:25 103 H 24 140/90 95 10/21/22 12:15 102 H 24 159/82 H 95 10/21/22 12:05 101 H 22 164/89 H 99 10/21/22 11:55 102 H 24 167/87 H 98 10/21/22 11:45 97.0 F L 91 H 26 H 155/80 H 95 10/21/22 09:19 99.5 F 108 H 22 161/87 H 96 10/21/22 08:00 105 H 26 H 143/81 H 94 10/21/22 08:05 95 10/21/22 07:10 108 H 10/21/22 06:06 105 H 20 151/82 H 93 10/21/22 04:38 105 H 18 157/80 H 94 10/21/22 03:52 102 H 18 138/73 93 10/21/22 03:09 106 H 16 136/105 H 98 10/21/22 03:20 110 H 10/21/22 02:33 97.3 F L 109 H 20 137/79 92 O2 Del Method O2 Flow Rate 10/21/22 12:25 Nasal Cannula 4 10/21/22 12:15 Nasal Cannula 4 10/21/22 12:05 Oxymask 8 10/21/22 11:55 Oxymask 8 10/21/22 11:45 Oxymask 6 10/21/22 09:19 Nasal Cannula 3 10/21/22 08:00 Nasal Cannula 3 10/21/22 08:05 Room Air 10/21/22 07:10 10/21/22 06:06 Nasal Cannula 3 10/21/22 04:38 Nasal Cannula 3 10/21/22 03:52 Nasal Cannula 4 10/21/22 03:09 Nasal Cannula 3 10/21/22 03:20 10/21/22 02:33 Nasal Cannula 3 Pain Intensity Abdomen: Pain Intensity: 5 Transfer of Care Handoff Completed per policy Notes Mental Status: alert / awake / arousable and participated in evaluation Patient Amnestic to Procedure: Yes Nausea / Vomiting: adequately controlled Pain: adequately controlled Airway Patency, RR, SpO2: stable & adequate BP & HR: stable & adequate Hydration State: stable & adequate Anesthetic Complications: no major complications apparent and Pt Satisfied with anesthetic care
[2022-10-21] MEDS ORDERED: ACETAMINOPHEN 10MG/ML Custom 1,000 MG in EMPTY BAG 0 ML IV PRN (13:40)
[2022-10-21] MEDS ORDERED: NON-FORMULARY MEDICATION (Fluticasone-Umeclidin-Vilanter [Trelegy Ellipta] 100-62.5-25 mcg INH SCH (13:40)
[2022-10-21] MEDS ORDERED: LORazepam 2 MG/1 ML VIAL IV PRN (13:40)
[2022-10-21] MEDS ORDERED: hydrALAZINE HCL 20 MG/ML VIAL IV PRN (13:40)
[2022-10-21] MEDS ORDERED: ACETAMINOPHEN 1,000 MG/100 ML VIAL IV PRN (13:49)
[2022-10-21] MEDS: MoRPHine SULFATE 2 MG/ML CARP IV PRN ×2 (14:03→20:06)
[2022-10-21] MEDS: SODIUM CHLORIDE 0.9% 1000ML 1,000 ML IV SCH ×2 (14:04→22:13)
[2022-10-21] MEDS: SODIUM CHLOR 7% 4 ML NEB INH SCH ×2 (14:24→19:21)
[2022-10-21] MEDS: ALBUTEROL 0.083% NEBU SOLN 3 ML VIAL NEB SCH ×2 (14:24→19:20)
[2022-10-21] MEDS: IPRATROPIUM BROMIDE NEB SOLN 0.02% 2.5 ML VIAL INH PRN ×2 (14:43→19:20)
[2022-10-21] MEDS: PIPERACILLIN/TAZOBACTAM 4.5 GM in DEXTROSE 5% 100 ML IV SCH ×3 (15:19→22:12)
[2022-10-21] MEDS: VORICONAZOLE 200 MG TABLET PO SCH ×2 (16:56→21:17)
[2022-10-21] MEDS ORDERED: HYDROCORTISONE SOD SUCCINATE 100 MG/2 ML VIAL IV SCH (17:00)
[2022-10-21] MEDS: HYDROCORTISONE SOD 50 MG in SYRINGE 0 ML IV SCH (17:57)
[2022-10-21] MEDS: MONTELUKAST SODIUM 10 MG TABLET PO SCH (20:07)
[2022-10-21] MEDS: rOPINIRole HCL 0.25 MG TABLET PO SCH (20:07)
[2022-10-21] MEDS: MIRTAZAPINE TAB 15 MG TAB PO SCH (21:17)
[2022-10-22] MEDS: HYDROCORTISONE SOD 50 MG in SYRINGE 0 ML IV SCH ×3 (01:24→16:55)
[2022-10-22] MEDS: PIPERACILLIN/TAZOBACTAM 4.5 GM in DEXTROSE 5% 100 ML IV SCH ×3 (05:55→22:20)
[2022-10-22] MEDS: MoRPHine SULFATE 4 MG/ML 1 ML CARP\\VIAL IV PRN ×3 (06:28→19:35)
[2022-10-22] MEDS: IPRATROPIUM BROMIDE NEB SOLN 0.02% 2.5 ML VIAL INH PRN ×4 (07:22→19:08)
[2022-10-22] MEDS: ALBUTEROL 0.083% NEBU SOLN 3 ML VIAL NEB SCH ×4 (07:23→19:08)
[2022-10-22] MEDS: SODIUM CHLOR 7% 4 ML NEB INH SCH ×2 (07:23→19:08)
[2022-10-22 07:31] LABS: Hematocrit (blood only) 41.9 % (42.0-52.0); Hemoglobin 13.5 g/dl (14.0-18.0); Mean Corpuscular Hemoglobin 29.5 pg (25.0-34.0); Mean Corpuscular Hgb Conc 32.2 g/dL (32.0-36.0); Mean Corpuscular Volume 91.5 fL (80.0-100.0); Mean Platelet Volume 10.1 fL (9.4-12.4); Platelet Count 345 K/uL (130-400); RDW Coefficient of Variation 13.3 % (11.5-14.5); RDW Standard Deviation 44.9 fL (36.4-46.3); Red Blood Count 4.58 M/uL (4.70-6.10); White Blood Count 18.57 K/ul (4.8-10.8)
[2022-10-22 07:48] LABS: Albumin Globulin Ratio 1.4 (0.9-2); Albumin Level 3.7 gm/dl (3.4-5.0); BUN Creatinine Ratio 22.8 (10-20); Bilirubin,Total 0.5 mg/dl (0.2-1.0); Calcium 8.7 mg/dl (8.6-10.3); Creatinine Clr Calc Pharmacy 70.3 ml/min; Est GFR (African American) 99.4 ml/min; Est GFR (Non-African American) 85.8 ml/min; Globulin 2.6 gm/dl (2.5-4.0); Magnesium 2.3 mg/dl (1.7-2.4); Potassium 4.3 mmol/L (3.5-5.1); Total Protein 6.3 gm/dl (6.0-8.3)
[2022-10-22] MEDS: VORICONAZOLE 200 MG TABLET PO SCH ×2 (08:03→19:36)
[2022-10-22] MEDS: UMECLIDINIUM/VILANTEROL 62.5/25MCG 7 PUFFS/INHALER INH SCH (08:04)
[2022-10-22] MEDS: FLUTICASONE FUROATE 100MCG 14 PUFFS/INHALER INH SCH (08:04)
--- NOTE | 2022-10-22 10:29 | Surgery Progress Note ---
Date of Service October 22, 2022 Assessment & Plan (1) Acute cholecystitis: Plan: He is doing well postoperative day 1 laparoscopic cholecystectomy Leave drain in place, will go home with this Encourage ambulation incentive spirometry and try and wean his oxygen We will advance his diet as tolerated He may be stable for discharge home tomorrow if he tolerates his diet and his pain is controlled from a surgical standpoint We will follow Admission and Anticipated Discharge Date Admission Date: October 21, 2022 Subjective Patient seen and examined. Abdominal pain controlled. No acute events overnight. No fevers or chills. Still on oxygen. No nausea or vomiting. Review of Systems Constitutional: no fever and no chills Physical Exam Constitutional: WD/WN, vitals as above Gastrointestinal (Abdomen): Soft, appropriately tender, right upper quadrant drain in place with serosanguineous output Results & Data Vital Signs (Past 12 Hours) Vital Signs Temp Pulse Pulse Resp BP Pulse Ox O2 Del Method 10/22/22 08:00 Nasal Cannula 10/22/22 07:08 36.7 C 109 H 20 107/59 L 91 Nasal Cannula 10/22/22 07:26 91 H 10/22/22 07:23 109 H 20 94 Nasal Cannula 10/22/22 03:34 36.8 C 94 H 20 119/65 92 Nasal Cannula 10/21/22 23:10 95 H 10/21/22 23:07 36.8 C 95 H 18 123/68 92 Nasal Cannula O2 Flow Rate 10/22/22 08:00 10/22/22 07:08 3.0 10/22/22 07:26 10/22/22 07:23 3 10/22/22 03:34 3 10/21/22 23:10 10/21/22 23:07 3 PG Care Time/CCT Total # of Minutes Spent Total Time Spent with Patient: Total time spent is greater than 50% in coordination of care (as documented) at patient's floor/unit and/or counseling patient: Coding Level of Care Code 72525 Post Operative Follow-Up Diagnoses Acute cholecystitis K81.0
--- NOTE | 2022-10-22 16:00 | Hospitalist Progress Note ---
Date of Service October 22, 2022 Assessment & Plan (1) Acute cholecystitis: Plan: Patient presents with symptoms and abdominal CT consistent with acute cholecystitis. Status post acute cholecystectomy laparoscopically on 10/21/[address] Anand Oconnor He will maintain Zosyn therapy. Patient tolerating advancement of diet VALORIE drain is with serosanguineous discharge Patient was chronic on azithromycin this was held and voriconazole was started to complete his outpatient course (2) Chronic hypoxemic respiratory failure: Plan: Patient chronically on 3 L of oxygen. We will continue Trelegy albuterol Atrovent and Singulair. Patient will be placed on stress dose steroids as he typically is on prednisone 5 this will transition back to prednisone 5 on the (3) Tracheobronchitis due to Aspergillus: Plan: Patient reported on voriconazole through [facility] pulmonary medicine we will continue this 200 twice daily he supposed on for 6 months starting in May (4) HTN (hypertension): Plan: Chronic and stable on amlodipine blood pressures been stable without at this point resume at discharge (5) Major depressive disorder, recurrent severe without psychotic features: Plan: Patient chronically stable on mirtazapine ropinirole and hydroxyzine as needed for anxiety. Admission and Anticipated Discharge Date Admission Date: October 21, 2022 Subjective Patient seen in the company of his he is doing quite well tolerating advancement of diet respiratory status is its moderate distress is typical for him Physical Exam Physical Exam: The patient appeared well nourished and normally developed. Vital signs as documented. Head exam is normocephalic atraumatic Neck is without JVD, thyromegaly, or carotid bruits. Lungs are with diminished air movement no focal loss or wheeze Cardiac exam, Rhythm is regular.. No murmurs, rubs or gallops. Abdominal exam reveals normal bowel sounds, soft tenderness and VALORIE drain in the right upper quadrant, serosanguineous discharge Extremities are nonedematous and both pedal pulses are present Neurologic exam is alert and oriented, no focal loss of strength or sensation Skin is without bruises or rashes Psychologically is without concerns for anxiety or depression.. Results & Data Results & Data Vital Signs (Past 12 Hours) Vital Signs Temp Pulse Pulse Resp BP Pulse Ox O2 Del Method 10/22/22 15:43 103 H 20 92 Nasal Cannula 10/22/22 15:17 103 H 10/22/22 11:34 97.7 F 99 H 18 114/65 93 Nasal Cannula 10/22/22 11:18 108 H 18 93 Nasal Cannula 10/22/22 08:00 Nasal Cannula 10/22/22 07:08 98.1 F 109 H 20 107/59 L 91 Nasal Cannula 10/22/22 07:26 91 H 10/22/22 07:23 109 H 20 94 Nasal Cannula O2 Flow Rate 10/22/22 15:43 3 10/22/22 15:17 10/22/22 11:34 3.0 10/22/22 11:18 3 10/22/22 08:00 10/22/22 07:08 3.0 10/22/22 07:26 10/22/22 07:23 3 PG Care Time/CCT Total # of Minutes Spent Total Time Spent with Patient: Total time spent is greater than 50% in coordination of care (as documented) at patient's floor/unit and/or counseling patient: Coding Level of Care Code 07820 SUB INP/OBS CARE 2/35MIN Diagnoses Acute cholecystitis K81.0 Chronic hypoxemic respiratory failure J96.11 Tracheobronchitis due to Aspergillus J40; B44.89 HTN (hypertension) I10 Major depressive disorder, recurrent severe without psychotic features F33.2
[2022-10-22] MEDS: MIRTAZAPINE TAB 15 MG TAB PO SCH (19:36)
[2022-10-22] MEDS: rOPINIRole HCL 0.25 MG TABLET PO SCH (19:36)
[2022-10-22] MEDS: MONTELUKAST SODIUM 10 MG TABLET PO SCH (19:37)
[2022-10-23] MEDS: HYDROCORTISONE SOD 50 MG in SYRINGE 0 ML IV SCH (02:17)
--- NOTE | 2022-10-23 05:50 | Electrocardiogram Report ---
Test Reason : Blood Pressure : / mmHG Vent. Rate : 105 BPM Atrial Rate : 105 BPM P-R Int : 196 ms QRS Dur : 080 ms QT Int : 348 ms P-R-T Axes : 097 058 064 degrees QTc Int : 459 ms Sinus tachycardia Otherwise normal ECG When compared with ECG of 21-DEC-2021 21:12, No significant change was found Confirmed by Milind Hester ([id number]) on 10/23/2022 5:50:25 AM Referred By: REFERRED SELF Confirmed By:Milind Hester
[2022-10-23] MEDS: PIPERACILLIN/TAZOBACTAM 4.5 GM in DEXTROSE 5% 100 ML IV SCH (06:34)
[2022-10-23] MEDS: MoRPHine SULFATE 2 MG/ML CARP IV PRN (06:35)
[2022-10-23] MEDS: VORICONAZOLE 200 MG TABLET PO SCH (06:44)
[2022-10-23] MEDS: IPRATROPIUM BROMIDE NEB SOLN 0.02% 2.5 ML VIAL INH PRN ×2 (07:17→10:36)
[2022-10-23] MEDS: ALBUTEROL 0.083% NEBU SOLN 3 ML VIAL NEB SCH ×2 (07:18→10:36)
[2022-10-23] MEDS: SODIUM CHLOR 7% 4 ML NEB INH SCH (07:18)
[2022-10-23 07:19] LABS: Hematocrit (blood only) 35.1 % (42.0-52.0); Hemoglobin 11.7 g/dl (14.0-18.0); Mean Corpuscular Hemoglobin 29.5 pg (25.0-34.0); Mean Corpuscular Hgb Conc 33.3 g/dL (32.0-36.0); Mean Corpuscular Volume 88.4 fL (80.0-100.0); Mean Platelet Volume 10.1 fL (9.4-12.4); Platelet Count 304 K/uL (130-400); RDW Coefficient of Variation 13.3 % (11.5-14.5); RDW Standard Deviation 43.5 fL (36.4-46.3); Red Blood Count 3.97 M/uL (4.70-6.10); White Blood Count 14.06 K/ul (4.8-10.8)
[2022-10-23] MEDS ORDERED: METOPROLOL TARTRATE 1 MG/ML VIAL IV PRN (07:39)
[2022-10-23] MEDS ORDERED: METOPROLOL TARTRATE 1 MG/ML VIAL IV STA (07:40)
[2022-10-23 07:41] LABS: Albumin Globulin Ratio 1.5 (0.9-2); Albumin Level 3.5 gm/dl (3.4-5.0); BUN Creatinine Ratio 30.1 (10-20); Bilirubin,Total 0.4 mg/dl (0.2-1.0); Calcium 8.5 mg/dl (8.6-10.3); Creatinine Clr Calc Pharmacy 69.6 ml/min; Est GFR (African American) 98.1 ml/min; Est GFR (Non-African American) 84.6 ml/min; Globulin 2.4 gm/dl (2.5-4.0); Magnesium 2.5 mg/dl (1.7-2.4); Potassium 4.3 mmol/L (3.5-5.1); Total Protein 5.9 gm/dl (6.0-8.3)
[2022-10-23] MEDS: FLUTICASONE FUROATE 100MCG 14 PUFFS/INHALER INH SCH (08:16)
[2022-10-23] MEDS: UMECLIDINIUM/VILANTEROL 62.5/25MCG 7 PUFFS/INHALER INH SCH (08:17)
[2022-10-23] MEDS ORDERED: predniSONE 5 MG TAB PO SCH (09:00)
--- NOTE | 2022-10-23 09:30 | Surgery Progress Note ---
Date of Service October 23, 2022 Assessment & Plan (1) Acute cholecystitis: Plan: He continues to do well surgically He is tolerating a diet without nausea and vomiting and passing flatus Leave drain in place, he will be discharged with this He seems to be stable from a respiratory standpoint at his home O2 level We will continue to follow Admission and Anticipated Discharge Date Admission Date: October 21, 2022 Subjective Patient seen and examined. Tolerating a regular diet. Passing some gas with no BM. Pain controlled. Afebrile. Physical Exam Constitutional: WD/WN, vitals as above Gastrointestinal (Abdomen): Soft, appropriately tender, right upper quadrant drain in place with serosanguineous output Results & Data Vital Signs (Past 12 Hours) Vital Signs Temp Pulse Pulse Resp BP Pulse Ox O2 Del Method 10/23/22 07:34 36.7 C 116 H 22 150/68 H 92 Nasal Cannula 10/23/22 07:18 118 H 22 92 Nasal Cannula 10/23/22 07:17 104 H 10/23/22 00:00 110 H 10/23/22 03:25 36.6 C 103 H 20 130/76 95 Nasal Cannula 10/22/22 23:32 36.3 C L 117 H 22 156/64 H 92 Nasal Cannula O2 Flow Rate 10/23/22 07:34 10/23/22 07:18 3 10/23/22 07:17 10/23/22 00:00 10/23/22 03:25 3 10/22/22 23:32 3 PG Care Time/CCT Total # of Minutes Spent Total Time Spent with Patient: Total time spent is greater than 50% in coordination of care (as documented) at patient's floor/unit and/or counseling patient: Coding Level of Care Code 60380 Post Operative Follow-Up Diagnoses Acute cholecystitis K81.0
[2022-10-23] MEDS ORDERED: guaiFENesin 600 MG TABCR PO ONE (09:49)
--- NOTE | 2022-10-23 17:00 | Discharge Summary ---
Date of Service October 23, 2022 Admission HPI Per Admitting Provider 67-year-old male with a history of chronic respiratory failure on 3 L of oxygen at home who presents with a 1 week history of stuttering abdominal pain associated with right upper quadrant tenderness and vomiting. Patient's had anorexia over the last week due to eating exacerbating his symptoms. Patient states his pulmonary disease has been stable he has had typical morning sputum production has not any unexpected dyspnea but his GI symptoms have limited his ability to do things during the day. The patient currently is on voriconazole since May as he sees [facility] pulmonary medicine and had a bronchoscopy and this was the recommendation he is to complete 6 months of therapy and thus is continued on this medicine orally at this time Patient denies any cardiac symptoms such as chest pressure he has no heart failure symptoms and although sleeps in recliner has not not had any recent worsening of his breathing at night nor lower extremity edema. Patient has had not had any issues in the past with anesthesia as he has had a hernia repair and most recently has not had any bruising or bleeding hematuria or melena Chest x-ray performed in the emergency department shows chronic changes of COPD and a chronic elevated left hemidiaphragm. EKG is likewise without acute concerns Patient is recommended to proceed for acute cholecystectomy due to acute cholecystitis with placement and progressive care unit post procedure to have oversight over his chronic pulmonary disease I personally notified Dr. Oconnor and spoke to anesthesia on-call Dr. Botello Principal Diagnosis Acute cholecystitis status postcholecystectomy Chronic respiratory failure with hypoxia which is stable on home oxygen Discharge Exam Patient awake alert appropriate abdomen is mildly tender VALORIE drain remains in place and was supposed to stay in place to go home per surgery Discharge Data Allergies Allergy/AdvReac Type Severity Reaction Status Date / Time clarithromycin Allergy Severe SHORTNESS Verified 12/21/21 21:18 OF BREATH atorvastatin Allergy Intermediate MUSCLE Verified 12/21/21 21:18 ACHES ARMS metaproterenol Allergy Unknown UNKNOWN Verified 12/21/21 21:18 Consultations 10/21/22 05:57 ED Decision to Admit Stat 10/21/22 13:40 Consult General Surgery Routine Procedures Performed Operation Date: 10/21/22 09:20 Actual Procedures p Laparoscopic Cholecystectomy(Not Applicable) - Anand Oconnor MD, FACS Ordered Studies 10/21/22 02:44 CT abd pelvis IV con only Stat 10/21/22 06:16 US RUQ [US liver] Stat Hospital Course (1) Acute cholecystitis: Patient presents with symptoms and abdominal CT consistent with acute cholecystitis. Status post acute cholecystectomy laparoscopically on 10/21/[address] Anand Oconnor He was treated with Zosyn therapy. Patient tolerating advancement of diet VALORIE drain is with serosanguineous discharge, patient's is instructed to on how to take care of drain patient be discharged not on any antibiotics but to resume his outpatient voriconazole and follow-up with his center administrator regarding this (2) Chronic hypoxemic respiratory failure: Patient chronically on 3 L of oxygen. We will continue Trelegy albuterol Atrovent and Singulair. 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 Total Time Total Time Spent Total Time Spent (In Minutes): It required greater than 30 minutes to prepare this patient for discharge Discharge Plan Discharge Items Patient Disposition: Home - Self-Care Reason For Visit: ACUTE CHOLECYSTITIS,CH RESP FAILURE ON HOME OXYGEN Discharge Diagnosis: laparoscopic cholecystectomy Activity: Per Instructions section Activity Comment: light activity for 4 weeks Lifting: No more than 10 pounds Bathing Comment: may shower; no soaking in tubs/pools x 2 weeks Sexual Activity: When tolerated Exercise/Sports: Wait until after follow-up appointment Exercise Comment: wait 4 weeks Driving/Machine Use: no driving while taking any narcotics for pain Non-emergency contact: Primary Care Provider and Surgeon Call non-emergency contact if: you have any medication questions, your symptoms worsen, your pain is not controlled, you have a fever, your temperature is above 101.5, your wound has increased redness, your wound has increased drainage and your wound pain has increased Follow-up/Referrals: Anand Oconnor MD, FACS [Physician] - Rickie Bermudez MD [Primary Care Provider] - Diet: Regular Addtl Attending Provider Instructions: SPECIAL CARE INSTRUCTIONS: * Cover incisions and change daily for comfort/drainage. * Empty drain 2-3 times per day and record. * May use ibuprofen for pain as tolerated. * Expect some swelling and bruising. Call your doctor if: * Temperature above 101 degrees * Pain not relieved by pain medicine ordered * There is increased drainage or redness from any incision * You have any unanswered questions or concerns [phone]. FOLLOW UP VISIT: If not already scheduled, please call the office for a follow-up visit. OFFICE PHONE NUMBER: Dr. Oconnor Office Addtl Head [employer] Provider Instructions: continue your vorconizole as directed by your outpt center administrator Pending Studies at Discharge: Yes Studies:: surgical pathology Stand-Alone Forms: My [facility] gDine, Smoking Cessation Medications and DC Order Prescriptions: New voriconazole [Vfend] 200 mg Tablet 200 mg PO BID Qty: 60 0RF oxycodone 5 mg capsule 5 mg PO TID PRN (Reason: pain) Qty: 14 0RF Continued albuterol sulfate [Ventolin HFA] 90 mcg/actuation HFA aerosol inhaler 2 puff INHALATION Q4 PRN (Reason: Shortness Of Breath Or Wheezing) Qty: 18 3RF tiotropium-olodaterol 2.5-2.5 mcg/actuation mist 2 puff INHALATION QAM Qty: 12 1RF azithromycin 250 mg tablet 250 mg PO .COMPLEX 15 Days Qty: 15 3RF Rx Instructions: 250 mg PO ; take 3x weekly (Monday, Monday, ) montelukast 10 mg tablet 10 mg PO HS Qty: 90 1RF hydroxyzine HCl 25 mg tablet 25 mg PO Q6 PRN (Reason: Anxiety) mirtazapine 15 mg tablet 15 mg PO HS Qty: 36 0RF amlodipine 5 mg Tablet 5 mg PO QAM ropinirole 0.25 mg Tablet 0.25 mg PO HS hydrocortisone 2.5 % Cream 1 applic TOPICAL BID PRN (Reason: Skin Irritation) ergocalciferol (vitamin D2) 50,000 unit Capsule 50,000 unit PO WK ketoconazole 2 % Cream 1 applic TOPICAL BID PRN (Reason: Skin Irritation) Patient Comments: month ago Mucinex 1,200 mg tablet extended release 12hr 1,200 mg PO BID pantoprazole 20 mg tablet,delayed release (DR/EC) 20 mg PO DAILY Trelegy Ellipta 100-62.5-25 mcg blister with device 1 ea INHALATION DIRECTED albuterol sulfate 2.5 mg /3 mL (0.083 %) solution for nebulization 2.5 mg continuous nebulization QID ipratropium bromide 0.02 % solution 2.5 ml INHALATION QID PRN (Reason: Shortness Of Breath Or Wheezing) sodium chloride 7 % solution for nebulization 4 ml INH BID prednisone 10 mg tablet 5 mg PO DAILY Qty: 30 0RF Discharge Orders: Discharge Order (Routine); Ordered 10/23/22 Ordered By: Grayson Bailey Admission Data Admit Date/Time: 10/21/22 09:45 Attending Provider: Grayson Bailey Admit Provider: Grayson Bailey Primary Care Provider: Rickie Bermudez Other Providers: Maury Funes ; Anand Oconnor Other Interventions: Discharge Summary Assessment (RN) Last Done: 10/23/22 10:19 Coding Level of Care Code 75594 INP/OBS DISCH >30 MIN Diagnoses Acute cholecystitis K81.0 Chronic hypoxemic respiratory failure J96.11 Tracheobronchitis due to Aspergillus J40; B44.89 HTN (hypertension) I10 Major depressive disorder, recurrent severe without psychotic features F33.2
== END 2022-10-23 11:23 | disposition home or self-care (01) | DRG 418 ==
LOC: ED 02:25 → OR 09:04 → 2S 09:04